=== PATIENT | male | born 1950 | race Caucasian/White ===

== ENCOUNTER 2016-05-31 11:23 | Inpatient (IN) | payer OTHER, MEDICARE ==
[2016-05-31] VITALS (10 sets, daily range): BP systolic 101–192; BP diastolic 52–81; PULSE 64–82; RESP 16–22; TEMP 97–98.9; O2SAT 85–100
[~2016-05-31] VITALS: Ht 180.3 cm; Wt 75.9 kg
[~2016-05-31 11:23] MED LIST: ALBU0.086 INH; ALBU6.7H INH; ALPR.25 PO; APIX5 PO; BUSP10 PO; DIGO0.12 PO; DILTCD180 PO; DUONI NEB; GABA300 PO; GLUCTAB PO; IPRAAER INH; LISI10 PO; NOVOLOGSS SQ; PRAV40TA2 PO; PRED5TAB PO; SM A81CH PO; SPIRCAP INH; SYMB160A INH; Z.0.OXYGENDME NC
[2016-05-31] MEDS ORDERED: SODIUM CHLOR 0.9% 1000 ML INJ 1,000 ML IV SCH (11:37)
[2016-05-31] MEDS: RESP: ALBUTEROL 2.5 MG/3 ML NEB (SCH) INH ×2 (12:03→12:04)
[2016-05-31 12:14] LABS: BASOPHIL # 0.1 TH/MM3 (0-0.2); BASOPHIL % 0.9 % (0.0-2.0); EOSINOPHIL # 0.1 TH/MM3 (0-0.4); EOSINOPHIL % 0.8 % (0.0-4.0); HEMATOCRIT 38.2 % (39.0-51.0); LYMPH % 8.5 % (9.0-44.0); LYMPHOCYTE # 0.9 TH/MM3 (1.0-4.8); MEAN CELL VOLUME 69.1 FL (80.0-100.0); MEAN CORPUSCULAR HEMOGLOBIN 22.2 PG (27.0-34.0); MEAN CORPUSCULAR HGB CONC 32.2 % (32.0-36.0); MONO % 7.7 % (0.0-8.0); NEUT % 82.1 % (16.0-70.0); PLATELET COUNT 406 TH/MM3 (150-450); RED BLOOD COUNT 5.53 MIL/MM3 (4.50-5.90); RED CELL DISTRIBUTION WIDTH 19.1 % (11.6-17.2); WHITE BLOOD COUNT 10.9 TH/MM3 (4.0-11.0)
[2016-05-31 12:17] LABS: HEMO FLAGS AUTO DIFF
[2016-05-31] MEDS ORDERED: IPRAAER INH (12:20)
[2016-05-31] MEDS ORDERED: AMLO5TAB2 PO (12:20)
[2016-05-31] MEDS ORDERED: ALPR0.25 PO (12:20)
[2016-05-31] MEDS ORDERED: APIX5TAB PO (12:20)
[2016-05-31] MEDS ORDERED: ASPI1TAB91 PO (12:20)
[2016-05-31] MEDS ORDERED: SYMB80AE INH (12:20)
[2016-05-31] MEDS ORDERED: METF500T PO ×2 (12:20)
[2016-05-31] MEDS ORDERED: ESCI10TA PO (12:20)
[2016-05-31] MEDS ORDERED: GABA300C5 PO (12:20)
[2016-05-31] MEDS ORDERED: SINE25TA PO (12:20)
[2016-05-31] MEDS ORDERED: BUSP10TA PO (12:20)
[2016-05-31] MEDS ORDERED: PRAV40TA2 PO (12:20)
[2016-05-31] MEDS ORDERED: LISI-515 PO (12:20)
[2016-05-31 12:27] LABS: APTT (PATIENT) 31.7 SEC (24.3-30.1); INTERNATIONAL NORMALIZED RATIO 1.1 RATIO; PROTHROMBIN TIME - PATIENT 12.7 SEC (9.8-11.6)
[2016-05-31 12:30] LABS: ANION GAP 6 MEQ/L (5-15); AST (GOT) 6 U/L (15-37); BICARBONATE 28.7 MEQ/L (21.0-32.0); BLOOD UREA NITROGEN 10 MG/DL (7-18); CHLORIDE 105 MEQ/L (98-107); GLOMERULAR FILTRATION RATE 73 ML/MIN (>89); MAGNESIUM 2.1 MG/DL (1.5-2.5); POTASSIUM 3.8 MEQ/L (3.5-5.1); SODIUM (NA) 140 MEQ/L (136-145)
--- NOTE | 2016-05-31 12:35 | PD ---
HPI Chief Complaint: Dizziness Time Seen by Provider: 12:30 Travel History International Travel<30 days: No Contact w/Intl Traveler<30days: No Traveled to known affect area: No History of Present Illness HPI 65-year-old male that presents to the ED for evaluation of generalized weakness and fall. Patient states that for the past 3 weeks she's been feeling weak and tired and has lost his appetite. Per patient she's not really eaten much for the past 3 weeks. When asked why he is tells me that he just doesn't have an appetite doesn't radiate. He does tell me that he feels somewhat nauseous but hasn't vomited. No abdominal pain. No bowel movement issues. No chest pain. He does have a history of emphysema and continues to smoke and does state that he feels a little more short of breath than usual. He states that for the most part his been weak in his lost about 15 pounds of weight in the past 3 weeks. He has not seen anybody for this. He does take liquids. Per patient he has had 2 falls recently secondary to feeling dizzy and lightheaded as well as weak. Per patient he fell yesterday and landed on his right mid back where he has some pain. Per patient today he also had another fall but denies any injuries from it. Per patient he denies hitting his head or losing consciousness. He does take blood thinners including Eliquis. He denies any arm or leg pain. No numbness, tilling, weakness. Per patient the pain at this time is 4 out of 10 and is minimal. uses oxygen at home. PFSH Past Medical History Hx Anticoagulant Therapy: Yes Arthritis: No Asthma: Yes Autoimmune Disease: No Blood Disorders: No Anxiety: Yes Depression: Yes Heart Rhythm Problems: Yes (recent SVT? ) Cancer: Yes (FATHER LUNG CA) Cardiovascular Problems: Yes High Cholesterol: Yes Chemotherapy: No Chest Pain: No Congestive Heart Failure: No COPD: Yes Cerebrovascular Accident: Yes Diabetes: Yes Patient Takes Glucophage: Yes Diminished Hearing: No Endocrine: Yes Gastrointestinal Disorders: No GERD: No Genitourinary: No Headaches: No Hiatal Hernia: No Hypertension: Yes Immune Disorder: No Kidney Stones: No Musculoskeletal: No Neurologic: Yes (parkon) Psychiatric: Yes Reproductive: No Respiratory: Yes Migraines: No Radiation Therapy: No Renal Failure: No Seizures: No Sickle Cell Disease: No Sleep Apnea: No Thyroid Disease: No Ulcer: No Tetanus Vaccination: < 5 Years Past Surgical History Abdominal Surgery: No AICD: No Arteriovenous Shunt: No Cardiac Surgery: No Ear Surgery: No Endocrine Surgery: No Eye Surgery: No Genitourinary Surgery: No Gynecologic Surgery: No Insulin Pump: No Joint Replacement: No Oral Surgery: Yes (RIGHT SIDE SALIVARY GLAND ASPIRATION 2011--DENIES) Pacemaker: No Thoracic Surgery: No Other Surgery: Yes Social History Alcohol Use: No Tobacco Use: Yes Substance Use: No Allergies-Medications (Allergen,Severity, Reaction): Coded Allergies: No Known Allergies (Verified , 05/31/16) Reported Meds & Prescriptions Reported Meds & Active Scripts Active Reported Amlodipine (Amlodipine Besylate) 5 Mg Tab 5 Mg PO BID Lisinopril 20 Mg Tab 10 Mg PO DAILY Buspirone (Buspirone HCl) 10 Mg Tab 15 Mg PO BID Gabapentin 300 Mg Cap 300 Mg PO BID Pravastatin 40 Mg Tab 40 Mg PO DAILY Aspirin Adult Low Strength (Aspirin) 81 Mg Tabdr 81 Mg PO DAILY Metformin (Metformin HCl) 500 Mg Tab 250 Mg PO DAILY IN THE PM With a meal Metformin (Metformin HCl) 500 Mg Tab 500 Mg PO DAILY IN THE AM With a meal Eliquis (Apixaban) 5 Mg Tab 5 Mg PO BID Combivent Respimat Inh (Ipratropium-Albuterol Inh) 20-100 Residential/Act Aero 1 Puff INH QID Sinemet (Carbidopa-Levodopa) 25-100 Mg Tab 1.5 Tab PO TID Symbicort Inh (Budesonide/Formoterol Fumarate) 80-4.5 Mcg/Act Aero 2 Puff INH BID Escitalopram (Escitalopram Oxalate) 10 Mg Tab 10 Mg PO DAILY Alprazolam 0.25 Mg Tab 0.25 Mg PO Q8H PRN Review of Systems General / Constitutional: Positive: Weight Loss, No: Fever, Chills, Weight Gain, Other Eyes: No: Diploplia, Blurred Vision, Photophobia, Drainage, Redness, Foreign Body Sensation, Pain, Tearing, Blind Spots, Visual changes, Blindness, Other HENT: Positive: Lightheadedness, No: Headaches, Vertigo, Sore Throat, Rhinitis , Rhinorrhea, Congestion, Nosebleed, Neck Stiffness, Neck Pain, Masses, Gingival Bleeding, Dental Difficulties, Ear Discharge, Earache, Other Cardiovascular: No: Chest Pain or Discomfort, Palpitations, Irregular Rhythm, Tachycardia, Diaphoresis, Syncope, Dyspnea on exertion, Varicosities, Edema, Cyanosis, Varicosities, Phlebitis, Claudication, Other Respiratory: Positive: Shortness of Breath, Wheezing, No: Cough, Sneezing, Orthopnea, Hemoptysis, Stridor, Night Sweats, Pleuritic Pain, Other Gastrointestinal: Positive: Loss of Appetite, No: Nausea, Vomiting, Diarrhea, Abdominal Pain, Hematemesis, Hematochezia, Constipation, Changes in Bowel Habits , Indigestion, Dysphagia, Other Genitourinary: No: Urgency, Frequency, Dysuria, Nocturia, Hematuria, Decreased Urinary Output, Oliguria, Hesitancy, Dribbling, Incontinence, Pelvic Pain, Flank Pain, Dyspareunia, Discharge, Dysmenorrhea, Menorrhagia, Metorrhagia, Vaginal Bleeding, Other Musculoskeletal: Positive: Pain, No: Myalgias, Arthralgias, Limited ROM, Weakness, Cramping, Edema, Atrophy, Other Skin: No Rash, No Itching, No Dryness, No Lumps, No Hives, No Change in Pigmentation, No Change in nails, No Alopecia, No Lesions, No Breast Lumps, No Breast Tenderness, No Breast Swelling, No Other Neurologic: Positive: Weakness, Dizziness, No: Syncope, Focal Abnormalities, Coordination Problem, Tremor, Ataxia, Headache, Change in Mentation, Slurred Speech, Paresthesia, Incontinence, Seizures, Sensory Disturbance, Other Psychiatric: No: Anxiety, Depression, Suicidal Ideations, Disorder of Thought, Mood Disorder, Substance Abuse, Homicidal Ideation, Other Endocrine: No: Heat Intolerance, Cold Intolerance, Polyuria, Polydipsia, Other Hematologic/Lymphatic: No: Easy Bruising, Lymph Node Enlargement, Other Physical Exam Narrative GENERAL: SKIN: Warm and dry. HEAD: Atraumatic. Normocephalic. EYES: Pupils equal and round 4 mm reactive to light and accommodation. No scleral icterus. No injection or drainage. ENT: No nasal bleeding or discharge. Mucous membranes pink and moist. Tongue is midline. No uvula deviation. NECK: Trachea midline. No JVD. CARDIOVASCULAR: Regular rate and rhythm. No murmurs, S3, S4. RESPIRATORY: No accessory muscle use. Clear to auscultation. Breath sounds equal bilaterally. GASTROINTESTINAL: Abdomen soft, non-tender, nondistended. Hepatic and splenic margins not palpable. MUSCULOSKELETAL: Extremities without clubbing, cyanosis, or edema. No obvious deformities. Full range of motion of the upper and lower extremities bilaterally. 2+ pulses bilaterally. NEUROLOGICAL: Awake and alert. No obvious cranial nerve deficits. Motor grossly within normal limits. Five out of 5 muscle strength in the arms and legs. Normal speech. PSYCHIATRIC: Appropriate mood and affect; insight and judgment normal. Data Data Last Documented VS Vital Signs Date Time Temp Pulse Resp B/P Pulse Ox O2 Delivery O2 Flow Rate FiO2 05/31/16 12:48 66 16 192/81 92 Nasal Cannula 4 05/31/16 11:29 98.7 Orders Electrocardiogram (05/31/16 11:34) Complete Blood Count With Diff (05/31/16 11:34) Comprehensive Metabolic Panel (05/31/16 11:34) Prothrombin Time / Inr (Pt) (05/31/16 11:34) Act Partial Throm Time (Ptt) (05/31/16 11:34) Blood Culture (05/31/16 11:34) Lipase (05/31/16 11:34) Urinalysis - C+S If Indicated (05/31/16 11:34) Magnesium (Mg) (05/31/16 11:34) Chest, Single Ap (05/31/16 11:34) Ct Brain W/O Iv Contrast(Rout) (05/31/16 11:34) Iv Access Insert/Monitor (05/31/16 11:34) Ecg Monitoring (05/31/16 11:34) Oximetry (05/31/16 11:34) Orthostatic Vital Signs (05/31/16 11:34) Ct Cerv Spine W/O Contrast (05/31/16 ) Creatine Kinase (Cpk) (05/31/16 11:34) Sodium Chlor 0.9% 1000 Ml Inj (Ns 1000 M (05/31/16 11:37) Ct Thorax/ Chest W Iv Contrast (05/31/16 ) Ct Abd/Pel W Iv Contrast(Rout) (05/31/16 ) Troponin I (05/31/16 11:39) Ckmb (Isoenzyme) Profile (05/31/16 11:39) Thyroid Stimulating Hormone (05/31/16 11:39) Albuterol Neb (Albuterol Neb) (05/31/16 11:45) Iohexol 350 Inj (Omnipaque 350 Inj) (05/31/16 13:10) Cath For Specimen (05/31/16 13:49) Remove Cervical Collar (05/31/16 13:54) Ceftriaxone Inj (Rocephin Inj) (05/31/16 14:15) Azithromycin Inj (Zithromax Inj) (05/31/16 14:15) Arterial Blood Gas (Abg) (05/31/16 ) Hydralazine Inj (Apresoline Inj) (05/31/16 14:45) Admit Order (Ed Use Only) (05/31/16 14:37) Labs Laboratory Tests Test 05/31/16 11:45 White Blood Count 10.9 TH/MM3 Red Blood Count 5.53 MIL/MM3 Hemoglobin 12.3 GM/DL Hematocrit 38.2 % Mean Corpuscular Volume 69.1 FL Mean Corpuscular Hemoglobin 22.2 PG Mean Corpuscular Hemoglobin 32.2 % Concent Red Cell Distribution Width 19.1 % Platelet Count 406 TH/MM3 Mean Platelet Volume 8.4 FL Neutrophils (%) (Auto) 82.1 % Lymphocytes (%) (Auto) 8.5 % Monocytes (%) (Auto) 7.7 % Eosinophils (%) (Auto) 0.8 % Basophils (%) (Auto) 0.9 % Neutrophils # (Auto) 9.0 TH/MM3 Lymphocytes # (Auto) 0.9 TH/MM3 Monocytes # (Auto) 0.8 TH/MM3 Eosinophils # (Auto) 0.1 TH/MM3 Basophils # (Auto) 0.1 TH/MM3 CBC Comment AUTO DIFF Differential Total Cells 100 Counted Neutrophils % (Manual) 83 % Lymphocytes % 11 % Monocytes % 4 % Eosinophils % 1 % Neutrophils # (Manual) 9.2 TH/MM3 Myelocytes 1 % Differential Comment FINAL DIFF MANUAL Platelet Estimate NORMAL Platelet Morphology Comment ENLARGED Prothrombin Time 12.7 SEC Prothromb Time International 1.1 RATIO Ratio Activated Partial 31.7 SEC Thromboplast Time Sodium Level 140 MEQ/L Potassium Level 3.8 MEQ/L Chloride Level 105 MEQ/L Carbon Dioxide Level 28.7 MEQ/L Anion Gap 6 MEQ/L Blood Urea Nitrogen 10 MG/DL Creatinine 1.02 MG/DL Estimat Glomerular Filtration 73 ML/MIN Rate Random Glucose 159 MG/DL Calcium Level 9.0 MG/DL Magnesium Level 2.1 MG/DL Total Bilirubin 0.8 MG/DL Aspartate Amino Transf 6 U/L (AST/SGOT) Alanine Aminotransferase 7 U/L (ALT/SGPT) Alkaline Phosphatase 66 U/L Total Creatine Kinase 22 U/L Troponin I LESS THAN 0.02 NG/ML Total Protein 7.4 GM/DL Albumin 3.8 GM/DL Lipase 61 U/L Thyroid Stimulating Hormone 1.020 uIU/ML [address] [place] [address] Medical Decision Making Medical Screen Exam Complete: Yes Emergency Medical Condition: Yes Medical Record Reviewed: Yes Interpretation(s) EKG shows sinus rhythm with no sign of acute ischemia or arrhythmia read by me and attending. RBBB noted. CBC & BMP Diagram 05/31/16 11:45 LFTs and lipase within normal limits. TSH within normal limits. PT and PTT slightly elevated. Troponin and CK-MB negative. Last Impressions Head CT 05/31/16 1134 Signed Impressions: Service Date/Time: May 13:02 - CONCLUSION: Stable noncontrast head CT. No acute intracranial abnormality is identified. Ronald Anderson MD Chest X-Ray 05/31/16 1134 Signed Impressions: Service Date/Time: May 11:46 - CONCLUSION: No acute cardiopulmonary abnormality is identified. Ronald Anderson MD Cervical Spine CT 05/31/16 0000 Signed Impressions: Service Date/Time: May 13:02 - CONCLUSION: Moderate severe degenerative changes at the C6-7 level more prominent on the right than on the left. No evidence of compression deformity or spondylolisthesis. Ruddy Azevedo MD CT of the thorax showed ascending aortic aneurysm but no sign of rupture, possible inflammatory process versus infectious process on the left lung. Otherwise unremarkable. 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 Differential Diagnosis Generalized weakness versus rhabdomyolysis versus electrolyte abnormality versus loss of appetite versus cancer versus mass versus hypoxia versus sepsis versus syncope versus fall versus fracture Narrative Course 65-year-old male that presents to the ED for evaluation of generalized weakness and fall. Patient was properly examined and was found to have signs and symptoms consistent appears to be generalized weakness with fall. Concern for mass secondary to recent loss of weight as well as generalized weakness. Patient had presyncopal episode today. Denies any chest pain but does state having some worsening shortness of breath secondary to his COPD and continued smoking. At this time my attending evaluated the patient with me and recommends workup and likely admission. Patient had CT of the thorax as well as the abdomen to look for mass secondary to his loss of weight and concern for cancer secondary to smoking history. Labs and imaging were essentially unremarkable other than for possible infectious etiology on the left lung as well as aneurysm on the ascending hour as well as on the left iliac artery. Troponin and EKG were essentially unremarkable. Case was discussed in my attending Dr. Snider who agrees to admission for the presyncope and generalized weakness. Further questioning of the patient in a pierced the patient has been dizzy and having presyncopal episodes. Patient is also hypoxic. Patient was started on antibiotics and ceftriaxone and azithromycin. She recommends speaking with vascular surgery for the aneurysm. Case was discussed with Dr. Blackmon from cardiothoracic surgery who recommends outpatient follow-up as he is getting close to the necessary measurement for surgery. At this time he only recommends aggressive blood pressure treatment. He does not recommend surgery at this time. I spoke with Dr. Jose who agrees to admission. Procedures EKG Prior to Arrival: No Diagnosis Primary Impression: Pre-syncope Additional Impressions: COPD (chronic obstructive pulmonary disease) Qualified Code: J43.9 - Pulmonary emphysema, unspecified emphysema type Dizziness Admitting Information Admitting Physician Requests: Observation Geovani Thomas May 31, 2016 12:34
--- NOTE | 2016-05-31 12:43 | RADRPT ---
EXAM DATE/TIME: 05/31/2016 11:46 [facility] COMPARISON: CHEST SINGLE AP, January 12, 2016, 13:42. INDICATIONS : Short of breath. MEDICAL HISTORY : None. Hypertension. Chronic obstructive pulmonary disease. Diabetes mellitus type SURGICAL HISTORY : None. ENCOUNTER: Initial ACUITY: 1 day PAIN SCORE: 1/10 LOCATION: Bilateral chest FINDINGS: Portable AP view of the chest demonstrates a normal-sized cardiac silhouette. No effusion, consolidat ion, or pneumothorax is visualized. The bones and soft tissues demonstrate no acute abnormality. CONCLUSION: No acute cardiopulmonary abnormality is identified. Ronald Anderson MD on May 31, 2016 at 12:41 Board Certified Radiologist. This report was verified electronically.
[2016-05-31 12:46] LABS: CREATINE KINASE 22 U/L (39-308)
[2016-05-31 12:48] LABS: EOSINOPHILS 1 % (0-4); MYELOCYTES 1 % (0-0); NEUTROPHIL # MANUAL DIFF 9.2 TH/MM3 (1.8-7.7); PLATELET ESTIMATE SMEAR NORMAL (NORMAL); PLATELET MORPHOLOGY ENLARGED (NORMAL); POLYS (SEG NEUTROPHILS) 83 % (16-70); WBC DIFF SAMPLE 100
[2016-05-31 12:49] LABS: SCAN/DIFF FINAL DIFF MANUAL
[2016-05-31 12:54] LABS: ALKALINE PHOSPHATASE 66 U/L (45-117); ALT (GPT) 7 U/L (12-78); TOTAL BILIRUBIN ADULT 0.8 MG/DL (0.2-1.0)
--- NOTE | 2016-05-31 13:05 | PD ---
Physical Exam Date Seen by Provider: May 31, 2016 Time Seen by Provider: 13:00 Narrative 65-year-old male came to the emergency room with history of shortness of breath , dizziness and fall. Patient says that he has history of emphysema and still smokes. He is dependent on 2 L of oxygen via nasal cannula. In addition he has been dizzy and lightheaded for past 2 weeks. He has had decrease in appetite and probably lost 15 pounds during the past 2 weeks. Today he fell during one of his dizzy spells. He lives with his at his home and his called 911. Patient was brought in boarded and collared by EMS due to the fall. He is not complaining of any pain related to the fall. However his oxygen saturation was in the low 80s when he was transferred from the [facility] to the [facility] and the oxygen cannula was switched. Very slowly the oxygen saturation came up to low 90s. He was seen by the PA and I'm supervising him. Patient is on blood thinners at home. He looks much older than his stated age. Appears to be in moderate distress and using accessory muscles of respiration. No history of fever or chills. Patient denies any worsening of cough, sputum production or hemoptysis. Blood test results of back and they're within normal limits. After discussing the case with him I recommended to order cardiac enzymes and TSH along with the routine blood work. CT scan of his head and C-spine was ordered from trauma perspective and dizziness. I also recommended to order CT spine of thorax and abdomen and pelvis with contrast since I'm highly suspicious for malignancy. Awaiting for the CAT scan to be done and resulted. Patient will require admission. I was told by the nurse that the nasal cannula had to be dilated up to 4 L since he was saturating in 80s on 2 L. On 4 L of oxygen he has been saturating 92%. Patient was also given bronchodilators. Data Data Last Documented VS Orders Electrocardiogram (05/31/16 11:34) Complete Blood Count With Diff (05/31/16 11:34) Comprehensive Metabolic Panel (05/31/16 11:34) Prothrombin Time / Inr (Pt) (05/31/16 11:34) Act Partial Throm Time (Ptt) (05/31/16 11:34) Blood Culture (05/31/16 11:34) Lipase (05/31/16 11:34) Urinalysis - C+S If Indicated (05/31/16 11:34) Magnesium (Mg) (05/31/16 11:34) Chest, Single Ap (05/31/16 11:34) Ct Brain W/O Iv Contrast(Rout) (05/31/16 11:34) Iv Access Insert/Monitor (05/31/16 11:34) Ecg Monitoring (05/31/16 11:34) Oximetry (05/31/16 11:34) Orthostatic Vital Signs (05/31/16 11:34) Ct Cerv Spine W/O Contrast (05/31/16 ) Creatine Kinase (Cpk) (05/31/16 11:34) Sodium Chlor 0.9% 1000 Ml Inj (Ns 1000 M (05/31/16 11:37) Ct Thorax/ Chest W Iv Contrast (05/31/16 ) Ct Abd/Pel W Iv Contrast(Rout) (05/31/16 ) Troponin I (05/31/16 11:39) Ckmb (Isoenzyme) Profile (05/31/16 11:39) Thyroid Stimulating Hormone (05/31/16 11:39) Albuterol Neb (Albuterol Neb) (05/31/16 11:45) Iohexol 350 Inj (Omnipaque 350 Inj) (05/31/16 13:10) Cath For Specimen (05/31/16 13:49) Remove Cervical Collar (05/31/16 13:54) Ceftriaxone Inj (Rocephin Inj) (05/31/16 14:15) Azithromycin Inj (Zithromax Inj) (05/31/16 14:15) Arterial Blood Gas (Abg) (05/31/16 ) Hydralazine Inj (Apresoline Inj) (05/31/16 15:15) Admit Order (Ed Use Only) (05/31/16 14:37) Labs MDM Supervised Visit with VIOLET: Yes Critical Care Narrative Aggregate critical care time was 45 minutes. Time to perform other separately billable procedures was not included in the critical care time. My time did not include minutes spent treating any other patients simultaneously or on activities that did not directly contribute to the patient's treatment. The services I provided to this patient were to treat and/or prevent clinically significant deterioration that could result in: Hypoxia, respiratory distress, management I provided critical care services requiring my management, as noted below: Chart data review, documentation time, medication orders and management, vital sign assessments/reviewing monitor data, ordering and reviewing lab tests, ordering and interpreting/reviewing x-rays and diagnostic studies, care of the patient and discussion of the patient with the admitting physicians. Scripts Diltiazem (Cardizem)30 Mg Tab30 Mg PO QID #120 TAB Ref 0 Prov:Ondina Eldridge MD 06/04/16 Lactobacillus Acidophilus (Lactinex)1 Chew1 Tab CHEW DAILY #15 TAB Ref 0 Prov:Ondina Eldridge MD 06/02/16 Cefuroxime (Ceftin)250 Mg Vij147 Mg PO BID #14 TAB Ref 0 Prov:Ondina Eldridge MD 06/02/16 Prednisone (21) 10 mg tab Dose Pack 10 Mg Pack10 Mg PO DIRECTED #1 DSPK Ref 0 Prov:Ondina Eldridge MD 06/02/16 Sonia Snider MD May 31, 2016 13:05 Monocytes (%) (Auto) 7.7 % Eosinophils (%) (Auto) 0.8 % Basophils (%) (Auto) 0.9 % Neutrophils # (Auto) 9.0 TH/MM3 Lymphocytes # (Auto) 0.9 TH/MM3 Monocytes # (Auto) 0.8 TH/MM3 Eosinophils # (Auto) 0.1 TH/MM3 Basophils # (Auto) 0.1 TH/MM3 CBC Comment AUTO DIFF Differential Total Cells 100 Counted Neutrophils % (Manual) 83 % Lymphocytes % 11 % Monocytes % 4 % Eosinophils % 1 % Neutrophils # (Manual) 9.2 TH/MM3 Myelocytes 1 % Differential Comment FINAL DIFF MANUAL Platelet Estimate NORMAL Platelet Morphology Comment ENLARGED Prothrombin Time 12.7 SEC Prothromb Time International 1.1 RATIO Ratio Activated Partial 31.7 SEC Thromboplast Time Sodium Level 140 MEQ/L Potassium Level 3.8 MEQ/L Chloride Level 105 MEQ/L Carbon Dioxide Level 28.7 MEQ/L Anion Gap 6 MEQ/L Blood Urea Nitrogen 10 MG/DL Creatinine 1.02 MG/DL Estimat Glomerular Filtration 73 ML/MIN Rate Random Glucose 159 MG/DL Calcium Level 9.0 MG/DL Magnesium Level 2.1 MG/DL Total Bilirubin 0.8 MG/DL Aspartate Amino Transf 6 U/L (AST/SGOT) Alanine Aminotransferase 7 U/L (ALT/SGPT) Alkaline Phosphatase 66 U/L Total Creatine Kinase 22 U/L Troponin I LESS THAN 0.02 NG/ML Total Protein 7.4 GM/DL Albumin 3.8 GM/DL Lipase 61 U/L Thyroid Stimulating Hormone 1.020 uIU/ML 3rd Gen Sonia Snider MD May 31, 2016 13:05
[2016-05-31] MEDS ORDERED: IOHEXOL 350 MG/ML 10 ML VIAL (for RAD DIAG) IV ONE (13:10)
--- NOTE | 2016-05-31 13:46 | RADRPT ---
EXAM DATE/TIME: 05/31/2016 13:02 [facility] COMPARISON: CT BRAIN W/O CONTRAST, January 12, 2016, 16:49. INDICATIONS : Fall out of wheelchair; weight loss and dizziness. RADIATION DOSE: 47.56 CTDIvol (mGy) MEDICAL HISTORY : Parkinson's. Cerebrovascular disease. Hypertension.COPD, Diabetes. SURGICAL HISTORY : None. ENCOUNTER: Initial ACUITY: 1 day PAIN SCALE: 4/10 LOCATION: cranial TECHNIQUE: Multiple contiguous axial images were obtained of the head. Using automated exposure control and adj ustment of the mA and/or kV according to patient size, radiation dose was kept as low as reasonably a chievable to obtain optimal diagnostic quality images. FINDINGS: CEREBRUM: There is mild cerebral atrophy. Ventricles are normal in size. There is stable encephalomalacia in th e left subinsular region. No evidence of midline shift, mass lesion, hemorrhage or acute infarction. No extra-axial fluid collections are seen. POSTERIOR FOSSA: The cerebellum and brainstem demonstrate no acute finding. The 4th ventricle is midline. The cerebe llopontine angle is unremarkable. EXTRACRANIAL: Visualized sinuses are clear. SKULL: The calvaria is intact. No evidence of skull fracture. CONCLUSION: Stable noncontrast head CT. No acute intracranial abnormality is identified. Ronald Anderson MD on May 31, 2016 at 13:42 Board Certified Radiologist. This report was verified electronically.
--- NOTE | 2016-05-31 13:51 | RADRPT ---
EXAM DATE/TIME: 05/31/2016 13:02 [facility] COMPARISON: No previous studies available for comparison. INDICATIONS : Fall out of wheelchair; weightloss and dizziness. RADIATION DOSE: 47.65 CTDIvol (mGy) MEDICAL HISTORY : Parkinson's. Cerebrovascular disease. Hypertension.COPD, Diabetes. SURGICAL HISTORY : None. ENCOUNTER: Initial ACUITY: 1 day PAIN SCALE: 4/10 LOCATION: neck TECHNIQUE: Volumetric scanning of the cervical spine was performed. Multiplanar reconstructions in the sagittal, coronal and oblique axial planes were performed. Using automated exposure control and adjustment o f the mA and/or kV according to patient size, radiation dose was kept as low as reasonably achievable to obtain optimal diagnostic quality images. FINDINGS: Examinations performed with the neck in a c-collar. A metallic necklace is unable to be removed and there is propagation streak artifact in the images from the necklace. There is normal alignment of the vertebral bodies of the cervical spine to level TI and preservation of vertebral body height. Prominent posterior osteophytes present at C6. There is moderate hypertro phy of the facet joints on the right side at C6-7. C1 and C2: No fracture seen C3: No fracture seen C4: No fracture seen C5: No fracture seen. C6: No fracture seen. Asymmetric prominent osteophyte on the right side at the C6 uncovertebral joint ca uses severe right-sided bony neural foraminal stenosis. C7: No fracture seen. CONCLUSION: Moderate severe degenerative changes at the C6-7 level more prominent on the right than on the left. No evidence of compression deformity or spondylolisthesis. Ruddy Azevedo MD on May 31, 2016 at 13:45 Board Certified Radiologist. This report was verified electronically.
--- NOTE | 2016-05-31 13:56 | RADRPT ---
EXAM DATE/TIME: 05/31/2016 13:09 [facility] COMPARISON: No previous studies available for comparison. INDICATIONS : Fall out of wheelchair; weight loss and dizziness. IV CONTRAST: 95 cc Omnipaque 350 (iohexol) IV ; Cumulative dose for multiple exams. RADIATION DOSE: 16.73 CTDIvol (mGy) ; Combined studies - Thorax/Abdomen/Pelvis MEDICAL HISTORY : Parkinson's. Cerebrovascular disease. Hypertension.COPD, Diabetes. SURGICAL HISTORY : None. ENCOUNTER: Initial ACUITY: 1 day PAIN SCALE: 2/10 LOCATION: chest TECHNIQUE: Volumetric scanning of the chest was performed. Using automated exposure control and adjustment of t he mA and/or kV according to patient size, radiation dose was kept as low as reasonably achievable to obtain optimal diagnostic quality images. FINDINGS: LUNGS: There is moderate severity centrilobular emphysema. In the left lower lobe in a subpleural location t here is mild focal airspace consolidation. There is dependent atelectasis in the right lower lobe. No pleural effusion or pneumothorax is visualized. PLEURA: There is no pleural thickening or pleural effusion. MEDIASTINUM: The heart and great vessels demonstrate no acute abnormality. There is coronary artery calcification and severe atherosclerotic disease of the aorta. The ascending aorta is aneurysmal measuring up to 4 .4 x 4.2 cm. The descending thoracic aorta measures up to 3 cm. There is no mediastinal or hilar lymp hadenopathy. AXILLAE: Within normal limits. No lymphadenopathy. SKELETAL: There are mild degenerative changes of the thoracic spine. No acute osseous abnormality is identified . MISCELLANEOUS: Please refer to abdomen and pelvis CT report for description of the subdiaphragmatic findings. CONCLUSION: 1. Moderate centrilobular emphysema with mild focal area of airspace consolidation within the left lo wer lobe. The appearance is nonspecific but infectious or inflammatory process could have this appear ance. Suggest followup imaging to confirm resolution. 2. Coronary artery calcification and severe atherosclerotic disease of the aorta. There is an ascendi ng aortic aneurysm measuring up to 4.4 x 4.2 cm. Ronald Anderson MD on May 31, 2016 at 13:49 Board Certified Radiologist. This report was verified electronically.
--- NOTE | 2016-05-31 14:05 | RADRPT ---
EXAM DATE/TIME: 05/31/2016 13:09 [facility] COMPARISON: No previous studies available for comparison. INDICATIONS : Fall out of wheelchair; weightloss and dizziness. IV CONTRAST: 95 cc Omnipaque 350 (iohexol) IV ; Cumulative dose for multiple exams. ORAL CONTRAST: No oral contrast ingested. RADIATION DOSE: 16.73 CTDIvol (mGy) ; Combined studies - Thorax/Abdomen/Pelvis MEDICAL HISTORY : Parkinson's. Cerebrovascular disease. Hypertension.COPD, Diabetes. SURGICAL HISTORY : None. ENCOUNTER: Initial ACUITY: 1 day PAIN SCALE: 2/10 LOCATION: Abdomen/pelvis TECHNIQUE: Volumetric scanning of the abdomen and pelvis was performed. Using automated exposure control and ad justment of the mA and/or kV according to patient size, radiation dose was kept as low as reasonably achievable to obtain optimal diagnostic quality images. FINDINGS: LOWER LUNGS: Please refer to chest CT report for description of the supradiaphragmatic findings. LIVER: Homogeneous density without lesion. There is no dilation of the biliary tree. No calcified gallston es. SPLEEN: Enlarged measuring 15.7 cm in length. There is no lesion. PANCREAS: Within normal limits. KIDNEYS: Normal in size and shape. There is no mass or hydronephrosis. There are least 6 nonobstructing stone s present within each kidney measuring up to 6 mm and the left kidney and 7 mm and the right kidney. ADRENAL GLANDS: There is a left adrenal gland mass measuring 13 mm. Hounsfield measurements are 38. Right adrenal gla nd is within normal limits. VASCULAR: There is severe atherosclerotic disease of the aorta and iliac arteries. The aorta is ectatic and yessenia sures up to 2.6 cm. The right common iliac artery is aneurysmal measuring up to 1.7 cm. BOWEL/MESENTERY: The stomach, small bowel, and colon demonstrate no acute abnormality. There is no free intraperitone al air or fluid. There is sigmoid diverticulosis. ABDOMINAL WALL: Within normal limits. RETROPERITONEUM: There is no lymphadenopathy. BLADDER: No wall thickening or mass. REPRODUCTIVE: Within normal limits. INGUINAL: There is no lymphadenopathy or hernia. MUSCULOSKELETAL: There are mild degenerative changes of the spine. No acute osseous abnormality is visualized. CONCLUSION: 1. No acute finding is identified within the abdomen or pelvis. 2. There is a 13 mm left adrenal gland mass. It does not meet criteria for an adenoma on this examina tion. Given the size a benign process is favored. Suggest correlation with prior imaging studies to d ocument longer term stability. If none are available consider followup and further characterization w ith adrenal protocol CT or MRI. This could be performed on an outpatient elective basis. 3. Nonacute findings include multiple bilateral nonobstructing renal stones, mild splenomegaly, sever e atherosclerotic disease, sigmoid diverticulosis, and right common iliac artery aneurysm measuring 1 .7 cm. Ronald Anderson MD on May 31, 2016 at 13:54 Board Certified Radiologist. This report was verified electronically.
[2016-05-31] MEDS ORDERED: AZITHROMYCIN INJ 500 MG in SODIUM CHLOR 0.9% 250 ML INJ 250 ML IV ONE (14:15)
[2016-05-31] MEDS ORDERED: cefTRIAXone INJ 1,000 MG in SODIUM CHLORIDE 0.9% INJ 100 ML IV ONE (14:15)
[2016-05-31 14:42] LABS: BLOOD GAS BASE EXCESS -0.1 mmol/L (-2-2); BLOOD GAS CARBOXYHEMOGLOBIN 5.8 % (0-4); BLOOD GAS HCO3 25 mmol/L (22-26); BLOOD GAS METHEMOGLOBIN 1.8 % (0-2); BLOOD GAS O2 HGB SATURATION 89 % (90-100); BLOOD GAS OXYGEN CONTENT 14.3 Vol % (12.0-20.0); BLOOD GAS PCO2 43 mmHg (38-42); BLOOD GAS PO2 91 mmHG (61-120); BLOOD GAS TOTAL HGB 11.2 G/DL (12.0-16.0); TEMP CORR TO 98.6
[2016-05-31 14:43] LABS: CRITICAL VALUE YES; DRAW SITE LT RADIAL; LITER FLOW 6 L/M; NUMBER OF ARTERIAL PUNCTURES 1; OXYGEN DEVICE NASAL CANNULA; STAT YES; ULNAR PULSE PRESENT
[2016-05-31] MEDS ORDERED: ONDANSETRON HCL 4 MG/2 ML VIAL IVP PRN (15:15)
[2016-05-31] MEDS ORDERED: SODIUM CHLORIDE 0.9% FLUSH 5 ML FLUSH FLUSH PRN (15:15)
[2016-05-31] MEDS ORDERED: PROCHLORPERAZINE 25 MG SUPP PR PRN (15:15)
[2016-05-31] MEDS ORDERED: BISACODYL 10 MG SUPP PR PRN (15:15)
[2016-05-31] MEDS ORDERED: hydrALAZINE HCL 20 MG/ML VIAL IV PUSH ONE (15:15)
[2016-05-31] MEDS ORDERED: ACETAMINOPHEN 325 MG TAB PO PRN (15:15)
[2016-05-31] MEDS ORDERED: TEMAZEPAM 15 MG CAP PO PRN (15:15)
--- NOTE | 2016-05-31 15:46 | HHI.HP ---
[facility] Service [facility] Primary Care Physician Non-Staff Admission Diagnosis pre-syncope, dizziness with standing, HTN Diagnoses: Chief Complaint: Dizziness, multiple falls Travel History International Travel<30 Days: No Contact w/Intl Traveler <30 Da: No Traveled to Known Affected Are: No History of Present Illness Patient is a 65-year-old white male with primary medical history Parkinson's disease, COPD, hypertension, DM 2 who came in to the hospital for evaluation of general weakness, and falls. Patient states that for the past 3 weeks he is feeling weak and tired and has lost his appetite. He has not eaten or drinking much in the past 3 weeks. He also states that he has lost some weight about 15 pounds in the past 3 weeks. He states that he has fallen yesterday and today. Feels that he has pain on his right flank area towards his back, 6/10, dull achy , aggravated by movement, requesting for pain medication. He denies hitting his head or losing consciousness. Patient takes blood thinner Eliquis, does not exactly know what he is taking the medications but reports that he was diagnosed with rapid heart rate in the 160s to 200s, a few months ago. Denies any blood clots. Patient also stated that he was diagnosed with Parkinson's disease about 2 months ago by neurology and started on medication carbidopa/levodopa that he takes 3 times a day. Prior to taking the medication he has been having problems and trouble with walking, uses walker when he ambulates outside of his home. When he started falling yesterday he felt that he was dizzy prior to falling but was concerned about it that he felt twice that he went to the hospital for evaluation. He states that his BP is well-controlled because he takes blood pressure medications. She knows that he has COPD, emphysema but continues to smoke cigarettes on and off. States that every time she has a cigarette early in the morning it makes him dizzy. But due to some circumstances he is unable to totally quit smoking. Otherwise patient, denies SOB/ dyspnea on 2 L nasal cannula. Denies chest pain, palpitations, headaches, dizziness. Denies fevers, chills, n/v/d. Chest CT showed moderate centrilobular emphysema with mild focal area of airspace consolidation within the left lower lobe. The appearance is nonspecific but infectious or inflammatory processes could have this appearance. Suggest follow-up imaging to confirm resolution. Coronary artery calcification and severe atherosclerotic disease of the aorta. There is an ascending aortic aneurysm measuring up to 4.[address] of the cervical spine showed moderate severe degenerative changes at the C6 to 7 level more prominent on the right than on the left. No evidence of compression deformity or spondylolisthesis. CT of the abdomen and pelvis showed no acute findings is identified within the abdomen or pelvis. There is a 13 mm left adrenal gland mass. It does not make criteria for adenoma on this examination. Given the size of a benign process is favored. Suggest correlation with prior imaging studies to document longer- term stability. If not better available consider follow-up and further characterization with adrenal protocol CT or MRI. This could be performed as an outpatient elective basis. 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 showed stable noncontrast head CT. No acute intracranial abnormality is identified. Chest x-ray showed no acute or new pulmonary abnormality is identified. Labs reviewed. CBC showed mild microcytic anemia hemoglobin 12.3, 38.2, MCV 69.1, MCH 22.2, ABG showed O2 saturation of 89, pH 7.37, PCO2 43, on 6 L nasal cannula. CMP EGFR 73, random glucose 159, low AST at 6, low ALP at 7. Total CK 22. First troponin less than 0.02. Review of Systems Except as stated in HPI: all other systems reviewed are Neg Past Family Social History Past Medical History Parkinson's disease COPD Emphysema DM 2 HTN Neuropathy HLD Questionable A. fib, SVT Depression Anxiety Past Surgical History None Reported Medications Amlodipine (Amlodipine Besylate) 5 Mg Tab 5 Mg PO BID Lisinopril 20 Mg Tab 10 Mg PO DAILY Buspirone (Buspirone HCl) 10 Mg Tab 15 Mg PO BID Gabapentin 300 Mg Cap 300 Mg PO BID Pravastatin 40 Mg Tab 40 Mg PO DAILY Aspirin Adult Low Strength (Aspirin) 81 Mg Tabdr 81 Mg PO DAILY Metformin (Metformin HCl) 500 Mg Tab 250 Mg PO DAILY IN THE PM With a meal Metformin (Metformin HCl) 500 Mg Tab 500 Mg PO DAILY IN THE AM With a meal Eliquis (Apixaban) 5 Mg Tab 5 Mg PO BID Combivent Respimat Inh (Ipratropium-Albuterol Inh) 20-100 Half-Way/Act Aero 1 Puff INH QID Sinemet (Carbidopa-Levodopa) 25-100 Mg Tab 1.5 Tab PO TID Symbicort Inh (Budesonide/Formoterol Fumarate) 80-4.5 Mcg/Act Aero 2 Puff INH BID Escitalopram (Escitalopram Oxalate) 10 Mg Tab 10 Mg PO DAILY Alprazolam 0.25 Mg Tab 0.25 Mg PO Q8H PRN Allergies: Coded Allergies: No Known Allergies (Verified , 05/31/16) Active Ordered Medications Current Medications Medications (Trade) Dose Ordered Sig/Amberly Route Start Time Stop Time Status Last Admin (Zithromax Inj/ NS 250 ml Inj) 250 ml @ 250 mls/hr ONCE ONCE IV 05/31/16 14:15 05/31/16 15:14 (Apresoline Inj) 20 mg ONCE ONCE IV PUSH 05/31/16 14:45 05/31/16 14:46 UNV Family History Mother has heart disease, unknown specifics Father have lung cancer in his late 80s Social History Patient lives with his . 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 SKIN: Pale. No rashes, ecchymoses or lesions. Cool and dry. HEAD: Atraumatic. Normocephalic. No temporal or scalp tenderness. EYES: Pupils equal round and reactive. Extraocular motions intact. No scleral icterus. No injection or drainage. ENT: Nose without bleeding. Throat without erythema. Uvula midline. Airway patent. NECK: Trachea midline. No JVD or lymphadenopathy. Supple, nontender, no meningeal signs. CARDIOVASCULAR: Regular rate and rhythm without murmurs, gallops, or rubs. RESPIRATORY: Expiratory wheeze, decreased breath sounds. Barrel chested. On nasal cannula. GASTROINTESTINAL: Abdomen soft, non-tender, nondistended. No hepato-splenomegaly , or palpable masses. No guarding. MUSCULOSKELETAL: Extremities without clubbing, cyanosis, or edema. No calf tenderness. Negative Homans sign bilaterally. Right flank area going to the back positive tenderness. NEUROLOGICAL: Awake and alert. Nuchal rigidity. Positive tremors bilateral upper extremity. Motor and sensory grossly within normal limits. Normal speech. Laboratory Laboratory Tests Test 05/31/16 05/31/16 11:45 14:32 White Blood Count 10.9 Red Blood Count 5.53 Hemoglobin 12.3 Hematocrit 38.2 Mean Corpuscular Volume 69.1 Mean Corpuscular Hemoglobin 22.2 Mean Corpuscular Hemoglobin 32.2 Concent Red Cell Distribution Width 19.1 Platelet Count 406 Mean Platelet Volume 8.4 Neutrophils (%) (Auto) 82.1 Lymphocytes (%) (Auto) 8.5 Monocytes (%) (Auto) 7.7 Eosinophils (%) (Auto) 0.8 Basophils (%) (Auto) 0.9 Neutrophils # (Auto) 9.0 Lymphocytes # (Auto) 0.9 Monocytes # (Auto) 0.8 Eosinophils # (Auto) 0.1 Basophils # (Auto) 0.1 CBC Comment AUTO DIFF Differential Total Cells 100 Counted Neutrophils % (Manual) 83 Lymphocytes % 11 Monocytes % 4 Eosinophils % 1 Neutrophils # (Manual) 9.2 Myelocytes 1 Differential Comment FINAL DIFF MANUAL Platelet Estimate NORMAL Platelet Morphology Comment ENLARGED Prothrombin Time 12.7 Prothromb Time International 1.1 Ratio Activated Partial 31.7 Thromboplast Time Sodium Level 140 Potassium Level 3.8 Chloride Level 105 Carbon Dioxide Level 28.7 Anion Gap 6 Blood Urea Nitrogen 10 Creatinine 1.02 Estimat Glomerular Filtration 73 Rate Random Glucose 159 Calcium Level 9.0 Magnesium Level 2.1 Total Bilirubin 0.8 Aspartate Amino Transf 6 (AST/SGOT) Alanine Aminotransferase 7 (ALT/SGPT) Alkaline Phosphatase 66 Total Creatine Kinase 22 Troponin I LESS THAN 0.02 Total Protein 7.4 Albumin 3.8 Lipase 61 Thyroid Stimulating Hormone 1.020 3rd Gen Blood Gas Puncture Site LT RADIAL Blood Gas Patient Temperature 98.6 Blood Gas HCO3 25 Blood Gas Base Excess -0.1 Blood Gas Oxygen Saturation 89 Arterial Blood pH 7.37 Arterial Blood Partial 43 Pressure CO2 Arterial Blood Partial 91 Pressure O2 Arterial Blood Oxygen Content 14.3 Arterial Blood 5.8 Carboxyhemoglobin Arterial Blood Methemoglobin 1.8 Blood Gas Hemoglobin 11.2 Oxygen Delivery Device NASAL CANNULA Blood Gas Liter Flow 6 Date/Time Procedure Status Source Growth 05/31/16 11:50 Aerobic Blood Culture Received Blood Peripheral Pending 05/31/16 11:50 Anaerobic Blood Culture Received Blood Peripheral Pending Result Diagram: 05/31/16 1145 05/31/16 1145 Imaging Last Impressions Head CT 05/31/16 1134 Signed Impressions: Service Date/Time: May 13:02 - CONCLUSION: Stable noncontrast head CT. No acute intracranial abnormality is identified. Ronald Anderson MD Chest X-Ray 05/31/16 1134 Signed Impressions: Service Date/Time: May 11:46 - CONCLUSION: No acute cardiopulmonary abnormality is identified. Ronald Anderson MD Chest CT 05/31/16 0000 Signed Impressions: Service Date/Time: May 13:09 - CONCLUSION: 1. Moderate centrilobular emphysema with mild focal area of airspace consolidation within the left lower lobe. The appearance is nonspecific but infectious or inflammatory process could have this appearance. Suggest followup imaging to confirm resolution. 2. Coronary artery calcification and severe atherosclerotic disease of the aorta. There is an ascending aortic aneurysm measuring up to 4.4 x 4.2 cm. Ronald Anderson MD Cervical Spine CT 05/31/16 0000 Signed Impressions: Service Date/Time: May 13:02 - CONCLUSION: Moderate severe degenerative changes at the C6-7 level more prominent on the right than on the left. No evidence of compression deformity or spondylolisthesis. Ruddy Azevedo MD Abdomen/Pelvis CT 05/31/16 0000 Signed Impressions: Service Date/Time: May 13:09 - CONCLUSION: 1. No acute finding is identified within the abdomen or pelvis. 2. There is a 13 mm left adrenal gland mass. It does not meet criteria for an adenoma on this examination. Given the size a benign process is favored. Suggest correlation with prior imaging studies to document longer term stability. If none are available consider followup and further characterization with adrenal protocol CT or MRI. This could be performed on an outpatient elective basis. 3. 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 Ronald Anderson MD Assessment and Plan Problem List: (1) COPD (chronic obstructive pulmonary disease) ICD Code: J44.9 Status: Chronic (2) Dizziness ICD Code: R42 Status: Acute (3) Tobacco abuse ICD Code: Z72.0 Status: Chronic (4) Acute hypoxemic respiratory failure ICD Code: J96.01 Status: Acute (5) Atrial fibrillation ICD Code: I48.91 Status: Acute (6) Carboxyhemoglobinemia ICD Code: T58.91XA Status: Acute (7) HTN (hypertension) ICD Code: I10 Status: Acute (8) Pre-syncope ICD Code: R55 Status: Acute (9) PNA (pneumonia) ICD Code: J18.9 Status: Acute (10) DM2 (diabetes mellitus, type 2) ICD Code: E11.9 Status: Acute (11) Parkinson disease ICD Code: G20 Status: Acute Assessment and Plan Patient is a 65-year-old white male with primary medical history Parkinson's disease, COPD, hypertension, DM 2 who came in to the hospital for evaluation of general weakness, and falls. Patient states that for the past 3 weeks he is feeling weak and tired and has lost his appetite. He has not eaten or drinking much in the past 3 weeks. He also states that he has lost some weight about 15 pounds in the past 3 weeks. He states that he has fallen yesterday and today. Feels that he has pain on his right flank area towards his back, 6/10, dull achy , aggravated by movement, requesting for pain medication. He denies hitting his head or losing consciousness. Patient takes blood thinner Eliquis, does not exactly know what he is taking the medications but reports that he was diagnosed with rapid heart rate in the 160s to 200s, a few months ago. Denies any blood clots. *Chest CT showed moderate centrilobular emphysema with mild focal area of airspace consolidation within the left lower lobe. The appearance is nonspecific but infectious or inflammatory processes could have this appearance. Suggest follow-up imaging to confirm resolution. Coronary artery calcification and severe atherosclerotic disease of the aorta. There is an ascending aortic aneurysm measuring up to 4.4 x 4.2 cm. *CT of the cervical spine showed moderate severe degenerative changes at the C6 to 7 level more prominent on the right than on the left. No evidence of compression deformity or spondylolisthesis. *CT of the abdomen and pelvis showed no acute findings is identified within the abdomen or pelvis. There is a 13 mm left adrenal gland mass. It does not make criteria for adenoma on this examination. Given the size of a benign process is favored. Suggest correlation with prior imaging studies to document longer- term stability. If not better available consider follow-up and further characterization with adrenal protocol CT or MRI. This could be performed as an outpatient elective basis. 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 *Head CT showed stable noncontrast head CT. No acute intracranial abnormality is identified. *Chest x-ray showed no acute or new pulmonary abnormality is identified. Acute Respiratory failure Hypoxemia COPD with exacerbation Pneumonia - Chest CT showed moderate centrilobular emphysema with mild focal area of airspace consolidation within the left lower lobe. The appearance is nonspecific but infectious or inflammatory processes could have this appearance. Suggest follow-up imaging to confirm resolution. Coronary artery calcification and severe atherosclerotic disease of the aorta. There is an ascending aortic aneurysm measuring up to 4.4 x 4.2 cm. - Chest x-ray showed no acute or new pulmonary abnormality is identified. - Patient was given IV antibiotics in the ED, ceftriaxone, azithromycin. Continue with IV antibiotics. - DuoNeb's scheduled and when necessary - Continue with nasal cannula use O2 2-3 L, patient uses home O2 - Solu-Medrol IV Aortic aneurysm HTN - CT of the abdomen and pelvis showed no acute findings is identified within the abdomen or pelvis. There is a 13 mm left adrenal gland mass. It does not make criteria for adenoma on this examination. Given the size of a benign process is favored. Suggest correlation with prior imaging studies to document longer-term stability. If not better available consider follow-up and further characterization with adrenal protocol CT or MRI. This could be performed as an outpatient elective basis. 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 - Chest CT showed moderate centrilobular emphysema with mild focal area of airspace consolidation within the left lower lobe. The appearance is nonspecific but infectious or inflammatory processes could have this appearance. Suggest follow-up imaging to confirm resolution. Coronary artery calcification and severe atherosclerotic disease of the aorta. There is an ascending aortic aneurysm measuring up to 4.4 x 4.2 cm. - home meds on Norvasc 10 mg daily, lisinopril 20 mg daily - Add hydralazine 20 mg IV when necessary - Monitor BP trend. Goal BP less than 150 Syncopal episode, dizziness, S/P fall , multiple times Parkinson's Disease - Head CT showed stable noncontrast head CT. No acute intracranial abnormality is identified. - Check carotid ultrasound, follow-up results - Check possibility of medication contribution to dizziness, patient was started on carbidopa levodopa 2 months ago - Check orthostatic BP - Placed on telemetry - Fall precautions - PT/OT for Eval and Treatment DM 2 - hold off on metformin for now - Insulin sliding scale. Monitor Accu-Cheks. - Monitor for hypoglycemia. HLD - continue pravastatin 40 mg ? Atrial fibrillation, ? SVT - on Eliquis DVT prop SCDs, Eliquis GI prop pantoprazole Written by William West, acting as scribe for Dr. Eldridge on 05/31/16 at 15:05. The documentation accurately reflects the work performed [id number] by me Dr. Eldridge on 05/31/16 at 15:05. Code Status Full code Discussed Condition With Patient, nursing, ED attending Physician Certification 2 Midnight Certification Type: Admission for Inpatient Services Order for Inpatient Services The services are ordered in accordance with Medicare regulations or non- Medicare payer requirements, as applicable. In the case of services not specified as inpatient-only, they are appropriately provided as inpatient services in accordance with the 2-midnight benchmark. Estimated LOS (days): 2 days is the estimated time the patient will need to remain in the hospital, assuming treatment plan goals are met and no additional complications. Post-Hospital Plan: Not yet determined Problem Qualifiers (1) COPD (chronic obstructive pulmonary disease): Qualified Code: J43.9 - Pulmonary emphysema, unspecified emphysema type William Cano May 31, 2016 15:46 Ondina Eldridge MD May 31, 2016 15:54
[2016-05-31] MEDS ORDERED: ALPRAZolam 0.25 MG TAB PO PRN (16:00)
[2016-05-31] MEDS ORDERED: RESP: ALBUTEROL 2.5 MG/IPRATROPIUM 0.5 MG NEB (PRN) NEB (16:00)
[2016-05-31] MEDS: RESP: ALBUTEROL 2.5 MG/IPRATROPIUM 0.5 MG NEB (SCH) NEB ×2 (16:14→21:00)
[2016-05-31] MEDS ORDERED: GLUCAGON 1 MG/ML VIAL OTHER PRN (16:15)
[2016-05-31] MEDS ORDERED: DEXTROSE 50% IN WATER 50 ML VIAL(D50) IV PUSH PRN (16:15)
[2016-05-31] MEDS ORDERED: PILL SPLITTER OTHER PRN (16:15)
[2016-05-31] MEDS: LISINOPRIL 10 MG TAB PO SCH (17:00)
--- NOTE | 2016-05-31 18:33 | EKG ---
Date Performed: 05/31/2016 Time Performed: 11:40:40 PTAGE: 65 years EKG: Sinus rhythm RIGHT BUNDLE BRANCH BLOCK SEPTAL MYOCARDIAL INFARCTION ABNORMAL ECG PREVIOUS TRACING : 01/13/2016 06.30 Compared to the previous tracing, previously Afib with RVR DOCTOR: Edinson Gonzalez Interpretating Date/Time 05/31/2016 18:32:30
[2016-05-31] MEDS: CARBIDOPA/LEVODOPA 25 MG/100 MG TAB PO SCH (18:36)
[2016-05-31] MEDS: methylPREDNISolone SOD SUCC 40 MG/1 ML VIAL IV PUSH SCH ×2 (18:37→23:43)
[2016-05-31] MEDS: ACETAMINOPHEN/HYDROcodone 325 MG/5 MG TAB PO PRN (18:38)
[2016-05-31] MEDS: amLODIPine BESYLATE 5 MG TAB PO SCH (21:00)
[2016-05-31] MEDS: INSULIN ASPART SUPPLEMENTAL SCALE SQ SCH (21:00)
[2016-05-31] MEDS: BUDESONIDE-FORMOTEROL 80/4.5 MCG INHALER INH SCH (22:04)
[2016-05-31] MEDS: SODIUM CHLORIDE 0.9% FLUSH 5 ML FLUSH FLUSH SCH (22:06)
[2016-05-31] MEDS: APIXABAN 5 MG TABLET PO SCH (23:00)
[2016-05-31] MEDS: busPIRone HCL 5 MG TAB PO SCH (23:00)
[2016-05-31] MEDS: GABAPENTIN 300 MG CAP PO SCH (23:00)
[2016-06-01] VITALS (11 sets, daily range): BP systolic 95–129; BP diastolic 55–60; PULSE 62–93; RESP 16–17; TEMP 95.8–97; O2SAT 95–100
[2016-06-01] MEDS: methylPREDNISolone SOD SUCC 40 MG/1 ML VIAL IV PUSH SCH ×2 (06:01→12:02)
[2016-06-01] MEDS: ACETAMINOPHEN/HYDROcodone 325 MG/5 MG TAB PO PRN ×2 (06:08→20:22)
[2016-06-01] MEDS: INSULIN ASPART SUPPLEMENTAL SCALE SQ SCH ×4 (06:09→20:31)
[2016-06-01 07:48] LABS: ALKALINE PHOSPHATASE 60 U/L (45-117); ALT (GPT) LESS THAN 6 U/L (12-78); ANION GAP 6 MEQ/L (5-15); AST (GOT) 6 U/L (15-37); BICARBONATE 28.6 MEQ/L (21.0-32.0); BLOOD UREA NITROGEN 11 MG/DL (7-18); CHLORIDE 106 MEQ/L (98-107); GLOMERULAR FILTRATION RATE 72 ML/MIN (>89); POTASSIUM 4.8 MEQ/L (3.5-5.1); SODIUM (NA) 141 MEQ/L (136-145); TOTAL BILIRUBIN ADULT 0.7 MG/DL (0.2-1.0)
[2016-06-01] MEDS: ESCITALOPRAM OXALATE 10 MG TAB PO SCH (08:35)
[2016-06-01] MEDS: ASPIRIN EC 81 MG TABEC PO SCH (08:36)
[2016-06-01] MEDS: amLODIPine BESYLATE 5 MG TAB PO SCH ×2 (08:36→20:14)
[2016-06-01] MEDS: PRAVASTATIN SOD 40 MG TAB PO SCH (08:36)
[2016-06-01] MEDS: busPIRone HCL 5 MG TAB PO SCH ×2 (08:36→20:14)
[2016-06-01] MEDS: APIXABAN 5 MG TABLET PO SCH ×2 (08:36→20:15)
[2016-06-01] MEDS: BUDESONIDE-FORMOTEROL 80/4.5 MCG INHALER INH SCH ×2 (08:36→20:14)
[2016-06-01] MEDS: GABAPENTIN 300 MG CAP PO SCH ×2 (08:36→20:14)
[2016-06-01] MEDS: CARBIDOPA/LEVODOPA 25 MG/100 MG TAB PO SCH ×3 (08:36→18:45)
[2016-06-01] MEDS: LISINOPRIL 10 MG TAB PO SCH (08:36)
[2016-06-01] MEDS: SODIUM CHLORIDE 0.9% FLUSH 5 ML FLUSH FLUSH SCH ×2 (08:37→20:30)
[2016-06-01] MEDS: RESP: ALBUTEROL 2.5 MG/IPRATROPIUM 0.5 MG NEB (SCH) NEB ×4 (09:15→21:24)
--- NOTE | 2016-06-01 10:33 | HHI.PR ---
Subjective Remarks Patient says he is still sob however he feels improved since yesterday. Says he is on 2L NC at home. No n/v/d/c. No chest pain. + cough. No wheezing. Objective Vitals Vital Signs Date Time Temp Pulse Resp B/P Pulse Ox O2 Delivery O2 Flow Rate FiO2 06/01/16 09:18 97 Venturi Mask 35 06/01/16 08:00 96.7 72 16 110/56 98 06/01/16 04:00 96.2 70 17 112/59 95 06/01/16 01:50 96 06/01/16 00:00 95.8 62 16 95/55 100 05/31/16 21:00 100 Venturi Mask 6.00 50 05/31/16 20:00 98.9 66 16 102/56 99 05/31/16 20:00 64 05/31/16 18:10 97.0 70 20 101/55 100 05/31/16 17:18 65 18 105/52 100 Venturi Mask 50 05/31/16 15:23 100 Venturi Mask 6.00 50 05/31/16 15:15 64 16 112/57 100 Venturi Mask 50 05/31/16 12:48 66 16 192/81 92 Nasal Cannula 4 05/31/16 12:06 92 Nasal Cannula 6.00 05/31/16 11:50 17 92 Nasal Cannula 3 05/31/16 11:50 85 Room Air 05/31/16 11:29 98.7 82 22 129/67 96 I/O 05/31/16 05/31/16 05/31/16 06/01/16 06/01/16 06/01/16 07:00 15:00 23:00 07:00 15:00 23:00 Intake Total 120 ml Balance 120 ml Intake Oral 120 ml Result Diagram: 05/31/16 1145 06/01/16 0615 Imaging Last Impressions Head CT 05/31/16 1134 Signed Impressions: Service Date/Time: May 13:02 - CONCLUSION: Stable noncontrast head CT. No acute intracranial abnormality is identified. Ronald Anderson MD Chest X-Ray 05/31/16 1134 Signed Impressions: Service Date/Time: May 11:46 - CONCLUSION: No acute cardiopulmonary abnormality is identified. Ronald Anderson MD Chest CT 05/31/16 0000 Signed Impressions: Service Date/Time: May 13:09 - CONCLUSION: 1. Moderate centrilobular emphysema with mild focal area of airspace consolidation within the left lower lobe. The appearance is nonspecific but infectious or inflammatory process could have this appearance. Suggest followup imaging to confirm resolution. 2. Coronary artery calcification and severe atherosclerotic disease of the aorta. There is an ascending aortic aneurysm measuring up to 4.4 x 4.2 cm. Ronald Anderson MD Cervical Spine CT 05/31/16 0000 Signed Impressions: Service Date/Time: May 13:02 - CONCLUSION: Moderate severe degenerative changes at the C6-7 level more prominent on the right than on the left. No evidence of compression deformity or spondylolisthesis. Ruddy Azevedo MD Abdomen/Pelvis CT 05/31/16 Signed Impressions: Service Date/Time: May 13:09 - CONCLUSION: 1. No acute finding is identified within the abdomen or pelvis. 2. There is a 13 mm left adrenal gland mass. It does not meet criteria for an adenoma on this examination. Given the size a benign process is favored. Suggest correlation with prior imaging studies to document longer term stability. If none are available consider followup and further characterization with adrenal protocol CT or MRI. This could be performed on an outpatient elective basis. 3. 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 Ronald Anderson MD Objective Remarks GENERAL: This is a pale, older than stated age, mildly ill appearing. SKIN: Pale. No rashes, ecchymoses or lesions. Cool and dry. HEAD: Atraumatic. Normocephalic. No temporal or scalp tenderness. EYES: Pupils equal round and reactive. Extraocular motions intact. No scleral icterus. No injection or drainage. ENT: Nose without bleeding. Throat without erythema. Uvula midline. Airway patent. NECK: Trachea midline. No JVD or lymphadenopathy. Supple, nontender, no meningeal signs. CARDIOVASCULAR: Regular rate and rhythm without murmurs, gallops, or rubs. RESPIRATORY: Expiratory wheeze, decreased breath sounds. Barrel chested. On nasal cannula. GASTROINTESTINAL: Abdomen soft, non-tender, nondistended. No hepato-splenomegaly , or palpable masses. No guarding. MUSCULOSKELETAL: Extremities without clubbing, cyanosis, or edema. No calf tenderness. Negative Homans sign bilaterally. Right flank area going to the back positive tenderness. NEUROLOGICAL: Awake and alert. Nuchal rigidity. Positive tremors bilateral upper extremity. Motor and sensory grossly within normal limits. Normal speech. A/P Problem List: (1) COPD (chronic obstructive pulmonary disease) ICD Code: J44.9 Status: Chronic (2) Dizziness ICD Code: R42 Status: Acute (3) Tobacco abuse ICD Code: Z72.0 Status: Chronic (4) Acute hypoxemic respiratory failure ICD Code: J96.01 Status: Acute (5) Atrial fibrillation ICD Code: I48.91 Status: Acute (6) Carboxyhemoglobinemia ICD Code: T58.91XA Status: Acute (7) HTN (hypertension) ICD Code: I10 Status: Acute (8) Pre-syncope ICD Code: R55 Status: Acute (9) PNA (pneumonia) ICD Code: J18.9 Status: Acute (10) DM2 (diabetes mellitus, type 2) ICD Code: E11.9 Status: Acute (11) Parkinson disease ICD Code: G20 Status: Acute Assessment and Plan Patient is a 65-year-old white male with primary medical history Parkinson's disease, COPD, hypertension, DM 2 who came in to the hospital for evaluation of general weakness, and falls. Patient states that for the past 3 weeks he is feeling weak and tired and has lost his appetite. He has not eaten or drinking much in the past 3 weeks. He also states that he has lost some weight about 15 pounds in the past 3 weeks. He states that he has fallen yesterday and today. Feels that he has pain on his right flank area towards his back, 6/10, dull achy , aggravated by movement, requesting for pain medication. He denies hitting his head or losing consciousness. Patient takes blood thinner Eliquis, does not exactly know what he is taking the medications but reports that he was diagnosed with rapid heart rate in the 160s to 200s, a few months ago. Denies any blood clots. *Chest CT showed moderate centrilobular emphysema with mild focal area of airspace consolidation within the left lower lobe. The appearance is nonspecific but infectious or inflammatory processes could have this appearance. Suggest follow-up imaging to confirm resolution. Coronary artery calcification and severe atherosclerotic disease of the aorta. There is an ascending aortic aneurysm measuring up to 4.4 x 4.2 cm. *CT of the cervical spine showed moderate severe degenerative changes at the C6 to 7 level more prominent on the right than on the left. No evidence of compression deformity or spondylolisthesis. *CT of the abdomen and pelvis showed no acute findings is identified within the abdomen or pelvis. There is a 13 mm left adrenal gland mass. It does not make criteria for adenoma on this examination. Given the size of a benign process is favored. Suggest correlation with prior imaging studies to document longer- term stability. If not better available consider follow-up and further characterization with adrenal protocol CT or MRI. This could be performed as an outpatient elective basis. 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 *Head CT showed stable noncontrast head CT. No acute intracranial abnormality is identified. *Chest x-ray showed no acute or new pulmonary abnormality is identified. Acute on chronic respiratory failure requiring O2, noted desatting at 85 in the ED, on venti mask. Wean as tolerated. Hypoxemia COPD with exacerbation Pneumonia - Chest CT showed moderate centrilobular emphysema with mild focal area of airspace consolidation within the left lower lobe. The appearance is nonspecific but infectious or inflammatory processes could have this appearance. Suggest follow-up imaging to confirm resolution. Coronary artery calcification and severe atherosclerotic disease of the aorta. There is an ascending aortic aneurysm measuring up to 4.4 x 4.2 cm. - Chest x-ray showed no acute or new pulmonary abnormality is identified. - Patient was given IV antibiotics in the ED, ceftriaxone, azithromycin. Continue with IV antibiotics. - DuoNeb's scheduled and when necessary - Continue with nasal cannula use O2 2-3 L, patient uses home O2 - Solu-Medrol IV - Consult pulm Aortic aneurysm HTN - CT of the abdomen and pelvis showed no acute findings is identified within the abdomen or pelvis. There is a 13 mm left adrenal gland mass. It does not make criteria for adenoma on this examination. Given the size of a benign process is favored. Suggest correlation with prior imaging studies to document longer-term stability. If not better available consider follow-up and further characterization with adrenal protocol CT or MRI. This could be performed as an outpatient elective basis. 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 - Chest CT showed moderate centrilobular emphysema with mild focal area of airspace consolidation within the left lower lobe. The appearance is nonspecific but infectious or inflammatory processes could have this appearance. Suggest follow-up imaging to confirm resolution. Coronary artery calcification and severe atherosclerotic disease of the aorta. There is an ascending aortic aneurysm measuring up to 4.4 x 4.2 cm. - home meds on Norvasc 10 mg daily, lisinopril 20 mg daily - Add hydralazine 20 mg IV when necessary - Monitor BP trend. Goal BP less than 150 Syncopal episode, dizziness, S/P fall , multiple times Parkinson's Disease - Head CT showed stable noncontrast head CT. No acute intracranial abnormality is identified. - Recent carotid US normal. - Check possibility of medication contribution to dizziness, patient was started on carbidopa levodopa 2 months ago - Check orthostatic BP - Placed on telemetry - Fall precautions - PT/OT for Eval and Treatment DM 2 - hold off on metformin for now - Insulin sliding scale. Monitor Accu-Cheks. - Monitor for hypoglycemia. HLD - continue pravastatin 40 mg ? Atrial fibrillation, ? SVT - on Eliquis DVT prop SCDs, Eliquis GI prop pantoprazole Code Status Full code Discussed Condition With Patient, nurse Problem Qualifiers (1) COPD (chronic obstructive pulmonary disease): Qualified Code: J43.9 - Pulmonary emphysema, unspecified emphysema type Ondina Eldridge MD Jun 01, 2016 10:33
[2016-06-01] MEDS: cefTRIAXone INJ 2,000 MG in SODIUM CHLORIDE 0.9% INJ 100 ML IV SCH (15:29)
[2016-06-01] MEDS: AZITHROMYCIN INJ 500 MG in SODIUM CHLOR 0.9% 250 ML INJ 250 ML IV SCH (16:24)
[2016-06-01 19:38] LABS: BLOOD, URINE NEG (NEG); COMMENT (UR) CULT NOT INDICATED; CULTURE IF INDICATED CULT NOT INDICATED; GLUCOSE,URINE NEG (NEG); KETONE, URINE NEG (NEG); MUCUS URINE FEW /lpf (OCC); NITRITE,URINE NEG (NEG); PH, URINE 5.5 (5.0-8.5); URINE COLOR YELLOW (YELLW/STRAW)
--- NOTE | 2016-06-01 20:04 | MB ---
cc: MONTRELL MCDANIEL MD DATE OF CONSULTATION: 06/01/2016. REASON FOR CONSULTATION: Shortness of breath. REFERRING PHYSICIAN: Dr. Ondina Eldridge. HISTORY OF PRESENT ILLNESS: Mr. Cheema is a 65-year-old male with longstanding history of COPD and oxygen-dependent who uses oxygen 2.3 liters nasal cannula at home. He also has a history of hypertension, diabetes mellitus and Parkinson's disease. The patient has been having frequent episodes of fall. He fell at least twice recently. He fell out of his chair where he was sitting. No loss of consciousness. Also he has had marked decrease in appetite and he has lost 15 to 20 pounds of weight recently. He denies any difficulty swallowing. No nausea or vomiting. No abdominal pain. With a new episode of falling, he was brought to the emergency room. He was also found to be hypoxic. He had a workup done. His WBC count is 10.9, hemoglobin 12.3, hematocrit 38.2, MCH 69, platelet count 406,000. Sodium 141, potassium 4.8, chloride 106, carbon dioxide 28, BUN 11, creatinine 1.04. Blood gas on 6 liters nasal cannula: His pH is 7.37, pC02 of 43, p02 of 91. He had a CT scan of the chest done. It shows moderate central lobular pulmonary emphysema and coronary artery calcification and a 4.4 x 4.2 ascending thoracic aortic aneurysm. PAST MEDICAL HISTORY: His past medical history is significant for: 1. History of COPD. 2. Diabetes mellitus. 3. Hypertension. 4. Parkinson's disease 5. Multiple falls. 6. History of atrial fibrillation. 7. TIA. 8. Anxiety and depression. MEDICATIONS: He is currently takin. Zithromax 5 milligrams a day. 2. Rocephin 1 gram a day. 3. Aspirin 81 milligrams a day. 4. Lexapro 10 milligrams a day. 5. Pravachol 40 milligrams a day. 6. Amlodipine 5 milligrams a day. 7. Eliquis 5 milligrams twice a day. 8. Symbicort 80 / 4.5 two puffs twice a day. 9. BuSpar 15 milligrams twice a day. 10. Neurontin 300 milligrams twice a day. 11. Solu-Medrol 40 milligrams q. 6 hours. 12. Sinemet 25 / 100 1.5 tablet three times a day. 13. Lisinopril 10 milligrams a day. 14. Breckenridge 5/325 q. 4 hours PRN. 15. Albuterol and Atrovent nebulizer treatment. 16. Temazepam 15 milligrams at night. ALLERGIES: NO KNOWN DRUG ALLERGIES. SOCIAL HISTORY: He has a long history of smoking and he continues to smoke about one pack of cigarettes and no alcohol use. He is retired. FAMILY HISTORY: He is for the second time now for 28 years. He has one child. REVIEW OF SYSTEMS He walks only a short distance and feels weak, has lost weight, has history of TIA without any deficits. No malignancy. PHYSICAL EXAMINATION: GENERAL: An elderly male, week and in no acute distress. VITAL SIGNS: Blood pressure 101/70, heart rate 90, respirations 16, oxygen saturation 96% on three liters nasal cannula. HEAD, EYES, EARS, NOSE, THROAT: Pupils are equal and reactive. Oral mucosa and nasal mucosa are normal. NECK: The neck is supple. JVP not raised. CHEST: Air entry equal bilaterally. Faint rhonchi. CARDIOVASCULAR: S1 and S2 normal. ABDOMEN: Abdomen benign. EXTREMITIES: No edema. IMPRESSION: 1. COPD. He is oxygen dependent. 2. Weight loss, etiology not clear. 3. Parkinson's disease. 4. Falls. 5. Atrial fibrillation. 6. Nicotine use. PLAN: 1. I discussed with the patient and his and advised him strongly to quit smoking. 2. Wean his oxygen to 2 to 3 nasal cannula which is his baseline. 3. Continue aerosol treatment. 4. I will change him to p.o. steroids. 5. Check his pulmonary function studies. Further treatment will depend on the course in the hospital. Thank you, Dr. Eldridge, for this consult. MD YARELIS Woodson/TRAVIS /6:10 PM /7:38 PM
[2016-06-02] VITALS (10 sets, daily range): BP systolic 97–125; BP diastolic 49–66; PULSE 69–123; RESP 16–20; TEMP 95.5–97.5; O2SAT 95–100
[2016-06-02] MEDS: INSULIN ASPART SUPPLEMENTAL SCALE SQ SCH ×4 (05:50→19:56)
[2016-06-02] MEDS: RESP: ALBUTEROL 2.5 MG/IPRATROPIUM 0.5 MG NEB (SCH) NEB ×4 (08:00→22:03)
[2016-06-02] MEDS ORDERED: PRED10PA PO (08:51)
--- NOTE | 2016-06-02 08:51 | HHI.DCPOC ---
Discharge Care Plan Goals to Promote Your Health * To prevent worsening of your condition and complications * To maintain your health at the optimal level Directions to Meet Your Goals Take your medications as prescribed Follow your dietary instruction Follow activity as directed Keep your appointments as scheduled Take your immunizations and boosters as scheduled If your symptoms worsen call your PCP, if no PCP go to Urgent Care Center or Emergency Room Smoking is Dangerous to Your Health. Avoid second hand smoke Call the 24-hour hour crisis hotline for domestic abuse at Ondina Eldridge MD Jun 02, 2016 08:51
--- NOTE | 2016-06-02 08:53 | HHI.DS ---
Discharge Summary Admission Date May 31, 2016 at 15:17 Discharge Date: Jun 05, 2016 Admitting Diagnosis pre-syncope, dizziness with standing, HTN (1) Acute hypoxemic respiratory failure ICD Code: J96.01 Diagnosis: Principal (2) Atrial fibrillation with rapid ventricular response ICD Code: I48.91 Diagnosis: Principal (3) COPD (chronic obstructive pulmonary disease) ICD Code: J44.9 Diagnosis: Principal (4) Dizziness ICD Code: R42 Diagnosis: Secondary (5) Tobacco abuse ICD Code: Z72.0 Diagnosis: Secondary (6) Carboxyhemoglobinemia ICD Code: T58.91XA Diagnosis: Secondary (7) HTN (hypertension) ICD Code: I10 (8) PNA (pneumonia) ICD Code: J18.9 Diagnosis: Secondary (9) DM2 (diabetes mellitus, type 2) ICD Code: E11.9 Diagnosis: Secondary (10) Parkinson disease ICD Code: G20 Diagnosis: Secondary Procedures none Brief History - From Admission Patient is a 65-year-old white male with primary medical history Parkinson's disease, COPD, hypertension, DM 2 who came in to the hospital for evaluation of general weakness, and falls. Patient states that for the past 3 weeks he is feeling weak and tired and has lost his appetite. He has not eaten or drinking much in the past 3 weeks. He also states that he has lost some weight about 15 pounds in the past 3 weeks. He states that he has fallen yesterday and today. Feels that he has pain on his right flank area towards his back, 6/10, dull achy , aggravated by movement, requesting for pain medication. He denies hitting his head or losing consciousness. Patient takes blood thinner Eliquis, does not exactly know what he is taking the medications but reports that he was diagnosed with rapid heart rate in the 160s to 200s, a few months ago. Denies any blood clots. Patient also stated that he was diagnosed with Parkinson's disease about 2 months ago by neurology and started on medication carbidopa/levodopa that he takes 3 times a day. Prior to taking the medication he has been having problems and trouble with walking, uses walker when he ambulates outside of his home. When he started falling yesterday he felt that he was dizzy prior to falling but was concerned about it that he felt twice that he went to the hospital for evaluation. He states that his BP is well-controlled because he takes blood pressure medications. She knows that he has COPD, emphysema but continues to smoke cigarettes on and off. States that every time she has a cigarette early in the morning it makes him dizzy. But due to some circumstances he is unable to totally quit smoking. Otherwise patient, denies SOB/ dyspnea on 2 L nasal cannula. Denies chest pain, palpitations, headaches, dizziness. Denies fevers, chills, n/v/d. Chest CT showed moderate centrilobular emphysema with mild focal area of airspace consolidation within the left lower lobe. The appearance is nonspecific but infectious or inflammatory processes could have this appearance. Suggest follow-up imaging to confirm resolution. Coronary artery calcification and severe atherosclerotic disease of the aorta. There is an ascending aortic aneurysm measuring up to 4.[address] of the cervical spine showed moderate severe degenerative changes at the C6 to 7 level more prominent on the right than on the left. No evidence of compression deformity or spondylolisthesis. CT of the abdomen and pelvis showed no acute findings is identified within the abdomen or pelvis. There is a 13 mm left adrenal gland mass. It does not make criteria for adenoma on this examination. Given the size of a benign process is favored. Suggest correlation with prior imaging studies to document longer- term stability. If not better available consider follow-up and further characterization with adrenal protocol CT or MRI. This could be performed as an outpatient elective basis. 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 showed stable noncontrast head CT. No acute intracranial abnormality is identified. Chest x-ray showed no acute or new pulmonary abnormality is identified. Labs reviewed. CBC showed mild microcytic anemia hemoglobin 12.3, 38.2, MCV 69.1, MCH 22.2, ABG showed O2 saturation of 89, pH 7.37, PCO2 43, on 6 L nasal cannula. CMP EGFR 73, random glucose 159, low AST at 6, low ALP at 7. Total CK 22. First troponin less than 0.02. CBC/BMP: 05/31/16 1145 06/01/16 0615 Significant Findings Laboratory Tests Test 05/31/16 05/31/16 06/01/16 06/01/16 11:45 14:32 06:15 17:30 Hemoglobin 12.3 GM/DL (13.0-17.0) Hematocrit 38.2 % (39.0-51.0) Mean Corpuscular Volume 69.1 FL (80.0-100.0) Mean Corpuscular Hemoglobin 22.2 PG (27.0-34.0) Red Cell Distribution Width 19.1 % (11.6-17.2) Neutrophils (%) (Auto) 82.1 % (16.0-70.0) Lymphocytes (%) (Auto) 8.5 % (9.0-44.0) Neutrophils # (Auto) 9.0 TH/MM3 (1.8-7.7) Lymphocytes # (Auto) 0.9 TH/MM3 (1.0-4.8) Neutrophils % (Manual) 83 % (16-70) Neutrophils # (Manual) 9.2 TH/MM3 (1.8-7.7) Myelocytes 1 % (0-0) Platelet Morphology Comment ENLARGED (NORMAL) Prothrombin Time 12.7 SEC (9.8-11.6) Activated Partial 31.7 SEC Thromboplast Time (24.3-30.1) Estimat Glomerular Filtration 73 ML/MIN (>89) 72 ML/MIN (>89) Rate Random Glucose 159 MG/DL 177 MG/DL (74-106) (74-106) Aspartate Amino Transf 6 U/L (15-37) 6 U/L (15-37) (AST/SGOT) Alanine Aminotransferase 7 U/L (12-78) LESS THAN 6 (ALT/SGPT) U/L (12-78) Total Creatine Kinase 22 U/L (39-308) Troponin I LESS THAN 0.02 NG/ML (0.02-0.05) Lipase 61 U/L (73-393) Blood Gas Oxygen Saturation 89 % (90-100) Arterial Blood pH 7.37 (7.380-7.420) Arterial Blood Partial 43 mmHg (38-42) Pressure CO2 Arterial Blood 5.8 % (0-4) Carboxyhemoglobin Blood Gas Hemoglobin 11.2 G/DL (12.0-16.0) Albumin 3.3 GM/DL (3.4-5.0) Urine Specific [place] GREATER THAN 1.050 (1.002-1.035) Urine Mucus FEW /lpf (OCC) Imaging Last Impressions Head CT 05/31/16 1134 Signed Impressions: Service Date/Time: May 13:02 - CONCLUSION: Stable noncontrast head CT. No acute intracranial abnormality is identified. Ronald Anderson MD Chest X-Ray 05/31/164 Signed Impressions: Service Date/Time: May 11:46 - CONCLUSION: No acute cardiopulmonary abnormality is identified. Ronald Anderson MD Chest CT 05/31/16 0000 Signed Impressions: Service Date/Time: May 13:09 - CONCLUSION: 1. Moderate centrilobular emphysema with mild focal area of airspace consolidation within the left lower lobe. The appearance is nonspecific but infectious or inflammatory process could have this appearance. Suggest followup imaging to confirm resolution. 2. Coronary artery calcification and severe atherosclerotic disease of the aorta. There is an ascending aortic aneurysm measuring up to 4.4 x 4.2 cm. Ronald Anderson MD Cervical Spine CT 05/31/16 0000 Signed Impressions: Service Date/Time: May 13:02 - CONCLUSION: Moderate severe degenerative changes at the C6-7 level more prominent on the right than on the left. No evidence of compression deformity or spondylolisthesis. Ruddy Azevedo MD Abdomen/Pelvis CT 05/31/16 0000 Signed Impressions: Service Date/Time: May 13:09 - CONCLUSION: 1. No acute finding is identified within the abdomen or pelvis. 2. There is a 13 mm left adrenal gland mass. It does not meet criteria for an adenoma on this examination. Given the size a benign process is favored. Suggest correlation with prior imaging studies to document longer term stability. If none are available consider followup and further characterization with adrenal protocol CT or MRI. This could be performed on an outpatient elective basis. 3. 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 Ronald Anderson MD PE at Discharge GENERAL: This is a pale, older than stated age, mildly ill appearing. SKIN: Pale. No rashes, ecchymoses or lesions. Cool and dry. HEAD: Atraumatic. Normocephalic. No temporal or scalp tenderness. EYES: Pupils equal round and reactive. Extraocular motions intact. No scleral icterus. No injection or drainage. ENT: Nose without bleeding. Throat without erythema. Uvula midline. Airway patent. NECK: Trachea midline. No JVD or lymphadenopathy. Supple, nontender, no meningeal signs. CARDIOVASCULAR: Regular rate and rhythm without murmurs, gallops, or rubs. RESPIRATORY: Expiratory wheeze, decreased breath sounds. Barrel chested. On nasal cannula. GASTROINTESTINAL: Abdomen soft, non-tender, nondistended. No hepato-splenomegaly , or palpable masses. No guarding. MUSCULOSKELETAL: Extremities without clubbing, cyanosis, or edema. No calf tenderness. Negative Homans sign bilaterally. Right flank area going to the back positive tenderness. NEUROLOGICAL: Awake and alert. Nuchal rigidity. Positive tremors bilateral upper extremity. Motor and sensory grossly within normal limits. Normal speech. Hospital Course Patient is a 65-year-old white male with primary medical history Parkinson's disease, COPD, hypertension, DM 2 who came in to the hospital for evaluation of general weakness, and falls. Patient states that for the past 3 weeks he is feeling weak and tired and has lost his appetite. He has not eaten or drinking much in the past 3 weeks. He also states that he has lost some weight about 15 pounds in the past 3 weeks. He states that he has fallen yesterday and today. Feels that he has pain on his right flank area towards his back, 6/10, dull achy , aggravated by movement, requesting for pain medication. He denies hitting his head or losing consciousness. Patient takes blood thinner Eliquis, does not exactly know what he is taking the medications but reports that he was diagnosed with rapid heart rate in the 160s to 200s, a few months ago. Denies any blood clots. *Chest CT showed moderate centrilobular emphysema with mild focal area of airspace consolidation within the left lower lobe. The appearance is nonspecific but infectious or inflammatory processes could have this appearance. Suggest follow-up imaging to confirm resolution. Coronary artery calcification and severe atherosclerotic disease of the aorta. There is an ascending aortic aneurysm measuring up to 4.4 x 4.2 cm. *CT of the cervical spine showed moderate severe degenerative changes at the C6 to 7 level more prominent on the right than on the left. No evidence of compression deformity or spondylolisthesis. *CT of the abdomen and pelvis showed no acute findings is identified within the abdomen or pelvis. There is a 13 mm left adrenal gland mass. It does not make criteria for adenoma on this examination. Given the size of a benign process is favored. Suggest correlation with prior imaging studies to document longer- term stability. If not better available consider follow-up and further characterization with adrenal protocol CT or MRI. This could be performed as an outpatient elective basis. 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 *Head CT showed stable noncontrast head CT. No acute intracranial abnormality is identified. *Chest x-ray showed no acute or new pulmonary abnormality is identified. Atrial fibrillation with RVT 06/03 Continue on Eliquis. Received cardizem IVP 15 mg 06/03 and was placed on cardizem drip. Patietn with sustained HR in 150s discpite being on max cardizem. Ordered additional 15 mg IVP cardizem drip. Cradizem drip weaned off. Currently on cardizem PO 30 mg QID. CXR reviewed no change. Toponin, CKMB negative. Consult cardio, discussed with Dr Radha garcia. continue cardizem PO. 2D ECHO pending. Acute on chronic respiratory failure requiring O2, noted desatting at 85 in the ED, on venti mask. Wean as tolerated. Hypoxemia COPD with exacerbation Pneumonia - Chest CT showed moderate centrilobular emphysema with mild focal area of airspace consolidation within the left lower lobe. The appearance is nonspecific but infectious or inflammatory processes could have this appearance. Suggest follow-up imaging to confirm resolution. Coronary artery calcification and severe atherosclerotic disease of the aorta. There is an ascending aortic aneurysm measuring up to 4.4 x 4.2 cm. - Chest x-ray showed no acute or new pulmonary abnormality is identified. - Patient was given IV antibiotics in the ED, ceftriaxone, azithromycin. Continue with IV antibiotics. - DuoNeb's scheduled and when necessary - Continue with nasal cannula use O2 2-3 L, patient uses home O2 - Solu-Medrol IV, tapered - Consult pulm, appreciate recommendations Aortic aneurysm HTN - CT of the abdomen and pelvis showed no acute findings is identified within the abdomen or pelvis. There is a 13 mm left adrenal gland mass. It does not make criteria for adenoma on this examination. Given the size of a benign process is favored. Suggest correlation with prior imaging studies to document longer-term stability. If not better available consider follow-up and further characterization with adrenal protocol CT or MRI. This could be performed as an outpatient elective basis. 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 - Chest CT showed moderate centrilobular emphysema with mild focal area of airspace consolidation within the left lower lobe. The appearance is nonspecific but infectious or inflammatory processes could have this appearance. Suggest follow-up imaging to confirm resolution. Coronary artery calcification and severe atherosclerotic disease of the aorta. There is an ascending aortic aneurysm measuring up to 4.4 x 4.2 cm. - home meds on Norvasc 10 mg daily, lisinopril 20 mg daily - Add hydralazine 20 mg IV when necessary - Monitor BP trend. Goal BP less than 150 Syncopal episode, dizziness, S/P fall, multiple times Parkinson's Disease - Head CT showed stable noncontrast head CT. No acute intracranial abnormality is identified. - Recent carotid US normal. - Check possibility of medication contribution to dizziness, patient was started on carbidopa levodopa 2 months ago - Check orthostatic BP - Placed on telemetry - Fall precautions - PT/OT for Eval and Treatment DM 2 - hold off on metformin for now - Insulin sliding scale. Monitor Accu-Cheks. - Monitor for hypoglycemia. HLD - continue pravastatin 40 mg Decreased appetite. Add megace. Constipation. Laxatives, stool softeners. DVT prop SCDs, Eliquis GI prop pantoprazole Code Status Full code Discussed Condition With Patient, nurse, Dr Garcia cardio Improving. PT recommends SNF however the patient is refusing SNF. Patient / family decided for SNF. CM consulted and following for DC. DC to SNF. Improved. DC to SNF in fairly well condition. To follow up as OP with PCP and consultatns. Pt Condition on Discharge: Stable Discharge Disposition: Disch w/ Home Health Serv Discharge Time: > 30 minutes Discharge Instructions DIET: Follow Instructions for: Heart Healthy Diet Activities you can perform: Regular-No Restrictions Follow up Referrals: Cardiology - 2 Weeks Neurology - 1 Week Oncology - 1 Week PCP Follow-up - 3-5 Days Pulmonology - 1 Week New Medications: Cefuroxime (Ceftin) 250 Mg Tab 250 MG PO BID Infection #14 Ref 0 TAB Diltiazem (Cardizem) 30 Mg Tab 30 MG PO QID Angina #120 Ref 0 TAB Lactobacillus Acidophilus (Lactinex) 1 Chew 1 TAB CHEW DAILY Nutritional Supplement #15 Ref 0 TAB Prednisone (21) 10 mg tab Dose Pack (Prednisone (21) 10 mg tab Dose Pack) 10 Mg Pack 10 MG PO DIRECTED Inflammation #1 Ref 0 DSPK Continued Medications: Alprazolam (Alprazolam) 0.25 Mg Tab 0.25 MG PO Q8H PRN ANXIETY #10 Ref 0 TAB (This prescription has been renewed) Amlodipine (Amlodipine) 5 Mg Tab 5 MG PO BID Blood Pressure Management #30 Ref 0 TAB Apixaban (Eliquis) 5 Mg Tab 5 MG PO BID Blood Clot Prevention #60 Ref [address] (Aspirin Adult Low Strength) 81 Mg Tabdr 81 MG PO DAILY TAB Budesonide-Formoterol Inh (Symbicort Inh) 80-4.5 Mcg/Act Aero 2 PUFF INH BID Asthma Management #1 Ref 0 INHALER Buspirone (Buspirone) 10 Mg Tab 15 MG PO BID Anxiety Ref 0 TAB Carbidopa-Levodopa (Sinemet) 25-100 Mg Tab 1.5 TAB PO TID Parkinson Disease Mgmt #90 Ref 0 TAB Escitalopram (Escitalopram) 10 Mg Tab 10 MG PO DAILY depression/anxiety #30 Ref 0 TAB (This prescription has been renewed) Gabapentin (Gabapentin) 300 Mg Cap 300 MG PO BID #60 Ref 0 CAP Ipratropium-Albuterol Inh (Combivent Respimat Inh) 20-100 [facility]/Act Aero 1 PUFF INH QID Asthma Management #1 Ref 0 INHALER Lisinopril (Lisinopril) 20 Mg Tab 10 MG PO DAILY #30 Ref 0 TAB Metformin (Metformin) 500 Mg Tab 500 MG PO DAILY IN THE AM With a meal Blood Sugar Management #30 Ref 0 TAB Metformin (Metformin) 500 Mg Tab 250 MG PO DAILY IN THE PM With a meal Blood Sugar Management #30 Ref 0 TAB Pravastatin (Pravastatin) 40 Mg Tab 40 MG PO DAILY Cholesterol Management #30 Ref 0 TAB Ondina Eldridge MD Jun 02, 2016 08:53
--- NOTE | 2016-06-02 08:55 | HHI.FF ---
Face to Face Verification Diagnosis: (1) Osteoarthritis (2) Nutrition, metabolism, and development symptoms (3) DVT prophylaxis (4) Diabetes mellitus (5) Hypertension (6) Generalized anxiety disorder (7) Stroke (8) Tobacco abuse (9) Respiratory distress (10) Hypoxia (11) Asthma (12) COPD exacerbation (13) SVT (supraventricular tachycardia) (14) Atrial fibrillation (15) Dizziness (16) Parkinson disease (17) Carboxyhemoglobinemia (18) HTN (hypertension) Physical Therapy Order: Evaluate and Treat Home Health Nursing Order: Medical education Signs/symptoms of disease process Oxygen administration education Medication education-adverse effect Nursing assessment with vital signs I have seen patient Garrett Teran on 06/02/16. My clinical findings support the need for the requested home health care services because: Ltd mobility - disease progression Patient has SOB I certify that my clinical findings support that this patient is homebound because: Post-op weakness Hx COPD- exertion dyspnea/weakness Ondina Eldridge MD Jun 02, 2016 08:55
[2016-06-02] MEDS ORDERED: CEFT250T8 PO (08:57)
[2016-06-02] MEDS ORDERED: LACTCHW3 CHEW (08:57)
[2016-06-02] MEDS: amLODIPine BESYLATE 5 MG TAB PO SCH ×2 (09:00→19:50)
[2016-06-02] MEDS: LISINOPRIL 10 MG TAB PO SCH (09:00)
--- NOTE | 2016-06-02 09:02 | HHI.PR ---
Subjective Remarks Feels much better. Scant cough. No fever or chills. No n/v/d/c. On nasal canula. Says he would prefer to go home and not to a SNF Objective Vitals Vital Signs Date Time Temp Pulse Resp B/P Pulse Ox O2 Delivery O2 Flow Rate FiO2 06/02/16 08:50 97 Nasal Cannula 4.00 06/02/16 04:00 75 17 104/53 98 06/02/16 04:00 123 20 97/49 97 06/02/16 04:00 95.5 72 16 121/66 99 06/02/16 00:00 95.9 75 17 112/55 98 06/01/16 21:27 98 Nasal Cannula 4.00 06/01/16 20:20 93 06/01/16 20:00 96.6 79 17 120/60 99 06/01/16 16:00 96.2 90 16 101/55 96 06/01/16 13:26 95 Nasal Cannula 4.00 06/01/16 12:00 97.0 75 16 129/57 96 06/01/16 09:18 97 Venturi Mask 35 I/O 06/01/16 06/01/16 06/01/16 06/02/16 06/02/16 06/02/16 07:00 15:00 23:00 07:00 15:00 23:00 Intake Total 120 ml 960 ml Output Total 550 ml 275 ml Balance 120 ml 960 ml -550 ml -275 ml Intake Oral 120 ml 960 ml Output Urine Total 550 ml 275 ml # Voids 0 # Bowel Movements 0 Result Diagram: 05/31/16 1145 06/01/16 0615 Imaging Last Impressions Head CT 05/31/16 1134 Signed Impressions: Service Date/Time: May 13:02 - CONCLUSION: Stable noncontrast head CT. No acute intracranial abnormality is identified. Ronald Anderson MD Chest X-Ray 05/31/16 1134 Signed Impressions: Service Date/Time: May 11:46 - CONCLUSION: No acute cardiopulmonary abnormality is identified. Ronald Anderson MD Chest CT 05/31/16 0000 Signed Impressions: Service Date/Time: May 13:09 - CONCLUSION: 1. Moderate centrilobular emphysema with mild focal area of airspace consolidation within the left lower lobe. The appearance is nonspecific but infectious or inflammatory process could have this appearance. Suggest followup imaging to confirm resolution. 2. Coronary artery calcification and severe atherosclerotic disease of the aorta. There is an ascending aortic aneurysm measuring up to 4.4 x 4.2 cm. Ronald Anderson MD Cervical Spine CT 05/31/16 0000 Signed Impressions: Service Date/Time: May 13:02 - CONCLUSION: Moderate severe degenerative changes at the C6-7 level more prominent on the right than on the left. No evidence of compression deformity or spondylolisthesis. Ruddy Azevedo MD Abdomen/Pelvis CT 05/31/16 0000 Signed Impressions: Service Date/Time: May 13:09 - CONCLUSION: 1. No acute finding is identified within the abdomen or pelvis. 2. There is a 13 mm left adrenal gland mass. It does not meet criteria for an adenoma on this examination. Given the size a benign process is favored. Suggest correlation with prior imaging studies to document longer term stability. If none are available consider followup and further characterization with adrenal protocol CT or MRI. This could be performed on an outpatient elective basis. 3. 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 Ronald Anderson MD Objective Remarks GENERAL: This is a pale, older than stated age, mildly ill appearing. SKIN: Pale. No rashes, ecchymoses or lesions. Cool and dry. HEAD: Atraumatic. Normocephalic. No temporal or scalp tenderness. EYES: Pupils equal round and reactive. Extraocular motions intact. No scleral icterus. No injection or drainage. ENT: Nose without bleeding. Throat without erythema. Uvula midline. Airway patent. NECK: Trachea midline. No JVD or lymphadenopathy. Supple, nontender, no meningeal signs. CARDIOVASCULAR: Regular rate and rhythm without murmurs, gallops, or rubs. RESPIRATORY: Expiratory wheeze, decreased breath sounds. Barrel chested. On nasal cannula. GASTROINTESTINAL: Abdomen soft, non-tender, nondistended. No hepato-splenomegaly , or palpable masses. No guarding. MUSCULOSKELETAL: Extremities without clubbing, cyanosis, or edema. No calf tenderness. Negative Homans sign bilaterally. Right flank area going to the back positive tenderness. NEUROLOGICAL: Awake and alert. Nuchal rigidity. Positive tremors bilateral upper extremity. Motor and sensory grossly within normal limits. Normal speech. A/P Problem List: (1) COPD (chronic obstructive pulmonary disease) ICD Code: J44.9 Status: Chronic (2) Dizziness ICD Code: R42 Status: Acute (3) Tobacco abuse ICD Code: Z72.0 Status: Chronic (4) Acute hypoxemic respiratory failure ICD Code: J96.01 Status: Acute (5) Atrial fibrillation ICD Code: I48.91 Status: Acute (6) Carboxyhemoglobinemia ICD Code: T58.91XA Status: Acute (7) HTN (hypertension) ICD Code: I10 Status: Acute (8) Pre-syncope ICD Code: R55 Status: Acute (9) PNA (pneumonia) ICD Code: J18.9 Status: Acute (10) DM2 (diabetes mellitus, type 2) ICD Code: E11.9 Status: Acute (11) Parkinson disease ICD Code: G20 Status: Acute Assessment and Plan Patient is a 65-year-old white male with primary medical history Parkinson's disease, COPD, hypertension, DM 2 who came in to the hospital for evaluation of general weakness, and falls. Patient states that for the past 3 weeks he is feeling weak and tired and has lost his appetite. He has not eaten or drinking much in the past 3 weeks. He also states that he has lost some weight about 15 pounds in the past 3 weeks. He states that he has fallen yesterday and today. Feels that he has pain on his right flank area towards his back, 6/10, dull achy , aggravated by movement, requesting for pain medication. He denies hitting his head or losing consciousness. Patient takes blood thinner Eliquis, does not exactly know what he is taking the medications but reports that he was diagnosed with rapid heart rate in the 160s to 200s, a few months ago. Denies any blood clots. *Chest CT showed moderate centrilobular emphysema with mild focal area of airspace consolidation within the left lower lobe. The appearance is nonspecific but infectious or inflammatory processes could have this appearance. Suggest follow-up imaging to confirm resolution. Coronary artery calcification and severe atherosclerotic disease of the aorta. There is an ascending aortic aneurysm measuring up to 4.4 x 4.2 cm. *CT of the cervical spine showed moderate severe degenerative changes at the C6 to 7 level more prominent on the right than on the left. No evidence of compression deformity or spondylolisthesis. *CT of the abdomen and pelvis showed no acute findings is identified within the abdomen or pelvis. There is a 13 mm left adrenal gland mass. It does not make criteria for adenoma on this examination. Given the size of a benign process is favored. Suggest correlation with prior imaging studies to document longer- term stability. If not better available consider follow-up and further characterization with adrenal protocol CT or MRI. This could be performed as an outpatient elective basis. 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 *Head CT showed stable noncontrast head CT. No acute intracranial abnormality is identified. *Chest x-ray showed no acute or new pulmonary abnormality is identified. Acute on chronic respiratory failure requiring O2, noted desatting at 85 in the ED, on venti mask. Wean as tolerated. Hypoxemia COPD with exacerbation Pneumonia - Chest CT showed moderate centrilobular emphysema with mild focal area of airspace consolidation within the left lower lobe. The appearance is nonspecific but infectious or inflammatory processes could have this appearance. Suggest follow-up imaging to confirm resolution. Coronary artery calcification and severe atherosclerotic disease of the aorta. There is an ascending aortic aneurysm measuring up to 4.4 x 4.2 cm. - Chest x-ray showed no acute or new pulmonary abnormality is identified. - Patient was given IV antibiotics in the ED, ceftriaxone, azithromycin. Continue with IV antibiotics. - DuoNeb's scheduled and when necessary - Continue with nasal cannula use O2 2-3 L, patient uses home O2 - Solu-Medrol IV, tapered - Consult pulm, appreciate recommendations Aortic aneurysm HTN - CT of the abdomen and pelvis showed no acute findings is identified within the abdomen or pelvis. There is a 13 mm left adrenal gland mass. It does not make criteria for adenoma on this examination. Given the size of a benign process is favored. Suggest correlation with prior imaging studies to document longer-term stability. If not better available consider follow-up and further characterization with adrenal protocol CT or MRI. This could be performed as an outpatient elective basis. 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 - Chest CT showed moderate centrilobular emphysema with mild focal area of airspace consolidation within the left lower lobe. The appearance is nonspecific but infectious or inflammatory processes could have this appearance. Suggest follow-up imaging to confirm resolution. Coronary artery calcification and severe atherosclerotic disease of the aorta. There is an ascending aortic aneurysm measuring up to 4.4 x 4.2 cm. - home meds on Norvasc 10 mg daily, lisinopril 20 mg daily - Add hydralazine 20 mg IV when necessary - Monitor BP trend. Goal BP less than 150 Syncopal episode, dizziness, S/P fall , multiple times Parkinson's Disease - Head CT showed stable noncontrast head CT. No acute intracranial abnormality is identified. - Recent carotid US normal. - Check possibility of medication contribution to dizziness, patient was started on carbidopa levodopa 2 months ago - Check orthostatic BP - Placed on telemetry - Fall precautions - PT/OT for Eval and Treatment DM 2 - hold off on metformin for now - Insulin sliding scale. Monitor Accu-Cheks. - Monitor for hypoglycemia. HLD - continue pravastatin 40 mg ? Atrial fibrillation, ? SVT - on Eliquis DVT prop SCDs, Eliquis GI prop pantoprazole Code Status Full code Discussed Condition With Patient, nurse Improving. PT recommends SNF however the patient is refusing SNF. He say she wants to go home with home health. Problem Qualifiers (1) COPD (chronic obstructive pulmonary disease): Qualified Code: J43.9 - Pulmonary emphysema, unspecified emphysema type Ondina Eldridge MD Jun 02, 2016 09:02
[2016-06-02] MEDS: ASPIRIN EC 81 MG TABEC PO SCH (09:57)
[2016-06-02] MEDS: predniSONE 10 MG TAB PO SCH ×3 (09:58→17:01)
[2016-06-02] MEDS: PRAVASTATIN SOD 40 MG TAB PO SCH (09:58)
[2016-06-02] MEDS: busPIRone HCL 5 MG TAB PO SCH ×2 (09:58→19:51)
[2016-06-02] MEDS: ESCITALOPRAM OXALATE 10 MG TAB PO SCH (09:58)
[2016-06-02] MEDS: GABAPENTIN 300 MG CAP PO SCH ×2 (09:58→19:50)
[2016-06-02] MEDS: APIXABAN 5 MG TABLET PO SCH ×2 (09:58→19:51)
[2016-06-02] MEDS: CARBIDOPA/LEVODOPA 25 MG/100 MG TAB PO SCH ×3 (09:58→17:01)
[2016-06-02] MEDS: BUDESONIDE-FORMOTEROL 80/4.5 MCG INHALER INH SCH ×2 (09:59→19:51)
[2016-06-02] MEDS: SODIUM CHLORIDE 0.9% FLUSH 5 ML FLUSH FLUSH SCH ×2 (09:59→19:51)
[2016-06-02] MEDS: cefTRIAXone INJ 2,000 MG in SODIUM CHLORIDE 0.9% INJ 100 ML IV SCH (14:41)
[2016-06-02] MEDS: AZITHROMYCIN INJ 500 MG in SODIUM CHLOR 0.9% 250 ML INJ 250 ML IV SCH (16:58)
[2016-06-03] VITALS (17 sets, daily range): BP systolic 101–147; BP diastolic 56–80; PULSE 70–174; RESP 16–20; TEMP 97–98.2; O2SAT 93–99
[2016-06-03] MEDS: ACETAMINOPHEN/HYDROcodone 325 MG/5 MG TAB PO PRN (05:57)
[2016-06-03] MEDS: INSULIN ASPART SUPPLEMENTAL SCALE SQ SCH ×4 (05:58→21:00)
[2016-06-03] MEDS: RESP: ALBUTEROL 2.5 MG/IPRATROPIUM 0.5 MG NEB (SCH) NEB ×4 (07:53→19:58)
[2016-06-03] MEDS: amLODIPine BESYLATE 5 MG TAB PO SCH ×2 (09:00→21:00)
[2016-06-03] MEDS: predniSONE 10 MG TAB PO SCH ×3 (09:56→18:42)
[2016-06-03] MEDS: busPIRone HCL 5 MG TAB PO SCH ×2 (09:56→21:13)
[2016-06-03] MEDS: PRAVASTATIN SOD 40 MG TAB PO SCH (09:57)
[2016-06-03] MEDS: LISINOPRIL 10 MG TAB PO SCH (09:57)
[2016-06-03] MEDS: APIXABAN 5 MG TABLET PO SCH ×2 (09:57→20:52)
[2016-06-03] MEDS: CARBIDOPA/LEVODOPA 25 MG/100 MG TAB PO SCH ×3 (09:57→18:41)
[2016-06-03] MEDS: GABAPENTIN 300 MG CAP PO SCH ×2 (09:57→20:52)
[2016-06-03] MEDS: SODIUM CHLORIDE 0.9% FLUSH 5 ML FLUSH FLUSH SCH ×2 (09:58→21:00)
[2016-06-03] MEDS: ESCITALOPRAM OXALATE 10 MG TAB PO SCH (09:58)
[2016-06-03] MEDS: BUDESONIDE-FORMOTEROL 80/4.5 MCG INHALER INH SCH ×2 (09:58→20:53)
[2016-06-03] MEDS: ASPIRIN EC 81 MG TABEC PO SCH (09:58)
[2016-06-03] MEDS: MAGNESIUM HYDROXIDE SUSP 30 ML CUP PO PRN (10:09)
[2016-06-03 10:38] LABS: AUTOMATED NEUTROPHIL # 11.3 TH/MM3 (1.8-7.7); BASOPHIL % 0.1 % (0.0-2.0); HEMATOCRIT 33.1 % (39.0-51.0); LYMPH % 7.6 % (9.0-44.0); MEAN CELL VOLUME 69.1 FL (80.0-100.0); MEAN CORPUSCULAR HEMOGLOBIN 21.7 PG (27.0-34.0); MEAN CORPUSCULAR HGB CONC 31.4 % (32.0-36.0); MONO % 8.6 % (0.0-8.0); NEUT % 83.7 % (16.0-70.0); PLATELET COUNT 341 TH/MM3 (150-450); RED BLOOD COUNT 4.79 MIL/MM3 (4.50-5.90); WHITE BLOOD COUNT 13.5 TH/MM3 (4.0-11.0)
--- NOTE | 2016-06-03 10:39 | HHI.PR ---
Subjective Remarks Un in the chair. Feesl weak. No appetite, says he would like something for appetite. Also with constipation. No n/v/. No fever or chills. Less cough. Still feels sob however improved now on 2L NC satting well. Less tremors. Objective Vitals Vital Signs Date Time Temp Pulse Resp B/P Pulse Ox O2 Delivery O2 Flow Rate FiO2 06/03/16 09:58 96 Nasal Cannula 2.00 06/03/16 08:35 96 Nasal Cannula 2.00 06/03/16 08:00 97.4 75 16 136/70 96 06/03/16 05:30 95 Nasal Cannula 2.00 06/03/16 04:00 97.0 71 18 112/60 98 06/03/16 00:00 97.4 75 18 118/62 99 06/02/16 22:03 98 Nasal Cannula 3.00 06/02/16 20:00 96.0 79 19 125/61 97 06/02/16 16:00 97.4 83 16 122/63 95 06/02/16 12:00 97.2 75 16 113/57 97 06/02/16 11:57 97 Nasal Cannula 3.00 I/O 06/02/16 06/02/16 06/02/16 06/03/16 06/03/16 06/03/16 07:00 15:00 23:00 07:00 15:00 23:00 Intake Total 440 ml 480 ml 240 ml Output Total 525 ml 300 ml 350 ml Balance -85 ml 180 ml -110 ml Intake Oral 440 ml 480 ml 240 ml Output Urine Total 525 ml 300 ml 350 ml Result Diagram: 05/31/16 1145 06/01/16 0615 Imaging Last Impressions Head CT 05/31/16 1134 Signed Impressions: Service Date/Time: May 13:02 - CONCLUSION: Stable noncontrast head CT. No acute intracranial abnormality is identified. Ronald Anderson MD Chest X-Ray 05/31/16 1134 Signed Impressions: Service Date/Time: May 11:46 - CONCLUSION: No acute cardiopulmonary abnormality is identified. Ronald Anderson MD Chest CT 05/31/16 0000 Signed Impressions: Service Date/Time: May 13:09 - CONCLUSION: 1. Moderate centrilobular emphysema with mild focal area of airspace consolidation within the left lower lobe. The appearance is nonspecific but infectious or inflammatory process could have this appearance. Suggest followup imaging to confirm resolution. 2. Coronary artery calcification and severe atherosclerotic disease of the aorta. There is an ascending aortic aneurysm measuring up to 4.4 x 4.2 cm. Ronald Anderson MD Cervical Spine CT 05/31/16 0000 Signed Impressions: Service Date/Time: May 13:02 - CONCLUSION: Moderate severe degenerative changes at the C6-7 level more prominent on the right than on the left. No evidence of compression deformity or spondylolisthesis. Ruddy Azevedo MD Abdomen/Pelvis CT 05/31/16 0000 Signed Impressions: Service Date/Time: May 13:09 - CONCLUSION: 1. No acute finding is identified within the abdomen or pelvis. 2. There is a 13 mm left adrenal gland mass. It does not meet criteria for an adenoma on this examination. Given the size a benign process is favored. Suggest correlation with prior imaging studies to document longer term stability. If none are available consider followup and further characterization with adrenal protocol CT or MRI. This could be performed on an outpatient elective basis. 3. 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 Ronald Anderson MD Objective Remarks GENERAL: This is a pale, older than stated age, mildly ill appearing. SKIN: Pale. No rashes, ecchymoses or lesions. Cool and dry. HEAD: Atraumatic. Normocephalic. No temporal or scalp tenderness. EYES: Pupils equal round and reactive. Extraocular motions intact. No scleral icterus. No injection or drainage. ENT: Nose without bleeding. Throat without erythema. Uvula midline. Airway patent. NECK: Trachea midline. No JVD or lymphadenopathy. Supple, nontender, no meningeal signs. CARDIOVASCULAR: Regular rate and rhythm without murmurs, gallops, or rubs. RESPIRATORY: Expiratory wheeze, decreased breath sounds. Barrel chested. On nasal cannula. GASTROINTESTINAL: Abdomen soft, non-tender, nondistended. No hepato-splenomegaly , or palpable masses. No guarding. MUSCULOSKELETAL: Extremities without clubbing, cyanosis, or edema. No calf tenderness. Negative Homans sign bilaterally. Right flank area going to the back positive tenderness. NEUROLOGICAL: Awake and alert. Nuchal rigidity. Positive tremors bilateral upper extremity. Motor and sensory grossly within normal limits. Normal speech. A/P Problem List: (1) COPD (chronic obstructive pulmonary disease) ICD Code: J44.9 Status: Chronic (2) Dizziness ICD Code: R42 Status: Acute (3) Tobacco abuse ICD Code: Z72.0 Status: Chronic (4) Acute hypoxemic respiratory failure ICD Code: J96.01 Status: Acute (5) Atrial fibrillation ICD Code: I48.91 Status: Acute (6) Carboxyhemoglobinemia ICD Code: T58.91XA Status: Acute (7) HTN (hypertension) ICD Code: I10 Status: Acute (8) Pre-syncope ICD Code: R55 Status: Acute (9) PNA (pneumonia) ICD Code: J18.9 Status: Acute (10) DM2 (diabetes mellitus, type 2) ICD Code: E11.9 Status: Acute (11) Parkinson disease ICD Code: G20 Status: Acute Assessment and Plan Patient is a 65-year-old white male with primary medical history Parkinson's disease, COPD, hypertension, DM 2 who came in to the hospital for evaluation of general weakness, and falls. Patient states that for the past 3 weeks he is feeling weak and tired and has lost his appetite. He has not eaten or drinking much in the past 3 weeks. He also states that he has lost some weight about 15 pounds in the past 3 weeks. He states that he has fallen yesterday and today. Feels that he has pain on his right flank area towards his back, 6/10, dull achy , aggravated by movement, requesting for pain medication. He denies hitting his head or losing consciousness. Patient takes blood thinner Eliquis, does not exactly know what he is taking the medications but reports that he was diagnosed with rapid heart rate in the 160s to 200s, a few months ago. Denies any blood clots. *Chest CT showed moderate centrilobular emphysema with mild focal area of airspace consolidation within the left lower lobe. The appearance is nonspecific but infectious or inflammatory processes could have this appearance. Suggest follow-up imaging to confirm resolution. Coronary artery calcification and severe atherosclerotic disease of the aorta. There is an ascending aortic aneurysm measuring up to 4.4 x 4.2 cm. *CT of the cervical spine showed moderate severe degenerative changes at the C6 to 7 level more prominent on the right than on the left. No evidence of compression deformity or spondylolisthesis. *CT of the abdomen and pelvis showed no acute findings is identified within the abdomen or pelvis. There is a 13 mm left adrenal gland mass. It does not make criteria for adenoma on this examination. Given the size of a benign process is favored. Suggest correlation with prior imaging studies to document longer- term stability. If not better available consider follow-up and further characterization with adrenal protocol CT or MRI. This could be performed as an outpatient elective basis. 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 *Head CT showed stable noncontrast head CT. No acute intracranial abnormality is identified. *Chest x-ray showed no acute or new pulmonary abnormality is identified. Acute on chronic respiratory failure requiring O2, noted desatting at 85 in the ED, on venti mask. Wean as tolerated. Hypoxemia COPD with exacerbation Pneumonia - Chest CT showed moderate centrilobular emphysema with mild focal area of airspace consolidation within the left lower lobe. The appearance is nonspecific but infectious or inflammatory processes could have this appearance. Suggest follow-up imaging to confirm resolution. Coronary artery calcification and severe atherosclerotic disease of the aorta. There is an ascending aortic aneurysm measuring up to 4.4 x 4.2 cm. - Chest x-ray showed no acute or new pulmonary abnormality is identified. - Patient was given IV antibiotics in the ED, ceftriaxone, azithromycin. Continue with IV antibiotics. - DuoNeb's scheduled and when necessary - Continue with nasal cannula use O2 2-3 L, patient uses home O2 - Solu-Medrol IV, tapered - Consult pulm, appreciate recommendations Aortic aneurysm HTN - CT of the abdomen and pelvis showed no acute findings is identified within the abdomen or pelvis. There is a 13 mm left adrenal gland mass. It does not make criteria for adenoma on this examination. Given the size of a benign process is favored. Suggest correlation with prior imaging studies to document longer-term stability. If not better available consider follow-up and further characterization with adrenal protocol CT or MRI. This could be performed as an outpatient elective basis. 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 - Chest CT showed moderate centrilobular emphysema with mild focal area of airspace consolidation within the left lower lobe. The appearance is nonspecific but infectious or inflammatory processes could have this appearance. Suggest follow-up imaging to confirm resolution. Coronary artery calcification and severe atherosclerotic disease of the aorta. There is an ascending aortic aneurysm measuring up to 4.4 x 4.2 cm. - home meds on Norvasc 10 mg daily, lisinopril 20 mg daily - Add hydralazine 20 mg IV when necessary - Monitor BP trend. Goal BP less than 150 Syncopal episode, dizziness, S/P fall, multiple times Parkinson's Disease - Head CT showed stable noncontrast head CT. No acute intracranial abnormality is identified. - Recent carotid US normal. - Check possibility of medication contribution to dizziness, patient was started on carbidopa levodopa 2 months ago - Check orthostatic BP - Placed on telemetry - Fall precautions - PT/OT for Eval and Treatment DM 2 - hold off on metformin for now - Insulin sliding scale. Monitor Accu-Cheks. - Monitor for hypoglycemia. HLD - continue pravastatin 40 mg ? Atrial fibrillation, ? SVT - on Eliquis Decreased appetite. Add megace. Constipation. Laxatives, stool softeners. DVT prop SCDs, Eliquis GI prop pantoprazole Code Status Full code Discussed Condition With Patient, nurse Improving. PT recommends SNF however the patient is refusing SNF. Patient / family decided for SNF. CM consulted and following for DC. DC to SNF. Problem Qualifiers (1) COPD (chronic obstructive pulmonary disease): Qualified Code: J43.9 - Pulmonary emphysema, unspecified emphysema type Ondina Eldridge MD Jun 03, 2016 10:39
[2016-06-03 10:50] LABS: HEMO FLAGS AUTO DIFF
[2016-06-03 11:06] LABS: BICARBONATE 30.1 MEQ/L (21.0-32.0); POTASSIUM 3.9 MEQ/L (3.5-5.1)
[2016-06-03 11:07] LABS: MAGNESIUM 2.4 MG/DL (1.5-2.5)
[2016-06-03] MEDS: MEGESTROL ACETATE SUSP 400 MG/10 ML CUP PO SCH (12:32)
[2016-06-03 13:26] LABS: ACANTHOCYTES OCC (NORMAL); HELMET CELLS OCC (NORMAL); OVALOCYTES 1+ (NORMAL); PLATELET ESTIMATE SMEAR NORMAL (NORMAL); PLATELET MORPHOLOGY ENLARGED (NORMAL); SCAN/DIFF AUTO DIFF CONFIRMED
[2016-06-03] MEDS ORDERED: DILTIAZEM HCL 25 MG/5 ML VIAL IV ONE ×2 (15:30→18:30)
[2016-06-03] MEDS ORDERED: DILTIAZEM INJ 125 MG in SODIUM CHLORIDE 0.9% INJ 100 ML IV SCH (16:00)
[2016-06-03 17:56] LABS: CREATINE KINASE 14 U/L (39-308)
[2016-06-03] MEDS: cefTRIAXone INJ 2,000 MG in SODIUM CHLORIDE 0.9% INJ 100 ML IV SCH (18:42)
[2016-06-03] MEDS: DILTIAZEM HCL 30 MG TAB PO SCH (20:00)
[2016-06-03] MEDS ORDERED: METOPROLOL TARTRATE 5 MG/5 ML VIAL IV PUSH ONE (20:15)
[2016-06-03] MEDS: AZITHROMYCIN INJ 500 MG in SODIUM CHLOR 0.9% 250 ML INJ 250 ML IV SCH (20:52)
[2016-06-03] MEDS ORDERED: SODIUM CHLORID 0.9% 500 ML INJ 500 ML IV ONE (21:30)
[2016-06-03] MEDS: SODIUM CHLOR 0.9% 1000 ML INJ 1,000 ML IV SCH (21:30)
[2016-06-04] VITALS (27 sets, daily range): BP systolic 112–151; BP diastolic 56–67; PULSE 59–160; RESP 17–21; TEMP 97–98.2; O2SAT 91–98
[2016-06-04] MEDS: DILTIAZEM HCL 30 MG TAB PO SCH ×6 (01:00→20:53)
[2016-06-04] MEDS: INSULIN ASPART SUPPLEMENTAL SCALE SQ SCH ×4 (06:09→20:54)
[2016-06-04] MEDS: RESP: ALBUTEROL 2.5 MG/IPRATROPIUM 0.5 MG NEB (SCH) NEB ×3 (07:21→15:50)
[2016-06-04] MEDS: SODIUM CHLOR 0.9% 1000 ML INJ 1,000 ML IV SCH (08:47)
[2016-06-04] MEDS: GABAPENTIN 300 MG CAP PO SCH ×2 (08:50→20:54)
[2016-06-04] MEDS: LISINOPRIL 10 MG TAB PO SCH (08:51)
[2016-06-04] MEDS: amLODIPine BESYLATE 5 MG TAB PO SCH ×2 (08:51→20:54)
[2016-06-04] MEDS: APIXABAN 5 MG TABLET PO SCH ×2 (08:51→20:54)
[2016-06-04] MEDS: ASPIRIN EC 81 MG TABEC PO SCH (08:51)
[2016-06-04] MEDS: busPIRone HCL 5 MG TAB PO SCH ×2 (08:52→20:54)
[2016-06-04] MEDS: ESCITALOPRAM OXALATE 10 MG TAB PO SCH (08:52)
[2016-06-04] MEDS: PRAVASTATIN SOD 40 MG TAB PO SCH (08:52)
[2016-06-04] MEDS: MEGESTROL ACETATE SUSP 400 MG/10 ML CUP PO SCH (08:53)
[2016-06-04] MEDS: BUDESONIDE-FORMOTEROL 80/4.5 MCG INHALER INH SCH ×2 (08:53→20:53)
[2016-06-04] MEDS: predniSONE 10 MG TAB PO SCH ×3 (08:53→16:23)
[2016-06-04] MEDS: CARBIDOPA/LEVODOPA 25 MG/100 MG TAB PO SCH ×3 (08:53→16:24)
[2016-06-04] MEDS: MAGNESIUM HYDROXIDE SUSP 30 ML CUP PO PRN (08:58)
[2016-06-04] MEDS: SODIUM CHLORIDE 0.9% FLUSH 5 ML FLUSH FLUSH SCH ×2 (09:00→20:53)
--- NOTE | 2016-06-04 12:27 | EKG ---
Date Performed: 06/03/2016 Time Performed: 15:18:28 PTAGE: 65 years EKG: ATRIAL FIBRILLATION WITH RAPID VENTRICULAR RESPONSE RIGHT BUNDLE BRANCH BLOCK Compared to t he previous tracing atrial fibrillation with rapid response is new ABNORMAL ECG PREVIOUS TRACING : 05/31/2016 11.40 DOCTOR: Tej Ace Interpretating Date/Time 06/04/2016 12:26:25
[2016-06-04] MEDS: POLYETHYLENE GLYCOL 17 GM PKG PO SCH (12:45)
[2016-06-04] MEDS ORDERED: DOCUSATE SODIUM 50 MG/SENNA 8.6 MG TAB PO PRN (12:45)
[2016-06-04] MEDS ORDERED: LACTULOSE SYRUP 20 GM/30 ML CUP PO PRN (12:45)
--- NOTE | 2016-06-04 13:09 | HHI.PR ---
Subjective Remarks HR better controlled today. Patient is currently off cardizem drip. He also complaints of constipation x 7 days. He is talking MOM did not help. No much cough. No lightheadedness. Has less tremors. Breathing well. SOB better. Less cough. Appetite is better. Objective Vitals Vital Signs Date Time Temp Pulse Resp B/P Pulse Ox O2 Delivery O2 Flow Rate FiO2 06/04/16 11:00 79 06/04/16 10:00 79 06/04/16 09:00 92 06/04/16 08:00 92 Room Air 06/04/16 08:00 97.6 80 17 151/67 92 06/04/16 08:00 68 06/04/16 07:21 91 21 06/04/16 07:00 63 06/04/16 06:00 65 06/04/16 05:00 62 06/04/16 04:00 59 06/04/16 03:00 96 Nasal Cannula 2.00 06/04/16 03:00 61 06/04/16 03:00 97.0 160 21 112/56 97 06/04/16 02:00 64 06/04/16 01:00 63 06/04/16 00:00 61 06/03/16 23:30 77 06/03/16 23:00 98.0 126 20 101/56 97 06/03/16 23:00 126 06/03/16 23:00 96 Nasal Cannula 2.00 06/03/16 22:00 126 06/03/16 21:00 139 06/03/16 20:00 150 06/03/16 19:00 160 06/03/16 19:00 96 Nasal Cannula 2.00 06/03/16 19:00 98.2 152 18 105/65 97 06/03/16 18:00 144 06/03/16 16:40 97.9 160 20 125/70 96 06/03/16 16:40 168 06/03/16 16:40 96 Nasal Cannula 3.00 06/03/16 15:55 149 117/60 06/03/16 15:38 174 105/60 06/03/16 15:10 95 Nasal Cannula 3.00 06/03/16 14:57 119 20 147/80 93 I/O 06/03/16 06/03/16 06/03/16 06/04/16 06/04/1606/04/17 07:00 15:00 23:00 07:00 15:00 23:00 Intake Total 240 ml 700 ml 1840 ml Output Total 350 ml 250 ml 300 ml Balance -110 ml 450 ml 1540 ml Intake Oral 240 ml 700 ml 480 ml IV Total 1360 ml Output Urine Total 350 ml 250 ml 300 ml # Bowel Movements 0 Result Diagram: 06/03/16 0906/03/16 0903 Imaging Last Impressions Head CT 05/31/16 1134 Signed Impressions: Service Date/Time: May 13:02 - CONCLUSION: Stable noncontrast head CT. No acute intracranial abnormality is identified. Ronald Anderson MD Chest X-Ray 05/31/16 1134 Signed Impressions: Service Date/Time: May 11:46 - CONCLUSION: No acute cardiopulmonary abnormality is identified. Ronald Anderson MD Chest CT 05/31/16 0000 Signed Impressions: Service Date/Time: May 13:09 - CONCLUSION: 1. Moderate centrilobular emphysema with mild focal area of airspace consolidation within the left lower lobe. The appearance is nonspecific but infectious or inflammatory process could have this appearance. Suggest followup imaging to confirm resolution. 2. Coronary artery calcification and severe atherosclerotic disease of the aorta. There is an ascending aortic aneurysm measuring up to 4.4 x 4.2 cm. Ronald Anderson MD Cervical Spine CT 05/31/16 0000 Signed Impressions: Service Date/Time: May 13:02 - CONCLUSION: Moderate severe degenerative changes at the C6-7 level more prominent on the right than on the left. No evidence of compression deformity or spondylolisthesis. Ruddy Azevedo MD Abdomen/Pelvis CT 05/31/16 0000 Signed Impressions: Service Date/Time: May 13:09 - CONCLUSION: 1. No acute finding is identified within the abdomen or pelvis. 2. There is a 13 mm left adrenal gland mass. It does not meet criteria for an adenoma on this examination. Given the size a benign process is favored. Suggest correlation with prior imaging studies to document longer term stability. If none are available consider followup and further characterization with adrenal protocol CT or MRI. This could be performed on an outpatient elective basis. 3. 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 Ronald Anderson MD Objective Remarks GENERAL: This is a pale, older than stated age, mildly ill appearing. SKIN: Pale. No rashes, ecchymoses or lesions. Cool and dry. HEAD: Atraumatic. Normocephalic. No temporal or scalp tenderness. EYES: Pupils equal round and reactive. Extraocular motions intact. No scleral icterus. No injection or drainage. ENT: Nose without bleeding. Throat without erythema. Uvula midline. Airway patent. NECK: Trachea midline. No JVD or lymphadenopathy. Supple, nontender, no meningeal signs. CARDIOVASCULAR: Regular rate and rhythm without murmurs, gallops, or rubs. RESPIRATORY: Expiratory wheeze, decreased breath sounds. Barrel chested. On nasal cannula. GASTROINTESTINAL: Abdomen soft, non-tender, nondistended. No hepato-splenomegaly , or palpable masses. No guarding. MUSCULOSKELETAL: Extremities without clubbing, cyanosis, or edema. No calf tenderness. Negative Homans sign bilaterally. Right flank area going to the back positive tenderness. NEUROLOGICAL: Awake and alert. Nuchal rigidity. Positive tremors bilateral upper extremity. Motor and sensory grossly within normal limits. Normal speech. A/P Problem List: (1) COPD (chronic obstructive pulmonary disease) ICD Code: J44.9 Status: Chronic (2) Dizziness ICD Code: R42 Status: Acute (3) Tobacco abuse ICD Code: Z72.0 Status: Chronic (4) Acute hypoxemic respiratory failure ICD Code: J96.01 Status: Acute (5) Atrial fibrillation ICD Code: I48.91 Status: Acute (6) Carboxyhemoglobinemia ICD Code: T58.91XA Status: Acute (7) HTN (hypertension) ICD Code: I10 Status: Acute (8) Pre-syncope ICD Code: R55 Status: Acute (9) PNA (pneumonia) ICD Code: J18.9 Status: Acute (10) DM2 (diabetes mellitus, type 2) ICD Code: E11.9 Status: Acute (11) Parkinson disease ICD Code: G20 Status: Acute Assessment and Plan Patient is a 65-year-old white male with primary medical history Parkinson's disease, COPD, hypertension, DM 2 who came in to the hospital for evaluation of general weakness, and falls. Patient states that for the past 3 weeks he is feeling weak and tired and has lost his appetite. He has not eaten or drinking much in the past 3 weeks. He also states that he has lost some weight about 15 pounds in the past 3 weeks. He states that he has fallen yesterday and today. Feels that he has pain on his right flank area towards his back, 6/10, dull achy , aggravated by movement, requesting for pain medication. He denies hitting his head or losing consciousness. Patient takes blood thinner Eliquis, does not exactly know what he is taking the medications but reports that he was diagnosed with rapid heart rate in the 160s to 200s, a few months ago. Denies any blood clots. *Chest CT showed moderate centrilobular emphysema with mild focal area of airspace consolidation within the left lower lobe. The appearance is nonspecific but infectious or inflammatory processes could have this appearance. Suggest follow-up imaging to confirm resolution. Coronary artery calcification and severe atherosclerotic disease of the aorta. There is an ascending aortic aneurysm measuring up to 4.4 x 4.2 cm. *CT of the cervical spine showed moderate severe degenerative changes at the C6 to 7 level more prominent on the right than on the left. No evidence of compression deformity or spondylolisthesis. *CT of the abdomen and pelvis showed no acute findings is identified within the abdomen or pelvis. There is a 13 mm left adrenal gland mass. It does not make criteria for adenoma on this examination. Given the size of a benign process is favored. Suggest correlation with prior imaging studies to document longer- term stability. If not better available consider follow-up and further characterization with adrenal protocol CT or MRI. This could be performed as an outpatient elective basis. 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 *Head CT showed stable noncontrast head CT. No acute intracranial abnormality is identified. *Chest x-ray showed no acute or new pulmonary abnormality is identified. Atrial fibrillation with RVT 06/03 Continue on Eliquis. Received cardizem IVP 15 mg 06/03 and was placed on cardizem drip. Patietn with sustained HR in 150s discpite being on max cardizem. Ordered additional 15 mg IVP cardizem drip. Cradizem drip weaned off. Currently on cardizem PO 30 mg QID. CXR reviewed no change. Toponin, CKMB negative. Consult cardio, discussed with Dr Radha garcia. continue cardizem PO. 2D ECHO pending. Acute on chronic respiratory failure requiring O2, noted desatting at 85 in the ED, on venti mask. Wean as tolerated. Hypoxemia COPD with exacerbation Pneumonia - Chest CT showed moderate centrilobular emphysema with mild focal area of airspace consolidation within the left lower lobe. The appearance is nonspecific but infectious or inflammatory processes could have this appearance. Suggest follow-up imaging to confirm resolution. Coronary artery calcification and severe atherosclerotic disease of the aorta. There is an ascending aortic aneurysm measuring up to 4.4 x 4.2 cm. - Chest x-ray showed no acute or new pulmonary abnormality is identified. - Patient was given IV antibiotics in the ED, ceftriaxone, azithromycin. Continue with IV antibiotics. - DuoNeb's scheduled and when necessary - Continue with nasal cannula use O2 2-3 L, patient uses home O2 - Solu-Medrol IV, tapered - Consult pulm, appreciate recommendations Aortic aneurysm HTN - CT of the abdomen and pelvis showed no acute findings is identified within the abdomen or pelvis. There is a 13 mm left adrenal gland mass. It does not make criteria for adenoma on this examination. Given the size of a benign process is favored. Suggest correlation with prior imaging studies to document longer-term stability. If not better available consider follow-up and further characterization with adrenal protocol CT or MRI. This could be performed as an outpatient elective basis. 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 - Chest CT showed moderate centrilobular emphysema with mild focal area of airspace consolidation within the left lower lobe. The appearance is nonspecific but infectious or inflammatory processes could have this appearance. Suggest follow-up imaging to confirm resolution. Coronary artery calcification and severe atherosclerotic disease of the aorta. There is an ascending aortic aneurysm measuring up to 4.4 x 4.2 cm. - home meds on Norvasc 10 mg daily, lisinopril 20 mg daily - Add hydralazine 20 mg IV when necessary - Monitor BP trend. Goal BP less than 150 Syncopal episode, dizziness, S/P fall, multiple times Parkinson's Disease - Head CT showed stable noncontrast head CT. No acute intracranial abnormality is identified. - Recent carotid US normal. - Check possibility of medication contribution to dizziness, patient was started on carbidopa levodopa 2 months ago - Check orthostatic BP - Placed on telemetry - Fall precautions - PT/OT for Eval and Treatment DM 2 - hold off on metformin for now - Insulin sliding scale. Monitor Accu-Cheks. - Monitor for hypoglycemia. HLD - continue pravastatin 40 mg Decreased appetite. Add megace. Constipation. Laxatives, stool softeners. DVT prop SCDs, Eliquis GI prop pantoprazole Code Status Full code Discussed Condition With Patient, nurse, Dr Garcia cardio Improving. PT recommends SNF however the patient is refusing SNF. Patient / family decided for SNF. CM consulted and following for DC. DC to SNF. Problem Qualifiers (1) COPD (chronic obstructive pulmonary disease): Qualified Code: J43.9 - Pulmonary emphysema, unspecified emphysema type Ondina Eldridge MD Jun 04, 2016 13:09
[2016-06-04] MEDS: cefTRIAXone INJ 2,000 MG in SODIUM CHLORIDE 0.9% INJ 100 ML IV SCH (16:24)
[2016-06-04] MEDS: ACETAMINOPHEN/HYDROcodone 325 MG/5 MG TAB PO PRN (16:24)
--- NOTE | 2016-06-04 16:28 | EC ---
Study Study Date:06/04/2016 STUDY CONCLUSIONS SUMMARY - Left ventricle: The cavity size was normal. Wall thickness was normal. Systolic function was normal. The estimated ejection fraction was 60%. Wall motion was normal; there were no regional wall motion abnormalities. - Aortic valve: Possibly bicuspid valve. Trace regurgitation. - Aortic root: The aortic root was moderately dilated. - Mitral valve: Mild regurgitation. If LV function is below 40, please consider prescribing an ACEI or ARB or document rationale for non-use. PROCEDURE DATA STUDY STATUS: Elective. Procedure: Transthoracic echocardiography. Image quality was good. Scanning was performed from the parasternal, apical, and subcostal acoustic windows. Study completion: The patient tolerated the procedure well. Transthoracic echocardiography. M-mode, complete 2D, complete spectral Doppler, and color Doppler. Height: Height: 71in. Weight: Weight: 186.6lb. Body mass index: BMI: 26.1kg/m^2. Body surface area: BSA: 2.05m^2. Patient status: Inpatient. CARDIAC ANATOMY LEFT VENTRICLE: The cavity size was normal. Wall thickness was normal. Systolic function was normal. The estimated ejection fraction was 60%. Wall motion was normal; there were no regional wall motion abnormalities. AORTIC VALVE: Possibly bicuspid valve. Doppler: Transvalvular velocity was within the normal range. There was no stenosis. Trace regurgitation. Valve area: 3.05cm^2(VTI). Indexed valve area: 1.49cm^2/m^2 (VTI). Valve area: 2.81cm^2 (Vmax). Indexed valve area: 1.37cm^2/m^2 (Vmax). Mean gradient: 6mm Hg (S). Peak gradient: 13mm Hg (S). AORTA: Aortic root: The aortic root was moderately dilated. MITRAL VALVE: Structurally normal valve. Doppler: Transvalvular velocity was within the normal range. There was no evidence for stenosis. Mild regurgitation. LEFT ATRIUM: The atrium was normal in size. RIGHT VENTRICLE: The cavity size was normal. Wall thickness was normal. PULMONIC VALVE: Doppler: Transvalvular velocity was within the normal range. There was no evidence for stenosis. No regurgitation. TRICUSPID VALVE: Structurally normal valve. Doppler: Transvalvular velocity was within the normal range. Trace regurgitation. PULMONARY ARTERY: The main pulmonary artery was normal-sized. Systolic pressure was within the normal range. RIGHT ATRIUM: The atrium was normal in size. PERICARDIUM: There was no pericardial effusion. SYSTEMIC VEINS: Inferior vena cava: The vessel was normal in size. Patient weight: 186.6lb _Ejection fraction:_ 65-75% _Fractional shortening:_ 32% up to 5Kg 5-11.5Kg 11.6-22.9Kg 23-45Kg 45-57Kg Aortic Root 7-13 <17 13-22 17-27 17-27 LA diam 6-13 <23 24-38 33-47 37-40 RVID 10-17 7-15 7-15 7-18 8-17 LVIDd 12-22 <32 24-38 33-47 37-40 LVPW 2-4 3-6 5-7 6-8 7-8 IVS 2-4 3-6 5-7 6-8 7-8 BASIC MEASUREMENTS ADULT NORMAL Left ventricle LV internal dimension, ED, chordal *37.2 mm 43-52 level, PLAX LV internal dimension, ES, chordal 26.5 mm 23-38 level, PLAX Fractional shortening, chordal level, *29 % >29 PLAX LV posterior wall thickness, ED 11.1 mm IVS/LVPW ratio, ED 1.01 <1.3 Ventricular septum Septal thickness, ED 11.2 mm Aortic valve Leaflet separation 23 mm 15-26 Aorta Root diameter, ED 45 mm Left atrium Anterior-posterior dimension 28 mm Anterior-posterior dimension index 1.37 cm/m^2 <2.2 BASIC MEASUREMENTS ADULT NORMAL Aortic valve Leaflet separation 23 mm 15-26 DOPPLER MEASUREMENTS ADULT NORMAL Main pulmonary artery Pressure, S 17 mm Hg =30 Aortic valve Peak velocity, S 178 cm/s Mean velocity, S 113 cm/s VTI, S 35.4 cm Mean gradient, S 6 mm Hg Peak gradient, S 13 mm Hg Valve area, VTI 3.05 cm^2 Valve area index, VTI 1.49 cm^2/m^2 Valve area, Vmax 2.81 cm^2 Valve area index, Vmax 1.37 cm^2/m^2 Mitral valve Peak E-wave velocity 64.7 cm/s Peak A-wave velocity 87.4 cm/s Peak E/A ratio 0.7 Tricuspid valve Regurgitant peak velocity 185 cm/s Peak RV-RA gradient, S 14 mm Hg Maximal regurgitant velocity 185 cm/s Systemic veins Estimated CVP 5 mm Hg Right ventricle RV pressure, S 19 mm Hg <30 Pulmonic valve Peak velocity, S 73.7 cm/s LEGEND: Mean values are shown as u=mean value. Asterisk (*) keith values outside specified normal range. Ayesha Claire [id number]
--- NOTE | 2016-06-04 17:43 | HHI.PR ---
Subjective Remarks 65 YOWM with COPD, weight loss, AF On Diltiazem for rate controll Breathing better No cough or sp No fever Objective Vital Signs Vital Signs Date Time Temp Pulse Resp B/P Pulse Ox O2 Delivery O2 Flow Rate FiO2 06/04/16 17:00 73 06/04/16 16:00 77 06/04/16 15:00 97.7 78 18 138/66 97 06/04/16 15:00 71 06/04/16 15:00 96 Nasal Cannula 2.00 06/04/16 14:00 74 06/04/16 13:00 74 06/04/16 12:00 77 06/04/16 11:00 96 Nasal Cannula 2.00 06/04/16 11:00 79 06/04/16 11:00 97.9 83 17 132/60 96 06/04/16 10:00 79 06/04/16 09:00 92 06/04/16 08:00 92 Room Air 06/04/16 08:00 97.6 80 17 151/67 92 06/04/16 08:00 68 06/04/16 07:21 91 21 06/04/16 07:00 63 06/04/16 06:00 65 06/04/16 05:00 62 06/04/16 04:00 59 06/04/16 03:00 96 Nasal Cannula 2.00 06/04/16 03:00 61 06/04/16 03:00 97.0 160 21 112/56 97 06/04/16 02:00 64 06/04/16 01:00 63 06/04/16 00:00 61 06/03/16 23:30 77 06/03/16 23:00 98.0 126 20 101/56 97 06/03/16 23:00 126 06/03/16 23:00 96 Nasal Cannula 2.00 06/03/16 22:00 126 06/03/16 21:00 139 06/03/16 20:00 150 06/03/16 19:00 160 06/03/16 19:00 96 Nasal Cannula 2.00 06/03/16 19:00 98.2 152 18 105/65 97 06/03/16 18:00 144 I/O 06/03/16 06/03/16 06/03/16 06/04/16 06/04/16 06/04/16 07:00 15:00 23:00 07:00 15:00 23:00 Intake Total 240 ml 700 ml 1840 ml 710 ml Output Total 350 ml 250 ml 300 ml 500 ml Balance -110 ml 450 ml 1540 ml 210 ml Intake Oral 240 ml 700 ml 480 ml 710 ml IV Total 1360 ml Output Urine Total 350 ml 250 ml 300 ml 500 ml # Bowel Movements 0 1 Result Diagram: 06/03/1690206/03/16902 Objective Remarks GENERAL: MBMN WM, mild sob SKIN: Warm and dry. HEAD: Normocephalic. EYES: No scleral icterus. No injection or drainage. NECK: Supple, trachea midline. No JVD or lymphadenopathy. CARDIOVASCULAR: Regular rate and rhythm without murmurs, gallops, or rubs. RESPIRATORY: Breath sounds equal bilaterally. No accessory muscle use. GASTROINTESTINAL: Abdomen soft, non-tender, nondistended. MUSCULOSKELETAL: No cyanosis, or edema. BACK: Nontender without obvious deformity. No CVA tenderness. A/P Assessment and Plan COPD AF Weight loss Nicotine use PLAN: Cont Abx Aerosol nebs Pred 10 mg bid Cardiazem for rate controll Smoking cessation Cont Abx James Brush MD Jun 04, 2016 17:43
[2016-06-04] MEDS ORDERED: DILT31TA PO (20:17)
[2016-06-04] MEDS: AZITHROMYCIN INJ 500 MG in SODIUM CHLOR 0.9% 250 ML INJ 250 ML IV SCH (20:53)
[2016-06-05] VITALS (17 sets, daily range): BP systolic 131–143; BP diastolic 63–69; PULSE 58–90; RESP 16–18; TEMP 97.8–98.1; O2SAT 95–98
[2016-06-05] MEDS: DILTIAZEM HCL 30 MG TAB PO SCH ×4 (00:01→13:00)
[2016-06-05] MEDS: INSULIN ASPART SUPPLEMENTAL SCALE SQ SCH ×2 (06:28→11:00)
[2016-06-05 06:30] LABS: AUTOMATED NEUTROPHIL # 8.2 TH/MM3 (1.8-7.7); BASOPHIL % 0.2 % (0.0-2.0); EOSINOPHIL % 0.1 % (0.0-4.0); HEMATOCRIT 33.3 % (39.0-51.0); LYMPHOCYTE # 0.9 TH/MM3 (1.0-4.8); MEAN CORPUSCULAR HEMOGLOBIN 21.8 PG (27.0-34.0); MONO % 6.6 % (0.0-8.0); NEUT % 84.1 % (16.0-70.0); PLATELET COUNT 332 TH/MM3 (150-450); WHITE BLOOD COUNT 9.8 TH/MM3 (4.0-11.0)
[2016-06-05 06:44] LABS: HEMO FLAGS AUTO DIFF
[2016-06-05 06:46] LABS: BICARBONATE 27.5 MEQ/L (21.0-32.0); POTASSIUM 3.9 MEQ/L (3.5-5.1)
--- NOTE | 2016-06-05 07:05 | MB ---
cc: EDINSON ZHONG DO DATE OF CONSULTATION 06/04/2016 REASON FOR CONSULTATION Atrial fibrillation with rapid ventricular response. HISTORY OF PRESENT ILLNESS Garrett Teran is a pleasant 65-year-old male who originally presented to [facility] emergency room on May 31, 2016 due to weakness and decreased appetite. He states that he has not been eating or drinking much over the past three weeks. He has lost some weight around 15 pounds. He has been feeling weak and had two falls recently. While here, he was noted to have possible COPD exacerbation versus pneumonia and started on antibiotics as well as Solu-Medrol. He then was evaluated by PT, OT and recommended rehab. Yesterday he had episode of atrial fibrillation with rapid ventricular response at about 150 beats per minute. During this, he states that he had no chest pain, just some increased shortness of breath. He does have a history of atrial fibrillation for which he was originally on Aggrenox and then switched to Eliquis by his primary care doctor over at that [facility]. It does not appear that he has ever been on any rate control medicines. Per the patient, he states that he had an irregular heart rate at some point around 160 beats per minute. Last night he was given a dose of Cardizem p.o. and started on a Cardizem drip. In seeing him this morning, his heart rate is now normal sinus rhythm and he is currently off the Cardizem drip. PAST MEDICAL HISTORY 1. Parkinson's disease 2. COPD 3. Emphysema 4. Diabetes mellitus type 2 5. Hypertension 6. Paroxysmal atrial fibrillation 7. Neuropathy 8. Hyperlipidemia 9. Depression 10. Anxiety PAST SURGICAL HISTORY Denies ALLERGIES NO KNOWN DRUG ALLERGIES. Home medications. 1. Eliquis 5 mg b.i.d. 2. Symbicort two puffs b.i.d. 3. Lisinopril 10 mg daily 4. Gabapentin 300 mg b.i.d. 5. Lexapro 10 mg daily 6. Buspirone 15 mg b.i.d. 7. Xanax 0.25 mg every day 8 hours as needed 8. Combivent 1 puff q.i.d. 9. Metformin 500 mg daily in the morning. 10. Metformin 250 mg daily in the evening. 11. Norvasc 5 mg b.i.d. 12. Sinemet 25/100, 1.5 tabs t.i.d. 13. Pravastatin 40 mg daily 14. Aspirin 81 mg daily FAMILY HISTORY Mother had heart disease of unknown specifics. Father had lung cancer dying in his late 80s. SOCIAL HISTORY The patient lives at home with his . Previous alcohol use, but has been sober for seven years. Previously drank a daily beer and/or half a bottle of bourbon. He has used tobacco on and off for up to two packs per day since he was 20 years old. Denies illicit drug abuse. REVIEW OF SYSTEMS 14-systems were reviewed including osteopathic pertinent positives and negatives above otherwise negative. PHYSICAL EXAMINATION VITAL SIGNS: Temperature 97.6, heart rate 80, blood pressure 151/67, respirations 17, pulse ox 92% on room air. GENERAL: In general, the patient appears well in no acute distress, alert, awake and oriented x3. HEAD, EYES, EARS, NOSE, AND THROAT: Extraocular muscles intact. Mucous membranes moist. NECK: Supple. No JVD at 45 degrees. No carotid bruits heard bilaterally. Carotid upstroke is brisk in nature. HEART: Regular rate and rhythm, positive first and second heart sounds with a 1/6 crescendo-decrescendo murmur to the right sternal border. LUNGS: Decreased breath sounds bilaterally, but no overt wheezes, rales or rhonchi. ABDOMEN: Soft, nontender, nondistended. No organomegaly noted. EXTREMITIES: Show no clubbing, cyanosis or edema. Femoral and distal pulses intact bilaterally. NEUROLOGIC: No focal deficits. SKIN: Warm, dry and intact. OSTEOPATHIC: No kyphoscoliosis, lordosis or paraspinal tender points. LABORATORY FINDINGS White blood cells 13.5, hemoglobin 10.4, hematocrit 33.1, platelets 341. Potassium 3.9, BUN 20, creatinine 0.77, troponin less than 0.02. TSH 1.02. Electrocardiogram (June 03, 2016 at 1518) atrial fibrillation with rapid ventricular response, right bundle branch block. IMPRESSION 1. Atrial fibrillation with rapid ventricular response with a history of paroxysmal atrial fibrillation on Eliquis. 2. Generalized weakness 3. COPD 4. Tobacco abuse 5. History of hypertension 6. Possible pneumonia. 7. Diabetes mellitus type 2 8. Parkinson's disease RECOMMENDATIONS 1. Garrett appeared to have an episode of atrial fibrillation with rapid ventricular response. He has not previously been on rate control medications for an unknown reason per the patient. We will continue him on Cardizem 30 mg and this can be converted to extended release on discharge. 2. We will check a 2-D echo to look at his overall left ventricular function, cardiac structures and possible valvulopathies. 3. As far as his Eliquis, I would continue it at this time. I did discuss this with him and his and his was concerned about recent falls although this may be due to his overall weakness and poor diet. We did discuss risks and benefits of this and his and him would like to continue on the Eliquis for now. I did discuss that if he does continue to have any falls at all they should discuss this with their primary at the [facility] about stopping Eliquis or his aspirin. 4. Overall his paroxysmal atrial fibrillation may be due to his exacerbation of COPD. He may follow up with the [facility] for consideration of stress testing to rule out underlying coronary artery disease. 5. His overall weakness is most likely due to his decreased appetite which will be handled by the primary team. 6. Further recommendations will be made based on the hospital course. Thank you for allowing me to see Garrett Teran. If there are any questions, please do not hesitate to call. Edinson Zhong DO VGP/DJL /6:38 PM /6:45 AM DEIRDRE
[2016-06-05 07:26] LABS: OVALOCYTES 1+ (NORMAL); SCAN/DIFF AUTO DIFF CONFIRMED
[2016-06-05] MEDS: ESCITALOPRAM OXALATE 10 MG TAB PO SCH (09:00)
[2016-06-05] MEDS ORDERED: SENNOSIDES 8.6 MG TAB PO SCH (09:00)
[2016-06-05] MEDS: busPIRone HCL 5 MG TAB PO SCH (09:01)
[2016-06-05] MEDS: amLODIPine BESYLATE 5 MG TAB PO SCH (09:01)
[2016-06-05] MEDS: APIXABAN 5 MG TABLET PO SCH (09:01)
[2016-06-05] MEDS: predniSONE 10 MG TAB PO SCH ×2 (09:02→13:00)
[2016-06-05] MEDS: LISINOPRIL 10 MG TAB PO SCH (09:02)
[2016-06-05] MEDS: PRAVASTATIN SOD 40 MG TAB PO SCH (09:03)
[2016-06-05] MEDS: ASPIRIN EC 81 MG TABEC PO SCH (09:03)
[2016-06-05] MEDS: GABAPENTIN 300 MG CAP PO SCH (09:03)
[2016-06-05] MEDS: CARBIDOPA/LEVODOPA 25 MG/100 MG TAB PO SCH ×2 (09:03→13:01)
[2016-06-05] MEDS: MEGESTROL ACETATE SUSP 400 MG/10 ML CUP PO SCH (09:04)
[2016-06-05] MEDS: POLYETHYLENE GLYCOL 17 GM PKG PO SCH (09:04)
[2016-06-05] MEDS: SODIUM CHLORIDE 0.9% FLUSH 5 ML FLUSH FLUSH SCH (09:05)
[2016-06-05] MEDS: BUDESONIDE-FORMOTEROL 80/4.5 MCG INHALER INH SCH (09:05)
--- NOTE | 2016-06-05 10:03 | PD.CARD.PN ---
Subjective Subjective Remarks No chest pain, no palpitations, somewhat short of breath Objective Medications Current Medications Medications (Trade) Dose Ordered Sig/Amberly Route Start Time Stop Time Status Last Admin (NS Flush) 2 ml UNSCH PRN FLUSH 05/31/16 15:15 (NS Flush) 2 ml BID FLUSH 05/31/16 21:00 06/05/16 09:05 (Tylenol) 650 mg Q4H PRN PO 05/31/16 15:15 (Zofran Inj) 4 mg Q6H PRN IVP 05/31/16 15:15 05/31/16 22:08 (Compazine Supp) 25 mg Q12H PRN MS 05/31/16 15:15 (Dulcolax Supp) 10 mg DAILY PRN MS 05/31/16 15:15 (Milk Of Magnesia Liq) 30 ml Q12H PRN PO 05/31/16 15:15 06/04/16 08:58 (Restoril) 15 mg HS PRN PO 05/31/16 15:15 (Xanax) 0.25 mg Q8HR PRN PO 05/31/16 16:00 (Norvasc) 5 mg BID PO 05/31/16 21:00 06/05/16 09:01 (Eliquis) 5 mg BID PO 05/31/16 21:00 06/05/16 09:01 (Ecotrin Ec) 81 mg DAILY PO 06/01/16 09:00 06/05/16 09:03 (Symbicort 80-4.5 Mcg Inh) 2 puff BID INH 05/31/16 21:00 06/05/16 09:05 (Buspar) 15 mg BID PO 05/31/16 21:00 06/05/16 09:01 (Sinemet 25-100 Mg) 1.5 tab TID PO 05/31/16 18:00 06/05/16 09:03 (Lexapro) 10 mg DAILY PO 06/01/16 09:00 06/05/16 09:00 (Neurontin) 300 mg BID PO 05/31/16 21:00 06/05/16 09:03 (Prinivil) 10 mg DAILY PO 05/31/16 17:00 06/05/16 09:02 (Pravachol) 40 mg DAILY PO 06/01/16 09:00 06/05/16 09:03 (D50w (Vial) Inj) 25 ml UNSCH PRN IV PUSH 05/31/16 16:15 (Glucagon Inj) 1 mg UNSCH PRN OTHER 05/31/16 16:15 (Pill Splitter) 1 ea UNSCH PRN OTHER 05/31/16 16:15 (Clovis 5-325 Mg) 1 tab Q4H PRN PO 05/31/16 16:30 06/04/16 16:24 (Deltasone) 10 mg TID PO 06/02/16 09:00 06/05/16 09:02 (Megace Liq) 400 mg DAILY PO 06/03/16 11:00 06/05/16 09:04 Diltiazem HCl 30 mg 30 mg Q4H PO 06/03/16 16:00 06/05/16 08:59 Diltiazem HCl 125 mg/Sodium Chloride 125 ml @ 0 mls/hr TITRATE IV 06/03/16 16:00 06/03/16 16:16 Azithromycin 500 mg/Sodium Chloride 250 ml @ 250 mls/hr Q24H IV 06/03/16 20:00 06/04/16 20:53 (Rocephin Inj/NS Inj) 100 ml @ 200 mls/hr Q24H IV 06/03/16 18:00 06/04/16 16:24 (Gertrude-Colace) 2 tab BID PRN PO 06/04/16 12:45 (Lactulose Liq) 30 ml TID PRN PO 06/04/16 12:45 (Miralax) 17 gm DAILY PO 06/04/16 12:45 06/05/16 09:04 (Senokot) 8.6 mg DAILY PO 06/05/16 09:00 06/05/16 09:03 Vital Signs / I&O Vital Signs Date Time Temp Pulse Resp B/P Pulse Ox O2 Delivery O2 Flow Rate FiO2 06/05/16 09:20 95 Nasal Cannula 2.00 06/05/16 09:00 72 06/05/16 08:00 79 06/05/16 08:00 96 Nasal Cannula 2.00 06/05/16 07:30 97.9 70 18 143/66 96 06/05/16 07:00 65 06/05/16 06:00 81 06/05/16 05:00 63 06/05/16 04:00 97.8 72 16 143/69 98 06/05/16 04:00 98 Nasal Cannula 2.00 06/05/16 04:00 62 06/05/16 03:00 58 06/05/16 02:00 63 06/05/16 01:00 63 06/05/16 00:00 61 06/04/16 23:30 98 Nasal Cannula 2.00 06/04/16 23:30 98.1 67 18 134/66 98 06/04/16 23:00 67 06/04/16 22:00 64 06/04/16 21:00 71 06/04/16 20:00 68 06/04/16 20:00 96 Nasal Cannula 2.00 06/04/16 20:00 98.2 70 18 132/63 96 06/04/16 19:54 96 Nasal Cannula 2.00 06/04/16 19:00 76 06/04/16 18:00 70 06/04/16 17:00 73 06/04/16 16:00 77 06/04/16 15:00 97.7 78 18 138/66 97 06/04/16 15:00 71 06/04/16 15:00 96 Nasal Cannula 2.00 06/04/16 14:00 74 06/04/16 13:00 74 06/04/16 12:00 77 06/04/16 11:00 96 Nasal Cannula 2.00 06/04/16 11:00 79 06/04/16 11:00 97.9 83 17 132/60 96 06/04/16 10:00 79 I/O 06/04/16 06/04/16 06/04/16 06/05/16 06/05/16 06/05/16 07:00 15:00 23:00 07:00 15:00 23:00 Intake Total 1840 ml 710 ml 490 ml Output Total 300 ml 500 ml 550 ml Balance 1540 ml 210 ml -60 ml Intake Oral 480 ml 710 ml 240 ml IV Total 1360 ml 250 ml Output Urine Total 300 ml 500 ml 550 ml # Bowel Movements 0 1 0 Physical Exam GENERAL: NAD, AAOx3 SKIN: Warm and dry. HEAD: Atraumatic. Normocephalic. EYES: Pupils equal and round. No scleral icterus. No injection or drainage. ENT: No nasal bleeding or discharge. Mucous membranes pink and moist. NECK: Trachea midline. No JVD. CARDIOVASCULAR: Regular rate and rhythm. RESPIRATORY: Decreased breath sounds bilaterally, mild wheezing, no rales noted GASTROINTESTINAL: Abdomen soft, non-tender, nondistended. Hepatic and splenic margins not palpable. MUSCULOSKELETAL: Extremities without clubbing, cyanosis, or edema. No obvious deformities. NEUROLOGICAL: Awake and alert. No obvious cranial nerve deficits. Motor grossly within normal limits. Five out of 5 muscle strength in the arms and legs. Normal speech. PSYCHIATRIC: Appropriate mood and affect; insight and judgment normal. Laboratory Laboratory Tests Test 06/05/16 05:56 White Blood Count 9.8 TH/MM3 Red Blood Count 4.90 MIL/MM3 Hemoglobin 10.7 GM/DL Hematocrit 33.3 % Mean Corpuscular Volume 68.0 FL Mean Corpuscular Hemoglobin 21.8 PG Mean Corpuscular Hemoglobin 32.0 % Concent Red Cell Distribution Width 18.0 % Platelet Count 332 TH/MM3 Mean Platelet Volume 8.7 FL Neutrophils (%) (Auto) 84.1 % Lymphocytes (%) (Auto) 9.0 % Monocytes (%) (Auto) 6.6 % Eosinophils (%) (Auto) 0.1 % Basophils (%) (Auto) 0.2 % Neutrophils # (Auto) 8.2 TH/MM3 Lymphocytes # (Auto) 0.9 TH/MM3 Monocytes # (Auto) 0.6 TH/MM3 Eosinophils # (Auto) 0.0 TH/MM3 Basophils # (Auto) 0.0 TH/MM3 CBC Comment AUTO DIFF Differential Comment AUTO DIFF CONFIRMED Ovalocytes 1+ Sodium Level 140 MEQ/L Potassium Level 3.9 MEQ/L Chloride Level 107 MEQ/L Carbon Dioxide Level 27.5 MEQ/L Anion Gap 6 MEQ/L Blood Urea Nitrogen 16 MG/DL Creatinine 0.80 MG/DL Estimat Glomerular Filtration 97 ML/MIN Rate Random Glucose 86 MG/DL Calcium Level 8.9 MG/DL Assessment and Plan Problem List: (1) COPD exacerbation (2) Parkinson disease (3) Unexplained weight loss (4) Hypertension (5) Respiratory distress (6) Atrial fibrillation Assessment and Plan 1) Heart rate controlled on Cardizem 2) Continue on Eliquis, discussed with if any more falls should discuss with his primary 3) Generalized weakness most likely due to decreased appetite, weakness leading to falls... hopefully with Megace will decrease weakness and no falls 4) EF 60% 5) Agree with rehab Edinson Gonzalez DO Jun 05, 2016 10:03
[2016-06-05] MEDS ORDERED: ALPR0.25 PO (11:50)
[2016-06-05] MEDS ORDERED: ESCI10TA PO (11:56)
--- NOTE | 2016-06-05 13:27 | HHI.PR ---
Subjective Remarks Seen earlier today. Up standing with PT. Denies chest pain , sob, n/v/d/c. Had a large BM yesterday and one in the morning, constipation resolved. Objective Vitals Vital Signs Date Time Temp Pulse Resp B/P Pulse Ox O2 Delivery O2 Flow Rate FiO2 06/05/16 13:00 80 06/05/16 12:00 72 06/05/16 11:00 96 Room Air 06/05/16 11:00 76 06/05/16 11:00 98.1 75 17 131/63 96 06/05/16 10:00 90 06/05/16 09:20 95 Nasal Cannula 2.00 06/05/16 09:00 72 06/05/16 08:00 79 06/05/16 08:00 96 Nasal Cannula 2.00 06/05/16 07:30 97.9 70 18 143/66 96 06/05/16 07:00 65 06/05/16 06:00 81 06/05/16 05:00 63 06/05/16 04:00 97.8 72 16 143/69 98 06/05/16 04:00 98 Nasal Cannula 2.00 06/05/16 04:00 62 06/05/16 03:00 58 06/05/16 02:00 63 06/05/16 01:00 63 06/05/16 00:00 61 06/04/16 23:30 98 Nasal Cannula 2.00 06/04/16 23:30 98.1 67 18 134/66 98 06/04/16 23:00 67 06/04/16 22:00 64 06/04/16 21:00 71 06/04/16 20:00 68 06/04/16 20:00 96 Nasal Cannula 2.00 06/04/16 20:00 98.2 70 18 132/63 96 06/04/16 19:54 96 Nasal Cannula 2.00 06/04/16 19:00 76 06/04/16 18:00 70 06/04/16 17:00 73 06/04/16 16:00 77 06/04/16 15:00 97.7 78 18 138/66 97 06/04/16 15:00 71 06/04/16 15:00 96 Nasal Cannula 2.00 06/04/16 14:00 74 I/O 2/27/17 06/04/16 06/04/16 06/05/16 06/05/16 06/05/16 07:00 15:00 23:00 07:00 15:00 23:00 Intake Total 1840 ml 710 ml 490 ml Output Total 300 ml 500 ml 550 ml Balance 1540 ml 210 ml -60 ml Intake Oral 480 ml 710 ml 240 ml IV Total 1360 ml 250 ml Output Urine Total 300 ml 500 ml 550 ml # Bowel Movements 0 1 0 Result Diagram: 06/05/16 0556 06/05/16 0556 Imaging Last Impressions Head CT 05/31/16 1134 Signed Impressions: Service Date/Time: May 13:02 - CONCLUSION: Stable noncontrast head CT. No acute intracranial abnormality is identified. Ronald Anderson MD Chest X-Ray 05/31/16 1134 Signed Impressions: Service Date/Time: May 11:46 - CONCLUSION: No acute cardiopulmonary abnormality is identified. Ronald Anderson MD Chest CT 05/31/16 0000 Signed Impressions: Service Date/Time: May 13:09 - CONCLUSION: 1. Moderate centrilobular emphysema with mild focal area of airspace consolidation within the left lower lobe. The appearance is nonspecific but infectious or inflammatory process could have this appearance. Suggest followup imaging to confirm resolution. 2. Coronary artery calcification and severe atherosclerotic disease of the aorta. There is an ascending aortic aneurysm measuring up to 4.4 x 4.2 cm. Ronald Anderson MD Cervical Spine CT 05/31/16 0000 Signed Impressions: Service Date/Time: May 13:02 - CONCLUSION: Moderate severe degenerative changes at the C6-7 level more prominent on the right than on the left. No evidence of compression deformity or spondylolisthesis. Ruddy Azevedo MD Abdomen/Pelvis CT 05/31/16 0000 Signed Impressions: Service Date/Time: May 13:09 - CONCLUSION: 1. No acute finding is identified within the abdomen or pelvis. 2. There is a 13 mm left adrenal gland mass. It does not meet criteria for an adenoma on this examination. Given the size a benign process is favored. Suggest correlation with prior imaging studies to document longer term stability. If none are available consider followup and further characterization with adrenal protocol CT or MRI. This could be performed on an outpatient elective basis. 3. 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 Ronald Anderson MD Objective Remarks GENERAL: This is a pale, older than stated age, mildly ill appearing. SKIN: Pale. No rashes, ecchymoses or lesions. Cool and dry. HEAD: Atraumatic. Normocephalic. No temporal or scalp tenderness. EYES: Pupils equal round and reactive. Extraocular motions intact. No scleral icterus. No injection or drainage. ENT: Nose without bleeding. Throat without erythema. Uvula midline. Airway patent. NECK: Trachea midline. No JVD or lymphadenopathy. Supple, nontender, no meningeal signs. CARDIOVASCULAR: Regular rate and rhythm without murmurs, gallops, or rubs. RESPIRATORY: Expiratory wheeze, decreased breath sounds. Barrel chested. On nasal cannula. GASTROINTESTINAL: Abdomen soft, non-tender, nondistended. No hepato-splenomegaly , or palpable masses. No guarding. MUSCULOSKELETAL: Extremities without clubbing, cyanosis, or edema. No calf tenderness. Negative Homans sign bilaterally. Right flank area going to the back positive tenderness. NEUROLOGICAL: Awake and alert. Nuchal rigidity. Positive tremors bilateral upper extremity. Motor and sensory grossly within normal limits. Normal speech. A/P Problem List: (1) COPD (chronic obstructive pulmonary disease) ICD Code: J44.9 Status: Chronic (2) Dizziness ICD Code: R42 Status: Acute (3) Tobacco abuse ICD Code: Z72.0 Status: Chronic (4) Acute hypoxemic respiratory failure ICD Code: J96.01 Status: Acute (5) Atrial fibrillation ICD Code: I48.91 Status: Acute (6) Carboxyhemoglobinemia ICD Code: T58.91XA Status: Acute (7) HTN (hypertension) ICD Code: I10 Status: Acute (8) Pre-syncope ICD Code: R55 Status: Acute (9) PNA (pneumonia) ICD Code: J18.9 Status: Acute (10) DM2 (diabetes mellitus, type 2) ICD Code: E11.9 Status: Acute (11) Parkinson disease ICD Code: G20 Status: Acute Assessment and Plan Patient is a 65-year-old white male with primary medical history Parkinson's disease, COPD, hypertension, DM 2 who came in to the hospital for evaluation of general weakness, and falls. Patient states that for the past 3 weeks he is feeling weak and tired and has lost his appetite. He has not eaten or drinking much in the past 3 weeks. He also states that he has lost some weight about 15 pounds in the past 3 weeks. He states that he has fallen yesterday and today. Feels that he has pain on his right flank area towards his back, 6/10, dull achy , aggravated by movement, requesting for pain medication. He denies hitting his head or losing consciousness. Patient takes blood thinner Eliquis, does not exactly know what he is taking the medications but reports that he was diagnosed with rapid heart rate in the 160s to 200s, a few months ago. Denies any blood clots. *Chest CT showed moderate centrilobular emphysema with mild focal area of airspace consolidation within the left lower lobe. The appearance is nonspecific but infectious or inflammatory processes could have this appearance. Suggest follow-up imaging to confirm resolution. Coronary artery calcification and severe atherosclerotic disease of the aorta. There is an ascending aortic aneurysm measuring up to 4.4 x 4.2 cm. *CT of the cervical spine showed moderate severe degenerative changes at the C6 to 7 level more prominent on the right than on the left. No evidence of compression deformity or spondylolisthesis. *CT of the abdomen and pelvis showed no acute findings is identified within the abdomen or pelvis. There is a 13 mm left adrenal gland mass. It does not make criteria for adenoma on this examination. Given the size of a benign process is favored. Suggest correlation with prior imaging studies to document longer- term stability. If not better available consider follow-up and further characterization with adrenal protocol CT or MRI. This could be performed as an outpatient elective basis. 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 *Head CT showed stable noncontrast head CT. No acute intracranial abnormality is identified. *Chest x-ray showed no acute or new pulmonary abnormality is identified. Atrial fibrillation with RVT 06/03 Continue on Eliquis. Received cardizem IVP 15 mg 06/03 and was placed on cardizem drip. Patietn with sustained HR in 150s discpite being on max cardizem. Ordered additional 15 mg IVP cardizem drip. Cradizem drip weaned off. Currently on cardizem PO 30 mg QID. CXR reviewed no change. Toponin, CKMB negative. Consult cardio, discussed with Dr Radha garcia. continue cardizem PO. 2D ECHO pending. Acute on chronic respiratory failure requiring O2, noted desatting at 85 in the ED, on venti mask. Wean as tolerated. Hypoxemia COPD with exacerbation Pneumonia - Chest CT showed moderate centrilobular emphysema with mild focal area of airspace consolidation within the left lower lobe. The appearance is nonspecific but infectious or inflammatory processes could have this appearance. Suggest follow-up imaging to confirm resolution. Coronary artery calcification and severe atherosclerotic disease of the aorta. There is an ascending aortic aneurysm measuring up to 4.4 x 4.2 cm. - Chest x-ray showed no acute or new pulmonary abnormality is identified. - Patient was given IV antibiotics in the ED, ceftriaxone, azithromycin. Continue with IV antibiotics. - DuoNeb's scheduled and when necessary - Continue with nasal cannula use O2 2-3 L, patient uses home O2 - Solu-Medrol IV, tapered - Consult pulm, appreciate recommendations Aortic aneurysm HTN - CT of the abdomen and pelvis showed no acute findings is identified within the abdomen or pelvis. There is a 13 mm left adrenal gland mass. It does not make criteria for adenoma on this examination. Given the size of a benign process is favored. Suggest correlation with prior imaging studies to document longer-term stability. If not better available consider follow-up and further characterization with adrenal protocol CT or MRI. This could be performed as an outpatient elective basis. 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 - Chest CT showed moderate centrilobular emphysema with mild focal area of airspace consolidation within the left lower lobe. The appearance is nonspecific but infectious or inflammatory processes could have this appearance. Suggest follow-up imaging to confirm resolution. Coronary artery calcification and severe atherosclerotic disease of the aorta. There is an ascending aortic aneurysm measuring up to 4.4 x 4.2 cm. - home meds on Norvasc 10 mg daily, lisinopril 20 mg daily - Add hydralazine 20 mg IV when necessary - Monitor BP trend. Goal BP less than 150 Syncopal episode, dizziness, S/P fall, multiple times Parkinson's Disease - Head CT showed stable noncontrast head CT. No acute intracranial abnormality is identified. - Recent carotid US normal. - Check possibility of medication contribution to dizziness, patient was started on carbidopa levodopa 2 months ago - Check orthostatic BP - Placed on telemetry - Fall precautions - PT/OT for Eval and Treatment DM 2 - hold off on metformin for now - Insulin sliding scale. Monitor Accu-Cheks. - Monitor for hypoglycemia. HLD - continue pravastatin 40 mg Decreased appetite. Add megace. Constipation. Laxatives, stool softeners. DVT prop SCDs, Eliquis GI prop pantoprazole Code Status Full code Discussed Condition With Patient, nurse, Dr Garcia cardio Improving. PT recommends SNF however the patient is refusing SNF. Patient / family decided for SNF. CM consulted and following for DC. DC to SNF. Problem Qualifiers (1) COPD (chronic obstructive pulmonary disease): Qualified Code: J43.9 - Pulmonary emphysema, unspecified emphysema type Ondina Eldridge MD Jun 05, 2016 13:27
[2016-06-05] MEDS ORDERED: CALCIUM CARBONATE 500 MG CHEWABLE TAB CHEW ONE (14:15)
[2016-06-05] MEDS ORDERED: CALCIUM CARBONATE 500 MG CHEWABLE TAB CHEW PRN (14:15)
== END 2016-06-05 14:55 | disposition home or self-care (01) | DRG 190 ==
LOC: NEPE 11:23 → NEDA 14:38 → OBSVTOIN 15:17 → HOCA 18:00 → HCPC 06-03 17:22
PROVIDERS: ADMIT Hospitalist; ATTEND Hospitalist
DX: J44.1 Chronic obstructive pulmonary disease with (acute) exacerbation (principal); J96.21 Acute and chronic respiratory failure with hypoxia; J18.9 Pneumonia, unspecified organism; E11.42 Type 2 diabetes mellitus with diabetic polyneuropathy; G20 Parkinson's disease; I48.0 Paroxysmal atrial fibrillation; D50.9 Iron deficiency anemia, unspecified; F17.210 Nicotine dependence, cigarettes, uncomplicated; I10 Essential (primary) hypertension; I71.2 Thoracic aortic aneurysm, without rupture; J44.0 Chronic obstructive pulmonary disease with (acute) lower respiratory infection; F32.9 Major depressive disorder, single episode, unspecified; F41.9 Anxiety disorder, unspecified; E78.5 Hyperlipidemia, unspecified; I25.10 Atherosclerotic heart disease of native coronary artery without angina pectoris; Z79.84 Long term (current) use of oral hypoglycemic drugs; K59.00 Constipation, unspecified; Z99.81 Dependence on supplemental oxygen; R29.6 Repeated falls
CPT/HCPCS: 36600; 70450; 71010; 71260; 72125; 74177; 80048; 80053; 81001; 82550; 82805; 82948; 83690; 83735; 84443; 84484; 85007; 85025; 85027; 85610; 85730; 87040; 93005; 93306; 94640; 94664; 96361; 96374; J0360; J0456; J0696; J1815; J2405; J2920; J7030; J7040; J7050; J7512; J7613; Q9967

== ENCOUNTER 2016-07-19 17:48 | Inpatient (IN) | payer OTHER, MEDICARE ==
[~2016-07-19] VITALS: Ht 182.9 cm; Wt 70.0 kg
[~2016-07-19 17:48] MED LIST changes: -ALBU0.086 INH; -ALBU6.7H INH; -ALPR.25 PO; +ALPR0.25 PO; +AMLO5TAB2 PO; -APIX5 PO; +APIX5TAB PO; +ASPI1TAB91 PO; -BUSP10 PO; +BUSP10TA PO; +CEFT250T8 PO; -DIGO0.12 PO; +DILT31TA PO; -DILTCD180 PO; -DUONI NEB; +ESCI10TA PO; -GABA300 PO; +GABA300C5 PO; -GLUCTAB PO; +LACTCHW3 CHEW; +LISI-515 PO; -LISI10 PO; +METF500T PO; -NOVOLOGSS SQ; +PRED10PA PO; -PRED5TAB PO; +SINE25TA PO; -SM A81CH PO; -SPIRCAP INH; -SYMB160A INH; +SYMB80AE INH; -Z.0.OXYGENDME NC
[2016-07-19 18:33] VITALS: BP 88/51; PULSE 85; RESP 16; TEMP 98; O2SAT 93
[2016-07-19] MEDS ORDERED: SODIUM CHLORIDE 0.9% FLUSH 10 ML FLUSH IV FLUSH PRN ×2 (19:15→22:00)
--- NOTE | 2016-07-19 19:18 | PD ---
HPI Chief Complaint: Fall Time Seen by Provider: 19:00 Travel History International Travel<30 days: No Contact w/Intl Traveler<30days: No Traveled to known affect area: No History of Present Illness HPI Patient comes in complaining of worsening weakness over the past 2 weeks. Patient states that he was diagnosed with Parkinson's 2 years ago and was able to shave himself as well as ambulate without assistance until 2 weeks ago. Now he is unable to shave himself and is only able to ambulate with assistance. He states he does fall frequently last approximately week ago. Denies hitting his head or loss consciousness. Patient denies any loss or change in bowel or bladder, chest pain, shortness of breath, abdominal pain, nausea, vomiting, or headache. Patient feels though his Parkinson's is just getting worse. Patient reports that he was on blood thinners but quit taking them about 2-3 days ago. Patient complaining of pain is bilateral hip secondary to history of recent fall. Describes pain as achy like in nature without radiation. States they are badly bruised up from falling. PFSH Past Medical History Hx Anticoagulant Therapy: Yes Arthritis: No Asthma: Yes Autoimmune Disease: No Blood Disorders: No Anxiety: Yes Depression: Yes Heart Rhythm Problems: Yes (recent SVT? ) Cancer: Yes (FATHER LUNG CA) Cardiovascular Problems: Yes High Cholesterol: Yes Chemotherapy: No Chest Pain: No Congestive Heart Failure: No COPD: Yes Cerebrovascular Accident: Yes Diabetes: Yes Diminished Hearing: No Endocrine: Yes Gastrointestinal Disorders: No GERD: No Genitourinary: No Headaches: No Hiatal Hernia: No Hypertension: Yes Immune Disorder: No Kidney Stones: No Musculoskeletal: No Neurologic: Yes (springdalenson) Psychiatric: Yes Reproductive: No Respiratory: Yes Immunizations Current: No Migraines: No Radiation Therapy: No Renal Failure: No Seizures: No Sickle Cell Disease: No Sleep Apnea: No Thyroid Disease: No Ulcer: No Tetanus Vaccination: < 5 Years Influenza Vaccination: Yes ?: Not Past Surgical History Abdominal Surgery: No AICD: No Arteriovenous Shunt: No Cardiac Surgery: No Ear Surgery: No Endocrine Surgery: No Eye Surgery: No Genitourinary Surgery: No Gynecologic Surgery: No Insulin Pump: No Joint Replacement: No Oral Surgery: Yes (RIGHT SIDE SALIVARY GLAND ASPIRATION 2011--DENIES) Pacemaker: No Thoracic Surgery: No Other Surgery: Yes Social History Alcohol Use: No Tobacco Use: Yes Substance Use: No Allergies-Medications (Allergen,Severity, Reaction): Coded Allergies: No Known Allergies (Verified , 05/31/16) Reported Meds & Prescriptions Reported Meds & Active Scripts Active Reported Spiriva Handihaler (Tiotropium Inh) 18 Mcg Cap 18 Mcg INH DAILY 1 capsule = 18 mcg Mirtazapine 7.5 Mg Tab 7.5 Mg PO HS Diltiazem CD 24 HR 300 Mg Caper 300 Mg PO DAILY Lisinopril 10 Mg Tab 10 Mg PO DAILY Buspirone (Buspirone HCl) 5 Mg Tab 5 Mg PO HS Buspirone (Buspirone HCl) 10 Mg Tab 10 Mg PO DAILY IN THE MORNING Gabapentin 300 Mg Cap 300 Mg PO BID Pravastatin 40 Mg Tab 40 Mg PO HS Aspirin Adult Low Strength (Aspirin) 81 Mg Tabdr 81 Mg PO DAILY Metformin (Metformin HCl) 500 Mg Tab 250 Mg PO DAILY IN THE MORNING With a meal Eliquis (Apixaban) 5 Mg Tab 5 Mg PO BID Combivent Respimat Inh (Ipratropium-Albuterol Inh) 20-100 Assisted/Act Aero 1 Puff INH QID Sinemet (Carbidopa-Levodopa) 25-100 Mg Tab 1.5 Tab PO TID Symbicort Inh (Budesonide/Formoterol Fumarate) 80-4.5 Mcg/Act Aero 1 Puff INH BID Review of Systems Except as stated in HPI: all other systems reviewed are Neg Physical Exam Narrative GENERAL: Well-developed, well nourished, in no acute distress, and non-ill appearing. SKIN: Focused skin assessment warm and dry. Large contusion noted over left flank and lower lateral lumbar. HEAD: Atraumatic. Normocephalic. EYES: Pupils equal and round. EOMI. No scleral icterus. No injection or drainage. ENT: No nasal bleeding or discharge. Mucous membranes pink and moist. NECK: Trachea midline. Supple. No nuclear rigidity. CARDIOVASCULAR: Regular rate and rhythm. No murmur appreciated. RESPIRATORY: No accessory muscle use. No respiratory distress. Clear to auscultation. Breath sounds equal bilaterally. GASTROINTESTINAL: Abdomen soft, non-tender, nondistended. Hepatic and splenic margins not palpable. Normal bowel sounds 4. No pulsatile mass. MUSCULOSKELETAL: No obvious deformities. No clubbing. No cyanosis. No edema. Full range of motion. Hip: FROM and equal BL with passive flexion, extension, Abduction, Adduction, and internal/external rotation. Pulses equal BL distal to injury. Capillary refill less than 2 seconds distal to injury and equal BL. FROM distal to injury and equal BL. Strength distal to injury equal BL. NV intact distal to injury and equal BL. Plantar flexion and dorsal flexion equal BL. Dorsal pulses equal BL. Sensation equal BL 1st web space. NEUROLOGICAL: Awake and alert. No obvious cranial nerve deficits. Motor grossly within normal limits. Normal speech. PSYCHIATRIC: Appropriate mood and affect; insight and judgment normal. Data Data Last Documented VS Vital Signs Date Time Temp Pulse Resp B/P Pulse Ox O2 Delivery O2 Flow Rate FiO2 07/19/16 21:43 76 18 99/57 99 Nasal Cannula 2 07/19/16 18:33 98.0 Orders Basic Metabolic Panel (Bmp) (07/19/16 19:13) Complete Blood Count With Diff (07/19/16 19:13) Prothrombin Time / Inr (Pt) (07/19/16 19:13) Act Partial Throm Time (Ptt) (07/19/16 19:13) Iv Access Insert/Monitor (07/19/16 19:13) Ecg Monitoring (07/19/16 19:13) Oximetry (07/19/16 19:13) Sodium Chloride 0.9% Flush (Ns Flush) (07/19/16 19:15) Pelvis, Ap Only (Routine) (07/19/16 ) Type And Screen (07/19/16 19:31) Red Blood Cells (Rbc) (07/19/16 19:31) Blood Product Administration .UPON TRANSFUSION (07/19/16 19:31) Sodium Chlor 0.9% 250 Ml Inj (Ns 250 Ml (07/19/16 19:45) Ct Abd/Pel W Iv Contrast(Rout) (07/19/16 ) Ct Thorax/ Chest W Iv Contrast (07/19/16 ) Ct Brain W/O Iv Contrast(Rout) (07/19/16 ) Ct Cerv Spine W/O Contrast (07/19/16 ) Sodium Chlor 0.9% 1000 Ml Inj (Ns 1000 M (07/19/16 21:00) Iohexol 350 Inj (Omnipaque 350 Inj) (07/19/16 20:57) Admit Order (Ed Use Only) (07/19/16 21:52) Labs Laboratory Tests Test 07/19/16 07/19/16 19:15 20:15 White Blood Count 12.2 TH/MM3 Red Blood Count 2.89 MIL/MM3 Hemoglobin 6.5 GM/DL Hematocrit 19.6 % Mean Corpuscular Volume 67.8 FL Mean Corpuscular Hemoglobin 22.4 PG Mean Corpuscular Hemoglobin 33.0 % Concent Red Cell Distribution Width 22.8 % Platelet Count 602 TH/MM3 Mean Platelet Volume 8.2 FL Neutrophils (%) (Auto) 73.0 % Lymphocytes (%) (Auto) 13.2 % Monocytes (%) (Auto) 11.5 % Eosinophils (%) (Auto) 0.8 % Basophils (%) (Auto) 1.5 % Neutrophils # (Auto) 8.9 TH/MM3 Lymphocytes # (Auto) 1.6 TH/MM3 Monocytes # (Auto) 1.4 TH/MM3 Eosinophils # (Auto) 0.1 TH/MM3 Basophils # (Auto) 0.2 TH/MM3 CBC Comment AUTO DIFF Differential Total Cells 100 Counted Neutrophils % (Manual) 63 % Band Neutrophils % 6 % Lymphocytes % 18 % Monocytes % 7 % Eosinophils % 1 % Basophils % 2 % Neutrophils # (Manual) 8.8 TH/MM3 Metamyelocytes 1 % Myelocytes 2 % Differential Comment FINAL DIFF MANUAL Toxic Granulation 1+ Toxic Vacuolation PRESENT Platelet Estimate HIGH Platelet Morphology Comment ENLARGED Prothrombin Time 11.5 SEC Prothromb Time International 1.0 RATIO Ratio Activated Partial 26.9 SEC Thromboplast Time Sodium Level 140 MEQ/L Potassium Level 3.7 MEQ/L Chloride Level 106 MEQ/L Carbon Dioxide Level 25.1 MEQ/L Anion Gap 9 MEQ/L Blood Urea Nitrogen 13 MG/DL Creatinine 0.93 MG/DL Estimat Glomerular Filtration 82 ML/MIN Rate Random Glucose 138 MG/DL Calcium Level 8.5 MG/DL Blood Type O POSITIVE Antibody Screen NEGATIVE Crossmatch Leukocyte-Reduced Red Blood Cells Blood Bank Comment [facility] Medical Decision Making Medical Screen Exam Complete: Yes Emergency Medical Condition: Yes Differential Diagnosis Fracture, sprain, contusion, worsening Parkinson's, generalized weakness, electrolyte abnormality, other Narrative Course Patient was seen and examined. Initial laboratory and radiological studies obtained and reviewed. After patient found to be anemic. Blood transfusion was ordered by Dr. Thrasher. Hemoccult was performed and tested positive. Discussed patient with Dr. Thrasher, who saw and evaluated the patient and is in agreement with plan of care and disposition. Discussed all findings and plan of care with patient, who was agreeable for admission. All questions were answered. HemaPrompt Point of Care Internal Pos. & Neg. Controls: Passed Fecal Specimen Occult Blood: Positive Comment Verbal consent was obtained. Digital rectal exam was performed. Stool specimen applied and test interpreted between 1 and 3 minutes of application and the result was positive. Internal Controls: Both positive and negative controls were validated. Patient had good rectal tone. Dr. Thrasher was present during this exam. Physician Communication Physician Communication [id number] Zuñiga, who is agreeable to admit the patient. Diagnosis Primary Impression: Anemia Qualified Code: D64.9 - Anemia, unspecified type Additional Impressions: Generalized weakness GI bleed Qualified Code: K92.2 - Gastrointestinal hemorrhage, unspecified gastrointestinal hemorrhage type Admitting Information Admitting Physician Requests: Admit Condition: Stable Paul Leos Jul 19, 2016 19:18
[2016-07-19 19:27] LABS: AUTOMATED NEUTROPHIL # 8.9 TH/MM3 (1.8-7.7); BASOPHIL # 0.2 TH/MM3 (0-0.2); BASOPHIL % 1.5 % (0.0-2.0); EOSINOPHIL # 0.1 TH/MM3 (0-0.4); EOSINOPHIL % 0.8 % (0.0-4.0); LYMPH % 13.2 % (9.0-44.0); LYMPHOCYTE # 1.6 TH/MM3 (1.0-4.8); MEAN CELL VOLUME 67.8 FL (80.0-100.0); MEAN CORPUSCULAR HEMOGLOBIN 22.4 PG (27.0-34.0); MONO % 11.5 % (0.0-8.0); PLATELET COUNT 602 TH/MM3 (150-450); RED BLOOD COUNT 2.89 MIL/MM3 (4.50-5.90); RED CELL DISTRIBUTION WIDTH 22.8 % (11.6-17.2); WHITE BLOOD COUNT 12.2 TH/MM3 (4.0-11.0)
[2016-07-19] MEDS ORDERED: BUSP5TAB PO (19:28)
[2016-07-19] MEDS ORDERED: LISI10TA3 PO (19:30)
[2016-07-19 19:31] LABS: HEMATOCRIT 19.6 % (39.0-51.0); HEMO FLAGS AUTO DIFF
[2016-07-19] MEDS ORDERED: DILT300C3 PO (19:31)
[2016-07-19] MEDS ORDERED: MIRT1TAB PO (19:32)
[2016-07-19] MEDS ORDERED: SPIRCAP INH (19:34)
[2016-07-19 19:41] LABS: APTT (PATIENT) 26.9 SEC (24.3-30.1); PROTHROMBIN TIME - PATIENT 11.5 SEC (9.8-11.6)
[2016-07-19] MEDS ORDERED: SODIUM CHLOR 0.9% 250 ML INJ 250 ML IV ONE (19:45)
[2016-07-19 19:49] LABS: BICARBONATE 25.1 MEQ/L (21.0-32.0); POTASSIUM 3.7 MEQ/L (3.5-5.1)
[2016-07-19 20:04] LABS: BANDS 6 % (0-6); BASOPHILS 2 % (0-2); EOSINOPHILS 1 % (0-4); METAMYELOCYTES 1 % (0-1); MYELOCYTES 2 % (0-0); NEUTROPHIL # MANUAL DIFF 8.8 TH/MM3 (1.8-7.7); PLATELET ESTIMATE SMEAR HIGH (NORMAL); POLYS (SEG NEUTROPHILS) 63 % (16-70); SCAN/DIFF FINAL DIFF MANUAL; WBC DIFF SAMPLE 100
[2016-07-19 20:05] LABS: PLATELET MORPHOLOGY ENLARGED (NORMAL); TOXIC GRANULATION 1+ (NORMAL); TOXIC VACUOLATION PRESENT (NONE SEEN)
--- NOTE | 2016-07-19 20:12 | RADRPT ---
EXAM DATE/TIME: 07/19/2016 19:39 [facility] COMPARISON: No previous studies available for comparison. INDICATIONS : Lower back pain post fall 3 days ago. MEDICAL HISTORY : None. SURGICAL HISTORY : None. ENCOUNTER: Initial ACUITY: 3 days PAIN SCORE: 9/10 LOCATION: Bilateral low back FINDINGS: A single frontal view of the pelvis demonstrates no evidence of fracture. The bony pelvic ring is in tact. Bony mineralization is normal. The soft tissues are intact. CONCLUSION: Unremarkable examination of the pelvis. Ronald Swenson MD on July 19, 2016 at 20:11 Board Certified Radiologist. This report was verified electronically.
[2016-07-19 20:44] VITALS: RESP 18; O2SAT 98
--- NOTE | 2016-07-19 20:54 | PD ---
Physical Exam Date Seen by Provider: Jul 19, 2016 Data Data Last Documented VS Vital Signs Date Time Temp Pulse Resp B/P Pulse Ox O2 Delivery O2 Flow Rate FiO2 07/19/16 21:43 76 18 99/57 99 Nasal Cannula 2 07/19/16 18:33 98.0 Orders Basic Metabolic Panel (Bmp) (07/19/16 19:13) Complete Blood Count With Diff (07/19/16 19:13) Prothrombin Time / Inr (Pt) (07/19/16 19:13) Act Partial Throm Time (Ptt) (07/19/16 19:13) Iv Access Insert/Monitor (07/19/16 19:13) Ecg Monitoring (07/19/16 19:13) Oximetry (07/19/16 19:13) Sodium Chloride 0.9% Flush (Ns Flush) (07/19/16 19:15) Pelvis, Ap Only (Routine) (07/19/16 ) Type And Screen (07/19/16 19:31) Red Blood Cells (Rbc) (07/19/16 19:31) Blood Product Administration .UPON TRANSFUSION (07/19/16 19:31) Sodium Chlor 0.9% 250 Ml Inj (Ns 250 Ml (07/19/16 19:45) Ct Abd/Pel W Iv Contrast(Rout) (07/19/16 ) Ct Thorax/ Chest W Iv Contrast (07/19/16 ) Ct Brain W/O Iv Contrast(Rout) (07/19/16 ) Ct Cerv Spine W/O Contrast (07/19/16 ) Sodium Chlor 0.9% 1000 Ml Inj (Ns 1000 M (07/19/16 21:00) Iohexol 350 Inj (Omnipaque 350 Inj) (07/19/16 20:57) Labs Laboratory Tests Test 07/19/16 07/19/16 19:15 20:15 White Blood Count 12.2 TH/MM3 Red Blood Count 2.89 MIL/MM3 Hemoglobin 6.5 GM/DL Hematocrit 19.6 % Mean Corpuscular Volume 67.8 FL Mean Corpuscular Hemoglobin 22.4 PG Mean Corpuscular Hemoglobin 33.0 % Concent Red Cell Distribution Width 22.8 % Platelet Count 602 TH/MM3 Mean Platelet Volume 8.2 FL Neutrophils (%) (Auto) 73.0 % Lymphocytes (%) (Auto) 13.2 % Monocytes (%) (Auto) 11.5 % Eosinophils (%) (Auto) 0.8 % Basophils (%) (Auto) 1.5 % Neutrophils # (Auto) 8.9 TH/MM3 Lymphocytes # (Auto) 1.6 TH/MM3 Monocytes # (Auto) 1.4 TH/MM3 Eosinophils # (Auto) 0.1 TH/MM3 Basophils # (Auto) 0.2 TH/MM3 CBC Comment AUTO DIFF Differential Total Cells 100 Counted Neutrophils % (Manual) 63 % Band Neutrophils % 6 % Lymphocytes % 18 % Monocytes % 7 % Eosinophils % 1 % Basophils % 2 % Neutrophils # (Manual) 8.8 TH/MM3 Metamyelocytes 1 % Myelocytes 2 % Differential Comment FINAL DIFF MANUAL Toxic Granulation 1+ Toxic Vacuolation PRESENT Platelet Estimate HIGH Platelet Morphology Comment ENLARGED Prothrombin Time 11.5 SEC Prothromb Time International 1.0 RATIO Ratio Activated Partial 26.9 SEC Thromboplast Time Sodium Level 140 MEQ/L Potassium Level 3.7 MEQ/L Chloride Level 106 MEQ/L Carbon Dioxide Level 25.1 MEQ/L Anion Gap 9 MEQ/L Blood Urea Nitrogen 13 MG/DL Creatinine 0.93 MG/DL Estimat Glomerular Filtration 82 ML/MIN Rate Random Glucose 138 MG/DL Calcium Level 8.5 MG/DL Blood Type O POSITIVE Antibody Screen NEGATIVE Crossmatch Leukocyte-Reduced Red Blood Cells Blood Bank Comment [facility] Medical Record Reviewed: Yes Supervised Visit with VIOLET: Yes Narrative Course I, Dr. Thrasher, have reviewed the advance practice practitioner's documentation and am in agreement, met with the patient face to face, made the diagnosis, and the medical decision making was done by me. *My assessment and Findings: Symptomatic anemia - plan to transfuse patient with 1 unit of blood - patient is heme positive from below patient also has left sided flank hematoma after fall a few days ago - ct chest/ abdomen pelvis ordered patient also with gait instability, reports that he was recently diagnosed with Parkinson's disease, he does ambulate with a walker, he has not been able to ambulating for the past few days secondary to this weakness Critical Care Narrative Aggregate critical care time was 30 minutes. Time to perform other separately billable procedures was not included in the critical care time. My time did not include minutes spent treating any other patients simultaneously or on activities that did not directly contribute to the patient's treatment. The services I provided to this patient were to treat and/or prevent clinically significant deterioration that could result in: , decompensation, deterioration I provided critical care services requiring my management, as noted below: Chart data review, documentation time, medication orders and management, vital sign assessments/reviewing monitor data, ordering and reviewing lab tests, ordering and interpreting/reviewing x-rays and diagnostic studies, care of the patient and discussion of the patient with the admitting physicians. Diagnosis Primary Impression: Anemia Qualified Code: D64.9 - Anemia, unspecified type Additional Impressions: Generalized weakness Gait instability Admitting Information Admitting Physician Requests: Admit Debra Thrasher DO Jul 19, 2016 20:54
[2016-07-19] MEDS ORDERED: IOHEXOL 350 MG/ML 10 ML VIAL (for RAD DIAG) IV ONE (20:57)
[2016-07-19] MEDS ORDERED: SODIUM CHLOR 0.9% 1000 ML INJ 1,000 ML IV ONE (21:00)
--- NOTE | 2016-07-19 21:03 | RADRPT ---
EXAM DATE/TIME: 07/19/2016 20:47 [facility] COMPARISON: CT BRAIN W/O CONTRAST, May 31, 2016, 13:02. INDICATIONS : Generalized weakness with multiple falls for 2 years; anemia. RADIATION DOSE: 53.70 CTDIvol (mGy) MEDICAL HISTORY : Hypertension. Chronic obstructive pulmonary disease. Cerebrovascular disease.Asthma; Diabetes; [place] son's. SURGICAL HISTORY : None. ENCOUNTER: Initial ACUITY: >1 yr PAIN SCALE: 2/10 LOCATION: cranial TECHNIQUE: Multiple contiguous axial images were obtained of the head. Using automated exposure control and adj ustment of the mA and/or kV according to patient size, radiation dose was kept as low as reasonably a chievable to obtain optimal diagnostic quality images. FINDINGS: Stable small lacunar infarct in the left lentiform nucleus. No evidence of intracranial mass or hemor rhage. Nothing to suggest acute infarction. Ventricles are stable symmetric and normal. Extracranial structures are benign and intact. CONCLUSION: Stable brain with no acute cranial findings Ronald Swenson MD on July 19, 2016 at 20:59 Board Certified Radiologist. This report was verified electronically.
--- NOTE | 2016-07-19 21:08 | RADRPT ---
EXAM DATE/TIME: 07/19/2016 20:47 [facility] COMPARISON: CT CERVICAL SPINE W/O CONTRAST, May 31, 2016, 13:02. INDICATIONS : Generalized weakness with multiple falls for 2 years; anemia. RADIATION DOSE: 14.53 CTDIvol (mGy) MEDICAL HISTORY : Hypertension. Chronic obstructive pulmonary disease. Cerebrovascular disease.Asthma; Diabetes; [place] son's. SURGICAL HISTORY : None. ENCOUNTER: Initial ACUITY: >1 yr PAIN SCALE: 0/10 LOCATION: neck TECHNIQUE: Volumetric scanning of the cervical spine was performed. Multiplanar reconstructions in the sagittal, coronal and oblique axial planes were performed. Using automated exposure control and adjustment o f the mA and/or kV according to patient size, radiation dose was kept as low as reasonably achievable to obtain optimal diagnostic quality images. FINDINGS: The cervical spine alignment is satisfactory. There is no evidence of cervical spine fracture. There is moderate degenerative change present with disc space narrowing and endplate osteophyte formation m ost notably at C6-7 where there is moderate asymmetrically right-sided foraminal stenosis. No signifi cant bony canal compromise is present. 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 There is no evidence of paraspinal hematoma. CONCLUSION: Stable CT appearance of the cervical spine with no evidence of acute injury Ronald Swenson MD on July 19, 2016 at 21:02 Board Certified Radiologist. This report was verified electronically.
--- NOTE | 2016-07-19 21:20 | RADRPT ---
EXAM DATE/TIME: 07/19/2016 20:56 [facility] COMPARISON: CT ABDOMEN & PELVIS W CONTRAST, May 31, 2016, 13:09. INDICATIONS : Generalized weakness with multiple falls for 2 years; anemia. IV CONTRAST: 97 cc Omnipaque 350 (iohexol) IV ; Cumulative dose for multiple exams. ORAL CONTRAST: No oral contrast ingested. RADIATION DOSE: 11.42 CTDIvol (mGy) ; Combined studies - Thorax/Abdomen/Pelvis MEDICAL HISTORY : Hypertension. Chronic obstructive pulmonary disease. Cerebrovascular disease.Asthma; Diabetes; [place] son's. SURGICAL HISTORY : None. ENCOUNTER: Initial ACUITY: >1 yr PAIN SCALE: 0/10 LOCATION: Abdomen/pelvis TECHNIQUE: Volumetric scanning of the abdomen and pelvis was performed. Using automated exposure control and ad justment of the mA and/or kV according to patient size, radiation dose was kept as low as reasonably achievable to obtain optimal diagnostic quality images. FINDINGS: LOWER LUNGS: Mild scarring or atelectasis in the lung bases. This is slightly less pronounced than on prior LIVER: Homogeneous density without lesion. There is no dilation of the biliary tree. No calcified gallston es. SPLEEN: Enlarged at about 15 cm. No focal mass PANCREAS: Scattered punctate calcifications. No mass or inflammatory change. KIDNEYS: Multiple small bilateral nonobstructing stones involving upper mid and lower pole collecting systems on both sides ADRENAL GLANDS: Small stable low density left adrenal nodule. VASCULAR: Dense atherosclerotic vascular calcifications. Mild aortic ectasia. Slight aneurysmal dilatation of t he aortic root which appears unchanged. BOWEL/MESENTERY: Prominent distal colonic diverticula. No evidence of wall thickening, inflammatory change or obstruct ion. ABDOMINAL WALL: Within normal limits. RETROPERITONEUM: There is no lymphadenopathy. BLADDER: No wall thickening or mass. REPRODUCTIVE: Within normal limits. INGUINAL: There is no lymphadenopathy or hernia. MUSCULOSKELETAL: Within normal limits for patient age. CONCLUSION: Stable benign CT appearance of the abdomen and pelvis Ronald Swenson MD on July 19, 2016 at 21:13 Board Certified Radiologist. This report was verified electronically.
--- NOTE | 2016-07-19 21:32 | RADRPT ---
EXAM DATE/TIME: 07/19/2016 20:56 [facility] COMPARISON: CT THORAX W CONTRAST, May 31, 2016, 13:09. INDICATIONS : Generalized weakness with multiple falls for 2 years; anemia. IV CONTRAST: 97 cc Omnipaque 350 (iohexol) IV ; Cumulative dose for multiple exams. RADIATION DOSE: 11.42 CTDIvol (mGy) ; Combined studies - Thorax/Abdomen/Pelvis MEDICAL HISTORY : Hypertension. Chronic obstructive pulmonary disease. Cerebrovascular disease.Asthma; Diabetes; [place] son's. SURGICAL HISTORY : None. ENCOUNTER: Initial ACUITY: >1 yr PAIN SCALE: 0/10 LOCATION: chest TECHNIQUE: Volumetric scanning of the chest was performed. Using automated exposure control and adjustment of t he mA and/or kV according to patient size, radiation dose was kept as low as reasonably achievable to obtain optimal diagnostic quality images. FINDINGS: LUNGS: Mild basilar atelectasis or scarring PLEURA: There is no pleural thickening or pleural effusion. MEDIASTINUM: The heart and great vessels demonstrate no acute abnormality. There is no mediastinal or hilar lymph adenopathy. Stable mild dilatation of the ascending thoracic aorta. Atherosclerotic changes. Coronary artery calcifications. AXILLAE: Within normal limits. No lymphadenopathy. SKELETAL: There is subcutaneous tissue edema and induration in the left lateral chest and left flank region whi ch is likely bruising associated with the patient's stated history of falls. No evidence of underlyin g fracture. MISCELLANEOUS: The visualized upper abdominal organs demonstrate no acute abnormality. CONCLUSION: No acute intrathoracic findings Ronald Swenson MD on July 19, 2016 at 21:27 Board Certified Radiologist. This report was verified electronically.
[2016-07-19 21:43] VITALS: BP 99/57; PULSE 76; RESP 18; O2SAT 99
[2016-07-19 22:00] VITALS: BP 113/57; PULSE 75; RESP 18; TEMP 98.1; O2SAT 100
[2016-07-19] MEDS ORDERED: NALOXONE HCL 0.4 MG/ML AMP IV PRN (22:00)
[2016-07-19 22:22] VITALS: TEMP 98.2
[2016-07-19 23:12] VITALS: BP 106/53; PULSE 73; RESP 18; O2SAT 100
--- NOTE | 2016-07-19 23:58 | HHI.HP ---
HPI [facility] Primary [facility] Physician Manoj Cadet MD Admission Diagnosis severe anemia, GI bleed, generalized weakness Diagnoses: Chief Complaint: "I couldn't walk anymore." Travel History International Travel<30 Days: No Contact w/Intl Traveler <30 Da: No Traveled to Known Affected Are: No History of Present Illness Patient is a 65-year-old white male with past medical history which includes Parkinson's disease, COPD, hypertension, DM 2, atrial fibrillation was on Eliquis, sleep apnea who came in to the hospital for evaluation of general weakness, and falls. Over the past 2 weeks patient reports worsening weakness associated with dizziness and falls. Patient denies N/V, black tarry stools, bright red blood in stool, blood in urine, shortness of breath or chest pain. Initial hgb in ER revealed hgb 6.5 Hemoccult positive Review of Systems ROS Limitations: Poor Historian Except as stated in HPI: all other systems reviewed are Neg Past Family Social History Past Medical History Parkinson's disease COPD Emphysema DM 2 HTN Neuropathy HLD Questionable A. fib, SVT Depression Anxiety Past Surgical History Patient denies Reported Medications Spiriva Handihaler (Tiotropium Inh) 18 Mcg Cap 18 Mcg INH DAILY 1 capsule = 18 mcg Mirtazapine 7.5 Mg Tab 7.5 Mg PO HS Diltiazem CD 24 HR 300 Mg Caper 300 Mg PO DAILY Buspirone (Buspirone HCl) 5 Mg Tab 5 Mg PO HS Buspirone (Buspirone HCl) 10 Mg Tab 10 Mg PO DAILY IN THE MORNING Gabapentin 300 Mg Cap 300 Mg PO BID Pravastatin 40 Mg Tab 40 Mg PO HS Aspirin Adult Low Strength (Aspirin) 81 Mg Tabdr 81 Mg PO DAILY Metformin (Metformin HCl) 500 Mg Tab 250 Mg PO DAILY IN THE MORNING With a meal Eliquis (Apixaban) 5 Mg Tab 5 Mg PO BID Combivent Respimat Inh (Ipratropium-Albuterol Inh) 20-100 Snf/Act Aero 1 Puff INH QID Sinemet (Carbidopa-Levodopa) 25-100 Mg Tab 1.5 Tab PO TID Symbicort Inh (Budesonide/Formoterol Fumarate) 80-4.5 Mcg/Act Aero 1 Puff INH BID Allergies: Coded Allergies: No Known Allergies (Verified , 05/31/16) Active Ordered Medications Current Medications Medications (Trade) Dose Ordered Sig/Amberly Route Start Time Stop Time Status Last Admin (NS 250 ml Inj) 250 ml @ 15 mls/hr ONCE ONCE IV 07/19/16 19:45 07/20/16 12:24 07/19/16 20:43 (NS Flush) 2 ml UNSCH PRN IV FLUSH 07/19/16 22:00 (NS Flush) 2 ml BID IV FLUSH 07/20/16 09:00 (Narcan Inj) 0.4 mg UNSCH PRN IV 07/19/16 22:00 Family History Mother has heart disease, unknown specifics Father have lung cancer in his late 80s Social History Patient lives with his . 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, previously with daily beer and or half a bottle of bourbon Tobacco use on and off since he was 20 years old Denies any illicit drug use Physical Exam Vital Signs Vital Signs Date Time Temp Pulse Resp B/P Pulse Ox O2 Delivery O2 Flow Rate FiO2 07/19/16 23:12 73 18 106/53 100 Nasal Cannula 07/19/16 22:22 98.2 07/19/16 22:00 98.1 75 18 113/57 100 2 07/19/16 21:43 76 18 99/57 99 Nasal Cannula 2 07/19/16 20:44 18 98 Nasal Cannula 2 07/19/16 18:37 98 Nasal Cannula 2 07/19/16 18:33 98.0 85 16 88/51 93 Physical Exam GENERAL: This is 65 year old male patient who appears older than stated age and pale SKIN: pale. posterior thorax with 2 large ecchymotic areas EYES: Extraocular motions intact. No scleral icterus. No injection or drainage. ENT: Nose without bleeding, purulent drainage or septal hematoma. Throat without erythema, tonsillar hypertrophy or exudate. Uvula midline. Airway patent. NECK: Trachea midline. No JVD or lymphadenopathy. Supple, nontender, no meningeal signs. CARDIOVASCULAR: Regular rate and rhythm without murmurs, gallops, or rubs. RESPIRATORY: scattered expiratory wheezing GASTROINTESTINAL: Abdomen soft, non-tender, nondistended. No guarding. MUSCULOSKELETAL: Extremities without clubbing, cyanosis, or edema. No joint tenderness, effusion, or edema noted. No calf tenderness. Negative Homans sign bilaterally. NEUROLOGICAL: Awake and alert. Motor and sensory grossly within normal limits. 3 -4 out of 5 muscle strength in all muscle groups. Normal speech. Laboratory Laboratory Tests Test 07/19/16 07/19/16 19:15 20:15 White Blood Count 12.2 Red Blood Count 2.89 Hemoglobin 6.5 Hematocrit 19.6 Mean Corpuscular Volume 67.8 Mean Corpuscular Hemoglobin 22.4 Mean Corpuscular Hemoglobin 33.0 Concent Red Cell Distribution Width 22.8 Platelet Count 602 Mean Platelet Volume 8.2 Neutrophils (%) (Auto) 73.0 Lymphocytes (%) (Auto) 13.2 Monocytes (%) (Auto) 11.5 Eosinophils (%) (Auto) 0.8 Basophils (%) (Auto) 1.5 Neutrophils # (Auto) 8.9 Lymphocytes # (Auto) 1.6 Monocytes # (Auto) 1.4 Eosinophils # (Auto) 0.1 Basophils # (Auto) 0.2 CBC Comment AUTO DIFF Differential Total Cells 100 Counted Neutrophils % (Manual) 63 Band Neutrophils % 6 Lymphocytes % 18 Monocytes % 7 Eosinophils % 1 Basophils % 2 Neutrophils # (Manual) 8.8 Metamyelocytes 1 Myelocytes 2 Differential Comment FINAL DIFF MANUAL Toxic Granulation 1+ Toxic Vacuolation PRESENT Platelet Estimate HIGH Platelet Morphology Comment ENLARGED Prothrombin Time 11.5 Prothromb Time International 1.0 Ratio Activated Partial 26.9 Thromboplast Time Sodium Level 140 Potassium Level 3.7 Chloride Level 106 Carbon Dioxide Level 25.1 Anion Gap 9 Blood Urea Nitrogen 13 Creatinine 0.93 Estimat Glomerular Filtration 82 Rate Random Glucose 138 Calcium Level 8.5 Blood Type O POSITIVE Antibody Screen NEGATIVE Crossmatch Leukocyte-Reduced Red Blood Cells Blood Bank Comment Result Diagram: 07/19/16191407/19/161914 Imaging Last Impressions Pelvis X-Ray 07/19/16 0000 Signed Impressions: Service Date/Time: July 19:39 - CONCLUSION: Unremarkable examination of the pelvis. Ronald Swenson MD Head CT 07/19/16 0000 Signed Impressions: Service Date/Time: July 20:47 - CONCLUSION: Stable brain with no acute cranial findings Ronald Swenson MD Chest CT 07/19/16 0000 Signed Impressions: Service Date/Time: July 20:56 - CONCLUSION: No acute intrathoracic findings Ronald Swenson MD Cervical Spine CT 07/19/16 0000 Signed Impressions: Service Date/Time: July 20:47 - CONCLUSION: Stable CT appearance of the cervical spine with no evidence of acute injury Ronald Swenson MD Abdomen/Pelvis CT 07/19/16 0000 Signed Impressions: Service Date/Time: July 20:56 - CONCLUSION: Stable benign CT appearance of the abdomen and pelvis Ronald Swenson MD Assessment and Plan Problem List: (1) GI bleed ICD Code: K92.2 Status: Acute (2) Anemia ICD Code: D64.9 Status: Acute Assessment and Plan Patient is a 65-year-old white male with primary medical history Parkinson's disease, COPD, hypertension, DM 2, atrial fibrillation was on Eliquis untill yesterday, sleep apnea who came in to the hospital for evaluation of general weakness, and falls. Over the past 2 weeks patient reports worsening weakness associated with dizziness and falls. Patient denies LOC, N/V, black tarry stools, bright red blood in stool, blood in urine, shortness of breath or chest pain. Patient was on Eliquis which he stopped taking yesterday. Initial hgb in ER revealed hgb 6.5 Hemoccult positive GI bleed symptomatic anemia Patient was given 1 unit PRBC in ER will give addition 1 unit of PRBC monitor H&H Q6H consult GI Atrial fibrillation- currently in SR Continue Cardizem PO hold Eliquis in light of GI bleed COPD Continue home medication Albuterol Q6H while awake and PRN Parkinson's continue Sinemet DM Accuchecks with low dose SSI coverage DVT prophylaxis SCDs Discussed with ER provider, nursing and patient Written by Suzi Arreola, acting as scribe for Dr. Zuñiga on 07/20/16 at 01: 34. This note was transcribed by scribe [Suzi Arreola]. I, Dr. Gely Zuñiga personally performed the history, physical exam, and medical decision making; and confirmed the accuracy of the information in the transcribed note. Authenticated by Dr. Gely Zuñiga on 07/20/16 at 01:34. Physician Certification 2 Midnight Certification Type: Admission for Inpatient Services Order for Inpatient Services The services are ordered in accordance with Medicare regulations or non- Medicare payer requirements, as applicable. In the case of services not specified as inpatient-only, they are appropriately provided as inpatient services in accordance with the 2-midnight benchmark. Estimated LOS (days): 3 days is the estimated time the patient will need to remain in the hospital, assuming treatment plan goals are met and no additional complications. Post-Hospital Plan: Home Problem Qualifiers (1) GI bleed: Qualified Code: K92.2 - Gastrointestinal hemorrhage, unspecified gastrointestinal hemorrhage type (2) Anemia: Qualified Code: D64.9 - Anemia, unspecified type Suzi Arreola Jul 19, 2016 23:58 Gely Zuñiga MD August 06, 2016 05:37
[2016-07-20] VITALS (20 sets, daily range): BP systolic 109–146; BP diastolic 53–79; PULSE 68–88; RESP 16–24; TEMP 97.7–98.5; O2SAT 97–100
[2016-07-20] MEDS ORDERED: GLUCAGON 1 MG/ML VIAL OTHER PRN
[2016-07-20] MEDS ORDERED: DEXTROSE 50% IN WATER 50 ML VIAL(D50) IV PUSH PRN
[2016-07-20] MEDS ORDERED: RESP: ALBUTEROL 2.5 MG/IPRATROPIUM 0.5 MG NEB (PRN) NEB
[2016-07-20 01:57] LABS: HEMATOCRIT 21.5 % (39.0-51.0)
[2016-07-20 01:58] LABS: REVIEW FLAG FINAL
[2016-07-20] MEDS: RESP: ALBUTEROL 2.5 MG/IPRATROPIUM 0.5 MG NEB (SCH) NEB ×3 (08:14→20:13)
--- NOTE | 2016-07-20 08:42 | PD.CONS ---
HPI History of Present Illness This is a 65 year old white male with past medical history which includes Parkinson's disease, COPD, hypertension, DM 2, atrial fibrillation was on Eliquis, sleep apnea who came in to the hospital for evaluation of general weakness, and falls. Over the past 2 weeks patient reports worsening weakness associated with dizziness and falls. Patient hasn't taken Eliquis for the past 2 days per PCP instruction due to bruises and frequent falls. Patient reports weight loss of 40 Ibs in the past 5 weeks, states he lost his appetite, and wasn 't able to eat as good. Patient denies nausea, vomiting, hematemesis, black tarry stools, bright red blood in stool, blood in urine, shortness of breath or chest pain. Labs in ER revealed hgb 6.5, heme (+) stools. Ct on (07/19/16) Stable benign CT appearance of the abdomen and pelvis Patient denies previous hx of this. He never had EGD/colonoscopy before. PFSH Past Medical History Parkinson's disease COPD Emphysema DM 2 HTN Neuropathy HLD Questionable A. fib, SVT Depression Anxiety Past Surgical History Patient denies Coded Allergies: No Known Allergies (Verified , 05/31/16) Medications Current Medications Medications (Trade) Dose Ordered Sig/Amberly Route Start Time Stop Time Status Last Admin (NS 250 ml Inj) 250 ml @ 15 mls/hr ONCE ONCE IV 07/19/16 19:45 07/20/16 12:24 07/19/16 20:43 (NS Flush) 2 ml UNSCH PRN IV FLUSH 07/19/16 22:00 (NS Flush) 2 ml BID IV FLUSH 07/20/16 09:00 (Narcan Inj) 0.4 mg UNSCH PRN IV 07/19/16 22:00 (Symbicort 80-4.5 Mcg Inh) 1 puff BID INH 07/20/16 09:00 (Sinemet 25-100 Mg) 1.5 tab TID PO 07/20/16 09:00 (Cardizem Cd) 300 mg DAILY PO 07/20/16 09:00 Future Hold (Neurontin) 300 mg BID PO 07/20/16 09:00 (Remeron) 7.5 mg HS PO 07/20/16 21:00 (Pravachol) 40 mg HS PO 07/20/16 21:00 (Spiriva Inh) 18 mcg DAILY INH 07/20/16 09:00 (D50w (Vial) Inj) 25 ml UNSCH PRN IV PUSH 07/20/16 00:00 (Glucagon Inj) 1 mg UNSCH PRN OTHER 07/20/16 00:00 (Spiriva Inh) 18 mcg DAILY INH 07/20/16 09:00 (Proair Hfa Inh) 1 puff QID INH 07/20/16 09:00 Family History No family hx of colon or gastric cancer Social History 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, previously with daily beer and or half a bottle of bourbon Tobacco use on and off since he was 20 years old Denies any illicit drug use Review of Systems Constitutional: COMPLAINS OF: Fatigue Endocrine: DENIES: Polyuria Eyes: DENIES: Double Vision Ears, nose, mouth, throat: DENIES: Hoarseness Respiratory: DENIES: Sputum production, Shortness of breath Cardiovascular: DENIES: Lower Extremity Edema Gastrointestinal: DENIES: Abdominal pain, Black stools, Bloody stools, Constipation, Diarrhea, Nausea, Vomiting, Difficulty Swallowing, Anorexia, Odynophagia, Swelling of Abdomen, Heartburn, Hematemesis Genitourinary: DENIES: Hematuria Musculoskeletal: DENIES: Neck pain Integumentary: DENIES: Jaundice Hematologic/lymphatic: COMPLAINS OF: Bruising Immunologic/allergic: DENIES: Eczema Neurologic: COMPLAINS OF: Abnormal gait, Localized weakness Psychiatric: DENIES: Anxiety GI Exam Vitals I&O Vital Signs Date Time Temp Pulse Resp B/P Pulse Ox O2 Delivery O2 Flow Rate FiO2 07/20/16 05:03 68 18 115/53 99 Nasal Cannula 3 07/20/16 03:55 98.4 07/20/16 03:34 98.5 72 18 109/53 100 Nasal Cannula 3 07/20/16 00:15 72 18 120/56 99 Nasal Cannula 2 07/19/16 23:12 73 18 106/53 100 Nasal Cannula 07/19/16 22:22 98.2 07/19/16 22:00 98.1 75 18 113/57 100 2 07/19/16 21:43 76 18 99/57 99 Nasal Cannula 2 07/19/16 20:44 18 98 Nasal Cannula 2 07/19/16 18:37 98 Nasal Cannula 2 07/19/16 18:33 98.0 85 16 88/51 93 I/O 07/19/16 07/19/16 07/19/16 07/20/16 07/20/16 07/20/16 07:00 15:00 23:00 07:00 15:00 23:00 Intake Total 500 ml Balance 500 ml Intake Packed Cells 500 ml Imaging Last Impressions Pelvis X-Ray 07/19/16 0000 Signed Impressions: Service Date/Time: July 19:39 - CONCLUSION: Unremarkable examination of the pelvis. Ronald Swenson MD Head CT 07/19/16 0000 Signed Impressions: Service Date/Time: July 20:47 - CONCLUSION: Stable brain with no acute cranial findings Ronald Swenson MD Chest CT 07/19/16 0000 Signed Impressions: Service Date/Time: July 20:56 - CONCLUSION: No acute intrathoracic findings Ronald Swenson MD Cervical Spine CT 07/19/16 0000 Signed Impressions: Service Date/Time: July 20:47 - CONCLUSION: Stable CT appearance of the cervical spine with no evidence of acute injury Ronald Swenson MD Abdomen/Pelvis CT 07/19/16 0000 Signed Impressions: Service Date/Time: July 20:56 - CONCLUSION: Stable benign CT appearance of the abdomen and pelvis Ronald Swenson MD Laboratory Test 07/19/16 07/19/16 07/20/16 19:15 20:15 01:38 White Blood Count 12.2 TH/MM3 Red Blood Count 2.89 MIL/MM3 Hemoglobin 6.5 GM/DL 7.0 GM/DL Hematocrit 19.6 % 21.5 % Mean Corpuscular Volume 67.8 FL Mean Corpuscular Hemoglobin 22.4 PG Mean Corpuscular Hemoglobin 33.0 % Concent Red Cell Distribution Width 22.8 % Platelet Count 602 TH/MM3 Mean Platelet Volume 8.2 FL Neutrophils (%) (Auto) 73.0 % Lymphocytes (%) (Auto) 13.2 % Monocytes (%) (Auto) 11.5 % Eosinophils (%) (Auto) 0.8 % Basophils (%) (Auto) 1.5 % Neutrophils # (Auto) 8.9 TH/MM3 Lymphocytes # (Auto) 1.6 TH/MM3 Monocytes # (Auto) 1.4 TH/MM3 Eosinophils # (Auto) 0.1 TH/MM3 Basophils # (Auto) 0.2 TH/MM3 CBC Comment AUTO DIFF Differential Total Cells 100 Counted Neutrophils % (Manual) 63 % Band Neutrophils % 6 % Lymphocytes % 18 % Monocytes % 7 % Eosinophils % 1 % Basophils % 2 % Neutrophils # (Manual) 8.8 TH/MM3 Metamyelocytes 1 % Myelocytes 2 % Differential Comment FINAL DIFF MANUAL Toxic Granulation 1+ Toxic Vacuolation PRESENT Platelet Estimate HIGH Platelet Morphology Comment ENLARGED Prothrombin Time 11.5 SEC Prothromb Time International 1.0 RATIO Ratio Activated Partial 26.9 SEC Thromboplast Time Sodium Level 140 MEQ/L Potassium Level 3.7 MEQ/L Chloride Level 106 MEQ/L Carbon Dioxide Level 25.1 MEQ/L Anion Gap 9 MEQ/L Blood Urea Nitrogen 13 MG/DL Creatinine 0.93 MG/DL Estimat Glomerular Filtration 82 ML/MIN Rate Random Glucose 138 MG/DL Calcium Level 8.5 MG/DL Blood Type O POSITIVE O POSITIVE Antibody Screen NEGATIVE Crossmatch Leukocyte-Reduced Leukocyte-Reduced Red Blood Red Blood Cells Cells Blood Bank Comment Physical Examination HEENT: normocephalic; atraumatic; no jaundice. Throat is clear. NECK: Neck is supple, no JVD, no lymphadenopathy. CHEST: Chest is clear to auscultation and percussion. CARDIAC: Regular rate and rhythm with no murmur gallop or rubs. ABDOMEN: Soft, nondistended, nontender; no hepatosplenomegaly; bowel sounds are present in all four quadrants. EXTREMITIES: No clubbing, cyanosis, or edema. SKIN: bruises in several areas LOIN PULLER: No focal deficits; alert and oriented times three. Assessment and Plan Plan - Severe symptomatic anemia of 6.5/heme (+) stools- He is receiving a total of 3 units of blood. patient reports worsening weakness associated with dizziness and falls. Patient hasn't taken Eliquis for the past 2 days per PCP instruction due to bruises and frequent falls. Patient reports weight loss of 40 Ibs in Patient denies nausea, vomiting, hematemesis, black tarry stools, bright red blood in stool, blood in urine, shortness of breath or chest pain. Labs in ER revealed hgb 6.5, heme (+) stools. Ct on (07/19/16) Stable benign CT appearance of the abdomen and pelvis Patient denies previous hx of this. He never had EGD/colonoscopy before. - Weight loss of 40 ibs in the past 5 weeks, states he lost his appetite, and wasn't able to eat as good.Ct negative - A-fib- Eliquis on hold - COPD, HTN, DM 2, Parkinson per attending Plan: - Clear liquids - EGD/colonoscopy in am - Golytely today - NPO mn - Monitor hh - Transfuse as needed - Supportive care - Patient seen and examined by Dr. Leyva and myself and this note is written on his behalf. Sophia Lantigua Jul 20, 2016 08:42
[2016-07-20] MEDS: TIOTROPIUM BROMIDE 18 MCG INH INH SCH ×2 (09:00→15:51)
[2016-07-20] MEDS ORDERED: NON-FORMULARY DRUG (Ipratropium-Albuterol Inh (Combivent Respimat Inh) 1 PUFF) INH SCH (09:00)
[2016-07-20] MEDS ORDERED: DILTIAZEM-CD 300 MG CAP ER PO SCH (09:00)
--- NOTE | 2016-07-20 09:33 | HHI.PR ---
Subjective Remarks This is a pleasant 65 y/o Female with Parkinson's Disease, COPD/Emphysema, Hypertension, DM II, Atrial Fibrillation was on Eliquis, Sleep Apnea, who came to ER due to Generalized weakness and Fall , worsening weakness over the last two weeks, Hemoglobin 6.5 and Hemoccult positive, has also Hyperlipidemia, Peripheral Neuropathy, Depression Anxiety disorder, CT abdomen was Negative, for EGD and Colonoscopy tomorrow, he was supposed to have this Endoscopy for today but will be performed tomorrow, patient stable in his bedroom. discussed with nurse Miss Baltazar he states did not have good management in the past will complete full Laboratory. Objective Vital Signs Date Time Temp Pulse Resp B/P Pulse Ox O2 Delivery O2 Flow Rate FiO2 07/20/16 08:31 98.1 71 18 134/63 98 Nasal Cannula 2 07/20/16 08:15 99 Nasal Cannula 3.00 07/20/16 08:15 98.2 70 16 137/61 99 Nasal Cannula 2 07/20/16 05:03 68 18 115/53 99 Nasal Cannula 3 07/20/16 03:55 98.4 07/20/16 03:34 98.5 72 18 109/53 100 Nasal Cannula 3 07/20/16 00:15 72 18 120/56 99 Nasal Cannula 2 07/19/16 23:12 73 18 106/53 100 Nasal Cannula 07/19/16 22:22 98.2 07/19/16 22:00 98.1 75 18 113/57 100 2 07/19/16 21:43 76 18 99/57 99 Nasal Cannula 2 07/19/16 20:44 18 98 Nasal Cannula 2 07/19/16 18:37 98 Nasal Cannula 2 07/19/16 18:33 98.0 85 16 88/51 93 I/O 07/19/16 07/19/16 07/19/16 07/20/16 07/20/16 07/20/16 07:00 15:00 23:00 07:00 15:00 23:00 Intake Total 500 ml Balance 500 ml Intake Packed Cells 500 ml Result Diagram: 07/20/16 0138 07/19/16 1915 Imaging Last Impressions Pelvis X-Ray 07/19/16 0000 Signed Impressions: Service Date/Time: July 19:39 - CONCLUSION: Unremarkable examination of the pelvis. Ronald Swenson MD Head CT 07/19/16 0000 Signed Impressions: Service Date/Time: July 20:47 - CONCLUSION: Stable brain with no acute cranial findings Ronald Swenson MD Chest CT 07/19/16 0000 Signed Impressions: Service Date/Time: July 20:56 - CONCLUSION: No acute intrathoracic findings Ronald Swenson MD Cervical Spine CT 07/19/16 0000 Signed Impressions: Service Date/Time: July 20:47 - CONCLUSION: Stable CT appearance of the cervical spine with no evidence of acute injury Ronald Swenson MD Abdomen/Pelvis CT 07/19/16 0000 Signed Impressions: Service Date/Time: July 20:56 - CONCLUSION: Stable benign CT appearance of the abdomen and pelvis Ronald Swenson MD Procedures No procedures performed. Other Results Laboratory Tests Test 07/19/16 07/19/16 07/20/16 19:15 20:15 01:38 White Blood Count 12.2 TH/MM3 Red Blood Count 2.89 MIL/MM3 Mean Corpuscular Volume 67.8 FL Mean Corpuscular Hemoglobin 22.4 PG Mean Corpuscular Hemoglobin 33.0 % Concent Red Cell Distribution Width 22.8 % Platelet Count 602 TH/MM3 Mean Platelet Volume 8.2 FL Neutrophils (%) (Auto) 73.0 % Lymphocytes (%) (Auto) 13.2 % Monocytes (%) (Auto) 11.5 % Eosinophils (%) (Auto) 0.8 % Basophils (%) (Auto) 1.5 % Neutrophils # (Auto) 8.9 TH/MM3 Lymphocytes # (Auto) 1.6 TH/MM3 Monocytes # (Auto) 1.4 TH/MM3 Eosinophils # (Auto) 0.1 TH/MM3 Basophils # (Auto) 0.2 TH/MM3 CBC Comment AUTO DIFF Differential Total Cells 100 Counted Neutrophils % (Manual) 63 % Band Neutrophils % 6 % Lymphocytes % 18 % Monocytes % 7 % Eosinophils % 1 % Basophils % 2 % Neutrophils # (Manual) 8.8 TH/MM3 Metamyelocytes 1 % Myelocytes 2 % Differential Comment FINAL DIFF MANUAL Toxic Granulation 1+ Toxic Vacuolation PRESENT Platelet Estimate HIGH Platelet Morphology Comment ENLARGED Prothrombin Time 11.5 SEC Prothromb Time International 1.0 RATIO Ratio Activated Partial 26.9 SEC Thromboplast Time Sodium Level 140 MEQ/L Potassium Level 3.7 MEQ/L Chloride Level 106 MEQ/L Carbon Dioxide Level 25.1 MEQ/L Anion Gap 9 MEQ/L Blood Urea Nitrogen 13 MG/DL Creatinine 0.93 MG/DL Estimat Glomerular Filtration 82 ML/MIN Rate Random Glucose 138 MG/DL Calcium Level 8.5 MG/DL Antibody Screen NEGATIVE Hemoglobin 7.0 GM/DL Hematocrit 21.5 % Blood Type O POSITIVE Crossmatch Leukocyte-Reduced Red Blood Cells Blood Bank Comment Objective Remarks GENERAL: This is 65 year old male patient who appears older than stated age and pale SKIN: pale. posterior thorax with 2 large ecchymotic areas EYES: Extraocular motions intact. No scleral icterus. No injection or drainage. ENT: Nose without bleeding, Right Parotid gland mass. probable benign NECK: Trachea midline. No JVD or lymphadenopathy. Supple, nontender, no meningeal signs. CARDIOVASCULAR: Regular rate and rhythm without murmurs, gallops, or rubs. RESPIRATORY: scattered expiratory wheezing GASTROINTESTINAL: Abdomen soft, non-tender, nondistended. No guarding. MUSCULOSKELETAL: Extremities without clubbing, cyanosis, or edema. No joint tenderness, effusion, or edema noted. No calf tenderness. Negative Homans sign bilaterally. NEUROLOGICAL: Awake and alert. Motor and sensory grossly within normal limits. 3 -4 out of 5 muscle strength in all muscle groups. Normal speech. Medications and IVs Current Medications Medications (Trade) Dose Ordered Sig/Amberly Route Start Time Stop Time Status Last Admin (NS 250 ml Inj) 250 ml @ 15 mls/hr ONCE ONCE IV 07/19/16 19:45 07/20/16 12:24 07/19/16 20:43 (NS Flush) 2 ml UNSCH PRN IV FLUSH 07/19/16 22:00 (NS Flush) 2 ml BID IV FLUSH 07/20/16 09:00 (Narcan Inj) 0.4 mg UNSCH PRN IV 07/19/16 22:00 (Symbicort 80-4.5 Mcg Inh) 1 puff BID INH 07/20/16 09:00 (Sinemet 25-100 Mg) 1.5 tab TID PO 07/20/16 09:00 (Cardizem Cd) 300 mg DAILY PO 07/20/16 09:00 Hold (Neurontin) 300 mg BID PO 07/20/16 09:00 (Remeron) 7.5 mg HS PO 07/20/16 21:00 (Pravachol) 40 mg HS PO 07/20/16 21:00 (Spiriva Inh) 18 mcg DAILY INH 07/20/16 09:00 (D50w (Vial) Inj) 25 ml UNSCH PRN IV PUSH 07/20/16 00:00 (Glucagon Inj) 1 mg UNSCH PRN OTHER 07/20/16 00:00 (Spiriva Inh) 18 mcg DAILY INH 07/20/16 09:00 (Proair Hfa Inh) 1 puff QID INH 07/20/16 09:00 (Colyte Liq) 4,000 ml ONCE ONCE PO 07/20/16 16:00 07/20/16 16:01 A/P Assessment and Plan 1. Symptomatic Anemia secondary to GI bleed received three units of PRBCs, improving Hemoglobin for EGD and colonoscopy for tomorrow. 2. Atrial Fibrillation currently Sinus rhythm, continue Cardizem by mouth, hold Eliquis due to GI bleed Echocardiogram to follow. 3. COPD on Bronchodilator, Mucolytic and Incentive spirometry, stable 4. Parkinson's Disease on Sinemet 5. DM II sliding scale. 6. Right parotid gland tumor DVT prophylaxis SCDs Discharge Planning Awaiting final by GI specialist for discharge. Adam Mars MD Jul 20, 2016 09:33
[2016-07-20] MEDS: GABAPENTIN 300 MG CAP PO SCH ×2 (10:29→22:26)
[2016-07-20] MEDS: CARBIDOPA/LEVODOPA 25 MG/100 MG TAB PO SCH ×3 (10:29→18:41)
[2016-07-20] MEDS: INSULIN ASPART SUPPLEMENTAL SCALE SQ SCH ×3 (11:00→21:00)
[2016-07-20 11:07] LABS: AUTOMATED NEUTROPHIL # 7.3 TH/MM3 (1.8-7.7); BASOPHIL # 0.1 TH/MM3 (0-0.2); BASOPHIL % 1.1 % (0.0-2.0); EOSINOPHIL # 0.1 TH/MM3 (0-0.4); EOSINOPHIL % 1.1 % (0.0-4.0); HEMATOCRIT 30.3 % (39.0-51.0); LYMPH % 9.9 % (9.0-44.0); MEAN CELL VOLUME 73.3 FL (80.0-100.0); MEAN CORPUSCULAR HEMOGLOBIN 24.3 PG (27.0-34.0); MEAN CORPUSCULAR HGB CONC 33.2 % (32.0-36.0); MONO % 13.6 % (0.0-8.0); NEUT % 74.3 % (16.0-70.0); PLATELET COUNT 577 TH/MM3 (150-450); RED BLOOD COUNT 4.13 MIL/MM3 (4.50-5.90); RED CELL DISTRIBUTION WIDTH 21.2 % (11.6-17.2); WHITE BLOOD COUNT 9.9 TH/MM3 (4.0-11.0)
[2016-07-20 11:08] LABS: HEMO FLAGS AUTO DIFF
[2016-07-20 11:17] LABS: BICARBONATE 26.8 MEQ/L (21.0-32.0); POTASSIUM 3.9 MEQ/L (3.5-5.1)
[2016-07-20 12:27] LABS: KERATOCYTES 1+ (NORMAL); PLATELET ESTIMATE SMEAR HIGH (NORMAL); PLATELET MORPHOLOGY ENLARGED (NORMAL); SCAN/DIFF AUTO DIFF CONFIRMED
[2016-07-20] MEDS: ALBUTEROL SULFATE 90 MCG/ACT HFA 8 GM INHALER INH SCH ×4 (13:00→22:25)
[2016-07-20] MEDS: BUDESONIDE-FORMOTEROL 80/4.5 MCG INHALER INH SCH ×2 (15:51→22:25)
[2016-07-20] MEDS ORDERED: PEG (High)/E-LYTE SOLN 4000 ML BTL PO ONE (16:00)
[2016-07-20 19:10] LABS: FREE T4 1.23 NG/DL (0.76-1.46)
[2016-07-20] MEDS: PRAVASTATIN SOD 40 MG TAB PO SCH (22:26)
[2016-07-20] MEDS: SODIUM CHLORIDE 0.9% FLUSH 10 ML FLUSH IV FLUSH SCH (22:26)
[2016-07-20] MEDS: MIRTAZAPINE 15 MG TAB PO SCH (22:26)
[2016-07-20] MEDS: guaiFENesin E.R. 600 MG TAB PO SCH (22:26)
[2016-07-21] VITALS (23 sets, daily range): BP systolic 142–155; BP diastolic 60–84; PULSE 72–102; RESP 16–20; TEMP 97.4–98.1; O2SAT 96–98
[2016-07-21] MEDS ORDERED: LACTATED RINGER'S 1000 ML IV PRN (02:00)
[2016-07-21] MEDS ORDERED: SODIUM CHLORID 0.9% 500 ML IV PRN (02:00)
[2016-07-21] MEDS ORDERED: POVIDONE IODINE 5% (ANTISEPSIS KIT) 4 APPLICATIONS EACH NARE PRN (02:00)
[2016-07-21] MEDS ORDERED: CHLORHEXIDINE GLUCONATE 2 % 1 PACK (2 CLOTHS) TOPICAL PRN (02:00)
[2016-07-21] MEDS: INSULIN ASPART SUPPLEMENTAL SCALE SQ SCH ×4 (05:41→20:07)
[2016-07-21 05:53] LABS: BLOOD, URINE NEG (NEG); COMMENT (UR) CULT NOT INDICATED; CULTURE IF INDICATED CULT NOT INDICATED; GLUCOSE,URINE NEG (NEG); KETONE, URINE NEG (NEG); NITRITE,URINE NEG (NEG); PH, URINE 6.5 (5.0-8.5); URINE COLOR YELLOW (YELLW/STRAW)
[2016-07-21 06:51] LABS: HDL CHOLESTEROL 22.9 MG/DL (40.0-60.0)
[2016-07-21 07:21] LABS: LDL CHOLESTEROL 15 MG/DL (0-99)
[2016-07-21] MEDS: RESP: ALBUTEROL 2.5 MG/IPRATROPIUM 0.5 MG NEB (SCH) NEB ×3 (08:43→20:53)
[2016-07-21] MEDS: CARBIDOPA/LEVODOPA 25 MG/100 MG TAB PO SCH ×3 (09:00→17:05)
[2016-07-21] MEDS: guaiFENesin E.R. 600 MG TAB PO SCH ×2 (09:00→20:06)
[2016-07-21] MEDS: TIOTROPIUM BROMIDE 18 MCG INH INH SCH ×2 (09:00→09:16)
[2016-07-21] MEDS: GABAPENTIN 300 MG CAP PO SCH ×2 (09:00→20:06)
[2016-07-21] MEDS: ALBUTEROL SULFATE 90 MCG/ACT HFA 8 GM INHALER INH SCH ×4 (09:17→20:04)
[2016-07-21] MEDS: BUDESONIDE-FORMOTEROL 80/4.5 MCG INHALER INH SCH ×2 (09:17→20:04)
[2016-07-21] MEDS: SODIUM CHLORIDE 0.9% FLUSH 10 ML FLUSH IV FLUSH SCH ×2 (09:17→20:03)
[2016-07-21 10:49] LABS: HEMOGLOBIN A1a 1.1 %; HEMOGLOBIN A1b 1.4 %; HEMOGLOBIN Ao 86.9 %; HEMOGLOBIN LA1C 1.8 %; HEMOGLOBIN P3 4.9 %
--- NOTE | 2016-07-21 12:45 | HHI.PR ---
Subjective Remarks This is a pleasant 65 y/o Female with Parkinson's Disease, COPD/Emphysema, Hypertension, DM II, Atrial Fibrillation was on Eliquis, Sleep Apnea, who came to ER due to Generalized weakness and Fall , worsening weakness over the last two weeks, Hemoglobin 6.5 and Hemoccult positive, has also Hyperlipidemia, Peripheral Neuropathy, Depression Anxiety disorder, CT abdomen was Negative, for EGD and Colonoscopy today 07/21: Seen in his bedroom will go for Colonoscopy and EGD later today, no complaint states he is worry about the test because never had a procedure in his life, No nausea, vomit or diarrhea. Objective Vital Signs Date Time Temp Pulse Resp B/P Pulse Ox O2 Delivery O2 Flow Rate FiO2 07/21/16 11:00 102 07/21/16 11:00 98.0 89 17 148/82 97 07/21/16 09:00 86 07/21/16 09:00 82 07/21/16 08:46 97 Nasal Cannula 2.00 07/21/16 08:00 80 07/21/16 07:00 97.4 86 16 155/84 98 07/21/16 07:00 82 07/21/16 06:00 80 07/21/16 05:00 86 07/21/16 04:00 81 07/21/16 03:00 98.1 79 20 142/73 96 07/21/16 03:00 77 07/21/16 02:00 72 07/21/16 01:00 77 07/21/16 00:00 76 07/20/16 23:00 78 07/20/16 23:00 97.9 79 20 121/79 97 07/20/16 22:00 82 07/20/16 21:00 76 07/20/16 20:13 97 Nasal Cannula 2.00 07/20/16 20:00 74 07/20/16 19:00 98.3 80 21 146/77 100 07/20/16 18:01 74 07/20/16 17:00 75 07/20/16 15:55 97.7 74 22 134/59 97 07/20/16 15:00 74 07/20/16 14:00 74 I/O 07/20/16 07/20/16 07/20/16 07/21/16 07/21/16 07/21/16 07:00 15:00 23:00 07:00 15:00 23:00 Intake Total 500 ml 380 ml 2240 ml Output Total 575 ml Balance 500 ml 380 ml 1665 ml Intake Oral 2240 ml IV Total 80 ml Packed Cells 500 ml 300 ml Output Urine Total 575 ml # Bowel Movements 4 Result Diagram: 07/20/16 1034 07/20/16 1034 Imaging Last Impressions Pelvis X-Ray 07/19/16 0000 Signed Impressions: Service Date/Time: July 19:39 - CONCLUSION: Unremarkable examination of the pelvis. Ronald Swenson MD Head CT 07/19/16 0000 Signed Impressions: Service Date/Time: July 20:47 - CONCLUSION: Stable brain with no acute cranial findings Ronald Swenson MD Chest CT 07/19/16 0000 Signed Impressions: Service Date/Time: July 20:56 - CONCLUSION: No acute intrathoracic findings Ronald Swenson MD Cervical Spine CT 07/19/16 0000 Signed Impressions: Service Date/Time: July 20:47 - CONCLUSION: Stable CT appearance of the cervical spine with no evidence of acute injury Ronald Swenson MD Abdomen/Pelvis CT 07/19/16 0000 Signed Impressions: Service Date/Time: July 20:56 - CONCLUSION: Stable benign CT appearance of the abdomen and pelvis Ronald Swenson MD Procedures No procedures performed. Other Results Laboratory Tests Test 07/19/16 07/19/16 07/20/16 07/20/16 19:15 20:15 01:38 10:34 Differential Total Cells 100 Counted Neutrophils % (Manual) 63 % Band Neutrophils % 6 % Lymphocytes % 18 % Monocytes % 7 % Eosinophils % 1 % Basophils % 2 % Neutrophils # (Manual) 8.8 TH/MM3 Metamyelocytes 1 % Myelocytes 2 % Toxic Granulation 1+ Toxic Vacuolation PRESENT Prothrombin Time 11.5 SEC Prothromb Time International 1.0 RATIO Ratio Activated Partial 26.9 SEC Thromboplast Time Antibody Screen NEGATIVE Blood Type O POSITIVE Crossmatch Leukocyte-Reduced Red Blood Cells Blood Bank Comment White Blood Count 9.9 TH/MM3 Red Blood Count 4.13 MIL/MM3 Hemoglobin 10.0 GM/DL Hematocrit 30.3 % Mean Corpuscular Volume 73.3 FL Mean Corpuscular Hemoglobin 24.3 PG Mean Corpuscular Hemoglobin 33.2 % Concent Red Cell Distribution Width 21.2 % Platelet Count 577 TH/MM3 Mean Platelet Volume 8.5 FL Neutrophils (%) (Auto) 74.3 % Lymphocytes (%) (Auto) 9.9 % Monocytes (%) (Auto) 13.6 % Eosinophils (%) (Auto) 1.1 % Basophils (%) (Auto) 1.1 % Neutrophils # (Auto) 7.3 TH/MM3 Lymphocytes # (Auto) 1.0 TH/MM3 Monocytes # (Auto) 1.3 TH/MM3 Eosinophils # (Auto) 0.1 TH/MM3 Basophils # (Auto) 0.1 TH/MM3 CBC Comment AUTO DIFF Differential Comment AUTO DIFF CONFIRMED Platelet Estimate HIGH Platelet Morphology Comment ENLARGED Keratocytes 1+ Sodium Level 141 MEQ/L Potassium Level 3.9 MEQ/L Chloride Level 107 MEQ/L Carbon Dioxide Level 26.8 MEQ/L Anion Gap 7 MEQ/L Blood Urea Nitrogen 9 MG/DL Creatinine 0.71 MG/DL Estimat Glomerular Filtration 111 ML/MIN Rate Random Glucose 119 MG/DL Calcium Level 8.3 MG/DL Vitamin B12 Level 682 PG/ML Folate 6.7 NG/ML Free Thyroxine 1.23 NG/DL Thyroid Stimulating Hormone 1.210 uIU/ML 3rd Gen Hemoglobin A1c 4.9 % Test 07/21/16 07/21/16 03:50 06:01 Urine Color YELLOW Urine Turbidity CLEAR Urine pH 6.5 Urine Specific [place] 1.024 Urine Protein NEG mg/dL Urine Glucose (UA) NEG mg/dL Urine Ketones NEG mg/dL Urine Occult Blood NEG Urine Nitrite NEG Urine Bilirubin NEG Urine Urobilinogen 4.0 MG/DL Urine Leukocyte Esterase NEG Urine RBC 1 /hpf Urine WBC LESS THAN 1 /hpf Microscopic Urinalysis Comment CULT NOT INDICATED Triglycerides Level 60 MG/DL Cholesterol Level LESS THAN 50 MG/DL LDL Cholesterol 15 MG/DL HDL Cholesterol 22.9 MG/DL Cholesterol/HDL Ratio 2.18 RATIO Objective Remarks GENERAL: This is 65 year old male patient who appears older than stated age and pale SKIN: pale. posterior thorax with 2 large ecchymotic areas EYES: Extraocular motions intact. No scleral icterus. No injection or drainage. ENT: Nose without bleeding, Right Parotid gland mass. probable benign NECK: Trachea midline. No JVD or lymphadenopathy. Supple, nontender, no meningeal signs. CARDIOVASCULAR: Regular rate and rhythm without murmurs, gallops, or rubs. RESPIRATORY: scattered expiratory wheezing GASTROINTESTINAL: Abdomen soft, non-tender, nondistended. No guarding. MUSCULOSKELETAL: Extremities without clubbing, cyanosis, or edema. No joint tenderness, effusion, or edema noted. No calf tenderness. Negative Homans sign bilaterally. NEUROLOGICAL: Awake and alert. Motor and sensory grossly within normal limits. 3 -4 out of 5 muscle strength in all muscle groups. Normal speech. Medications and IVs Current Medications Medications (Trade) Dose Ordered Sig/Amberly Route Start Time Stop Time Status Last Admin (NS Flush) 2 ml UNSCH PRN IV FLUSH 07/19/16 22:00 (NS Flush) 2 ml BID IV FLUSH 07/20/16 09:00 07/21/16 09:17 (Narcan Inj) 0.4 mg UNSCH PRN IV 07/19/16 22:00 (Symbicort 80-4.5 Mcg Inh) 1 puff BID INH 07/20/16 09:00 07/21/16 09:17 (Sinemet 25-100 Mg) 1.5 tab TID PO 07/20/16 09:00 07/20/16 18:41 (Cardizem Cd) 300 mg DAILY PO 07/20/16 09:00 Hold (Neurontin) 300 mg BID PO 07/20/16 09:00 07/20/16 22:26 (Remeron) 7.5 mg HS PO 07/20/16 21:00 07/20/16 22:26 (Pravachol) 40 mg HS PO 07/20/16 21:00 07/20/16 22:26 (Spiriva Inh) 18 mcg DAILY INH 07/20/16 09:00 07/21/16 09:16 (D50w (Vial) Inj) 25 ml UNSCH PRN IV PUSH 07/20/16 00:00 (Glucagon Inj) 1 mg UNSCH PRN OTHER 07/20/16 00:00 (Spiriva Inh) 18 mcg DAILY INH 07/20/16 09:00 (Proair Hfa Inh) 1 puff QID INH 07/20/16 09:00 07/21/16 09:17 Guaifenesin 600 mg 600 mg BID PO 4/14/17 21:00 07/20/16 22:26 Lactated Ringer's 1,000 ml @ 30 mls/hr Q24H PRN IV 07/21/16 02:00 07/24/16 01:59 (NS 500 ml Inj) 500 ml @ 30 mls/hr [id number] PRN IV 07/21/16 02:00 07/24/16 01:59 A/P Assessment and Plan 1. Symptomatic Anemia secondary to GI bleed received three units of PRBCs, improving Hemoglobin for EGD and colonoscopy later today. 2. Atrial Fibrillation currently Sinus rhythm, continue Cardizem by mouth, hold Eliquis due to GI bleed Echocardiogram to follow. 3. COPD on Bronchodilator, Mucolytic and Incentive spirometry, stable 4. Parkinson's Disease on Sinemet 5. DM II sliding scale. 6. 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 DVT prophylaxis SCDs Discharge Planning Awaiting final by GI specialist for discharge. Adam Mars MD Jul 21, 2016 12:45
[2016-07-21] MEDS ORDERED: EPINEPHrine HCL (1:10,000) 1 MG/10 ML SYRINGE ONE (13:06)
[2016-07-21] MEDS ORDERED: ATROPINE SULFATE 1 MG/10 ML SYRINGE ONE (13:06)
[2016-07-21] MEDS ORDERED: methylPREDNISolone SOD SUCC 125 MG/2 ML VIAL ONE (13:36)
[2016-07-21] MEDS ORDERED: PROPOFOL 200 MG/20 ML AMP IV ONE (13:46)
[2016-07-21 18:00] LABS: BASOPHIL # 0.1 TH/MM3 (0-0.2); BASOPHIL % 1.1 % (0.0-2.0); EOSINOPHIL % 0.2 % (0.0-4.0); HEMATOCRIT 32.3 % (39.0-51.0); LYMPH % 4.1 % (9.0-44.0); LYMPHOCYTE # 0.4 TH/MM3 (1.0-4.8); MEAN CELL VOLUME 74.1 FL (80.0-100.0); MEAN CORPUSCULAR HEMOGLOBIN 24.2 PG (27.0-34.0); MEAN CORPUSCULAR HGB CONC 32.7 % (32.0-36.0); NEUT % 93.6 % (16.0-70.0); PLATELET COUNT 512 TH/MM3 (150-450); RED BLOOD COUNT 4.37 MIL/MM3 (4.50-5.90); RED CELL DISTRIBUTION WIDTH 21.2 % (11.6-17.2); WHITE BLOOD COUNT 9.6 TH/MM3 (4.0-11.0)
[2016-07-21 18:03] LABS: HEMO FLAGS AUTO DIFF
[2016-07-21 18:26] LABS: KERATOCYTES 1+ (NORMAL); OVALOCYTES 1+ (NORMAL); PLATELET ESTIMATE SMEAR HIGH (NORMAL); PLATELET MORPHOLOGY ENLARGED (NORMAL); SCAN/DIFF AUTO DIFF CONFIRMED
[2016-07-21] MEDS: PRAVASTATIN SOD 40 MG TAB PO SCH (20:05)
[2016-07-21] MEDS: MIRTAZAPINE 15 MG TAB PO SCH (20:06)
[2016-07-22] VITALS (27 sets, daily range): BP systolic 103–147; BP diastolic 64–80; PULSE 67–88; RESP 16–20; TEMP 98–98.4; O2SAT 94–97
[2016-07-22] MEDS: INSULIN ASPART SUPPLEMENTAL SCALE SQ SCH ×4 (06:16→20:38)
[2016-07-22] MEDS: RESP: ALBUTEROL 2.5 MG/IPRATROPIUM 0.5 MG NEB (SCH) NEB ×3 (08:01→20:22)
--- NOTE | 2016-07-22 08:21 | HHI.PR ---
Subjective Remarks This is a pleasant 65 y/o Female with Parkinson's Disease, COPD/Emphysema, Hypertension, DM II, Atrial Fibrillation was on Eliquis, Sleep Apnea, who came to ER due to Generalized weakness and Fall , worsening weakness over the last two weeks, Hemoglobin 6.5 and Hemoccult positive, has also Hyperlipidemia, Peripheral Neuropathy, Depression Anxiety disorder, CT abdomen was Negative, for EGD and Colonoscopy today 07/21: Seen in his bedroom will go for Colonoscopy and EGD later today 07/22: Seen in his bedroom in the presence of nurse Miss Mata, he had EGD yesterday but not Colonoscopy due to Poor Colon prep will start Colon prep later today and will have Colonoscopy by tomorrow, No Nausea, vomit or diarrhea, Objective Vital Signs Date Time Temp Pulse Resp B/P Pulse Ox O2 Delivery O2 Flow Rate FiO2 07/22/16 08:02 94 Nasal Cannula 21 07/22/16 07:15 94 Nasal Cannula 1.00 07/22/16 07:15 98.0 88 17 147/80 94 07/22/16 07:00 74 07/22/16 06:00 72 07/22/16 05:00 76 07/22/16 04:00 79 07/22/16 04:00 98.1 79 18 131/70 97 07/22/16 04:00 Nasal Cannula 2.00 07/22/16 03:00 82 07/22/16 02:00 84 07/22/16 01:00 76 07/22/16 00:00 98.2 74 18 145/70 96 07/22/16 00:00 Nasal Cannula 2.00 07/22/16 00:00 74 07/21/16 23:00 89 07/21/16 22:00 90 07/21/16 21:00 84 07/21/16 20:53 98 Nasal Cannula 2.00 07/21/16 20:00 92 07/21/16 20:00 98.0 92 18 150/74 98 07/21/16 18:00 90 07/21/16 17:00 85 07/21/16 16:00 88 07/21/16 15:00 97.5 91 20 144/60 98 07/21/16 15:00 90 07/21/16 14:13 76 16 125/57 100 07/21/16 14:07 69 16 116/59 100 07/21/16 14:00 97.1 69 18 139/65 100 07/21/16 13:00 88 07/21/16 12:00 81 07/21/16 11:00 102 07/21/16 11:00 98.0 89 17 148/82 97 07/21/16 09:00 86 07/21/16 09:00 82 07/21/16 08:46 97 Nasal Cannula 2.00 I/O 07/21/16 07/21/16 07/21/16 07/22/16 07/22/16 07/22/16 07:00 15:00 23:00 07:00 15:00 23:00 Intake Total 2240 ml 100 ml 490 ml Output Total 575 ml 600 ml 600 ml Balance 1665 ml 100 ml -600 ml -110 ml Intake Oral 2240 ml 480 ml IV Total 100 ml 10 ml Output Urine Total 575 ml 600 ml 600 ml # Bowel Movements 4 3 1 Result Diagram: 07/21/16 1729 07/20/16 1034 Imaging Last Impressions Pelvis X-Ray 07/19/16 0000 Signed Impressions: Service Date/Time: July 19:39 - CONCLUSION: Unremarkable examination of the pelvis. Ronald Swenson MD Head CT 07/19/16 0000 Signed Impressions: Service Date/Time: July 20:47 - CONCLUSION: Stable brain with no acute cranial findings Ronald Swenson MD Chest CT 07/19/16 0000 Signed Impressions: Service Date/Time: July 20:56 - CONCLUSION: No acute intrathoracic findings oRnald Swenson MD Cervical Spine CT 07/19/16 0000 Signed Impressions: Service Date/Time: July 20:47 - CONCLUSION: Stable CT appearance of the cervical spine with no evidence of acute injury Ronald Swenson MD Abdomen/Pelvis CT 07/19/16 0000 Signed Impressions: Service Date/Time: July 20:56 - CONCLUSION: Stable benign CT appearance of the abdomen and pelvis Ronald Swenson MD Procedures EGD 07/21/16, found Esophagitis, Biopsy taken, Mild Gastritis, No upper GI bleed seen recommended to continue PPIs Other Results Laboratory Tests Test 407/19/16 07/20/16 07/20/16 19:15 20:15 01:38 10:34 Differential Total Cells 100 Counted Neutrophils % (Manual) 63 % Band Neutrophils % 6 % Lymphocytes % 18 % Monocytes % 7 % Eosinophils % 1 % Basophils % 2 % Neutrophils # (Manual) 8.8 TH/MM3 Metamyelocytes 1 % Myelocytes 2 % Toxic Granulation 1+ Toxic Vacuolation PRESENT Prothrombin Time 11.5 SEC Prothromb Time International 1.0 RATIO Ratio Activated Partial 26.9 SEC Thromboplast Time Antibody Screen NEGATIVE Blood Type O POSITIVE Crossmatch Leukocyte-Reduced Red Blood Cells Blood Bank Comment Sodium Level 141 MEQ/L Potassium Level 3.9 MEQ/L Chloride Level 107 MEQ/L Carbon Dioxide Level 26.8 MEQ/L Anion Gap 7 MEQ/L Blood Urea Nitrogen 9 MG/DL Creatinine 0.71 MG/DL Estimat Glomerular Filtration 111 ML/MIN Rate Random Glucose 119 MG/DL Calcium Level 8.3 MG/DL Vitamin B12 Level 682 PG/ML Folate 6.7 NG/ML Free Thyroxine 1.23 NG/DL Thyroid Stimulating Hormone 1.210 uIU/ML 3rd Gen Hemoglobin A1c 4.9 % Test 07/21/16 07/21/16 07/21/16 03:50 06:01 17:29 Urine Color YELLOW Urine Turbidity CLEAR Urine pH 6.5 Urine Specific [place] 1.024 Urine Protein NEG mg/dL Urine Glucose (UA) NEG mg/dL Urine Ketones NEG mg/dL Urine Occult Blood NEG Urine Nitrite NEG Urine Bilirubin NEG Urine Urobilinogen 4.0 MG/DL Urine Leukocyte Esterase NEG Urine RBC 1 /hpf Urine WBC LESS THAN 1 /hpf Microscopic Urinalysis Comment CULT NOT INDICATED Triglycerides Level 60 MG/DL Cholesterol Level LESS THAN 50 MG/DL LDL Cholesterol 15 MG/DL HDL Cholesterol 22.9 MG/DL Cholesterol/HDL Ratio 2.18 RATIO White Blood Count 9.6 TH/MM3 Red Blood Count 4.37 MIL/MM3 Hemoglobin 10.6 GM/DL Hematocrit 32.3 % Mean Corpuscular Volume 74.1 FL Mean Corpuscular Hemoglobin 24.2 PG Mean Corpuscular Hemoglobin 32.7 % Concent Red Cell Distribution Width 21.2 % Platelet Count 512 TH/MM3 Mean Platelet Volume 8.3 FL Neutrophils (%) (Auto) 93.6 % Lymphocytes (%) (Auto) 4.1 % Monocytes (%) (Auto) 1.0 % Eosinophils (%) (Auto) 0.2 % Basophils (%) (Auto) 1.1 % Neutrophils # (Auto) 9.0 TH/MM3 Lymphocytes # (Auto) 0.4 TH/MM3 Monocytes # (Auto) 0.1 TH/MM3 Eosinophils # (Auto) 0.0 TH/MM3 Basophils # (Auto) 0.1 TH/MM3 CBC Comment AUTO DIFF Differential Comment AUTO DIFF CONFIRMED Platelet Estimate HIGH Platelet Morphology Comment ENLARGED Ovalocytes 1+ Keratocytes 1+ Objective Remarks GENERAL: This is 65 year old male patient who appears older than stated age and pale SKIN: pale. posterior thorax with 2 large ecchymotic areas EYES: Extraocular motions intact. No scleral icterus. No injection or drainage. ENT: Nose without bleeding, Right Parotid gland mass. probable benign NECK: Trachea midline. No JVD or lymphadenopathy. Supple, nontender, no meningeal signs. CARDIOVASCULAR: Regular rate and rhythm without murmurs, gallops, or rubs. RESPIRATORY: scattered expiratory wheezing GASTROINTESTINAL: Abdomen soft, non-tender, nondistended. No guarding. MUSCULOSKELETAL: Extremities without clubbing, cyanosis, or edema. No joint tenderness, effusion, or edema noted. No calf tenderness. Negative Homans sign bilaterally. NEUROLOGICAL: Awake and alert. Motor and sensory grossly within normal limits. 3 -4 out of 5 muscle strength in all muscle groups. Normal speech. Medications and IVs Current Medications Medications (Trade) Dose Ordered Sig/Amberly Route Start Time Stop Time Status Last Admin (NS Flush) 2 ml UNSCH PRN IV FLUSH 07/19/16 22:00 (NS Flush) 2 ml BID IV FLUSH 07/20/16 09:00 07/21/16 20:03 (Narcan Inj) 0.4 mg UNSCH PRN IV 07/19/16 22:00 (Symbicort 80-4.5 Mcg Inh) 1 puff BID INH 07/20/16 09:00 07/21/16 20:04 (Sinemet 25-100 Mg) 1.5 tab TID PO 07/20/16 09:00 07/21/16 17:05 (Cardizem Cd) 300 mg DAILY PO 07/20/16 09:00 Hold (Neurontin) 300 mg BID PO 07/20/16 09:00 07/21/16 20:06 (Remeron) 7.5 mg HS PO 07/20/16 21:00 07/21/16 20:06 (Pravachol) 40 mg HS PO 07/20/16 21:00 07/21/16 20:05 (Spiriva Inh) 18 mcg DAILY INH 07/20/16 09:00 07/21/16 09:16 (D50w (Vial) Inj) 25 ml UNSCH PRN IV PUSH 07/20/16 00:00 (Glucagon Inj) 1 mg UNSCH PRN OTHER 07/20/16 00:00 (Spiriva Inh) 18 mcg DAILY INH 07/20/16 09:00 (Proair Hfa Inh) 1 puff QID INH 07/20/16 09:00 07/21/16 20:04 Guaifenesin 600 mg 600 mg BID PO 07/20/16 21:00 07/21/16 20:06 Lactated Ringer's 1,000 ml @ 30 mls/hr Q24H PRN IV 07/21/16 02:00 07/24/16 01:59 (NS 500 ml Inj) 500 ml @ 30 mls/hr [id number] PRN IV 07/21/16 02:00 07/24/16 01:59 A/P Assessment and Plan 1. Symptomatic Anemia secondary to GI bleed received three units of PRBCs, improving Hemoglobin Status post EGD 07/21/16, found Esophagitis, Biopsy taken, Mild Gastritis, No upper GI bleed seen recommended to continue PPIs, Colonoscopy not performed due to poor Colon Prep will have the procedure by tomorrow. 2. Atrial Fibrillation currently Sinus rhythm, continue Cardizem by mouth, hold Eliquis due to GI bleed 3. COPD on Bronchodilator, Mucolytic and Incentive spirometry, stable 4. Parkinson's Disease on Sinemet 5. DM II sliding scale. better control. 6. 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 DVT prophylaxis SCDs Discussed with Patient and nurse in the room. Discharge Planning Awaiting final by GI specialist for discharge. Adam Mars MD Jul 22, 2016 08:21
[2016-07-22] MEDS: BUDESONIDE-FORMOTEROL 80/4.5 MCG INHALER INH SCH ×2 (08:24→20:38)
[2016-07-22] MEDS: ALBUTEROL SULFATE 90 MCG/ACT HFA 8 GM INHALER INH SCH ×4 (08:24→20:37)
[2016-07-22] MEDS: TIOTROPIUM BROMIDE 18 MCG INH INH SCH ×2 (08:24→08:25)
[2016-07-22] MEDS: GABAPENTIN 300 MG CAP PO SCH ×2 (08:24→20:37)
[2016-07-22] MEDS: CARBIDOPA/LEVODOPA 25 MG/100 MG TAB PO SCH ×3 (08:24→17:28)
[2016-07-22] MEDS: SODIUM CHLORIDE 0.9% FLUSH 10 ML FLUSH IV FLUSH SCH ×2 (08:25→20:38)
[2016-07-22] MEDS: guaiFENesin E.R. 600 MG TAB PO SCH ×2 (08:25→20:37)
--- NOTE | 2016-07-22 08:25 | MR ---
cc: CAMILA LEYVA M.D. DATE: 07/21/2016 DATE OF : [address] Celaya. PROCEDURE PERFORMED Upper gastrointestinal endoscopy with biopsy and colonoscopy. ENDOSCOPIST Dr. Leyva. MEDICATIONS Propofol administered by anesthesia. INSTRUMENT Pentax colonoscopy scope. INDICATION A 65-year-old gentleman who has anemia, possible GI bleed. PROCEDURE After informing the patient of above procedure and complication consent was signed. The patient was placed on his left lateral decubitus. Adequate sedation was achieved by propofol. The scope was placed in the mouth, advanced under video guidance to the second portion of the duodenum. The scope was drawn back to the stomach. Retroflexion was performed. Biopsy was done from the GE junction, then the scope was drawn back without immediate complication. After that rectal exam was performed. The scope was placed in the rectum, advanced under video guidance to the ascending colon. There was significant amount of stool throughout the colon with suboptimal prep. The procedure was terminated. No sign of active bleeding that I could see. FINDINGS Esophagitis: Biopsy was done. Stomach: Mild gastritis. No upper GI bleed that I could see. Poor preparation. RECOMMENDATION No NSAIDs. Followup biopsy. Continue PPI. Clear liquids. Colonoscopy on Saturday. Followup CBC. MD JAYSON Delacruz/EDYTA /6:22 PM /8:17 AM
[2016-07-22 09:00] LABS: HEMATOCRIT 30.2 % (39.0-51.0)
--- NOTE | 2016-07-22 11:37 | HHI.GIFU ---
Subjective Remarks Patient is resting in bed, denies any complaints, would like to go home tomorrow for [place] Objective Vitals I&O Vital Signs Date Time Temp Pulse Resp B/P Pulse Ox O2 Delivery O2 Flow Rate FiO2 07/22/16 10:04 82 07/22/16 09:00 75 07/22/16 08:02 94 Nasal Cannula 21 07/22/16 08:00 77 07/22/16 07:15 94 Nasal Cannula 1.00 07/22/16 07:15 98.0 88 17 147/80 94 07/22/16 07:00 74 07/22/16 06:00 72 07/22/16 05:00 76 07/22/16 04:00 79 07/22/16 04:00 98.1 79 18 131/70 97 07/22/16 04:00 Nasal Cannula 2.00 07/22/16 03:00 82 07/22/16 02:00 84 07/22/16 01:00 76 07/22/16 00:00 98.2 74 18 145/70 96 07/22/16 00:00 Nasal Cannula 2.00 07/22/16 00:00 74 07/21/16 23:00 89 07/21/16 22:00 90 07/21/16 21:00 84 07/21/16 20:53 98 Nasal Cannula 2.00 07/21/16 20:00 92 07/21/16 20:00 98.0 92 18 150/74 98 07/21/16 18:00 90 07/21/16 17:00 85 07/21/16 16:00 88 07/21/16 15:00 97.5 91 20 144/60 98 07/21/16 15:00 90 07/21/16 14:13 76 16 125/57 100 07/21/16 14:07 69 16 116/59 100 07/21/16 14:00 97.1 69 18 139/65 100 07/21/16 13:00 88 07/21/16 12:00 81 I/O 07/21/16 07/21/16 07/21/16 07/22/16 07/22/16 07/22/16 07:00 15:00 23:00 07:00 15:00 23:00 Intake Total 2240 ml 100 ml 490 ml Output Total 575 ml 600 ml 600 ml Balance 1665 ml 100 ml -600 ml -110 ml Intake Oral 2240 ml 480 ml IV Total 100 ml 10 ml Output Urine Total 575 ml 600 ml 600 ml # Bowel Movements 4 3 1 Laboratory Laboratory Tests Test 07/21/16 07/22/16 17:29 08:11 White Blood Count 9.6 Red Blood Count 4.37 Hemoglobin 10.6 10.0 Hematocrit 32.3 30.2 Mean Corpuscular Volume 74.1 Mean Corpuscular Hemoglobin 24.2 Mean Corpuscular Hemoglobin 32.7 Concent Red Cell Distribution Width 21.2 Platelet Count 512 Mean Platelet Volume 8.3 Neutrophils (%) (Auto) 93.6 Lymphocytes (%) (Auto) 4.1 Monocytes (%) (Auto) 1.0 Eosinophils (%) (Auto) 0.2 Basophils (%) (Auto) 1.1 Neutrophils # (Auto) 9.0 Lymphocytes # (Auto) 0.4 Monocytes # (Auto) 0.1 Eosinophils # (Auto) 0.0 Basophils # (Auto) 0.1 CBC Comment AUTO DIFF Differential Comment AUTO DIFF CONFIRMED Platelet Estimate HIGH Platelet Morphology Comment ENLARGED Ovalocytes 1+ Keratocytes 1+ Imaging Last Impressions Pelvis X-Ray 07/19/16 0000 Signed Impressions: Service Date/Time: July 19:39 - CONCLUSION: Unremarkable examination of the pelvis. Ronald Swenson MD Head CT 07/19/16 0000 Signed Impressions: Service Date/Time: July 20:47 - CONCLUSION: Stable brain with no acute cranial findings Ronald Swenson MD Chest CT 07/19/16 0000 Signed Impressions: Service Date/Time: July 20:56 - CONCLUSION: No acute intrathoracic findings Ronald Swenson MD Cervical Spine CT 07/19/16 0000 Signed Impressions: Service Date/Time: July 20:47 - CONCLUSION: Stable CT appearance of the cervical spine with no evidence of acute injury Ronald Swenson MD Abdomen/Pelvis CT 07/19/16 0000 Signed Impressions: Service Date/Time: July 20:56 - CONCLUSION: Stable benign CT appearance of the abdomen and pelvis Ronald Swenson MD Physical Exam HEENT: normocephalic; atraumatic; no jaundice. Throat is clear. NECK: Neck is supple, no JVD, no lymphadenopathy. CHEST: scattered expiratory wheezing CARDIAC: Regular rate and rhythm with no murmur gallop or rubs. ABDOMEN: Soft, nondistended, nontender; no hepatosplenomegaly; bowel sounds are present in all four quadrants. EXTREMITIES: No clubbing, cyanosis, or edema. SKIN: Normal; no rash; no jaundice. 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 Assessment and Plan Plan - Severe symptomatic anemia of 6.5/heme (+) stools. hgb today is 10.0 s/p of 3 units of blood. S/p EGD/colonoscopy on (07/21/16) ---> esophagitis, bx done, mild gastritis, poor prep. Ct on (07/19/16) Stable benign CT appearance of the abdomen and pelvis Patient denies previous hx of this. He never had EGD/colonoscopy before. - Weight loss of 40 ibs in the past 5 weeks, states he lost his appetite, and wasn't able to eat as good.Ct negative - A-fib- Eliquis on hold - COPD, HTN, DM 2, Parkinson per attending Plan: - Clear liquids - [facility] - Monitor hh - Transfuse as needed - Supportive care - Patient seen and examined by Dr. Leyva and myself and this note is written on his behalf. Sophia Lantigua Jul 22, 2016 11:37
[2016-07-22] MEDS ORDERED: PEG (High)/E-LYTE SOLN 4000 ML BTL PO ONE (16:00)
[2016-07-22] MEDS: PRAVASTATIN SOD 40 MG TAB PO SCH (20:37)
[2016-07-22] MEDS: MIRTAZAPINE 15 MG TAB PO SCH (20:46)
[2016-07-23] VITALS (11 sets, daily range): BP systolic 1–136; BP diastolic 62–65; PULSE 67–87; RESP 16–20; TEMP 97.9–98.7; O2SAT 94–98
[2016-07-23] MEDS: INSULIN ASPART SUPPLEMENTAL SCALE SQ SCH ×2 (06:19→11:00)
[2016-07-23 07:09] LABS: BICARBONATE 28.3 MEQ/L (21.0-32.0); MAGNESIUM 2.1 MG/DL (1.5-2.5); POTASSIUM 4.1 MEQ/L (3.5-5.1)
--- NOTE | 2016-07-23 07:36 | HHI.PR ---
Subjective Remarks This is a pleasant 65 y/o Female with Parkinson's Disease, COPD/Emphysema, Hypertension, DM II, Atrial Fibrillation was on Eliquis, Sleep Apnea, who came to ER due to Generalized weakness and Fall , worsening weakness over the last two weeks, Hemoglobin 6.5 and Hemoccult positive, has also Hyperlipidemia, Peripheral Neuropathy, Depression Anxiety disorder, CT abdomen was Negative, for EGD and Colonoscopy today 07/21: Seen in his bedroom will go for Colonoscopy and EGD later today 07/22: Seen in his bedroom in the presence of nurse Miss Mata, he had EGD yesterday but not Colonoscopy due to Poor Colon prep will start Colon prep later today and will have Colonoscopy by tomorrow, 07/23: Patient stable in his bedroom in the presence of his Mrs. Jayne Teran, No Nausea, vomit or diarrhea status post Colonoscopy performed, with Impression of Diverticulosis sigmoid and descending Colon. Polyp sessile cecum 1 cm hot snare polypectomy with complete removal Polyp descending Colon cold snare polypectomy with complete removal. Internal Hemorrhoids, external Hemorrhoids, Benefiber 2 tsp daily. Probiotics from Yearly rectal exam, Okay to discharge Home from GI specialist standpoint. by Doctor Marlene Garza. Objective Vital Signs Date Time Temp Pulse Resp B/P Pulse Ox O2 Delivery O2 Flow Rate FiO2 07/23/16 06:00 69 07/23/16 04:00 67 07/23/16 04:00 Nasal Cannula 2.00 07/23/16 04:00 98.6 67 18 124/65 98 07/23/16 03:00 71 07/23/16 02:00 74 07/23/16 01:00 76 07/23/16 00:00 72 07/22/16 23:57 98.4 72 20 125/66 95 07/22/16 23:57 Nasal Cannula 2.00 07/22/16 23:00 76 07/22/16 22:00 70 07/22/16 21:00 76 07/22/16 20:22 97 Nasal Cannula 1.00 07/22/16 20:00 98.0 79 20 117/68 96 07/22/16 20:00 Nasal Cannula 2.00 07/22/16 20:00 79 07/22/16 18:04 82 07/22/16 17:00 70 07/22/16 16:00 86 07/22/16 15:00 76 07/22/16 15:00 98.0 80 16 103/64 95 07/22/16 14:00 80 07/22/16 13:00 67 07/22/16 12:00 81 07/22/16 11:00 98.1 84 17 128/68 97 07/22/16 11:00 82 07/22/16 10:04 82 07/22/16 09:00 75 07/22/16 08:02 94 Nasal Cannula 21 07/22/16 08:00 77 I/O 07/22/16 07/22/16 07/22/16 07/23/16 07/23/16 07/23/16 07:00 15:00 23:00 07:00 15:00 23:00 Intake Total 490 ml 800 ml 2010 ml Output Total 600 ml 600 ml 900 ml Balance -110 ml 200 ml 1110 ml Intake Oral 480 ml 800 ml 2000 ml IV Total 10 ml 10 ml Output Urine Total 600 ml 600 ml 900 ml # Bowel Movements 1 2 8 Result Diagram: 07/22/16 0811 07/23/16 0633 Imaging Last Impressions Pelvis X-Ray 07/19/16 0000 Signed Impressions: Service Date/Time: July 19:39 - CONCLUSION: Unremarkable examination of the pelvis. Ronald Swenson MD Head CT 07/19/16 0000 Signed Impressions: Service Date/Time: July 20:47 - CONCLUSION: Stable brain with no acute cranial findings Ronald Swenson MD Chest CT 07/19/16 0000 Signed Impressions: Service Date/Time: July 20:56 - CONCLUSION: No acute intrathoracic findings Ronald Swenson MD Cervical Spine CT 07/19/16 0000 Signed Impressions: Service Date/Time: July 20:47 - CONCLUSION: Stable CT appearance of the cervical spine with no evidence of acute injury Ronald Swenson MD Abdomen/Pelvis CT 07/19/16 0000 Signed Impressions: Service Date/Time: July 20:56 - CONCLUSION: Stable benign CT appearance of the abdomen and pelvis Ronald Swenson MD Procedures EGD 07/21/16, found Esophagitis, Biopsy taken, Mild Gastritis, No upper GI bleed seen recommended to continue PPIs Colonoscopy 07/23/16 Diverticulosis, Internal Hemorrhoids. Other Results Laboratory Tests Test 07/19/16 07/19/16 07/20/16 07/20/16 19:15 20:15 01:38 10:34 Differential Total Cells 100 Counted Neutrophils % (Manual) 63 % Band Neutrophils % 6 % Lymphocytes % 18 % Monocytes % 7 % Eosinophils % 1 % Basophils % 2 % Neutrophils # (Manual) 8.8 TH/MM3 Metamyelocytes 1 % Myelocytes 2 % Toxic Granulation 1+ Toxic Vacuolation PRESENT Prothrombin Time 11.5 SEC Prothromb Time International 1.0 RATIO Ratio Activated Partial 26.9 SEC Thromboplast Time Antibody Screen NEGATIVE Blood Type O POSITIVE Crossmatch Leukocyte-Reduced Red Blood Cells Blood Bank Comment Vitamin B12 Level 682 PG/ML Folate 6.7 NG/ML Free Thyroxine 1.23 NG/DL Thyroid Stimulating Hormone 1.210 uIU/ML 3rd Gen Hemoglobin A1c 4.9 % Test 07/21/16 07/21/16 07/21/16 07/22/16 03:50 06:01 17:29 08:11 Urine Color YELLOW Urine Turbidity CLEAR Urine pH 6.5 Urine Specific [place] 1.024 Urine Protein NEG mg/dL Urine Glucose (UA) NEG mg/dL Urine Ketones NEG mg/dL Urine Occult Blood NEG Urine Nitrite NEG Urine Bilirubin NEG Urine Urobilinogen 4.0 MG/DL Urine Leukocyte Esterase NEG Urine RBC 1 /hpf Urine WBC LESS THAN 1 /hpf Microscopic Urinalysis Comment CULT NOT INDICATED Triglycerides Level 60 MG/DL Cholesterol Level LESS THAN 50 MG/DL LDL Cholesterol 15 MG/DL HDL Cholesterol 22.9 MG/DL Cholesterol/HDL Ratio 2.18 RATIO White Blood Count 9.6 TH/MM3 Red Blood Count 4.37 MIL/MM3 Mean Corpuscular Volume 74.1 FL Mean Corpuscular Hemoglobin 24.2 PG Mean Corpuscular Hemoglobin 32.7 % Concent Red Cell Distribution Width 21.2 % Platelet Count 512 TH/MM3 Mean Platelet Volume 8.3 FL Neutrophils (%) (Auto) 93.6 % Lymphocytes (%) (Auto) 4.1 % Monocytes (%) (Auto) 1.0 % Eosinophils (%) (Auto) 0.2 % Basophils (%) (Auto) 1.1 % Neutrophils # (Auto) 9.0 TH/MM3 Lymphocytes # (Auto) 0.4 TH/MM3 Monocytes # (Auto) 0.1 TH/MM3 Eosinophils # (Auto) 0.0 TH/MM3 Basophils # (Auto) 0.1 TH/MM3 CBC Comment AUTO DIFF Differential Comment AUTO DIFF CONFIRMED Platelet Estimate HIGH Platelet Morphology Comment ENLARGED Ovalocytes 1+ Keratocytes 1+ Hemoglobin 10.0 GM/DL Hematocrit 30.2 % Test 07/23/16 06:33 Sodium Level 142 MEQ/L Potassium Level 4.1 MEQ/L Chloride Level 106 MEQ/L Carbon Dioxide Level 28.3 MEQ/L Anion Gap 8 MEQ/L Blood Urea Nitrogen 14 MG/DL Creatinine 0.80 MG/DL Estimat Glomerular Filtration 97 ML/MIN Rate Random Glucose 79 MG/DL Calcium Level 8.5 MG/DL Magnesium Level 2.1 MG/DL Objective Remarks GENERAL: No Distress. SKIN: pale. posterior thorax with 2 large ecchymotic areas EYES: Extraocular motions intact. No scleral icterus. No injection or drainage. ENT: Nose without bleeding, Right Parotid gland mass. probable benign NECK: Trachea midline. No JVD or lymphadenopathy. Supple, nontender, no meningeal signs. CARDIOVASCULAR: Regular rate and rhythm without murmurs, gallops, or rubs. RESPIRATORY: scattered expiratory wheezing GASTROINTESTINAL: Abdomen soft, non-tender, nondistended. No guarding. MUSCULOSKELETAL: Extremities without clubbing, cyanosis, or edema. NEUROLOGICAL: Awake and alert. No focal deficits. Medications and IVs Current Medications Medications (Trade) Dose Ordered Sig/Amberly Route Start Time Stop Time Status Last Admin (NS Flush) 2 ml UNSCH PRN IV FLUSH 07/19/16 22:00 (NS Flush) 2 ml BID IV FLUSH 07/20/16 09:00 07/22/16 20:38 (Narcan Inj) 0.4 mg UNSCH PRN IV 07/19/16 22:00 (Symbicort 80-4.5 Mcg Inh) 1 puff BID INH 07/20/16 09:00 07/22/16 20:38 (Sinemet 25-100 Mg) 1.5 tab TID PO 07/20/16 09:00 07/22/16 17:28 (Cardizem Cd) 300 mg DAILY PO 07/20/16 09:00 Hold (Neurontin) 300 mg BID PO 07/20/16 09:00 07/22/16 20:37 (Remeron) 7.5 mg HS PO 07/20/16 21:00 07/22/16 20:46 (Pravachol) 40 mg HS PO 07/20/16 21:00 07/22/16 20:37 (Spiriva Inh) 18 mcg DAILY INH 07/20/16 09:00 07/22/16 08:24 (D50w (Vial) Inj) 25 ml UNSCH PRN IV PUSH 07/20/16 00:00 (Glucagon Inj) 1 mg UNSCH PRN OTHER 07/20/16 00:00 (Proair Hfa Inh) 1 puff QID INH 07/20/16 09:00 07/22/16 20:37 Guaifenesin 600 mg 600 mg BID PO 07/20/16 21:00 07/22/16 20:37 Lactated Ringer's 1,000 ml @ 30 mls/hr Q24H PRN IV 07/21/16 02:00 07/24/16 01:59 (NS 500 ml Inj) 500 ml @ 30 mls/hr [id number] PRN IV 07/21/16 02:00 07/24/16 01:59 A/P Assessment and Plan 1. Symptomatic Anemia secondary to GI bleed received three units of PRBCs, improving Hemoglobin Status post EGD 07/21/16, found Esophagitis, Biopsy taken, Mild Gastritis, No upper GI bleed seen recommended to continue PPIs, Colonoscopy performed. found Diverticulosis and Internal Hemorrhoids. 2. Atrial Fibrillation currently Sinus rhythm, continue Cardizem by mouth, hold Eliquis due to GI bleed will need to follow with GI specialist and PCP in two to three days and decide if he will continue this medicine also will need follow with public transit specialist. 3. COPD on Bronchodilator, Mucolytic and Incentive spirometry, stable 4. Parkinson's Disease on Sinemet 5. DM II sliding scale. better control. 6. 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 DVT prophylaxis SCDs Discussed with Patient and nurse Miss Payne and his Mrs. Jyane Teran in the room all questions answered to the best of my abilities. Discharge Planning Discharge Home. Adam Mars MD Jul 23, 2016 07:36
[2016-07-23] MEDS: guaiFENesin E.R. 600 MG TAB PO SCH (09:00)
[2016-07-23] MEDS: SODIUM CHLORIDE 0.9% FLUSH 10 ML FLUSH IV FLUSH SCH (09:00)
[2016-07-23] MEDS: RESP: ALBUTEROL 2.5 MG/IPRATROPIUM 0.5 MG NEB (SCH) NEB (09:26)
[2016-07-23] MEDS ORDERED: PROPOFOL 200 MG/20 ML AMP IV ONE (10:05)
--- NOTE | 2016-07-23 10:27 | GIPROC ---
[facility] [address] [facility]. [facility] [place], [id number] COLONOSCOPY PROCEDURE REPORT EXAM DATE: 07/23/2016 PATIENT NAME: Garrett Teran MR #: [id number] BIRTHDATE: 1950 ENDOSCOPIST: Marlene Garza MD ORDER #: [id number] [employer]UCK [employer] MATERIAL MOVER: John Schulz and Jeff Padilla STATUS: inpatient INDICATIONS: The patient is a 65 yr old male here for a colonoscopy due to anemia PROCEDURE PERFORMED: Colonoscopy with polypectomy MEDICATIONS: None and Per Anesthesia. PREP QUALITY: good PREP TYPE:GoLytely ESTIMATED BLOOD LOSS: None CONSENT: The patient understands the risks and benefits of the procedure and understands that these risks include, but are not limited to: sedation, allergic reaction, infection, perforation and/or bleeding. Alternative means of evaluation and treatment include, among others: physical exam, x-rays, and/or surgical intervention. The patient elects to proceed with this endoscopic procedure. medical equipment was checked for proper function. Hand hygiene and appropriate measures for infection prevention was taken. After the risks, benefits and alternatives of the procedure were thoroughly explained, Informed consent was verified, confirmed and timeout was successfully executed by the treatment team. A digital exam was performed and revealed external hemorrhoids The Pentax [id number] and [id number] endoscope was introduced through the anus and advanced to the cecum, which was identified by both the appendix and ileocecal valve. The instrument was then slowly withdrawn as the colon was fully examined. COLON FINDINGS: Diverticulosis sigmoid,descending polyp sessile cecum-1 cm-hot snare polypectomy with complete removal polyp diminutive descending colon -descening -cold snare polypectomy with complete removal. Retroflexed views revealed internal hemorrhoids and Retroflexed views revealed small internal hemorrhoids The scope was then completely withdrawn from the patient and the procedure terminated. PROCEDURE WITHDRAWAL TIME:6minutes ADVERSE EVENTS: There were no complications. IMPRESSIONS: 1. Diverticulosis sigmoid,descending polyp sessile cecum-1 cm-hot snare polypectomy with complete removal polyp diminutive descending colon -descening -cold snare polypectomy with complete removal 2. Retroflexed views revealed internal hemorrhoids 3. Retroflexed views revealed small internal hemorrhoids 4. Was performed 5. Revealed external hemorrhoids RECOMMENDATIONS: 1. Await biopsy results. Biopsy results will not be ready for 7-10 days. If you don't hear from us in two weeks, call our office for results. 2. Benefiber 2 tsp daily 3. Probiotics from any [employer] or health food store 4. Yearly rectal exams 5. Ok to sd home from gi point capsule endoscopy op fu office RECALL: Colonoscopy, pending biopsy results Marlene Garza MD eSigned: Marlene Garza MD 07/23/2016 10:27 AM cc: PATIENT NAME: Garrett Teran MR#: [id number]
[2016-07-23] MEDS: TIOTROPIUM BROMIDE 18 MCG INH INH SCH (11:45)
[2016-07-23] MEDS: ALBUTEROL SULFATE 90 MCG/ACT HFA 8 GM INHALER INH SCH (11:45)
[2016-07-23] MEDS: BUDESONIDE-FORMOTEROL 80/4.5 MCG INHALER INH SCH (11:45)
[2016-07-23] MEDS: CARBIDOPA/LEVODOPA 25 MG/100 MG TAB PO SCH (11:46)
[2016-07-23] MEDS: GABAPENTIN 300 MG CAP PO SCH (11:46)
[2016-07-23] MEDS ORDERED: CARA1TAB6 PO (11:54)
[2016-07-23] MEDS ORDERED: PROT40TA PO (11:54)
--- NOTE | 2016-07-23 12:00 | HHI.DS ---
Discharge Summary Admission Date Jul 19, 2016 at 21:54 Discharge Date: Jul 23, 2016 Admitting Diagnosis severe anemia, GI bleed, generalized weakness (1) GI bleed ICD Code: K92.2 Diagnosis: Principal (2) Anemia ICD Code: D64.9 Diagnosis: Principal Procedures Status post EGD 07/21/16, found Esophagitis, Biopsy taken, Mild Gastritis, No upper GI bleed seen recommended to continue PPIs, Colonoscopy performed. found Diverticulosis and Internal Hemorrhoids. Brief History - From Admission Patient is a 65-year-old white male with past medical history which includes Parkinson's disease, COPD, hypertension, DM 2, atrial fibrillation was on Eliquis, sleep apnea who came in to the hospital for evaluation of general weakness, and falls. Over the past 2 weeks patient reports worsening weakness associated with dizziness and falls. Patient denies N/V, black tarry stools, bright red blood in stool, blood in urine, shortness of breath or chest pain. Initial hgb in ER revealed hgb 6.5 Hemoccult positive CBC/BMP: 07/22/16 0811 07/23/16 0633 Significant Findings Laboratory Tests Test 07/21/16 07/21/16 07/21/16 07/22/16 03:50 06:01 17:29 08:11 Urine Urobilinogen 4.0 MG/DL (LESS THAN 2.0) Cholesterol Level LESS THAN 50 MG/DL (120-200) HDL Cholesterol 22.9 MG/DL (40.0-60.0) Red Blood Count 4.37 MIL/MM3 (4.50-5.90) Hemoglobin 10.6 GM/DL 10.0 GM/DL (13.0-17.0) (13.0-17.0) Hematocrit 32.3 % 30.2 % (39.0-51.0) (39.0-51.0) Mean Corpuscular Volume 74.1 FL (80.0-100.0) Mean Corpuscular Hemoglobin 24.2 PG (27.0-34.0) Red Cell Distribution Width 21.2 % (11.6-17.2) Platelet Count 512 TH/MM3 (150-450) Neutrophils (%) (Auto) 93.6 % (16.0-70.0) Lymphocytes (%) (Auto) 4.1 % (9.0-44.0) Neutrophils # (Auto) 9.0 TH/MM3 (1.8-7.7) Lymphocytes # (Auto) 0.4 TH/MM3 (1.0-4.8) Platelet Estimate HIGH (NORMAL) Platelet Morphology Comment ENLARGED (NORMAL) Ovalocytes 1+ (NORMAL) Keratocytes 1+ (NORMAL) Imaging Last Impressions Pelvis X-Ray 07/19/16 Signed Impressions: Service Date/Time: July 19:39 - CONCLUSION: Unremarkable examination of the pelvis. Ronald Swenson MD Head CT 07/19/16 Signed Impressions: Service Date/Time: July 20:47 - CONCLUSION: Stable brain with no acute cranial findings Ronald Swenson MD Chest CT 07/19/16 Signed Impressions: Service Date/Time: July 20:56 - CONCLUSION: No acute intrathoracic findings Ronald Swenson MD Cervical Spine CT 07/19/16 Signed Impressions: Service Date/Time: July 20:47 - CONCLUSION: Stable CT appearance of the cervical spine with no evidence of acute injury Ronald Swenson MD Abdomen/Pelvis CT 07/19/16 Signed Impressions: Service Date/Time: July 20:56 - CONCLUSION: Stable benign CT appearance of the abdomen and pelvis Ronald Swenson MD PE at Discharge GENERAL: No Distress. SKIN: pale. posterior thorax with 2 large ecchymotic areas EYES: Extraocular motions intact. No scleral icterus. No injection or drainage. ENT: Nose without bleeding, Right Parotid gland mass. probable benign NECK: Trachea midline. No JVD or lymphadenopathy. Supple, nontender, no meningeal signs. CARDIOVASCULAR: Regular rate and rhythm without murmurs, gallops, or rubs. RESPIRATORY: scattered expiratory wheezing GASTROINTESTINAL: Abdomen soft, non-tender, nondistended. No guarding. MUSCULOSKELETAL: Extremities without clubbing, cyanosis, or edema. NEUROLOGICAL: Awake and alert. No focal deficits. Hospital Course This is a pleasant 65 y/o Female with Parkinson's Disease, COPD/Emphysema, Hypertension, DM II, Atrial Fibrillation was on Eliquis, Sleep Apnea, who came to ER due to Generalized weakness and Fall , worsening weakness over the last two weeks, Hemoglobin 6.5 and Hemoccult positive, has also Hyperlipidemia, Peripheral Neuropathy, Depression Anxiety disorder, CT abdomen was Negative, for EGD and Colonoscopy today 07/21: Seen in his bedroom will go for Colonoscopy and EGD later today 07/22: Seen in his bedroom in the presence of nurse Miss Mata, he had EGD yesterday but not Colonoscopy due to Poor Colon prep will start Colon prep later today and will have Colonoscopy by tomorrow, 07/23: Patient stable in his bedroom in the presence of his Mrs. Jayne Teran, No Nausea, vomit or diarrhea status post Colonoscopy performed, with Impression of Diverticulosis sigmoid and descending Colon. Polyp sessile cecum 1 cm hot snare polypectomy with complete removal Polyp descending Colon cold snare polypectomy with complete removal. Internal Hemorrhoids, external Hemorrhoids, Benefiber 2 tsp daily. Probiotics from Yearly rectal exam, Okay to discharge Home from GI specialist standpoint. by Doctor Marlene Garza. Assessment and Plan 1. Symptomatic Anemia secondary to GI bleed received three units of PRBCs, improving Hemoglobin Status post EGD 07/21/16, found Esophagitis, Biopsy taken, Mild Gastritis, No upper GI bleed seen recommended to continue PPIs, Colonoscopy performed. found Diverticulosis and Internal Hemorrhoids. 2. Atrial Fibrillation currently Sinus rhythm, continue Cardizem by mouth, hold Eliquis due to GI bleed will need to follow with GI specialist and PCP in two to three days and decide if he will continue this medicine also will need follow with record retrieval specialist. 3. COPD on Bronchodilator, Mucolytic and Incentive spirometry, stable 4. Parkinson's Disease on Sinemet 5. DM II sliding scale. better control. 6. 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 DVT prophylaxis SCDs Discussed with Patient and nurse Miss Payne and his Mrs. Jayne Teran in the room all questions answered to the best of my abilities. Discharge Planning Discharge Home. Pt Condition on Discharge: Good Discharge Disposition: Discharge Home Discharge Time: > 30 minutes Discharge Instructions DIET: Follow Instructions for: Heart Healthy Diet Activities you can perform: Regular-No Restrictions Adam Mars MD Jul 23, 2016 12:00
== END 2016-07-23 12:38 | disposition home or self-care (01) | DRG 379 ==
LOC: NEPC 17:48 → NEDA 21:54 → OBSVTOIN 21:54 → NEDH 07-20 03:31 → HCIN 07-20 09:17 → HCIS 07-21 12:19
PROVIDERS: ADMIT Internal Medicine; ATTEND Internal Medicine
PROC: 30233N1 Transfusion of Nonautologous Red Blood Cells into Peripheral Vein, Percutaneous Approach (ICD-10-PCS; 2016-07-19)
PROC: 0DB48ZX Excision of Esophagogastric Junction, Via Natural or Artificial Opening Endoscopic, Diagnostic (ICD-10-PCS; principal; 2016-07-21 13:30)
PROC: 0DJD8ZZ Inspection of Lower Intestinal Tract, Via Natural or Artificial Opening Endoscopic (ICD-10-PCS; 2016-07-21 13:30)
PROC: 0DBH8ZX Excision of Cecum, Via Natural or Artificial Opening Endoscopic, Diagnostic (ICD-10-PCS; 2016-07-23)
PROC: 0DBM8ZX Excision of Descending Colon, Via Natural or Artificial Opening Endoscopic, Diagnostic (ICD-10-PCS; 2016-07-23)
DX: K92.2 Gastrointestinal hemorrhage, unspecified (principal); G20 Parkinson's disease; E11.42 Type 2 diabetes mellitus with diabetic polyneuropathy; I10 Essential (primary) hypertension; F17.210 Nicotine dependence, cigarettes, uncomplicated; D50.0 Iron deficiency anemia secondary to blood loss (chronic); I48.91 Unspecified atrial fibrillation; F32.9 Major depressive disorder, single episode, unspecified; J44.9 Chronic obstructive pulmonary disease, unspecified; K20.9 Esophagitis, unspecified; K29.70 Gastritis, unspecified, without bleeding; E78.5 Hyperlipidemia, unspecified; F41.9 Anxiety disorder, unspecified; K57.30 Diverticulosis of large intestine without perforation or abscess without bleeding; K64.4 Residual hemorrhoidal skin tags; K64.8 Other hemorrhoids; D12.0 Benign neoplasm of cecum; D12.4 Benign neoplasm of descending colon
CPT/HCPCS: 36430; 70450; 71260; 72125; 72170; 74177; 80048; 80061; 81001; 82607; 82746; 82948; 83036; 83735; 84439; 84443; 85007; 85014; 85018; 85025; 85027; 85610; 85730; 86850; 86900; 86901; 86920; 88305; 88312; 94150; 94640; 94664; 96360; J0171; J0461; J1815; J2930; J7030; J7050; P9016; Q9967

== ENCOUNTER 2017-04-26 19:47 | Inpatient (IN) | payer OTHER, MEDICARE ==
[2017-04-26] VITALS (8 sets, daily range): BP systolic 103–118; BP diastolic 51–67; PULSE 77–142; RESP 18–20; TEMP 98.7; O2SAT 97
[~2017-04-26] VITALS: Ht 180.3 cm; Wt 72.0 kg
[~2017-04-26 19:47] MED LIST changes: +ALLO300 PO; -ALPR0.25 PO; -AMLO5TAB2 PO; -APIX5TAB PO; -ASPI1TAB91 PO; +BUSP5TAB PO; -CEFT250T8 PO; +DILT300C3 PO; -DILT31TA PO; -ESCI10TA PO; -GABA300C5 PO; -LACTCHW3 CHEW; -LISI-515 PO; +LISI10TA3 PO; -METF500T PO; +MIRT1TAB PO; -PRAV40TA2 PO; -PRED10PA PO; +SPIRCAP INH
[2017-04-26] MEDS ORDERED: SODIUM CHLOR 0.9% 1000 ML INJ 1,000 ML IV ONE ×3 (20:15→22:15)
[2017-04-26] MEDS ORDERED: DILTIAZEM HCL 25 MG/5 ML VIAL IV PUSH PRN (20:15)
--- NOTE | 2017-04-26 20:28 | PD ---
HPI Chief Complaint: Cardiac Complaint Time Seen by Provider: 20:06 Travel History International Travel<30 days: No Contact w/Intl Traveler<30days: No Traveled to known affect area: No History of Present Illness HPI 66yo M with PMH of Parkinson's disease and emphysema on home O2, CAD, CVA, recent diagnosis of CMML with background myelodysplasia syndrome was brought in by [facility] for seizure. Pt had witnessed seizure by and then [facility] and 2mg of ativan was given. Pt was then found to be in afib RVR in the 200s and given cardizem 20mg IV. When he arrived, his heart rate was in the 130s-140s. Pt is awake and alert and denies any complaints except for generalized weakness. Pt appears dehydration. No focal neurologic deficits on exam. PFSH Past Medical History Hx Anticoagulant Therapy: Yes Arthritis: No Asthma: Yes Autoimmune Disease: No Blood Disorders: No Anxiety: Yes Depression: Yes Heart Rhythm Problems: Yes (recent SVT? ) Cancer: Yes (FATHER LUNG CA/leukemia recent diag 04/2017) Cardiovascular Problems: Yes High Cholesterol: Yes Chemotherapy: No Chest Pain: No Congestive Heart Failure: No COPD: Yes Cerebrovascular Accident: Yes Diabetes: Yes Patient Takes Glucophage: No Diminished Hearing: No Endocrine: Yes Gastrointestinal Disorders: No GERD: No Genitourinary: No Headaches: No Hiatal Hernia: No Heparin Induced Thrombocytopen: No Hypertension: Yes Immune Disorder: No Implanted Vascular Access Dvce: No Kidney Stones: No Musculoskeletal: No Neurologic: Yes (parkinsons) Psychiatric: Yes Reproductive: No Respiratory: Yes Immunizations Current: No Migraines: No Radiation Therapy: No Renal Failure: No Seizures: No Sickle Cell Disease: No Sleep Apnea: No Thyroid Disease: No Ulcer: No Tetanus Vaccination: < 5 Years Influenza Vaccination: Yes Past Surgical History Abdominal Surgery: No AICD: No Arteriovenous Shunt: No Cardiac Surgery: No Ear Surgery: No Endocrine Surgery: No Eye Surgery: No Genitourinary Surgery: No Gynecologic Surgery: No Insulin Pump: No Joint Replacement: No Neurologic Surgery: No Oral Surgery: Yes (RIGHT SIDE SALIVARY GLAND ASPIRATION 2011--DENIES) Pacemaker: No Thoracic Surgery: No Other Surgery: Yes Social History Alcohol Use: No Tobacco Use: Yes Substance Use: No Allergies-Medications (Allergen,Severity, Reaction): Coded Allergies: No Known Allergies (Verified , 05/31/16) Reported Meds & Prescriptions Reported Meds & Active Scripts Active Zyloprim (Allopurinol) 300 Mg Tab 300 Mg PO DAILY 30 Days Reported Spiriva Handihaler (Tiotropium Inh) 18 Mcg Cap 18 Mcg INH DAILY 1 capsule = 18 mcg Mirtazapine 7.5 Mg Tab 7.5 Mg PO HS Diltiazem CD 24 HR 300 Mg Caper 300 Mg PO DAILY Lisinopril 10 Mg Tab 10 Mg PO DAILY Buspirone (Buspirone HCl) 5 Mg Tab 5 Mg PO HS Buspirone (Buspirone HCl) 10 Mg Tab 10 Mg PO DAILY IN THE MORNING Combivent Respimat Inh (Ipratropium-Albuterol Inh) 20-100 Senior Living/Act Aero 1 Puff INH QID Sinemet (Carbidopa-Levodopa) 25-100 Mg Tab 1.5 Tab PO TID Symbicort Inh (Budesonide/Formoterol Fumarate) 80-4.5 Mcg/Act Aero 1 Puff INH BID Review of Systems Except as stated in HPI: all other systems reviewed are Neg Physical Exam Narrative GEN: 66yo M in mild distress. SKIN: Warm and dry. Poor turgor. HEAD: Normocephalic, atraumatic. EYES: Pupils equal and reactive. CV: Tachycardic in the 130s, irregular rhythm. Lungs: CTA B/L, equal breath sounds. ABD: Soft, NT/ND. EXT: No gross deformities. Neuro: CNII-XII grossly intact. Muscle strength 5/5 in all extremities. Sensation intact. Data Data Last Documented VS Vital Signs Date Time Temp Pulse Resp B/P (MAP) Pulse Ox O2 Delivery O2 Flow Rate FiO2 04/26/17 22:18 125 104/54 (71) 04/26/17 19:58 97 Nasal Cannula 2.00 04/26/17 19:50 98.7 18 Orders Orders Sodium Chlor 0.9% 1000 Ml Inj (Ns 1000 M (04/26/17 20:15) Diltiazem Inj (Cardizem Inj) (04/26/17 20:15) Complete Blood Count With Diff (04/26/17 20:02) Comprehensive Metabolic Panel (04/26/17 20:02) Magnesium (Mg) (04/26/17 20:02) Prothrombin Time / Inr (Pt) (04/26/17 20:02) Act Partial Throm Time (Ptt) (04/26/17 20:02) Troponin I (04/26/17 20:02) Electrocardiogram (04/26/17 19:52) Ct Brain W/O Iv Contrast(Rout) (04/26/17 ) Vital Signs (Adult) Q15MX4,Q4H (04/26/17 20:50) Primer Charger / Telemetry ALYSSA.Q8H (04/26/17 20:50) Cardiac Rhythm ALYSSA.Q8H (04/26/17 20:50) Notify Dr: Other (04/26/17 20:50) Diltiazem Inj (Cardizem Inj) (04/26/17 21:00) Sodium Chlor 0.9% 1000 Ml Inj (Ns 1000 M (04/26/17 21:00) Blood Glucose (04/26/17 21:06) Potassium Chlor 20 Meq Premix (Kcl 20 Me (04/26/17 22:15) Potassium Chloride (Kcl) (04/26/17 22:15) Sodium Chlor 0.9% 1000 Ml Inj (Ns 1000 M (04/26/17 22:15) Urinary Catheter Insert/Apply (04/26/17 22:07) Admit Order (Ed Use Only) (04/26/17 22:18) Uric Acid (04/26/17 20:15) Labs Laboratory Tests Test 04/26/17 20:15 White Blood Count 171.7 TH/MM3 Red Blood Count 3.01 MIL/MM3 Hemoglobin 8.3 GM/DL Hematocrit 25.0 % Mean Corpuscular Volume 83.0 FL Mean Corpuscular Hemoglobin 27.6 PG Mean Corpuscular Hemoglobin Concent 33.2 % Red Cell Distribution Width 23.0 % Platelet Count 54 TH/MM3 Mean Platelet Volume 7.9 FL CBC Comment AUTO DIFF Differential Total Cells Counted 100 Neutrophils % (Manual) 35 % Band Neutrophils % 2 % Lymphocytes % 11 % Monocytes % 44 % Neutrophils # (Manual) 70.4 TH/MM3 Metamyelocytes 1 % Myelocytes 3 % Differential Comment FINAL DIFF MANUAL Hypersegmented Polys 1+ Blastocytes 4 % Platelet Estimate LOW Platelet Morphology Comment NORMAL Ovalocytes 1+ Prothrombin Time 13.0 SEC Prothromb Time International Ratio 1.3 RATIO Activated Partial Thromboplast Time 33.8 SEC Blood Urea Nitrogen 20 MG/DL Creatinine 3.06 MG/DL Random Glucose 188 MG/DL Total Protein 6.3 GM/DL Albumin 3.4 GM/DL Calcium Level 8.2 MG/DL Magnesium Level 1.7 MG/DL Uric Acid 4.1 MG/DL Alkaline Phosphatase 100 U/L Aspartate Amino Transf (AST/SGOT) 35 U/L Alanine Aminotransferase (ALT/SGPT) 6 U/L Total Bilirubin 0.4 MG/DL Sodium Level 140 MEQ/L Potassium Level 2.5 MEQ/L Chloride Level 101 MEQ/L Carbon Dioxide Level 23.0 MEQ/L Anion Gap 16 MEQ/L Estimat Glomerular Filtration Rate 21 ML/MIN Troponin I LESS THAN 0.02 NG/ML MDM Medical Decision Making Medical Screen Exam Complete: Yes Emergency Medical Condition: Yes Interpretation(s) EKG: Afib at 130bpm. RBBB. Differential Diagnosis Afib RVR vs. metastatic disease vs. electrolyte abnormality Narrative Course 66yo M with recently diagnosed CMML here with seizure and found to have Afib RVR. Pt was 130-140 on arrival and given cardizem 24mg IV. HR decreased to low 100s but did not last. HR is back to 130s so started on cardizem drip. Pt' s BP is low at 118/54 so given NS IVF. Pt appears dehydrated. Labs reviewed, WBC 171.7 which is elevated from prior of 37. H/H at baseline at 8.3/25.0. Thrombocytopenic at 54 which is better than baseline. Hypokalemia at 2.5, replaced with KCl orally and IV. BUN/creatinine elevated at 20/3.06. He had elevated creatinine in his previous admission as well and improved with hydration. Troponin negative. CT brain negative. Pt is receiving his third liter of NS IVF. He appears very dehydrated and blood pressure is high 90s- 100s systolic and improves with NS IVF. Oncology Dr. Hansen paged but unable to reach him. Discussed with Dr. Lopez and accepted to her service initially. However, at her request, I consulted critical care and pt was accepted to Dr. Graves's service. Critical Care Narrative Aggregate critical care time was 60 minutes. Time to perform other separately billable procedures was not included in the critical care time. My time did not include minutes spent treating any other patients simultaneously or on activities that did not directly contribute to the patient's treatment. The services I provided to this patient were to treat and/or prevent clinically significant deterioration that could result in: cardiovascular collapse or . I provided critical care services requiring my management, as noted below: Chart data review, documentation time, medication orders and management, vital sign assessments/reviewing monitor data, ordering and reviewing lab tests, ordering and interpreting/reviewing x-rays and diagnostic studies, care of the patient and discussion of the patient with the admitting physicians. Diagnosis Primary Impression: Atrial fibrillation with RVR Additional Impression: CMML (chronic myelomonocytic leukemia) Qualified Codes: C93.10 - Chronic myelomonocytic leukemia not having achieved remission Admitting Information Admitting Physician Requests: Jamaica López DO Apr 26, 2017 20:28
--- NOTE | 2017-04-26 20:49 | RADRPT ---
EXAM DATE/TIME: 04/26/2017 20:32 [facility] COMPARISON: CT BRAIN W/O CONTRAST, April 12, 2017, 13:29. INDICATIONS : Altered mental status. RADIATION DOSE: 36.22 CTDIvol (mGy) MEDICAL HISTORY : Non-responsive. SURGICAL HISTORY : Non-responsive. ENCOUNTER: Initial ACUITY: 1 day PAIN SCALE: Non-responsive LOCATION: cranial TECHNIQUE: Multiple contiguous axial images were obtained of the head. Using automated exposure control and adj ustment of the mA and/or kV according to patient size, radiation dose was kept as low as reasonably a chievable to obtain optimal diagnostic quality images. DICOM format image data is available electro nically for review and comparison. FINDINGS: CEREBRUM: Small areas of malacia involving the left parietal lobe is stable. Small chronic lacunar infarction i nvolving the left basal ganglia. The ventricles are normal for age. No evidence of midline shift, ma ss lesion, hemorrhage or acute infarction. No extra-axial fluid collections are seen. POSTERIOR FOSSA: The cerebellum and brainstem are intact. The 4th ventricle is midline. The cerebellopontine angle i s unremarkable. EXTRACRANIAL: The visualized portion of the orbits is intact. SKULL: The calvaria is intact. No evidence of skull fracture. CONCLUSION: No acute disease. Ruddy Huertas Jr., MD on April 26, 2017 at 20:45 Board Certified Radiologist. This report was verified electronically.
[2017-04-26] MEDS ORDERED: DILTIAZEM INJ 125 MG in SODIUM CHLORIDE 0.9% INJ 100 ML IV PRN (21:00)
[2017-04-26 21:03] LABS: HEMOGLOBIN 8.3 GM/DL (13.0-17.0); MEAN CORPUSCULAR HEMOGLOBIN 27.6 PG (27.0-34.0); MEAN CORPUSCULAR HGB CONC 33.2 % (32.0-36.0); MEAN PLATELET VOLUME 7.9 FL (7.0-11.0); PLATELET COUNT 54 TH/MM3 (150-450); RED BLOOD COUNT 3.01 MIL/MM3 (4.50-5.90); WHITE BLOOD COUNT 171.7 TH/MM3 (4.0-11.0)
[2017-04-26 21:19] LABS: INTERNATIONAL NORMALIZED RATIO 1.3 RATIO
[2017-04-26 21:47] LABS: BANDS 2 % (0-6); BLASTS 4 % (0-0); LYMPHOCYTES 11 % (9-44); METAMYELOCYTES 1 % (0-1); MONOCYTES 44 % (0-8); MYELOCYTES 3 % (0-0); NEUTROPHIL # MANUAL DIFF 70.4 TH/MM3 (1.8-7.7); POLYS (SEG NEUTROPHILS) 35 % (16-70)
[2017-04-26 21:50] LABS: HYPERSEGMENTED POLYS 1+ (NORMAL)
[2017-04-26 21:52] LABS: OVALOCYTES 1+ (NORMAL)
[2017-04-26 21:58] LABS: ALBUMIN 3.4 GM/DL (3.4-5.0); ALKALINE PHOSPHATASE 100 U/L (45-117); ALT (GPT) 6 U/L (12-78); AST (GOT) 35 U/L (15-37); BLOOD UREA NITROGEN 20 MG/DL (7-18); CALCIUM 8.2 MG/DL (8.5-10.1); CHLORIDE 101 MEQ/L (98-107); CREATININE 3.06 MG/DL (0.60-1.30); GLOMERULAR FILTRATION RATE 21 ML/MIN (>89); GLUCOSE,RANDOM 188 MG/DL (74-106); MAGNESIUM 1.7 MG/DL (1.5-2.5); SODIUM (NA) 140 MEQ/L (136-145); TOTAL BILIRUBIN ADULT 0.4 MG/DL (0.2-1.0); TOTAL PROTEIN 6.3 GM/DL (6.4-8.2); TROPONIN I LESS THAN 0.02 NG/ML (0.02-0.05)
[2017-04-26] MEDS ORDERED: POTASSIUM CHLORIDE 20 MEQ CONTROLLED RELEASE TAB PO ONE (22:15)
[2017-04-26] MEDS ORDERED: POTASSIUM CHLOR 20 MEQ PREMIX 100 ML IV ONE (22:15)
[2017-04-26] MEDS ORDERED: SODIUM CHLOR 0.9% 1000 ML INJ 1,000 ML IV SCH (22:18)
--- NOTE | 2017-04-26 22:23 | HHI.HP ---
[facility] Service [facility] Primary Care Physician Unknown Admission Diagnosis Afib RVR Diagnoses: Travel History International Travel<30 Days: No Contact w/Intl Traveler <30 Da: No Traveled to Known Affected Are: No Past Family Social History Allergies: Coded Allergies: No Known Allergies (Verified , 05/31/16) Physical Exam Vital Signs Vital Signs Date Time Temp Pulse Resp B/P (MAP) Pulse Ox O2 Delivery O2 Flow Rate FiO2 04/26/17 21:54 118 103/51 (68) 04/26/17 21:44 133 105/55 04/26/17 21:42 128 105/55 (72) 04/26/17 20:25 94 04/26/17 19:58 142 118/54 (75) 97 Nasal Cannula 2.00 04/26/17 19:50 98.7 125 18 111/51 (71) 97 Physical Exam GENERAL: This is a well-nourished, well-developed patient, in no apparent distress. SKIN: No rashes, ecchymoses or lesions. Cool and dry. HEAD: Atraumatic. Normocephalic. No temporal or scalp tenderness. EYES: Pupils equal round and reactive. Extraocular motions intact. No scleral icterus. No injection or drainage. ENT: Nose without bleeding, purulent drainage or septal hematoma. Throat without erythema, tonsillar hypertrophy or exudate. Uvula midline. Airway patent. NECK: Trachea midline. No JVD or lymphadenopathy. Supple, nontender, no meningeal signs. CARDIOVASCULAR: Regular rate and rhythm without murmurs, gallops, or rubs. RESPIRATORY: Clear to auscultation. Breath sounds equal bilaterally. No wheezes , rales, or rhonchi. GASTROINTESTINAL: Abdomen soft, non-tender, nondistended. No hepato-splenomegaly , or palpable masses. No guarding. MUSCULOSKELETAL: Extremities without clubbing, cyanosis, or edema. No joint tenderness, effusion, or edema noted. No calf tenderness. Negative Homans sign bilaterally. NEUROLOGICAL: Awake and alert. Cranial nerves II through XII intact. Motor and sensory grossly within normal limits. Five out of 5 muscle strength in all muscle groups. Normal speech. Laboratory Laboratory Tests Test 04/26/17 20:15 White Blood Count 171.7 Red Blood Count 3.01 Hemoglobin 8.3 Hematocrit 25.0 Mean Corpuscular Volume 83.0 Mean Corpuscular Hemoglobin 27.6 Mean Corpuscular Hemoglobin Concent 33.2 Red Cell Distribution Width 23.0 Platelet Count 54 Mean Platelet Volume 7.9 CBC Comment AUTO DIFF Differential Total Cells Counted 100 Neutrophils % (Manual) 35 Band Neutrophils % 2 Lymphocytes % 11 Monocytes % 44 Neutrophils # (Manual) 70.4 Metamyelocytes 1 Myelocytes 3 Differential Comment FINAL DIFF MANUAL Hypersegmented Polys 1+ Blastocytes 4 Platelet Estimate LOW Platelet Morphology Comment NORMAL Ovalocytes 1+ Prothrombin Time 13.0 Prothromb Time International Ratio 1.3 Activated Partial Thromboplast Time 33.8 Blood Urea Nitrogen 20 Creatinine 3.06 Random Glucose 188 Total Protein 6.3 Albumin 3.4 Calcium Level 8.2 Magnesium Level 1.7 Alkaline Phosphatase 100 Aspartate Amino Transf (AST/SGOT) 35 Alanine Aminotransferase (ALT/SGPT) 6 Total Bilirubin 0.4 Sodium Level 140 Potassium Level 2.5 Chloride Level 101 Carbon Dioxide Level 23.0 Anion Gap 16 Estimat Glomerular Filtration Rate 21 Troponin I LESS THAN 0.02 Result Diagram: 04/26/17201404/26/172014 Caprini VTE Risk Assessment Caprini Risk Assessment Model Point Value = 1 Point Value = 2 Point Value = 3 Point Value = 5 Age 41-60 Minor surgery BMI > 25 kg/m2 Swollen legs Varicose veins or History of unexplained or recurrent spontaneous Oral contraceptives or hormone replacement Sepsis (< 1 month) Serious lung disease, including pneumonia (< 1 month) Abnormal pulmonary function Acute myocardial infarction Congestive heart failure (< 1 month) History of inflammatory bowel disease Medical patient at bed rest Age 61-74 Arthroscopic surgery Major open surgery (> 45 min) Laparoscopic surgery (> 45 min) Malignancy Confined to bed (> 72 hours) Immobilizing plaster cast Central venous access Age >= 75 History of VTE Family history of VTE Factor V Leiden Prothrombin [id number] Lupus anticoagulant Anticardiolipin antibodies Elevated serum homocysteine Heparin-induced thrombocytopenia Other congenital or acquired thrombophilia Stroke (< 1 month) Elective arthroplasty Hip, pelvis, or leg fracture Acute spinal cord injury (< 1 month) Prophylaxis Regimen Total Risk Factor Score Risk Level Prophylaxis Regimen 0-1 Low Early ambulation 2 Moderate Order ONE of the following: *Sequential Compression Device (SCD) *Heparin 5000 units SQ BID 3-4 Higher Order ONE of the following medications: *Heparin 5000 units SQ TID *Enoxaparin/Lovenox 40 mg SQ daily (WT < 150 kg, CrCl > 30 mL/min) *Enoxaparin/Lovenox 30 mg SQ daily (WT < 150 kg, CrCl > 10-29 mL/min) *Enoxaparin/Lovenox 30 mg SQ BID (WT < 150 kg, CrCl > 30 mL/min) AND/OR *Sequential Compression Device (SCD) 5 or more Highest Order ONE of the following medications: *Heparin 5000 units SQ TID (Preferred with Epidurals) *Enoxaparin/Lovenox 40 mg SQ daily (WT < 150 kg, CrCl > 30 mL/min) *Enoxaparin/Lovenox 30 mg SQ daily (WT < 150 kg, CrCl > 10-29 mL/min) *Enoxaparin/Lovenox 30 mg SQ BID (WT < 150 kg, CrCl > 30 mL/min) AND *Sequential Compression Device (SCD) Physician Certification Order for Inpatient Services The services are ordered in accordance with Medicare regulations or non- Medicare payer requirements, as applicable. In the case of services not specified as inpatient-only, they are appropriately provided as inpatient services in accordance with the 2-midnight benchmark. days is the estimated time the patient will need to remain in the hospital, assuming treatment plan goals are met and no additional complications. Roopa Lopez MD Apr 26, 2017 22:23
[2017-04-26] MEDS ORDERED: LORazepam 2 MG/ML VIAL IV PUSH PRN (22:30)
[2017-04-26] MEDS ORDERED: BISACODYL 10 MG SUPP RECTAL PRN ×3 (22:30→23:45)
[2017-04-26] MEDS ORDERED: LACTULOSE SYRUP 20 GM/30 ML CUP PO PRN ×2 (22:30→23:45)
[2017-04-26] MEDS ORDERED: ONDANSETRON HCL 4 MG/2 ML VIAL IVP PRN (22:30)
[2017-04-26] MEDS ORDERED: SODIUM CHLORIDE 0.9% FLUSH 10 ML FLUSH IV FLUSH PRN ×2 (22:30→23:45)
[2017-04-26] MEDS ORDERED: MORPHINE SULFATE 2 MG/ML INJ IV PUSH PRN (22:30)
[2017-04-26] MEDS ORDERED: ACETAMINOPHEN 325 MG TAB PO PRN ×2 (22:30→23:45)
[2017-04-26] MEDS ORDERED: MAGNESIUM HYDROXIDE SUSP 30 ML CUP PO PRN ×2 (22:30→23:45)
[2017-04-26] MEDS ORDERED: SENNOSIDES 8.6 MG TAB PO PRN ×2 (22:30→23:45)
[2017-04-26] MEDS ORDERED: ACETAMINOPHEN/HYDROcodone 325 MG/5 MG TAB PO PRN (22:30)
--- NOTE | 2017-04-26 23:42 | HHI.HP ---
HPI Service Critical Care Medicine Primary Care Physician Unknown Admission Diagnosis Afib RVR Diagnosis: Travel History International Travel<30 Days: No Contact w/Intl Traveler <30 Da: No Traveled to Known Affected Are: No History of Present Illness 66-year-old very pleasant gentleman with past medical history of Parkinson's disease and emphysema on home O2, CAD, CVA, recent diagnosis of CMML with background myelodysplasia syndrome was brought in by [facility] for seizure. Patient had witnessed seizure by his called 911. [facility] administered 2mg of ativan and shortly after the patient was found to be in atrial fibrillation with rapid ventricular response. Review of Systems Constitutional: DENIES: Diaphoretic episodes, Fatigue, Fever, Weight gain, Weight loss, Chills, Dizziness, Change in appetite, Night Sweats Endocrine: DENIES: Heat/cold intolerance, Polydipsia, Polyuria, Polyphagia Eyes: DENIES: Blurred vision, Diplopia, Eye inflammation, Eye pain, Vision loss , Photosensitivity, Double Vision Ears, nose, mouth, throat: DENIES: Tinnitus, Hearing loss, Vertigo, Nasal discharge, Oral lesions, Throat pain, Hoarseness, Ear Pain, Running Nose, Epistaxis, Sinus Pain, Toothache, Odynophagia Respiratory: DENIES: Apneas, Cough, Snoring, Wheezing, Hemoptysis, Sputum production, Shortness of breath Cardiovascular: DENIES: Chest pain, Palpitations, Syncope, Dyspnea on Exertion , PND, Lower Extremity Edema, Orthopnea, Claudication Gastrointestinal: DENIES: Abdominal pain, Black stools, Bloody stools, Constipation, Diarrhea, Nausea, Vomiting, Difficulty Swallowing, Anorexia Genitourinary: DENIES: Sexual dysfunction, Urinary frequency, Urinary incontinence, Urgency, Hematuria, Dysuria, Nocturia, Penile Discharge, Testicular Pain, Testicular Swelling Musculoskeletal: DENIES: Joint pain, Muscle aches, Stiffness, Joint Swelling, Back pain, Neck pain Integumentary: DENIES: Abnormal pigmentation, Nail changes, Pruritus, Rash Hematologic/lymphatic: DENIES: Bruising, Lymphadenopathy Immunologic/allergic: DENIES: Eczema, Urticaria Neurologic: DENIES: Abnormal gait, Headache, Localized weakness, Paresthesias, Seizures, Speech Problems, Tremor, Poor Balance Psychiatric: DENIES: Anxiety, Confusion, Mood changes, Depression, Hallucinations, Agitation, Suicidal Ideation, Homicidal Ideation, Delusions Past Family Social History Allergies: Coded Allergies: No Known Allergies (Verified , 05/31/16) Past Medical History CVA without residual weakness COPD CAD Parkinsonism Past Surgical History Right salivary biopsy Reported Medications Reported Meds & Active Scripts Active Zyloprim (Allopurinol) 300 Mg Tab 300 Mg PO DAILY 30 Days Reported Spiriva [place] (Tiotropium Inh) 18 Mcg Cap 18 Mcg INH DAILY 1 capsule = 18 mcg Mirtazapine 7.5 Mg Tab 7.5 Mg PO HS Diltiazem CD 24 HR 300 Mg Caper 300 Mg PO DAILY Lisinopril 10 Mg Tab 10 Mg PO DAILY Buspirone (Buspirone HCl) 5 Mg Tab 5 Mg PO HS Buspirone (Buspirone HCl) 10 Mg Tab 10 Mg PO DAILY IN THE MORNING Combivent Respimat Inh (Ipratropium-Albuterol Inh) 20-100 Halfway/Act Aero 1 Puff INH QID Sinemet (Carbidopa-Levodopa) 25-100 Mg Tab 1.5 Tab PO TID Symbicort Inh (Budesonide/Formoterol Fumarate) 80-4.5 Mcg/Act Aero 1 Puff INH BID Active Ordered Medications Current Medications Medications (Trade) Dose Ordered Sig/Amberly Route PRN Reason Start Time Stop Time Status Last Admin Dose Admin Diltiazem HCl (Cardizem Inj) 24 mg ONCE PRN IV PUSH RESPONSE 04/26/17 20:15 Future Hold 04/26/17 20:09 Diltiazem HCl 125 mg/Sodium Chloride 125 ml @ 5 mls/hr TITRATE PRN IV Tachycardia 04/26/17 21:00 Future Hold 04/26/17 21:44 Sodium Chloride (NS Flush) 2 ml UNSCH PRN IV FLUSH FLUSH AFTER USING IV ACCESS 04/26/17 22:30 Sodium Chloride (NS Flush) 2 ml BID IV FLUSH 04/27/17 09:00 Ondansetron HCl (Zofran Inj) 4 mg Q6H PRN IVP NAUSEA OR VOMITING 04/26/17 22:30 Acetaminophen (Tylenol) 650 mg Q6H PRN PO FEVER/PAIN SCALE 1 TO 2 04/26/17 22:30 Acetaminophen/ Hydrocodone Bitart ([place] 5-325 Mg) 1 tab Q4H PRN PO PAIN SCALE 3 TO 5 04/26/17 22:30 Senna/Docusate Sodium (Gertrude-Colace) 1 tab BID PO 04/27/17 09:00 Magnesium Hydroxide (Milk Of Magnesia Liq) 30 ml Q12H PRN PO Mild constipation 04/26/17 22:30 Sennosides (Senokot) 17.2 mg Q12H PRN PO Moderate constipation 04/26/17 22:30 Lactulose (Lactulose Liq) 30 ml DAILY PRN PO SEVERE CONSITIPATION/ IF PO 04/26/17 22:30 Allopurinol (Zyloprim) 300 mg DAILY PO 04/27/17 09:00 Budesonide/ Formoterol Fumarate (Symbicort 80-4.5 Mcg Inh) 1 puff BID INH 04/27/17 09:00 Buspirone HCl (Buspar) 5 mg HS PO 04/26/17 22:30 04/27/17 01:02 Buspirone HCl (Buspar) 10 mg DAILY PO 04/27/17 09:00 Carbidopa/Levodopa (Sinemet 25-100 Mg) 1.5 tab TID PO 04/27/17 09:00 Mirtazapine (Remeron) 7.5 mg HS PO 04/26/17 22:30 04/27/17 01:02 Tiotropium [place] (Spiriva Inh) 18 mcg DAILY INH 04/27/17 09:00 Bisacodyl (Dulcolax Supp) 10 mg DAILY PRN RECTAL SEVERE CONSITIPATION/ IF NPO 04/26/17 22:30 Sodium Chloride 1,000 ml @ 150 mls/hr Q6H40M IV 04/26/17 23:45 04/26/17 23:45 Morphine Sulfate (Morphine Inj) 2 mg Q2H PRN IV PUSH PAIN SCALE 6 TO 10 04/26/17 23:45 Famotidine (Pepcid Inj) 20 mg Q12HR IV PUSH 04/27/17 09:00 Lorazepam (Ativan Inj) 1 mg Q1H PRN IV PUSH Seizure 04/26/17 23:45 Zolpidem Tartrate (Ambien) 5 mg HS PRN PO INSOMNIA 04/26/17 23:45 Albuterol/ Ipratropium (Duoneb Neb) 1 ampule Q6HR NEB INH 04/27/17 04:00 04/27/17 03:43 Albuterol/ Ipratropium (Duoneb Neb) 1 ampule Q2HR NEB PRN INH WHEEZING 04/26/17 23:45 Miscellaneous Information 1 Q361D XX 04/26/17 23:45 Chlorhexidine Gluconate (Chlorhexidine 2% Cloth) 3 pack Taper DAILY@04 TOP 04/27/17 04:00 04/23/18 03:59 Chlorhexidine Gluconate (Chlorhexidine 2% Cloth) 3 pack UNSCH PRN TOP HYGIENIC CARE 04/26/17 23:45 Levetriacetam 100 ml @ 400 mls/hr Q12HR IV 04/27/17 09:00 Albumin Human 500 ml @ 250 mls/hr ONCE ONCE IV 04/27/17 03:45 04/27/17 05:44 Potassium Chloride 100 ml @ 100 mls/hr Q1H IV 04/27/17 03:45 04/27/17 06:44 Family History Patient's daughter was diagnosed with leukemia at the age of 41 Social History 1 pack a day smoking, denies alcohol or illicit drug abuse Physical Exam Vital Signs Vital Signs Date Time Temp Pulse Resp B/P (MAP) Pulse Ox O2 Delivery O2 Flow Rate FiO2 04/26/17 23:37 77 20 113/55 (74) 97 Nasal Cannula 2.00 04/26/17 23:19 123 103/67 (79) 04/26/17 22:18 125 104/54 (71) 04/26/17 21:54 118 103/51 (68) 04/26/17 21:44 133 105/55 04/26/17 21:42 128 105/55 (72) 04/26/17 20:25 94 04/26/17 19:58 142 118/54 (75) 97 Nasal Cannula 2.00 04/26/17 19:50 98.7 125 18 111/51 (71) 97 Physical Exam GENERAL: Well-nourished, well-developed patient, disheveled, in moderate distress. SKIN: Warm and dry. HEAD: Normocephalic. EYES: No scleral icterus. No injection or drainage. NECK: Supple, trachea midline. No JVD or lymphadenopathy. CARDIOVASCULAR: Regular rate and rhythm without murmurs, gallops, or rubs. RESPIRATORY: Breath sounds equal bilaterally. No accessory muscle use. GASTROINTESTINAL: Abdomen soft, non-tender, nondistended. MUSCULOSKELETAL: No cyanosis, or edema. BACK: Nontender without obvious deformity. NEURO EXAM: GCS: 15 Mental Status: The patient is alert and oriented to person, place, and time with normal speech. Laboratory Laboratory Tests Test 04/26/17 20:15 White Blood Count 171.7 Red Blood Count 3.01 Hemoglobin 8.3 Hematocrit 25.0 Mean Corpuscular Volume 83.0 Mean Corpuscular Hemoglobin 27.6 Mean Corpuscular Hemoglobin Concent 33.2 Red Cell Distribution Width 23.0 Platelet Count 54 Mean Platelet Volume 7.9 CBC Comment AUTO DIFF Differential Total Cells Counted 100 Neutrophils % (Manual) 35 Band Neutrophils % 2 Lymphocytes % 11 Monocytes % 44 Neutrophils # (Manual) 70.4 Metamyelocytes 1 Myelocytes 3 Differential Comment FINAL DIFF MANUAL Hypersegmented Polys 1+ Blastocytes 4 Platelet Estimate LOW Platelet Morphology Comment NORMAL Ovalocytes 1+ Prothrombin Time 13.0 Prothromb Time International Ratio 1.3 Activated Partial Thromboplast Time 33.8 Blood Urea Nitrogen 20 Creatinine 3.06 Random Glucose 188 Total Protein 6.3 Albumin 3.4 Calcium Level 8.2 Magnesium Level 1.7 Alkaline Phosphatase 100 Aspartate Amino Transf (AST/SGOT) 35 Alanine Aminotransferase (ALT/SGPT) 6 Total Bilirubin 0.4 Sodium Level 140 Potassium Level 2.5 Chloride Level 101 Carbon Dioxide Level 23.0 Anion Gap 16 Estimat Glomerular Filtration Rate 21 Troponin I LESS THAN 0.02 Result Diagram: 04/26/17201404/26/172014 Septic Shock Reassessment Septic shock perfusion: reassessment completed Caprini VTE Risk Assessment Caprini VTE Risk Assessment: Mod/High Risk (score >= 2) Caprini Risk Assessment Model Point Value = 1 Point Value = 2 Point Value = 3 Point Value = 5 Age 41-60 Minor surgery BMI > 25 kg/m2 Swollen legs Varicose veins or History of unexplained or recurrent spontaneous Oral contraceptives or hormone replacement Sepsis (< 1 month) Serious lung disease, including pneumonia (< 1 month) Abnormal pulmonary function Acute myocardial infarction Congestive heart failure (< 1 month) History of inflammatory bowel disease Medical patient at bed rest Age 61-74 Arthroscopic surgery Major open surgery (> 45 min) Laparoscopic surgery (> 45 min) Malignancy Confined to bed (> 72 hours) Immobilizing plaster cast Central venous access Age >= 75 History of VTE Family history of VTE Factor V Leiden Prothrombin [id number] Lupus anticoagulant Anticardiolipin antibodies Elevated serum homocysteine Heparin-induced thrombocytopenia Other congenital or acquired thrombophilia Stroke (< 1 month) Elective arthroplasty Hip, pelvis, or leg fracture Acute spinal cord injury (< 1 month) Prophylaxis Regimen Total Risk Factor Score Risk Level Prophylaxis Regimen 0-1 Low Early ambulation 2 Moderate Order ONE of the following: *Sequential Compression Device (SCD) *Heparin 5000 units SQ BID 3-4 Higher Order ONE of the following medications: *Heparin 5000 units SQ TID *Enoxaparin/Lovenox 40 mg SQ daily (WT < 150 kg, CrCl > 30 mL/min) *Enoxaparin/Lovenox 30 mg SQ daily (WT < 150 kg, CrCl > 10-29 mL/min) *Enoxaparin/Lovenox 30 mg SQ BID (WT < 150 kg, CrCl > 30 mL/min) AND/OR *Sequential Compression Device (SCD) 5 or more Highest Order ONE of the following medications: *Heparin 5000 units SQ TID (Preferred with Epidurals) *Enoxaparin/Lovenox 40 mg SQ daily (WT < 150 kg, CrCl > 30 mL/min) *Enoxaparin/Lovenox 30 mg SQ daily (WT < 150 kg, CrCl > 10-29 mL/min) *Enoxaparin/Lovenox 30 mg SQ BID (WT < 150 kg, CrCl > 30 mL/min) AND *Sequential Compression Device (SCD) Assessment and Plan Assessment and Plan Seizure - CT head negative - History of old CVA - Neurologically intact - Keppra 1000 twice a day - Neurology consultation - EEG a.m. Atrial fibrillation - Rate controlled with Cardizem drip - Hold by mouth Cardizem due to hypotension Hypotension - Severe dehydration - IV fluid bolus - IV fluids resuscitation - IV albumin 1 Acute kidney injury - IV fluid - I's and O's - Monitor creatinine and electrolytes Hypokalemia - Replacement CMML - Per hematology Hyperglycemia - Insulin sliding scale Anemia of chronic disorder - Underlying myelodysplastic syndrome - Transfuse for hemoglobin less than 7 Thrombocytopenia - Due to above - Monitor for bleed - Transfuse for platelets less than 20 or further per hematology DVT GI prophylaxis - Teds SCDs - No pharmacological DVT prophylaxis due to thrombocytopenia - IV Pepcid Critical Care: The total critical care time was 35 minutes. Time to perform other separately billable procedures was not included in the critical care time. Pa Graves MD Apr 26, 2017 23:42
[2017-04-26] MEDS: SODIUM CHLOR 0.9% 1000 ML INJ 1,000 ML IV SCH (23:45)
[2017-04-26] MEDS ORDERED: ZOLPIDEM TARTRATE 5 MG TAB PO PRN (23:45)
[2017-04-26] MEDS ORDERED: MISCELLANEOUS NURSING INFORMATION XX SCH (23:45)
[2017-04-26] MEDS ORDERED: RESP: ALBUTEROL 2.5 MG/IPRATROPIUM 0.5 MG NEB (PRN) INH (23:45)
[2017-04-26] MEDS ORDERED: ONDANSETRON HCL 4 MG/2 ML VIAL IV PUSH PRN (23:45)
[2017-04-26] MEDS ORDERED: CHLORHEXIDINE GLUCONATE 2 % 1 PACK (2 CLOTHS) TOP PRN (23:45)
[2017-04-27] VITALS (16 sets, daily range): BP systolic 107–143; BP diastolic 42–68; PULSE 67–77; RESP 16–27; TEMP 97.8–98.8; O2SAT 93–100
[2017-04-27] MEDS: busPIRone HCL 5 MG TAB PO SCH ×2 (01:02→21:50)
[2017-04-27] MEDS: MIRTAZAPINE 15 MG TAB PO SCH ×2 (01:02→21:21)
[2017-04-27] MEDS ORDERED: SODIUM CHLOR 0.9% 1000 ML INJ 1,000 ML IV SCH (02:15)
[2017-04-27] MEDS: RESP: ALBUTEROL 2.5 MG/IPRATROPIUM 0.5 MG NEB (SCH) INH ×4 (03:43→20:49)
[2017-04-27] MEDS ORDERED: ALBUMIN 5% INJ 500 ML IV ONE (03:45)
[2017-04-27] MEDS: POTASSIUM CHLOR 10 MEQ PREMIX 100 ML IV SCH ×3 (03:58→06:36)
[2017-04-27] MEDS: CHLORHEXIDINE GLUCONATE 2 % 1 PACK (2 CLOTHS) TOP SCH (03:59)
[2017-04-27] MEDS ORDERED: DEXTROSE 50% IN WATER 50 ML VIAL(D50) IV PUSH PRN (04:00)
[2017-04-27] MEDS ORDERED: GLUCAGON 1 MG/ML VIAL OTHER PRN (04:00)
[2017-04-27] MEDS ORDERED: CALCIUM GLUCONATE INJ 2 GM in SODIUM CHLORIDE 0.9% INJ 100 ML IV ONE (04:30)
[2017-04-27 04:53] LABS: INTERNATIONAL NORMALIZED RATIO 1.3 RATIO; PROTHROMBIN TIME - PATIENT 12.7 SEC (9.8-11.6)
[2017-04-27 05:09] LABS: ALBUMIN 2.7 GM/DL (3.4-5.0); ALT (GPT) LESS THAN 6 U/L (12-78); AST (GOT) 22 U/L (15-37); BICARBONATE 25.2 MEQ/L (21.0-32.0); BLOOD UREA NITROGEN 19 MG/DL (7-18); CALCIUM 6.8 MG/DL (8.5-10.1); CHLORIDE 112 MEQ/L (98-107); CREATININE 2.56 MG/DL (0.60-1.30); GLOMERULAR FILTRATION RATE 25 ML/MIN (>89); GLUCOSE,RANDOM 96 MG/DL (74-106); MAGNESIUM 1.3 MG/DL (1.5-2.5); PHOSPHORUS 2.5 MG/DL (2.5-4.9); SODIUM (NA) 146 MEQ/L (136-145)
[2017-04-27 05:13] LABS: ALKALINE PHOSPHATASE 65 U/L (45-117); CALCIUM-PROTEIN CORRECTED 7.8 MG/DL (8.5-10.1); TOTAL BILIRUBIN ADULT 0.3 MG/DL (0.2-1.0); TOTAL PROTEIN 5.2 GM/DL (6.4-8.2); TROPONIN I 0.11 NG/ML (0.02-0.05)
[2017-04-27 05:34] LABS: MEAN CELL VOLUME 82.1 FL (80.0-100.0); MEAN CORPUSCULAR HGB CONC 30.5 % (32.0-36.0); MEAN PLATELET VOLUME 8.4 FL (7.0-11.0); PLATELET COUNT 21 TH/MM3 (150-450); RED BLOOD COUNT 2.52 MIL/MM3 (4.50-5.90); RED CELL DISTRIBUTION WIDTH 23.2 % (11.6-17.2); WHITE BLOOD COUNT 110.2 TH/MM3 (4.0-11.0)
[2017-04-27 05:54] LABS: HEMATOCRIT 20.7 % (39.0-51.0); HEMOGLOBIN 6.3 GM/DL (13.0-17.0)
[2017-04-27 07:15] LABS: BANDS 9 % (0-6); BLASTS 19 % (0-0); LYMPHOCYTES 8 % (9-44); METAMYELOCYTES 1 % (0-1); MONOCYTES 11 % (0-8); MYELOCYTES 5 % (0-0); NEUTROPHIL # MANUAL DIFF 68.3 TH/MM3 (1.8-7.7); POLYS (SEG NEUTROPHILS) 47 % (16-70)
[2017-04-27 07:16] LABS: SMUDGE CELLS PRESENT PRESENT
[2017-04-27] MEDS: MAGNESIUM SULFATE 1 GM PREMIX 100 ML IV SCH ×2 (07:30→08:43)
[2017-04-27] MEDS: SODIUM CHLOR 0.9% 1000 ML INJ 1,000 ML IV SCH ×3 (07:30→19:44)
[2017-04-27] MEDS: INSULIN NovoLIN REGULAR SUPPLEMENTAL SCALE SQ SCH ×4 (08:00→21:21)
[2017-04-27] MEDS ORDERED: levETIRAcetam INJ 100 ML IV SCH (09:00)
[2017-04-27] MEDS ORDERED: SODIUM CHLORIDE 0.9% FLUSH 10 ML FLUSH IV FLUSH SCH (09:00)
[2017-04-27] MEDS ORDERED: DOCUSATE SODIUM 50 MG/SENNA 8.6 MG TAB PO SCH (09:00)
[2017-04-27] MEDS: TIOTROPIUM BROMIDE 18 MCG INH INH SCH (09:00)
[2017-04-27] MEDS ORDERED: DILTIAZEM-CD 300 MG CAP ER PO SCH (09:00)
[2017-04-27] MEDS: FAMOTIDINE 20 MG/2 ML VIAL IV PUSH SCH ×2 (09:00→21:18)
[2017-04-27] MEDS: BUDESONIDE-FORMOTEROL 80/4.5 MCG INHALER INH SCH ×2 (09:02→21:18)
[2017-04-27] MEDS: busPIRone HCL 10 MG TAB PO SCH (09:02)
[2017-04-27] MEDS: ALLOPURINOL 300 MG TAB PO SCH (09:02)
[2017-04-27] MEDS: levETIRAcetam 500 MG TAB PO SCH ×2 (09:02→21:50)
[2017-04-27] MEDS: DOCUSATE SODIUM 50 MG/SENNA 8.6 MG TAB PO SCH ×2 (09:02→21:20)
[2017-04-27] MEDS: SODIUM CHLORIDE 0.9% FLUSH 10 ML FLUSH IV FLUSH SCH ×2 (09:03→21:18)
[2017-04-27] MEDS: CARBIDOPA/LEVODOPA 25 MG/100 MG TAB PO SCH ×3 (09:03→17:19)
--- NOTE | 2017-04-27 10:08 | MB ---
cc: YANA CURRAN DATE OF CONSULTATION: 04/27/2017 HISTORY: A 66-year-old man with hypertension, non-insulin diabetes, hypercholesterolemia, A fib. He tells me he has had some seizures in the past a stroke with some aphasia at baseline COPD, some presyncopal episodes saw Dr. Norman in 2014 for right leg jerking. 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 He change from Plavix and aspirin to Aggrenox an aspirin. He saw Dr. Norman in 2012, he had a stroke alert, slurred speech. Put him on aspirin. Nevertheless he has been found evidently to have atrial fibrillation. He was admitted yesterday with possible history of Parkinson's disease CMML, background myelodysplasia syndrome, he came in for seizure evidently witnessed by . He is given 2 mg of Ativan. MEDICATIONS medications at home 1. Symbicort. 2. Sinemet 25/100 1.5 pills t.i.d. 3. Combivent 4. BuSpar. 5. Lisinopril 6. Diltiazem 7. Mirtazapine 8. Spiriva There is some history of emphysema stroke, CAD. The patient was found to be in A fib with rapid RVR in the emergency room. There is some history of right salivary gland biopsy. I did talk to his . She says he had history of about 3 to 4 seizures were he did shake all over. he does have a history that he was on Eliquis at one-time, had some bruising and GI bleeding, he had colonoscopy showed some polyps which were removed and upper endoscopy was negative. He is not been taking his anticoagulants now and he has never been on a seizure meds although he has had four episodes of shaking all over according to his . This episode was the worse she had her back, heard an odd sound, looked around he was shaking all over very violently. REVIEW OF SYSTEMS Review of systems according to the patient he denies any history of [place]. He did know he had a fib. He denies any coronary artery bypass graft, renal, hepatic, pulmonary disease, thyroid disease lupus, ulcer, he knew he had seizures in the past, he could not tell me if he was on a med he did know he had a stroke. SOCIAL HISTORY He is a smoker, he has about beers per day, lives with his . FAMILY HISTORY He does not of any family history of stroke. PHYSICAL EXAMINATION: IN GENERAL: On exam he was in rapid A. Fib that has converted it was a sinus tach. VITAL SIGNS: Apparently afebrile, 68, 107/42. NECK: There were no carotid bruits. He has a lump in the right carotid region. HEART: Regular rhythm at that a murmur. NEUROLOGIC EXAMINATION: Pupils are. ADALGISA equal. Visual linder are full. Extraocular intact without nystagmus. Face moves symmetrically. Tongue was midline. He has abrasion, it looks like he bit his lip left lower lip, he had a little bit of weakness in the right the triceps say about a 4+/5, otherwise normal and the left upper extremity was normal. Bilateral lower extremities to move fairly well. Toes were appeared to be upgoing bilaterally with a little on the right than left. DTRs are trace. He is awake and alert. He could name and repeat but had some slight expressive aphasia with lot of mumbling LABORATORY DATA His white count was 171,000 last evening with a hemoglobin of 8.3 now down to 6.3. His platelet count is very low only 26,000 down to 21,000 this morning, his sed rate was normal back in 2014. Coags essentially unremarkable. BMP showed his potassium was 2.5, creatinine was three down to 2.56 this morning glucose was 188. Corrected calcium 7.8, phosphorus normal. Magnesium low 1.3 this morning. LFTs normal. Troponin negative at epoch to 0.11 this morning, total protein 5.2. He has a history of normal B12 in July of last year. His thyroid was normal this past month. A urinalysis earlier this month showed 27 red cells. Other labs. CT scan of the brain was read as no acute disease. He had a carotid ultrasound 2014 that was negative. He had a head MRA back in 2012 showed occlusion of the superior division left MCA some atherosclerotic disease diffusely. MRA of his neck at that time less than 50%. He had a carotid ultrasound done January 2016 minimal disease bilaterally. His CT scan of the brain done here. Review of the films. Old left middle cerebral artery infarct small around the top of the sylvian fissure appears. He had an electroencephalogram in December that was normal. he had an echocardiogram done in May 2016 showed a normal ejection fraction. Left atrial size was 28. IMPRESSION/PLAN: History of seizures I will start him on Keppra 500 b.i.d. he has had that is CLL very high white count and defer to the med team on that. Unfortunately is platelet count is also very low, he should be anticoagulated neurologically with the A fib and a history of stroke. However, not sure if that is precluded by this such a low platelet count. I would have to defer to the med team on that. We will check an electroencephalogram. We will also check an MRI on him as well. MD LESLIE Slater/dave /8:06 AM /8:43 AM
--- NOTE | 2017-04-27 13:15 | RADRPT ---
EXAM DATE/TIME: 04/27/2017 12:31 [facility] COMPARISON: MRI BRAIN W & W/O CONTRAST, December 06, 2014, 17:45. INDICATIONS : CVA. MEDICAL HISTORY : Chronic obstructive pulmonary disease. Cardiovascular disease Parkinson's. SURGICAL HISTORY : None. ENCOUNTER: Initial ACUITY: 1 day PAIN SCORE: 0/10 LOCATION: cranial TECHNIQUE: Multiplanar, multisequence MRI of the brain was performed without contrast. FINDINGS: There is no evidence for intracranial hemorrhage, mass effect, mass lesions, edema, or extra-axial fl uid collections. There are no signs of acute infarction for technique. The diffusion portion is unre markable. Slight degree of brain atrophy is seen. Slight periventricular white matter changes are see n nonspecific mostly consistent with chronic small vessel ischemic changes. There is also slight ence phalomalacia left peritrigonal region not changed. There is a masslike area in the region of the paro tid gland on the right side possibly a cystic mass measures 3.0 cm in size. CONCLUSION: 1. Chronic atrophic and small vessel ischemic changes without any evidence for acute hemorrhage or ma ss effect. 2. There is a mass in the region of the parotid gland on the right side with an approximate 3.0 cm cy stic component not adequately characterized it could be characterized with neck CT if indicated clini jennie. Familia Antonio MD on April 27, 2017 at 13:10 Board Certified Radiologist. This report was verified electronically.
--- NOTE | 2017-04-27 14:26 | EKG ---
Date Performed: 04/26/2017 Time Performed: 19:52:35 PTAGE: 66 years EKG: ATRIAL FLUTTER WITH RAPID VENTRICULAR RESPONSE RIGHT BUNDLE BRANCH BLOCK ST DEPRESSION, CON DISABILITY SPECIALIST SUBENDOCARDIAL INJURY ABNORMAL ECG Compared to PREVIOUS TRACING , atrial flutter has replaced Sinus rhythm . PREVIOUS TRACIN04/12/2017 12.08 DOCTOR: Alfred Jose Interpretating Date/Time 04/27/2017 14:26:09
--- NOTE | 2017-04-27 15:14 | RADRPT ---
EXAM DATE/TIME: 04/27/2017 14:08 [facility] COMPARISON: No previous studies available for comparison. INDICATIONS : Cerebrovascular accident. MEDICAL HISTORY : Hypercholesterolemia. Chronic obstructive pulmonary disease. Hypertension. Parkinson's disease. cva. anticoagulant therapy. leukemia. diabetes. SURGICAL HISTORY : Salivary gland procedure. ENCOUNTER: Initial ACUITY: 1 day PAIN SCORE: 10 LOCATION: Bilateral neck PEAK SYSTOLIC VELOCITIES (cm/sec): ICA/CCA RATIO: Right: 1.6 Left: 1.1 ICA: Right: 154 Left: 119 CCA: Right: 95 Left: 107 ECA: Right: 61 Left: 91 VERTEBRAL: Right: 68 antegrade Left: 81 antegrade Elevated flow velocities and ICA/CCA ratios have been found to correlate with increased degrees of vessel stenosis, calculated as percentage of diameter relative to a normal segment of distal ICA/CCA FINDINGS: RIGHT CAROTID: No significant stenosis is visualized. Calcified plaque. The waveforms are within normal limits. LEFT CAROTID: No significant stenosis is visualized. Calcified plaque. The waveforms are within normal limits. VERTEBRAL ARTERIES: Antegrade flow is seen in both vertebral arteries. MISCELLANEOUS: In the right neck solid and cystic lesion within the right thyroid region measuring 41 x 29 x 34 mm.. CONCLUSION: 1. 50-59% stenosis within the right internal carotid artery. 2. No hemodynamically significant stenosis in the left carotid artery. 3. Cystic and solid mass of the right neck measuring 4.1 cm. Not emergent thyroid sonogram. Harpreet Patel MD on April 27, 2017 at 15:10 Board Certified Radiologist. This report was verified electronically.
--- NOTE | 2017-04-27 16:55 | RADRPT ---
EXAM DATE/TIME: 04/27/2017 16:10 [facility] COMPARISON: CHEST SINGLE AP, April 12, 2017, 11:47. INDICATIONS : Short of breath. MEDICAL HISTORY : Hypercholesterolemia. Chronic obstructive pulmonary disease. Hypertension. Diabetes. SURGICAL HISTORY : None. ENCOUNTER: Initial ACUITY: 1 day PAIN SCORE: 0/10 LOCATION: Bilateral chest FINDINGS: A single view of the chest demonstrates normal bibasilar subsegmental atelectasis. Heart normal in si ze The cardiomediastinal contours are unremarkable. Osseous structures are intact. CONCLUSION: Minimal bibasilar subsegmental atelectasis. Harpreet Patel MD on April 27, 2017 at 16:51 Board Certified Radiologist. This report was verified electronically.
--- NOTE | 2017-04-27 17:02 | MB ---
cc: IOANA JULIO MD DATE OF CONSULTATION 04/27/17 DATE OF 50 CHIEF COMPLAINT 1. CMML/MDS 2. Anemia 3. Thrombocytopenia. 4. Seizure disorder. 5. Leukocytosis. HISTORY OF PRESENT ILLNESS The patient is a 66-year-old gentleman with a history of a CVA, COPD, Parkinson's disease, coronary artery disease who was previously hospitalized at this hospital from April 12 through April 16. During that hospitalization, he was found to have leukocytosis, anemia and thrombocytopenia. 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 He was evaluated by my colleague, Dr. Hansen, who had discussed hypomethylating agents for treatment. He presented today with witnessed seizure at home by his . He was given Ativan. On admission, laboratory studies show a white blood cell count of 171,000, hemoglobin of 8.3, platelet count of 54,000. Differential shows an elevated absolute neutrophil count, metamyelocytes, myelocytes hypersegmented polys, blast cells. Platelet count today is 110,000, hemoglobin is 6.3. He is status post transfusion of one unit of packed red blood cells. Platelet count is 21,000. Chemistry studies reveal a sodium of 146, a potassium of 3.2, chloride of 112, a creatinine of 2.56, a calcium of 6.8, a total bili of 0.3. Remainder of the LFTs within normal limits. REVIEW OF SYSTEMS As above in the HPI. PAST MEDICAL HISTORY 1. Chronic obstructive pulmonary disease 2. Cerebrovascular accident 3. Coronary artery disease 4. Tobacco abuse. 5. Previous alcohol abuse. 6. Parkinson's disease. PAST SURGICAL HISTORY None. ALLERGIES No known drug allergies. FAMILY HISTORY Daughter with a history of CML. PHYSICAL EXAMINATION VITAL SIGNS: Temperature of 97.9, respiratory rate 24, blood pressure 125/58, pulse ox is 100% on two liters via nasal cannula. GENERAL: Chronically ill-appearing man in no distress. NECK: Supple with no palpable lymphadenopathy CARDIOVASCULAR: Regular rate and rhythm with no murmurs. RESPIRATORY: Clear to auscultation bilaterally. ABDOMEN: Soft, nontender, nondistended. EXTREMITIES: With no edema. NEUROLOGIC: The patient is drowsy but does respond to voice. He follows commands. ASSESSMENT/PLAN 1. CMML/MDS admitted with associated leukocytosis that is increasing from prior values. If his mental status and overall condition improves, will likely need to be started on disease modifying therapy with hypomethylating agent under the direction of his primary oncologist, Dr. Hansen. 2. Leukocytosis due to above, possibility of some component of reactive leukocytosis. Will order infectious work up to include blood cultures, urinalysis, urine culture and chest x-ray for further evaluation. He is currently afebrile. We will plan to give dose of hydroxyurea to lower count. Will monitor anemia and thrombocytopenia closely. This was discussed with the patient's over the telephone. 3. Anemia due to disease. Status post transfusion of one unit of packed red blood cells with post transfusion hemoglobin value pending. Transfuse for hemoglobin less than 7 4. Thrombocytopenia, hemoglobin of 21,000. Transfuse for platelet count less than 20,000. 5. Renal disease and electrolyte abnormalities. Multiple factors contributing. He is currently on Allopurinol and IV fluids in anticipation of giving Hydrea and lowering counts. Inpatient oncology team will continue to follow. MD CASPER Jarquin/ /4:16 PM /4:39 PM DEIRDRE
--- NOTE | 2017-04-27 17:12 | HHI.CCPN ---
Subjective Remarks/Hospital Course 66-year-old very pleasant gentleman with past medical history of Parkinson's disease and emphysema on home O2, CAD, CVA, recent diagnosis of CMML with background myelodysplasia syndrome was brought in by [facility] for seizure. Patient had witnessed seizure by his called 911. EVAC administered 2mg of ativan and shortly after the patient was found to be in atrial fibrillation with rapid ventricular response. 04/27: Patient lying in bed on nasal cannula maintain oxygen saturation. Slightly lethargic. WBC count has decreased from 170 to 110. Hemoglobin 6.3 getting 1 unit of transfusion. Heart rate is controlled in the 70s. Discussed with hematology. Requests panculture to rule out infection. Appreciate Dr. Sims consult. MRI of the brain negative for acute findings. Thyroid mass seen on carotid ultrasound will get dedicated thyroid ultrasound. EEG pending at this time Objective Vital Signs Date Time Temp Pulse Resp B/P (MAP) Pulse Ox O2 Delivery O2 Flow Rate FiO2 04/27/17 16:00 73 04/27/17 16:00 98 Nasal Cannula 2.00 04/27/17 16:00 98.0 27 127/59 (81) Intake and Output 04/27/17 04/27/17 04/28/17 08:00 16:00 00:00 Intake Total 4132 ml 650 ml Output Total 575 ml Balance 3557 ml 650 ml Result Diagram: 04/27/17 0518 04/27/17 0425 Objective Remarks GENERAL: Well-nourished, well-developed patient, in mild -moderate distress. SKIN: Warm and dry. HEAD: Normocephalic. EYES: No scleral icterus. No injection or drainage. NECK: Supple, trachea midline. No JVD or lymphadenopathy. CARDIOVASCULAR: No murmurs, gallops, or rubs. RESPIRATORY: Breath sounds equal bilaterally. No accessory muscle use. GASTROINTESTINAL: Abdomen soft, non-tender, nondistended. MUSCULOSKELETAL: No cyanosis, or edema. BACK: Nontender without obvious deformity. NEURO EXAM: The patient is alert and oriented, slightly lethargic. No FND A/P Assessment and Plan Seizure - CT head negative, MRI no acute findings - History of old CVA - Neurologically intact - Keppra 1000 twice a day - Neurology consultation, Dr. Sanford - EEG pending Atrial fibrillation - Rate controlled with Cardizem drip - Hold by mouth Cardizem Hypotension-resolving - Severe dehydration - IV fluid bolus, and continue IV maintenance fluid - Creatinine improving - IV albumin 1 Acute kidney injury - IV fluid - I's and O's - Monitor creatinine and electrolytes Hypokalemia - Replacement Leukocytosis/CMML Anemia thrombocytopenia - Per hematology - Discussed with hepatology. - Due to altered mental status check panculture and UA - Monitor without antibiotics at this time - Hydrea and allopurinol added by hematology - Transfusions per hematology Hyperglycemia - Insulin sliding scale Thrombocytopenia - Due to above - Monitor for bleed - Transfuse for platelets less than 20 or further per hematology DVT GI prophylaxis - Teds SCDs - No pharmacological DVT prophylaxis due to thrombocytopenia - IV Pepcid Critical Care: The total critical care time was 35 minutes. Time to perform other separately billable procedures was not included in the critical care time. Remains critically ill with leukocytosis more than his baseline altered mentation and possible sepsis. Renal failure persisted though improving. Continue ICU care due to risk of rapid decompensation Arianna Cardenas MD Apr 27, 2017 17:12
[2017-04-27 17:56] LABS: HEMATOCRIT 23.2 % (39.0-51.0); HEMOGLOBIN 7.6 GM/DL (13.0-17.0)
[2017-04-27 18:18] LABS: MAGNESIUM 1.8 MG/DL (1.5-2.5)
--- NOTE | 2017-04-27 18:32 | RADRPT ---
EXAM DATE/TIME: 04/27/2017 18:03 [facility] COMPARISON: No previous studies available for comparison. INDICATIONS : Mass. MEDICAL HISTORY : Hypercholesterolemia. Chronic obstructive pulmonary disease. Hypertension. Parkinson's disease. cva. anticoagulant therapy. leukemia. diabetes. SURGICAL HISTORY : Salivary gland procedure. ENCOUNTER: Initial ACUITY: 1 day PAIN SCORE: 0/10 LOCATION: Bilateral neck MEASUREMENTS: RIGHT LOBE: 4.5 x 1.4 x 1.8 cm LEFT LOBE: 3.2 x 1.5 x 1.3 cm FINDINGS: RIGHT LOBE: Homogeneous echotexture which contains a small hypoechoic nodule measuring 8 x 4 x 6 mm. Vascularity is within normal limits. LEFT LOBE: Homogeneous echotexture without nodules or cysts. Vascularity is within normal limits. ISTHMUS: Normal in size without focal abnormality. CONCLUSION: 1. Benign right subcentimeter nodule. 2. Otherwise unremarkable thyroid sonogram. 3. The mass seen in the right neck on previous carotid sonogram is not within the thyroid gland. This may be within the right parotid gland. Harpreet Patel MD on April 27, 2017 at 18:27 Board Certified Radiologist. This report was verified electronically.
[2017-04-27 19:23] LABS: AMORPHOUS SEDIMENT, URINE RARE; BACTERIA, URINE RARE /hpf; BILIRUBIN, URINE NEG (NEG); BLOOD, URINE MOD (NEG); GLUCOSE,URINE NEG (NEG); KETONE, URINE NEG (NEG); MUCUS URINE FEW /lpf (OCC); NITRITE,URINE NEG (NEG); PH, URINE 5.5 (5.0-8.5); SQUAMOUS EPITHELIAL CELL URINE 1 /hpf (0-5); URINE COLOR YELLOW (YELLW/STRAW); URINE LEUKOCYTE ESTERASE NEG (NEG)
[2017-04-27] MEDS ORDERED: HYDROXYUREA 500 MG CAP PO ONE (21:00)
[2017-04-28] VITALS (14 sets, daily range): BP systolic 121–157; BP diastolic 59–68; PULSE 63–90; RESP 18–33; TEMP 97.9–98.5; O2SAT 96–100
[2017-04-28] MEDS: SODIUM CHLOR 0.9% 1000 ML INJ 1,000 ML IV SCH ×3 (02:17→20:52)
--- NOTE | 2017-04-28 03:10 | RADRPT ---
EXAM DATE/TIME: 04/28/2017 02:25 [facility] COMPARISON: CHEST SINGLE AP, April 27, 2017, 16:10. INDICATIONS : Shortness of breath, possible pulmonary disease. MEDICAL HISTORY : Hypercholesterolemia. Chronic obstructive pulmonary disease. Hypertension. Diabetes SURGICAL HISTORY : None. ENCOUNTER: Subsequent ACUITY: 3 days PAIN SCORE: Non-responsive. LOCATION: Bilateral chest FINDINGS: Stable minimal bibasilar airspace disease. Cardiomediastinal contours are within normal limits. Remai nder of the exam is unchanged. CONCLUSION: 1. No significant interval change with minimal bibasilar atelectasis. Seven Dailey MD on April 28, 2017 at 3:08 Board Certified Radiologist. This report was verified electronically.
[2017-04-28] MEDS: RESP: ALBUTEROL 2.5 MG/IPRATROPIUM 0.5 MG NEB (SCH) INH ×4 (03:51→21:08)
[2017-04-28] MEDS: POTASSIUM CHLOR 20 MEQ PREMIX 100 ML IV SCH ×2 (03:52→05:58)
[2017-04-28] MEDS: CHLORHEXIDINE GLUCONATE 2 % 1 PACK (2 CLOTHS) TOP SCH (04:00)
[2017-04-28] MEDS: LORazepam 2 MG/ML VIAL IV PUSH PRN ×2 (04:10→20:52)
[2017-04-28 06:12] LABS: HEMATOCRIT 24.3 % (39.0-51.0); HEMOGLOBIN 7.8 GM/DL (13.0-17.0); MEAN CELL VOLUME 84.5 FL (80.0-100.0); PLATELET COUNT 27 TH/MM3 (150-450); RED BLOOD COUNT 2.88 MIL/MM3 (4.50-5.90); RED CELL DISTRIBUTION WIDTH 22.2 % (11.6-17.2); WHITE BLOOD COUNT 88.5 TH/MM3 (4.0-11.0)
[2017-04-28 06:36] LABS: ALBUMIN 2.9 GM/DL (3.4-5.0); ALT (GPT) LESS THAN 6 U/L (12-78); AST (GOT) 20 U/L (15-37); BICARBONATE 24.5 MEQ/L (21.0-32.0); BLOOD UREA NITROGEN 16 MG/DL (7-18); CALCIUM 7.3 MG/DL (8.5-10.1); CHLORIDE 113 MEQ/L (98-107); CREATININE 2.06 MG/DL (0.60-1.30); GLOMERULAR FILTRATION RATE 32 ML/MIN (>89); GLUCOSE,RANDOM 77 MG/DL (74-106); MAGNESIUM 1.6 MG/DL (1.5-2.5); PHOSPHORUS 2.1 MG/DL (2.5-4.9); SODIUM (NA) 145 MEQ/L (136-145)
[2017-04-28 06:39] LABS: ALKALINE PHOSPHATASE 69 U/L (45-117); CALCIUM-PROTEIN CORRECTED 8.3 MG/DL (8.5-10.1); LDH SERUM 493 U/L (87-241); TOTAL BILIRUBIN ADULT 0.5 MG/DL (0.2-1.0); TOTAL PROTEIN 5.2 GM/DL (6.4-8.2)
[2017-04-28 07:16] LABS: BANDS 4 % (0-6); BLASTS 11 % (0-0); LYMPHOCYTES 5 % (9-44); METAMYELOCYTES 5 % (0-1); MONOCYTES 42 % (0-8); MYELOCYTES 2 % (0-0); NEUTROPHIL # MANUAL DIFF 37.2 TH/MM3 (1.8-7.7); POLYS (SEG NEUTROPHILS) 31 % (16-70)
[2017-04-28 07:17] LABS: OVALOCYTES 1+ (NORMAL)
[2017-04-28 07:18] LABS: SMUDGE CELLS PRESENT PRESENT
[2017-04-28] MEDS: INSULIN NovoLIN REGULAR SUPPLEMENTAL SCALE SQ SCH ×4 (08:00→20:54)
[2017-04-28] MEDS: busPIRone HCL 10 MG TAB PO SCH (08:19)
[2017-04-28] MEDS: ALLOPURINOL 300 MG TAB PO SCH (08:19)
[2017-04-28] MEDS: levETIRAcetam 500 MG TAB PO SCH ×2 (08:19→20:52)
[2017-04-28] MEDS: DOCUSATE SODIUM 50 MG/SENNA 8.6 MG TAB PO SCH ×2 (08:19→20:52)
[2017-04-28] MEDS: SODIUM CHLORIDE 0.9% FLUSH 10 ML FLUSH IV FLUSH SCH ×2 (08:20→20:54)
[2017-04-28] MEDS: TIOTROPIUM BROMIDE 18 MCG INH INH SCH (08:20)
[2017-04-28] MEDS: FAMOTIDINE 20 MG/2 ML VIAL IV PUSH SCH ×2 (08:20→20:53)
[2017-04-28] MEDS: BUDESONIDE-FORMOTEROL 80/4.5 MCG INHALER INH SCH ×2 (08:20→20:54)
[2017-04-28] MEDS: CARBIDOPA/LEVODOPA 25 MG/100 MG TAB PO SCH ×3 (08:26→18:00)
--- NOTE | 2017-04-28 09:37 | HHI.PR ---
Objective Vital Signs Date Time Temp Pulse Resp B/P (MAP) Pulse Ox O2 Delivery O2 Flow Rate FiO2 04/28/17 08:00 97.9 74 23 125/61 (82) 99 04/28/17 08:00 98 04/28/17 06:00 79 04/28/17 04:00 97 Nasal Cannula 2.00 04/28/17 04:00 85 04/28/17 04:00 98.2 85 24 157/68 (97) 96 04/28/17 02:00 63 04/28/17 00:00 64 04/28/17 00:00 96 Nasal Cannula 2.00 04/28/17 00:00 98.5 64 22 121/59 (79) 100 04/27/17 22:00 72 04/27/17 20:50 97 Nasal Cannula 2.00 04/27/17 20:43 98.0 72 20 143/63 98 04/27/17 20:00 98.0 71 23 138/58 (84) 04/27/17 20:00 71 04/27/17 20:00 94 Nasal Cannula 2.00 04/27/17 18:00 76 04/27/17 16:00 73 04/27/17 16:00 98 Nasal Cannula 2.00 04/27/17 16:00 98.0 73 27 127/59 (81) 94 04/27/17 14:00 71 04/27/17 12:00 71 04/27/17 12:00 97.9 71 24 125/58 (80) 99 04/27/17 12:00 100 Nasal Cannula 2.00 04/27/17 11:38 93 Nasal Cannula 2.00 04/27/17 11:16 98.5 67 24 126/68 100 04/27/17 10:28 98.8 74 20 132/58 98 04/27/17 10:00 77 I/O 04/27/17 04/27/17 04/27/17 04/28/17 04/28/17 04/28/17 07:00 15:00 23:00 07:00 15:00 23:00 Intake Total 5032 ml 750 ml 2504 ml 1804.3 ml Output Total 575 ml 1200 ml 750 ml Balance 4457 ml 750 ml 1304 ml 1054.3 ml Intake Oral 480 ml 960 ml 100 ml IV Total 4552 ml 300 ml 1302 ml 1704.3 ml Packed Cells 400 ml Platelets 192 ml Blood Product IV Normal Saline Flush 50 ml 50 ml Output Urine Total 575 ml 1200 ml 750 ml Stool Total 0 ml # Voids 1 3 2 # Bowel Movements 0 0 0 Result Diagram: 04/28/1750904/28/17509 Objective Remarks awake alert mild weak rue 4+ ow moves all well no tremors speech fluent Assessment and Plan Assessment and Plan imp mri old left mca cva no new cva eeg nl us 50-60% r ica no evidence of PD today on keppra po for sz he looks stable and could go to floor tele and neuro mina could dc to rehab tomorrow if other issues resolved as per my consult note consider anticoagululation if can with low plts Tej Sanford MD Apr 28, 2017 09:37
--- NOTE | 2017-04-28 09:38 | MG ---
cc: YANA CURRAN M.D. Lab No: [id number] Date: 04/28/2017 Age: Sex: M Race: Hyperventilation not performed. A 66-year-old man, Parkinson's disease, myelodysplasia, BuSpar, Remeron. Recording shows a symmetric 6-9 Hz posterior rhythm. Some occasional delta slowing is seen diffusely bilaterally symmetrically. Recording overall is synchronous and symmetric. I do not see any epileptiform or seizure activity. So this is a double banana here, left, left, its left central, right central, left temporal, right temporal, so you can compare these two and then they flip to a transverse which is going across the head, [id number], [id number]. I think it looks pretty good overall, though, probably starting to fall asleep there a little bit more than likely, I think that looks alright, it is not particularly sharp, lots of artifact. Photic stimulation is performed without significant posterior driving. IMPRESSION Some diffuse theta slowing consistent with mild diffuse encephalopathy but no focal abnormalities noted. No seizure activity was seen. MD LESLIE Slater/EDYTA /9:04 AM /9:26 AM
--- NOTE | 2017-04-28 10:43 | PD.ONC.PN ---
Subjective Subjective Remarks Afebrile overnight. Patient somnolent and resting. No overnight events per nurse. patient remains confused. Objective Data Date Time Temp Pulse Resp B/P (MAP) Pulse Ox O2 Delivery O2 Flow Rate FiO2 04/28/17 10:00 78 04/28/17 08:00 97.9 74 23 125/61 (82) 99 04/28/17 08:00 98 04/28/17 08:00 74 04/28/17 06:00 79 04/28/17 04:00 97 Nasal Cannula 2.00 04/28/17 04:00 85 04/28/17 04:00 98.2 85 24 157/68 (97) 96 04/28/17 02:00 63 04/28/17 00:00 64 04/28/17 00:00 96 Nasal Cannula 2.00 04/28/17 00:00 98.5 64 22 121/59 (79) 100 04/27/17 22:00 72 04/27/17 20:50 97 Nasal Cannula 2.00 04/27/17 20:43 98.0 72 20 143/63 98 04/27/17 20:00 98.0 71 23 138/58 (84) 04/27/17 20:00 71 04/27/17 20:00 94 Nasal Cannula 2.00 04/27/17 18:00 76 04/27/17 16:00 73 04/27/17 16:00 98 Nasal Cannula 2.00 04/27/17 16:00 98.0 73 27 127/59 (81) 94 04/27/17 14:00 71 04/27/17 12:00 71 04/27/17 12:00 97.9 71 24 125/58 (80) 99 04/27/17 12:00 100 Nasal Cannula 2.00 04/27/17 11:38 93 Nasal Cannula 2.00 04/27/17 11:16 98.5 67 24 126/68 100 04/28/17 04/28/17 04/28/17 07:00 15:00 23:00 Intake Total 1804.3 ml Output Total 750 ml Balance 1054.3 ml Result Diagram: 04/28/17 0510 04/28/17 0510 Laboratory Results Laboratory Tests Test 04/27/17 17:23 04/27/17 17:27 04/27/17 18:00 04/28/17 05:10 Hemoglobin 7.6 GM/DL 7.8 GM/DL Hematocrit 23.2 % 24.3 % Potassium Level 3.2 MEQ/L 3.3 MEQ/L Uric Acid 3.0 MG/DL 2.9 MG/DL Magnesium Level 1.8 MG/DL 1.6 MG/DL Lactate Dehydrogenase 472 U/L 493 U/L Platelet Count 18 TH/MM3 27 TH/MM3 Urine Color YELLOW Urine Turbidity HAZY Urine pH 5.5 Urine Specific [place] 1.013 Urine Protein 30 mg/dL Urine Glucose (UA) NEG mg/dL Urine Ketones NEG mg/dL Urine Occult Blood MOD Urine Nitrite NEG Urine Bilirubin NEG Urine Urobilinogen LESS THAN 2.0 MG/DL Urine Leukocyte Esterase NEG Urine RBC 73 /hpf Urine WBC 3 /hpf Urine Squamous Epithelial Cells 1 /hpf Urine Amorphous Sediment RARE Urine Bacteria RARE /hpf Urine Mucus FEW /lpf Microscopic Urinalysis Comment CULT NOT INDICATED White Blood Count 88.5 TH/MM3 Red Blood Count 2.88 MIL/MM3 Mean Corpuscular Volume 84.5 FL Mean Corpuscular Hemoglobin 27.0 PG Mean Corpuscular Hemoglobin Concent 32.0 % Red Cell Distribution Width 22.2 % Mean Platelet Volume 8.0 FL CBC Comment AUTO DIFF Differential Total Cells Counted 100 Neutrophils % (Manual) 31 % Band Neutrophils % 4 % Lymphocytes % 5 % Monocytes % 42 % Neutrophils # (Manual) 37.2 TH/MM3 Metamyelocytes 5 % Myelocytes 2 % Differential Comment FINAL DIFF MANUAL Blastocytes 11 % Smudge Cells PRESENT Platelet Estimate LOW Platelet Morphology Comment NORMAL Ovalocytes 1+ Blood Urea Nitrogen 16 MG/DL Creatinine 2.06 MG/DL Random Glucose 77 MG/DL Total Protein 5.2 GM/DL Albumin 2.9 GM/DL Calcium Level 7.3 MG/DL Phosphorus Level 2.1 MG/DL Alkaline Phosphatase 69 U/L Aspartate Amino Transf (AST/SGOT) 20 U/L Alanine Aminotransferase (ALT/SGPT) LESS THAN 6 U/L Total Bilirubin 0.5 MG/DL Sodium Level 145 MEQ/L Chloride Level 113 MEQ/L Carbon Dioxide Level 24.5 MEQ/L Anion Gap 8 MEQ/L Estimat Glomerular Filtration Rate 32 ML/MIN Protein Corrected Calcium 8.3 MG/DL Culture Results Microbiology Date/Time Source Procedure Growth Status 04/27/17 17:25 Blood Peripheral Aerobic Blood Culture Pending Received 04/27/17 17:25 Blood Peripheral Anaerobic Blood Culture Pending Received 04/27/17 17:15 Blood Peripheral Aerobic Blood Culture Pending Received 04/27/17 17:15 Blood Peripheral Anaerobic Blood Culture Pending Received Imaging Studies Last 24 hours Impressions Chest X-Ray 04/28/17 0600 Signed Impressions: Service Date/Time: Friday, April 28, 2017 02:25 - CONCLUSION: 1. No significant interval change with minimal bibasilar atelectasis. Seven Dailey MD Administered Medications Medications (Trade) Dose Ordered Sig/Amberly Route PRN Reason Start Time Stop Time Status Last Admin Dose Admin Diltiazem HCl (Cardizem Inj) 24 mg ONCE PRN IV PUSH RESPONSE 04/26/17 20:15 Future Hold 04/26/17 20:09 Diltiazem HCl 125 mg/Sodium Chloride 125 ml @ 5 mls/hr TITRATE PRN IV Tachycardia 04/26/17 21:00 Future Hold 04/26/17 21:44 Sodium Chloride (NS Flush) 2 ml BID IV FLUSH 04/27/17 09:00 04/28/17 08:20 Senna/Docusate Sodium (Gertrude-Colace) 1 tab BID PO 04/27/17 09:00 04/28/17 08:19 Allopurinol (Zyloprim) 300 mg DAILY PO 04/27/17 09:00 04/28/17 08:19 Budesonide/ Formoterol Fumarate (Symbicort 80-4.5 Mcg Inh) 1 puff BID INH 04/27/17 09:00 04/28/17 08:20 Buspirone HCl (Buspar) 5 mg HS PO 04/26/17 22:30 04/27/17 21:50 Buspirone HCl (Buspar) 10 mg DAILY PO 04/27/17 09:00 04/28/17 08:19 Carbidopa/Levodopa (Sinemet 25-100 Mg) 1.5 tab TID PO 04/27/17 09:00 04/28/17 08:26 Mirtazapine (Remeron) 7.5 mg HS PO 04/26/17 22:30 04/27/17 21:21 Tiotropium [place] (Spiriva Inh) 18 mcg DAILY INH 04/27/17 09:00 04/28/17 08:20 Sodium Chloride 1,000 ml @ 150 mls/hr Q6H40M IV 04/26/17 23:45 04/28/17 02:17 Famotidine (Pepcid Inj) 20 mg Q12HR IV PUSH 04/27/17 09:00 04/28/17 08:20 Lorazepam (Ativan Inj) 1 mg Q1H PRN IV PUSH Seizure 04/26/17 23:45 04/28/17 04:10 Albuterol/ Ipratropium (Duoneb Neb) 1 ampule Q6HR NEB INH 04/27/17 04:00 04/27/17 11:21 Chlorhexidine Gluconate (Chlorhexidine 2% Cloth) 3 pack Taper DAILY@04 TOP 04/27/17 04:00 04/23/18 03:59 04/28/17 04:00 Insulin Human Regular (NovoLIN R SUPPLEMENTAL SCALE) 1 ACHS SLIDING SCALE SQ 04/27/17 08:00 04/27/17 21:21 Levetriacetam (Keppra) 500 mg Q12HR PO 04/27/17 09:00 04/28/17 08:19 Objective Remarks GENERAL: Middle aged male, chronically ill appearing. supine in bed. SKIN: Warm and dry. HEAD: Normocephalic. EYES: No injection or drainage. NECK: Supple, trachea midline. CARDIOVASCULAR: +S1/S2 RESPIRATORY: anterior linder with scattered rhonchi. On 2L O2 via [place] GASTROINTESTINAL: Abdomen soft, non-tender, nondistended. EXTREMITIES: No cyanosis. NEUROLOGICAL: awake, lethargic. falls back to sleep quickly after awaking to physical stimuli. Assessment/Plan Assessment 66y/o male admitted with seizure. Oncology consulted for CMML/MDS history of a CVA, COPD, Parkinson's disease, coronary artery disease Plan 1. CMML/MDS: leukocytosis mildly improved after Hydrea dose yesterday. monitor CBC. may need to dose with Hydrea again. Outpatient, patient could receive Vidaza if his clinical status improved. 2. Anemia: d/t MDS. monitor and transfuse as needed to maintain hgb>7.5mg/dL 3. AMS: unclear etiology. not likely d/t leukostasis as there has not been improvement with lowering of WBC and no indication on imaging, either. Neurology following. 4. thrombocytopenia: likely d/t MDS. check coags. Attending Statement The exam, history, and the medical decision-making described in the above note were completed with the assistance of the mid-level provider. I reviewed and agree with the findings presented. I attest that I had a [id number] encounter with the patient on the same day, and personally performed and documented my assessment and findings in the medical record. 66 yoM with CMML/MDS. Mental status improved today. He is responsive, alert, oriented, able to carry on conversation, follows complex commands. CXR with atelectasis, cultures negative, urinalysis with no evidence of infection. S/p hydrea 500 mg with decline in counts. Will give another dose of hydrea today. Possibly some component of sundowning/delirium affecting mental status given elderly patient, critical illness, hospitalization. consideration of inpatient vidaza vs hospice. Daya Wade Apr 28, 2017 10:43 Regla Knox MD Apr 28, 2017 13:58
[2017-04-28] MEDS ORDERED: HYDROXYUREA 500 MG CAP PO ONE (15:00)
[2017-04-28 16:11] LABS: INTERNATIONAL NORMALIZED RATIO 1.2 RATIO; PROTHROMBIN TIME - PATIENT 12.2 SEC (9.8-11.6)
--- NOTE | 2017-04-28 16:51 | HHI.CCPN ---
Subjective Remarks/Hospital Course 66-year-old very pleasant gentleman with past medical history of Parkinson's disease and emphysema on home O2, CAD, CVA, recent diagnosis of CMML with background myelodysplasia syndrome was brought in by [facility] for seizure. Patient had witnessed seizure by his called 911. EVAC administered 2mg of ativan and shortly after the patient was found to be in atrial fibrillation with rapid ventricular response. 04/27: Patient lying in bed on nasal cannula maintain oxygen saturation. Slightly lethargic. WBC count has decreased from 170 to 110. Hemoglobin 6.3 getting 1 unit of transfusion. Heart rate is controlled in the 70s. Discussed with hematology. Requests panculture to rule out infection. Appreciate Dr. Sanford consult. MRI of the brain negative for acute findings. Thyroid mass seen on carotid ultrasound will get dedicated thyroid ultrasound. EEG pending at this time 04/28: Clinically improving less confused. EEG negative for seizures. Creat improved to 2, WBC 89K. Objective Vital Signs Date Time Temp Pulse Resp B/P (MAP) Pulse Ox O2 Delivery O2 Flow Rate FiO2 04/28/17 12:56 98 Nasal Cannula 2.00 04/28/17 10:00 78 04/28/17 08:00 97.9 23 125/61 (82) Intake and Output 04/28/17 04/28/17 04/29/17 08:00 16:00 00:00 Intake Total 1804.3 ml 100 ml Output Total 750 ml Balance 1054.3 ml 100 ml Result Diagram: 04/28/17 0510 04/28/17 1333 Objective Remarks GENERAL: Well-nourished, well-developed patient, in mild tachypnea SKIN: Warm and dry. HEAD: Normocephalic. EYES: No scleral icterus. No injection or drainage. NECK: Supple, trachea midline. No JVD or lymphadenopathy. CARDIOVASCULAR: No murmurs, gallops, or rubs. RESPIRATORY: Breath sounds equal bilaterally. No accessory muscle use. GASTROINTESTINAL: Abdomen soft, non-tender, nondistended. MUSCULOSKELETAL: No cyanosis, or edema. BACK: Nontender without obvious deformity. NEURO EXAM: The patient is alert and awake. No FND A/P Assessment and Plan Seizure - CT head negative, MRI no acute findings - EEG No sz - History of old CVA, Neurologically intact - Keppra 1000 twice a day - Neurology consultation, Dr. Sanford - Metabolic encephalopathies improving Atrial fibrillation - Currently NSR, off Cardizem drip - No anticoagulation due to severe thrombocytopenia Hypotension-resolved - Severe dehydration - s/p IV fluid bolus, and continue IV maintenance fluid, but reduce to 50 ml per hour - Creatinine improving, 2 today - IV albumin 1 Acute kidney injury - IV fluid - I's and O's - Monitor creatinine and electrolytes Hypokalemia - Replacement Leukocytosis/CMML Anemia thrombocytopenia - Per hematology - Discussed with hematology. - F/u on cultures - Monitor without antibiotics at this time - Hydrea and allopurinol added by hematology - Transfusions per hematology Hyperglycemia - Insulin sliding scale Thrombocytopenia - Due to above - Monitor for bleed DVT GI prophylaxis - Teds SCDs - No pharmacological DVT prophylaxis due to thrombocytopenia - IV Pepcid Critical Care: Level 2 Transferred to command floor, consult hospitalist to assume care in a. Arianna Cardenas MD Apr 28, 2017 16:51
[2017-04-28] MEDS: busPIRone HCL 5 MG TAB PO SCH (20:52)
[2017-04-28] MEDS: MIRTAZAPINE 15 MG TAB PO SCH (20:52)
[2017-04-29] VITALS (14 sets, daily range): BP systolic 128–159; BP diastolic 61–76; PULSE 68–115; RESP 17–20; TEMP 98.4–98.8; O2SAT 94–96
[2017-04-29] MEDS: LORazepam 2 MG/ML VIAL IV PUSH PRN (00:38)
[2017-04-29] MEDS: ATENOLOL 25 MG TAB PO SCH ×3 (01:03→21:42)
[2017-04-29] MEDS: RESP: ALBUTEROL 2.5 MG/IPRATROPIUM 0.5 MG NEB (SCH) INH ×4 (03:33→21:12)
[2017-04-29] MEDS: CHLORHEXIDINE GLUCONATE 2 % 1 PACK (2 CLOTHS) TOP SCH (04:00)
[2017-04-29] MEDS: INSULIN NovoLIN REGULAR SUPPLEMENTAL SCALE SQ SCH ×4 (08:00→21:40)
--- NOTE | 2017-04-29 08:21 | PD.ONC.PN ---
Subjective Subjective Remarks Patient was seen and examined, vital signs, labs, medications, imaging studies including MRI and consult notes were reviewed. Transfusion history over the weekend was also reviewed. Subjectively; the patient reports feeling improved today, he does however report weakness, fatigue, difficulty breathing. The patient tells me he "had a stroke ". He is presently lying in bed with his gown pulled off and covers pulled off. Objective Data Date Time Temp Pulse Resp B/P (MAP) Pulse Ox O2 Delivery O2 Flow Rate FiO2 04/29/17 04:26 76 04/29/17 04:16 75 159/76 (103) 04/29/17 04:08 Nasal Cannula 3.00 04/29/17 00:36 115 04/29/17 00:00 90 20 128/61 (83) 94 04/28/17 21:27 86 04/28/17 21:08 98 Nasal Cannula 2.00 04/28/17 20:00 Nasal Cannula 3.00 04/28/17 20:00 98.3 66 18 149/66 (93) 97 04/28/17 18:30 88 04/28/17 18:30 88 20 139/65 (89) 98 04/28/17 16:00 100 Nasal Cannula 2.00 04/28/17 16:00 98.5 90 33 125/68 (87) 04/28/17 16:00 90 04/28/17 14:00 83 04/28/17 12:56 98 Nasal Cannula 2.00 04/28/17 12:00 97 Nasal Cannula 2.00 04/28/17 12:00 82 04/28/17 12:00 98.0 82 25 146/65 (92) 04/28/17 10:00 78 04/29/17 04/29/17 04/29/17 07:00 15:00 23:00 Intake Total 240 ml Output Total 480 ml Balance -240 ml Result Diagram: 04/28/17 0510 04/28/17 1333 Laboratory Results Laboratory Tests Test 04/28/17 13:33 04/28/17 15:18 Potassium Level 3.5 MEQ/L Prothrombin Time 12.2 SEC Prothromb Time International Ratio 1.2 RATIO Activated Partial Thromboplast Time 33.2 SEC Fibrinogen 155 mg/dL Culture Results Microbiology Date/Time Source Procedure Growth Status 04/27/17 17:25 Blood Peripheral Aerobic Blood Culture - Preliminary NO GROWTH IN 1 DAY Resulted 04/27/17 17:25 Blood Peripheral Anaerobic Blood Culture - Preliminary NO GROWTH IN 1 DAY Resulted 04/27/17 17:15 Blood Peripheral Aerobic Blood Culture - Preliminary NO GROWTH IN 1 DAY Resulted 04/27/17 17:15 Blood Peripheral Anaerobic Blood Culture - Preliminary NO GROWTH IN 1 DAY Resulted Administered Medications Medications (Trade) Dose Ordered Sig/Amberly Route PRN Reason Start Time Stop Time Status Last Admin Dose Admin Sodium Chloride (NS Flush) 2 ml BID IV FLUSH 04/27/17 09:00 04/28/17 20:54 Senna/Docusate Sodium (Gertrude-Colace) 1 tab BID PO 04/27/17 09:00 04/28/17 20:52 Allopurinol (Zyloprim) 300 mg DAILY PO 04/27/17 09:00 04/28/17 08:19 Budesonide/ Formoterol Fumarate (Symbicort 80-4.5 Mcg Inh) 1 puff BID INH 04/27/17 09:00 04/28/17 20:54 Buspirone HCl (Buspar) 5 mg HS PO 04/26/17 22:30 04/28/17 20:52 Buspirone HCl (Buspar) 10 mg DAILY PO 04/27/17 09:00 04/28/17 08:19 Carbidopa/Levodopa (Sinemet 25-100 Mg) 1.5 tab TID PO 04/27/17 09:00 04/28/17 18:00 Mirtazapine (Remeron) 7.5 mg HS PO 04/26/17 22:30 04/28/17 20:52 Tiotropium [place] (Spiriva Inh) 18 mcg DAILY INH 04/27/17 09:00 04/28/17 08:20 Sodium Chloride 1,000 ml @ 50 mls/hr Q20H IV 04/26/17 23:45 04/28/17 20:52 Lorazepam (Ativan Inj) 1 mg Q1H PRN IV PUSH Seizure 04/26/17 23:45 04/29/17 00:38 Albuterol/ Ipratropium (Duoneb Neb) 1 ampule Q6HR NEB INH 04/27/17 04:00 04/29/17 03:33 Chlorhexidine Gluconate (Chlorhexidine 2% Cloth) 3 pack Taper DAILY@04 TOP 04/27/17 04:00 04/23/18 03:59 04/28/17 04:00 Insulin Human Regular (NovoLIN R SUPPLEMENTAL SCALE) 1 ACHS SLIDING SCALE SQ 04/27/17 08:00 04/27/17 21:21 Levetriacetam (Keppra) 500 mg Q12HR PO 04/27/17 09:00 04/28/17 20:52 Famotidine (Pepcid Inj) 10 mg Q12HR IV PUSH 04/28/17 21:00 04/28/17 20:53 Atenolol (Tenormin) 25 mg Q12HR PO 04/29/17 01:00 04/29/17 01:03 Objective Remarks GENERAL: Elderly male, chronically ill and cachectic appearing. SKIN: Cool and dry. HEAD: Normocephalic. EYES: No scleral icterus. No injection or drainage. Conjunctivae are pale. Oral exam: He has a submucosal hematoma on the left side of his tongue. Left lower lip also has a bruise on it. NECK: Supple, trachea midline. No JVD or lymphadenopathy. LYMPHATIC: No adenopathy. CARDIOVASCULAR: Irregular, S1 and S2 normal obvious murmurs or gallops.. RESPIRATORY: Distant sounding breath sounds, prolonged expiratory phase but no wheezing or rhonchi or crepitus. GASTROINTESTINAL: Abdomen soft, non-tender, nondistended. EXTREMITIES: No cyanosis, or edema. MUSCULOSKELETAL: Atrophic muscle mass diffusely noted but especially in the lower extremities. NEUROLOGICAL: He is able to speak sentences. He does express understanding of our conversation. He is moving all 4 limbs spontaneously and purposefully. PSYCHIATRIC: Appropriate mood and affect; insight and judgment normal. Assessment/Plan Assessment 66y/o male admitted with seizure. Oncology consulted for CMML/MDS. history of a CVA, COPD, Parkinson's disease, coronary artery disease and chronic debility/frailty. His malignant hematologic diagnosis was established earlier in April 2017, he is currently treatment shannan. Plan 1. CMML/MDS overlap: Therapeutic options are limited but include cytoreductive therapy with hydroxyurea versus hypo-methylating agents such as Vidaza or Dacogen. I would prefer Vidaza at this point should we wish to pursue a hypomotility agent because it results in less myelosuppression. I did explain to the patient that given his poor clinical condition he is at significantly increased risk for adverse treatment related outcomes with even low intensity interventions such as Vidaza. He understands this and is wanting to consider his options. In the meantime I will start him on hydroxyurea 250 mg daily. 2. Anemia: d/t MDS. monitor and transfuse as needed to maintain hgb>7.5mg/dL 3. AMS: unclear etiology. Seems to have improved somewhat because to me on Saturday morning he appears closer to his baseline as was described in the initial notes during this hospitalization. 4. thrombocytopenia: likely d/t MDS. check coags. De Hansen MD Apr 29, 2017 08:20
--- NOTE | 2017-04-29 08:24 | HHI.PR ---
Objective Vital Signs Date Time Temp Pulse Resp B/P (MAP) Pulse Ox O2 Delivery O2 Flow Rate FiO2 04/29/17 04:26 76 04/29/17 04:16 75 159/76 (103) 04/29/17 04:08 Nasal Cannula 3.00 04/29/17 00:36 115 04/29/17 00:00 90 20 128/61 (83) 94 04/28/17 21:27 86 04/28/17 21:08 98 Nasal Cannula 2.00 04/28/17 20:00 Nasal Cannula 3.00 04/28/17 20:00 98.3 66 18 149/66 (93) 97 04/28/17 18:30 88 04/28/17 18:30 88 20 139/65 (89) 98 04/28/17 16:00 100 Nasal Cannula 2.00 04/28/17 16:00 98.5 90 33 125/68 (87) 04/28/17 16:00 90 04/28/17 14:00 83 04/28/17 12:56 98 Nasal Cannula 2.00 04/28/17 12:00 97 Nasal Cannula 2.00 04/28/17 12:00 82 04/28/17 12:00 98.0 82 25 146/65 (92) 04/28/17 10:00 78 I/O 04/28/17 04/28/17 04/28/17 04/29/17 04/29/17 04/29/17 07:00 15:00 23:00 07:00 15:00 23:00 Intake Total 1804.3 ml 100 ml 480 ml 240 ml Output Total 750 ml 300 ml 480 ml Balance 1054.3 ml 100 ml 180 ml -240 ml Intake Oral 100 ml 480 ml 240 ml IV Total 1704.3 ml 100 ml Output Urine Total 750 ml 300 ml 480 ml Stool Total 0 ml # Voids 2 4 # Bowel Movements 0 1 Result Diagram: 04/28/17 0510 04/28/17 1333 Objective Remarks awake alert mild weak rue 4+ ow moves all well no tremors speech fluent Assessment and Plan Assessment and Plan imp mri old left mca cva no new cva eeg nl us 50-60% r ica cannot do asa plt too low no evidence of PD today on keppra po for sz and neuro mina could dc to rehab tomorrow if other issues resolved as per my consult note consider anticoagulation if can with low plts Tej Sanford MD Apr 29, 2017 08:24
[2017-04-29] MEDS ORDERED: HYDROXYUREA 500 MG CAP PO SCH (09:00)
[2017-04-29] MEDS: CARBIDOPA/LEVODOPA 25 MG/100 MG TAB PO SCH ×3 (09:36→18:59)
[2017-04-29] MEDS: FAMOTIDINE 20 MG/2 ML VIAL IV PUSH SCH ×2 (09:36→21:43)
[2017-04-29] MEDS: BUDESONIDE-FORMOTEROL 80/4.5 MCG INHALER INH SCH ×2 (09:37→21:41)
[2017-04-29] MEDS: TIOTROPIUM BROMIDE 18 MCG INH INH SCH (09:37)
[2017-04-29] MEDS: ALLOPURINOL 300 MG TAB PO SCH (09:37)
[2017-04-29] MEDS: levETIRAcetam 500 MG TAB PO SCH ×2 (09:37→21:42)
[2017-04-29] MEDS: DOCUSATE SODIUM 50 MG/SENNA 8.6 MG TAB PO SCH ×2 (09:37→21:41)
[2017-04-29] MEDS: busPIRone HCL 10 MG TAB PO SCH (09:37)
[2017-04-29] MEDS: SODIUM CHLORIDE 0.9% FLUSH 10 ML FLUSH IV FLUSH SCH ×2 (09:38→21:43)
--- NOTE | 2017-04-29 10:02 | HHI.PR ---
Subjective Remarks Follow-up for multiple medical conditions listed in the assessment and plan Patient very lethargic this morning. He got multiple doses of Ativan last night secondary to agitation and possible seizure activity. His is at the bedside during the interview. She stated that he has seizures last night. Otherwise patient able to answer questions but falls asleep quickly. He had no complaints. His nurses at the bedside during the interview. Objective Vitals Vital Signs Date Time Temp Pulse Resp B/P (MAP) Pulse Ox O2 Delivery O2 Flow Rate FiO2 04/29/17 04:26 76 04/29/17 04:16 75 159/76 (103) 04/29/17 04:08 Nasal Cannula 3.00 04/29/17 00:36 115 04/29/17 00:00 90 20 128/61 (83) 94 04/28/17 21:27 86 04/28/17 21:08 98 Nasal Cannula 2.00 04/28/17 20:00 Nasal Cannula 3.00 04/28/17 20:00 98.3 66 18 149/66 (93) 97 04/28/17 18:30 88 04/28/17 18:30 88 20 139/65 (89) 98 04/28/17 16:00 100 Nasal Cannula 2.00 04/28/17 16:00 98.5 90 33 125/68 (87) 04/28/17 16:00 90 04/28/17 14:00 83 04/28/17 12:56 98 Nasal Cannula 2.00 04/28/17 12:00 97 Nasal Cannula 2.00 04/28/17 12:00 82 04/28/17 12:00 98.0 82 25 146/65 (92) 04/28/17 10:00 78 I/O 04/28/17 04/28/17 04/28/17 04/29/17 04/29/17 04/29/17 07:00 15:00 23:00 07:00 15:00 23:00 Intake Total 1804.3 ml 100 ml 480 ml 240 ml Output Total 750 ml 300 ml 480 ml Balance 1054.3 ml 100 ml 180 ml -240 ml Intake Oral 100 ml 480 ml 240 ml IV Total 1704.3 ml 100 ml Output Urine Total 750 ml 300 ml 480 ml Stool Total 0 ml # Voids 2 4 # Bowel Movements 0 1 Result Diagram: 04/28/17 0510 04/28/17 1333 Objective Remarks GENERAL: in NAD but very lethargic.. CARDIOVASCULAR: Regular rate and rhythm without murmurs, gallops, or rubs. RESPIRATORY: Breath sounds equal bilaterally. No accessory muscle use. GASTROINTESTINAL: Abdomen soft, non-tender, nondistended. NEURO: Moves all extremities grossly. Medications and IVs Current Medications Sodium Chloride 1,000 ml @ 999 mls/hr BOLUS ONCE IV Last administered on 04/26at 20:09; Start 04/26/17 at 20:15; Stop 04/26/17 at 21:15; Status DC Diltiazem HCl (Cardizem Inj) 24 mg ONCE PRN IV PUSH RESPONSE Last administered on 04/26/17at 20:09; Start 04/26/17 at 20:15; Stop 04/28/17 at 16:48; Status DC Diltiazem HCl 125 mg/Sodium Chloride 125 ml @ 5 mls/hr TITRATE PRN IV Tachycardia Last administered on 04/26/17at 21:44; Start 04/26/17 at 21:00; Stop 04/28/17 at 16:48; Status DC Sodium Chloride 1,000 ml @ 999 mls/hr BOLUS ONCE IV Last administered on 04/26at 21:10; Start 04/26/17 at 21:00; Stop 04/26/17 at 22:00; Status DC Potassium Chloride 100 ml @ 50 mls/hr ONCE ONCE IV Last administered on at 23:18; Start 04/26/17 at 22:15; Stop 04/27/17 at 00:14; Status DC Potassium Chloride (KCl) 60 meq ONCE ONCE PO Last administered on 04/26/17at 22 :32; Start 04/26/17 at 22:15; Stop 04/26/17 at 22:16; Status DC Sodium Chloride 1,000 ml @ 999 mls/hr BOLUS ONCE IV Last administered on 04/26at 22:12; Start 04/26/17 at 22:15; Stop 04/26/17 at 23:15; Status DC Lorazepam (Ativan Inj) 1 mg Q5M PRN IV PUSH SEIZURE; Start 04/26/17 at 22:30; Stop 04/26/17 at 23:54; Status DC Sodium Chloride 1,000 ml @ 100 mls/hr Q10H IV ; Start 04/26/17 at 22:18; Stop 04/27/17 at 00:03; Status DC Sodium Chloride (NS Flush) 2 ml UNSCH PRN IV FLUSH FLUSH AFTER USING IV ACCESS ; Start 04/26/17 at 22:30 Sodium Chloride (NS Flush) 2 ml BID IV FLUSH Last administered on 04/29/17at 09: 38; Start 04/27/17 at 09:00 Ondansetron HCl (Zofran Inj) 4 mg Q6H PRN IVP NAUSEA OR VOMITING; Start at 22:30 Acetaminophen (Tylenol) 650 mg Q6H PRN PO FEVER/PAIN SCALE 1 TO 2; Start at 22:30 Acetaminophen/ Hydrocodone Bitart ([place] 5-325 Mg) 1 tab Q4H PRN PO PAIN SCALE 3 TO 5; Start 04/26/17 at 22:30 Morphine Sulfate (Morphine Inj) 2 mg Q3H PRN IV PUSH Pain 6-10; Start 04/26/17 at 22:30; Stop 04/27/17 at 00:03; Status DC Senna/Docusate Sodium (Egrtrude-Colace) 1 tab BID PO Last administered on at 09:37; Start 04/27/17 at 09:00 Magnesium Hydroxide (Milk Of Magnesia Liq) 30 ml Q12H PRN PO Mild constipation ; Start 04/26/17 at 22:30 Sennosides (Senokot) 17.2 mg Q12H PRN PO Moderate constipation; Start 04/26/17 at 22:30 Bisacodyl (Dulcolax Supp) 10 mg DAILY PRN RECTAL SEVERE CONSITIPATION; Start at 22:30; Stop 04/26/17 at 22:30; Status DC Lactulose (Lactulose Liq) 30 ml DAILY PRN PO SEVERE CONSITIPATION/ IF PO; Start 04/26/17 at 22:30 Allopurinol (Zyloprim) 300 mg DAILY PO Last administered on 04/29/17at 09:37; Start 04/27/17 at 09:00 Budesonide/ Formoterol Fumarate (Symbicort 80-4.5 Mcg Inh) 1 puff BID INH Last administered on 04/29/17at 09:37; Start 04/27/17 at 09:00 Buspirone HCl (Buspar) 5 mg HS PO Last administered on 04/28/17at 20:52; Start 04/26/17 at 22:30 Buspirone HCl (Buspar) 10 mg DAILY PO Last administered on 04/29/17at 09:37; Start 04/27/17 at 09:00 Carbidopa/Levodopa (Sinemet 25-100 Mg) 1.5 tab TID PO Last administered on 04/29at 09:36; Start 04/27/17 at 09:00 Mirtazapine (Remeron) 7.5 mg HS PO Last administered on 04/28/17at 20:52; Start 04/26/17 at 22:30 Tiotropium [place] (Spiriva Inh) 18 mcg DAILY INH Last administered on at 09:37; Start 04/27/17 at 09:00 Bisacodyl (Dulcolax Supp) 10 mg DAILY PRN RECTAL SEVERE CONSITIPATION/ IF NPO; Start 04/26/17 at 22:30 Diltiazem HCl (Cardizem Cd) 300 mg DAILY PO ; Start 04/27/17 at 09:00; Stop at 09:00; Status DC Sodium Chloride 1,000 ml @ 50 mls/hr Q20H IV Last administered on 04/28/17at 20 :52; Start 04/26/17 at 23:45 Sodium Chloride (NS Flush) 2 ml UNSCH PRN IV FLUSH FLUSH AFTER USING IV ACCESS ; Start 04/26/17 at 23:45; Stop 04/26/17 at 23:57; Status DC Sodium Chloride (NS Flush) 2 ml BID IV FLUSH ; Start 04/27/17 at 09:00; Stop at 09:00; Status DC Acetaminophen (Tylenol) 650 mg Q6H PRN PO PAIN 1-5 AND/OR FEVER >101F; Start at 23:45; Stop 04/26/17 at 23:57; Status DC Morphine Sulfate (Morphine Inj) 2 mg Q2H PRN IV PUSH PAIN SCALE 6 TO 10; Start 04/26/17 at 23:45 Famotidine (Pepcid Inj) 20 mg Q12HR IV PUSH Last administered on 04/28/17at 08: 20; Start 04/27/17 at 09:00; Stop 04/28/17 at 13:11; Status DC Lorazepam (Ativan Inj) 1 mg Q1H PRN IV PUSH Seizure Last administered on at 00:38; Start 04/26/17 at 23:45 Ondansetron HCl (Zofran Inj) 4 mg Q6H PRN IV PUSH NAUSEA OR VOMITING; Start at 23:45; Stop 04/26/17 at 23:57; Status DC Zolpidem Tartrate (Ambien) 5 mg HS PRN PO INSOMNIA; Start 04/26/17 at 23:45 Albuterol/ Ipratropium (Duoneb Neb) 1 ampule Q6HR NEB INH Last administered on 04/29/17at 03:33; Start 04/27/17 at 04:00 Albuterol/ Ipratropium (Duoneb Neb) 1 ampule Q2HR NEB PRN INH WHEEZING; Start 04/26/17 at 23:45 Miscellaneous Information 1 Q361D XX ; Start 04/26/17 at 23:45 Chlorhexidine Gluconate (Chlorhexidine 2% Cloth) 3 pack Taper DAILY@04 TOP Last administered on 04/28/17at 04:00; Start 04/27/17 at 04:00; Stop 04/23/18 at 03:59 Chlorhexidine Gluconate (Chlorhexidine 2% Cloth) 3 pack UNSCH PRN TOP HYGIENIC CARE; Start 04/26/17 at 23:45 Senna/Docusate Sodium (Gertrude-Colace) 1 tab BID PO ; Start 04/27/17 at 09:00; Stop 04/27/17 at 09:00; Status DC Magnesium Hydroxide (Milk Of Magnesia Liq) 30 ml Q12H PRN PO Mild constipation ; Start 04/26/17 at 23:45; Stop 04/26/17 at 23:57; Status DC Sennosides (Senokot) 17.2 mg Q12H PRN PO Moderate constipation; Start 04/26/17 at 23:45; Stop 04/26/17 at 23:57; Status DC Bisacodyl (Dulcolax Supp) 10 mg DAILY PRN RECTAL SEVERE CONSITIPATION; Start at 23:45; Stop 04/26/17 at 23:57; Status DC Lactulose (Lactulose Liq) 30 ml DAILY PRN PO SEVERE CONSITIPATION; Start at 23:45; Stop 04/26/17 at 23:57; Status DC Levetriacetam 100 ml @ 400 mls/hr Q12HR IV ; Start 04/27/17 at 09:00; Stop at 09:00; Status DC Sodium Chloride 1,000 ml @ 999 mls/hr Q1H1M IV Last administered on 04/27/17at 02:15; Start 04/27/17 at 02:15; Stop 04/27/17 at 03:15; Status DC Albumin Human 500 ml @ 250 mls/hr ONCE ONCE IV Last administered on at 03:58; Start 04/27/17 at 03:45; Stop 04/27/17 at 05:44; Status DC Potassium Chloride 100 ml @ 100 mls/hr Q1H IV Last administered on 04/27/17at 06:36; Start 04/27/17 at 03:45; Stop 04/27/17 at 06:44; Status DC Dextrose (D50w (Vial) Inj) 50 ml UNSCH PRN IV PUSH HYPOGLYCEMIA-SEE COMMENTS; Start 04/27/17 at 04:00 Glucagon (Glucagon Inj) 1 mg UNSCH PRN OTHER HYPOGLYCEMIA-SEE COMMENTS; Start 04/27/17 at 04:00 Insulin Human Regular (NovoLIN R SUPPLEMENTAL SCALE) 1 ACHS SLIDING SCALE SQ Last administered on 04/27/17at 21:21; Start 04/27/17 at 08:00 Calcium Gluconate 2 gm/Sodium Chloride 120 ml @ 120 mls/hr ONCE ONCE IV Last administered on 04/27/17at 05:31; Start 04/27/17 at 04:30; Stop 04/27/17 at 05:29 ; Status DC Magnesium Sulfate/ Dextrose 100 ml @ 100 mls/hr Q1H IV Last administered on at 08:43; Start 04/27/17 at 07:00; Stop 04/27/17 at 08:59; Status DC Levetriacetam (Keppra) 500 mg Q12HR PO Last administered on 04/29/17at 09:37; Start 04/27/17 at 09:00 Hydroxyurea (Hydrea) 500 mg ONCE ONCE PO Last administered on 04/27/17at 21:20 ; Start 04/27/17 at 21:00; Stop 04/27/17 at 21:01; Status DC Potassium Chloride 100 ml @ 50 mls/hr Q2H IV Last administered on 04/28/17at 05 :58; Start 04/28/17 at 04:00; Stop 04/28/17 at 07:59; Status DC Famotidine (Pepcid Inj) 10 mg Q12HR IV PUSH Last administered on 04/29/17at 09: 36; Start 04/28/17 at 21:00 Hydroxyurea (Hydrea) 500 mg ONCE ONCE PO Last administered on 04/28/17at 16:35 ; Start 04/28/17 at 15:00; Stop 04/28/17 at 15:01; Status DC Atenolol (Tenormin) 25 mg Q12HR PO Last administered on 04/29/17at 09:38; Start 04/29/17 at 01:00 Hydroxyurea (Hydrea) 250 mg DAILY PO ; Start 04/29/17 at 09:00; Status UNV A/P Assessment and Plan This is a 66-year-old male who presented with atrial fibrillation RVR and seizure activity Seizure - CT head negative, MRI no acute findings, EEG No sz - History of old CVA, Neurologically intact - Keppra 1000 twice a day - Neurology consultation, Dr. Sanford who cleared patient. - Metabolic encephalopathies but he continues to be lethargic in the setting of giving Ativan. Atrial fibrillation - Currently NSR, off Cardizem drip - No anticoagulation due to severe thrombocytopenia Hypotension-resolved - Severe dehydration - s/p IV fluid bolus, and continue IV maintenance fluid, but reduce to 50 ml per hour - Creatinine continues to improve. - IV albumin 1 Acute kidney injury -Creatinine is improving. On IV fluids. -Strict ins and outs. Avoid nephrotoxins. Hypokalemia - Replenish as needed. Leukocytosis/CMML Anemia thrombocytopenia - Model [employer] Dye Person is following. - F/u on cultures - Monitor without antibiotics at this time - Hydrea and allopurinol added by hematology - Transfusions per hematology Hyperglycemia - Insulin sliding scale Thrombocytopenia - Due to above - Monitor for bleed DVT GI prophylaxis - Teds SCDs - No pharmacological DVT prophylaxis due to thrombocytopenia - IV Yelitza Peres MD Apr 29, 2017 10:02
[2017-04-29 12:55] LABS: HEMATOCRIT 22.2 % (39.0-51.0); MEAN CELL VOLUME 84.7 FL (80.0-100.0); MEAN CORPUSCULAR HEMOGLOBIN 26.9 PG (27.0-34.0); MEAN CORPUSCULAR HGB CONC 31.8 % (32.0-36.0); PLATELET COUNT 20 TH/MM3 (150-450); RED BLOOD COUNT 2.62 MIL/MM3 (4.50-5.90); RED CELL DISTRIBUTION WIDTH 21.9 % (11.6-17.2); WHITE BLOOD COUNT 93.8 TH/MM3 (4.0-11.0)
[2017-04-29 13:24] LABS: ALBUMIN 2.8 GM/DL (3.4-5.0); AST (GOT) 26 U/L (15-37); BICARBONATE 27.6 MEQ/L (21.0-32.0); BLOOD UREA NITROGEN 14 MG/DL (7-18); CHLORIDE 112 MEQ/L (98-107); CREATININE 1.93 MG/DL (0.60-1.30); GLOMERULAR FILTRATION RATE 35 ML/MIN (>89); GLUCOSE,RANDOM 78 MG/DL (74-106); SODIUM (NA) 146 MEQ/L (136-145)
[2017-04-29 13:26] LABS: TRIGLYCERIDES 112 MG/DL (42-150)
[2017-04-29 13:27] LABS: ALT (GPT) LESS THAN 6 U/L (12-78); CALCIUM 7.6 MG/DL (8.5-10.1); TOTAL BILIRUBIN ADULT 0.5 MG/DL (0.2-1.0); TOTAL PROTEIN 5.2 GM/DL (6.4-8.2)
[2017-04-29 13:28] LABS: ALKALINE PHOSPHATASE 72 U/L (45-117); HDL CHOLESTEROL 12.6 MG/DL (40.0-60.0)
[2017-04-29 13:31] LABS: CHOLESTEROL LESS THAN 50 MG/DL (120-200); CHOLESTEROL/ HDL RATIO 3.96 RATIO; LDL CHOLESTEROL 15 MG/DL (0-99)
[2017-04-29 14:17] LABS: BLASTS 14 % (0-0); LYMPHOCYTES 9 % (9-44); MONOCYTES 37 % (0-8); MYELOCYTES 3 % (0-0); NEUTROPHIL # MANUAL DIFF 37.5 TH/MM3 (1.8-7.7); POLYS (SEG NEUTROPHILS) 37 % (16-70)
[2017-04-29 14:21] LABS: OVALOCYTES 1+ (NORMAL)
[2017-04-29 14:22] LABS: SMUDGE CELLS PRESENT PRESENT
[2017-04-29] MEDS: MIRTAZAPINE 15 MG TAB PO SCH (21:41)
[2017-04-29] MEDS: busPIRone HCL 5 MG TAB PO SCH (21:42)
[2017-04-29] MEDS: SODIUM CHLOR 0.9% 1000 ML INJ 1,000 ML IV SCH (21:45)
[2017-04-30] VITALS (24 sets, daily range): BP systolic 115–159; BP diastolic 44–74; PULSE 60–71; RESP 16–20; TEMP 97.4–98.8; O2SAT 86–98
[2017-04-30] MEDS: RESP: ALBUTEROL 2.5 MG/IPRATROPIUM 0.5 MG NEB (SCH) INH ×4 (03:43→20:00)
[2017-04-30] MEDS: CHLORHEXIDINE GLUCONATE 2 % 1 PACK (2 CLOTHS) TOP SCH (04:00)
[2017-04-30 06:42] LABS: MEAN CELL VOLUME 84.8 FL (80.0-100.0); MEAN CORPUSCULAR HEMOGLOBIN 26.7 PG (27.0-34.0); MEAN CORPUSCULAR HGB CONC 31.5 % (32.0-36.0); MEAN PLATELET VOLUME 8.3 FL (7.0-11.0); RED BLOOD COUNT 2.45 MIL/MM3 (4.50-5.90); RED CELL DISTRIBUTION WIDTH 22.1 % (11.6-17.2); WHITE BLOOD COUNT 71.7 TH/MM3 (4.0-11.0)
[2017-04-30 06:56] LABS: HEMATOCRIT 20.7 % (39.0-51.0); HEMOGLOBIN 6.5 GM/DL (13.0-17.0); PLATELET COUNT 17 TH/MM3 (150-450)
[2017-04-30 07:18] LABS: BICARBONATE 29.8 MEQ/L (21.0-32.0); CALCIUM 7.5 MG/DL (8.5-10.1); CREATININE 1.95 MG/DL (0.60-1.30)
[2017-04-30] MEDS: INSULIN NovoLIN REGULAR SUPPLEMENTAL SCALE SQ SCH ×2 (08:00→12:00)
[2017-04-30 08:03] LABS: MAGNESIUM 1.6 MG/DL (1.5-2.5)
--- NOTE | 2017-04-30 08:06 | HHI.PR ---
Objective Vital Signs Date Time Temp Pulse Resp B/P (MAP) Pulse Ox O2 Delivery O2 Flow Rate FiO2 04/30/17 07:35 61 04/30/17 06:01 61 04/30/17 05:01 62 04/30/17 05:00 Nasal Cannula 2.00 21 04/30/17 04:57 97.6 67 18 130/60 (83) 96 04/30/17 04:05 61 04/30/17 02:08 62 04/30/17 01:01 64 04/30/17 00:42 98.0 64 19 125/53 (77) 97 04/30/17 00:42 Nasal Cannula 2.00 04/30/17 00:12 63 04/29/17 23:00 68 04/29/17 22:00 76 04/29/17 21:37 98.4 74 17 148/67 (94) 96 04/29/17 21:12 96 21 04/29/17 21:00 76 04/29/17 20:35 72 04/29/17 17:28 Room Air 2.00 04/29/17 17:00 98.8 68 18 141/68 (92) 95 04/29/17 12:30 75 04/29/17 12:30 98.8 71 18 130/68 (88) 94 04/29/17 12:30 Room Air 2.00 04/29/17 10:06 95 2.00 I/O 04/29/17 04/29/17 04/29/17 04/30/17 04/30/17 04/30/17 07:00 15:00 23:00 07:00 15:00 23:00 Intake Total 240 ml 340 ml 423 ml Output Total 480 ml 1750 ml Balance -240 ml -1410 ml 423 ml Intake Oral 240 ml 340 ml IV Total 423 ml Output Urine Total 480 ml 1750 ml # Voids 5 Result Diagram: 04/30/17 0604/30/17 06 Objective Remarks awake alert mild weak rue 4+ ow moves all well no tremors to command speech fluent Assessment and Plan Assessment and Plan imp mri old left mca cva no new cva eeg nl us 50-60% r ica cannot do asa plt too low no evidence of PD today on keppra po for sz and neuro mina could dc to rehab tomorrow if other issues resolved as per my consult note consider anticoagulation if can with low plts oob to chair most of day stable neuro needs rehab Tej Sanford MD Apr 30, 2017 08:06
--- NOTE | 2017-04-30 08:27 | PD.ONC.PN ---
Subjective Subjective Remarks Patient seen and examined, vital signs, labs, medications were reviewed. Subjectively; the patient reports feeling "better "this morning. He continues to feel weak and tired and has spent most of yesterday in bed. His appetite remains poor. He denies fevers or chills, he denies pain. Objective Data Date Time Temp Pulse Resp B/P (MAP) Pulse Ox O2 Delivery O2 Flow Rate FiO2 04/30/17 08:12 96 Nasal Cannula 2.00 04/30/17 07:35 61 04/30/17 06:01 61 04/30/17 05:01 62 04/30/17 05:00 Nasal Cannula 2.00 21 04/30/17 04:57 97.6 67 18 130/60 (83) 96 04/30/17 04:05 61 04/30/17 02:08 62 04/30/17 01:01 64 04/30/17 00:42 98.0 64 19 125/53 (77) 97 04/30/17 00:42 Nasal Cannula 2.00 04/30/17 00:12 63 04/29/17 23:00 68 04/29/17 22:00 76 04/29/17 21:37 98.4 74 17 148/67 (94) 96 04/29/17 21:12 96 21 04/29/17 21:00 76 04/29/17 20:35 72 04/29/17 17:28 Room Air 2.00 04/29/17 17:00 98.8 68 18 141/68 (92) 95 04/29/17 12:30 75 04/29/17 12:30 98.8 71 18 130/68 (88) 94 04/29/17 12:30 Room Air 2.00 04/29/17 10:06 95 2.00 04/30/17 04/30/17 04/30/17 06:59 14:59 22:59 Intake Total 423 ml Balance 423 ml Result Diagram: 04/30/1760404/30/17604 Laboratory Results Laboratory Tests Test 04/29/17 11:40 04/30/17 06:05 White Blood Count 93.8 TH/MM3 71.7 TH/MM3 Red Blood Count 2.62 MIL/MM3 2.45 MIL/MM3 Hemoglobin 7.0 GM/DL 6.5 GM/DL Hematocrit 22.2 % 20.7 % Mean Corpuscular Volume 84.7 FL 84.8 FL Mean Corpuscular Hemoglobin 26.9 PG 26.7 PG Mean Corpuscular Hemoglobin Concent 31.8 % 31.5 % Red Cell Distribution Width 21.9 % 22.1 % Platelet Count 20 TH/MM3 17 TH/MM3 Mean Platelet Volume 7.0 FL 8.3 FL CBC Comment AUTO DIFF Differential Total Cells Counted 100 Neutrophils % (Manual) 37 % Lymphocytes % 9 % Monocytes % 37 % Neutrophils # (Manual) 37.5 TH/MM3 Myelocytes 3 % Differential Comment FINAL DIFF MANUAL Blastocytes 14 % Smudge Cells PRESENT Platelet Estimate LOW Platelet Morphology Comment ENLARGED Ovalocytes 1+ Blood Urea Nitrogen 14 MG/DL 17 MG/DL Creatinine 1.93 MG/DL 1.95 MG/DL Random Glucose 78 MG/DL 82 MG/DL Total Protein 5.2 GM/DL Albumin 2.8 GM/DL Calcium Level 7.6 MG/DL 7.5 MG/DL Alkaline Phosphatase 72 U/L Aspartate Amino Transf (AST/SGOT) 26 U/L Alanine Aminotransferase (ALT/SGPT) LESS THAN 6 U/L Total Bilirubin 0.5 MG/DL Sodium Level 146 MEQ/L 144 MEQ/L Potassium Level 3.0 MEQ/L 2.9 MEQ/L Chloride Level 112 MEQ/L 109 MEQ/L Carbon Dioxide Level 27.6 MEQ/L 29.8 MEQ/L Anion Gap 6 MEQ/L 5 MEQ/L Estimat Glomerular Filtration Rate 35 ML/MIN 35 ML/MIN Triglycerides Level 112 MG/DL Cholesterol Level LESS THAN 50 MG/DL LDL Cholesterol 15 MG/DL HDL Cholesterol 12.6 MG/DL Cholesterol/HDL Ratio 3.96 RATIO Magnesium Level 1.6 MG/DL Culture Results Microbiology Date/Time Source Procedure Growth Status 04/27/17 17:25 Blood Peripheral Aerobic Blood Culture - Preliminary NO GROWTH IN 2 DAYS Resulted 04/27/17 17:25 Blood Peripheral Anaerobic Blood Culture - Preliminary NO GROWTH IN 2 DAYS Resulted 04/27/17 17:15 Blood Peripheral Aerobic Blood Culture - Preliminary NO GROWTH IN 2 DAYS Resulted 04/27/17 17:15 Blood Peripheral Anaerobic Blood Culture - Preliminary NO GROWTH IN 2 DAYS Resulted Administered Medications Medications (Trade) Dose Ordered Sig/Amberly Route PRN Reason Start Time Stop Time Status Last Admin Dose Admin Sodium Chloride (NS Flush) 2 ml BID IV FLUSH 04/27/17 09:00 1/22/18 21:43 Senna/Docusate Sodium (Gertrude-Colace) 1 tab BID PO 04/27/17 09:00 04/29/17 21:41 Allopurinol (Zyloprim) 300 mg DAILY PO 04/27/17 09:00 04/29/17 09:37 Budesonide/ Formoterol Fumarate (Symbicort 80-4.5 Mcg Inh) 1 puff BID INH 04/27/17 09:00 04/29/17 21:41 Buspirone HCl (Buspar) 5 mg HS PO 04/26/17 22:30 04/29/17 21:42 Buspirone HCl (Buspar) 10 mg DAILY PO 04/27/17 09:00 04/29/17 09:37 Carbidopa/Levodopa (Sinemet 25-100 Mg) 1.5 tab TID PO 04/27/17 09:00 04/29/17 18:59 Mirtazapine (Remeron) 7.5 mg HS PO 04/26/17 22:30 04/29/17 21:41 Tiotropium [place] (Spiriva Inh) 18 mcg DAILY INH 04/27/17 09:00 04/29/17 09:37 Sodium Chloride 1,000 ml @ 50 mls/hr Q20H IV 04/26/17 23:45 04/29/17 21:45 Lorazepam (Ativan Inj) 1 mg Q1H PRN IV PUSH Seizure 04/26/17 23:45 04/29/17 00:38 Zolpidem Tartrate (Ambien) 5 mg HS PRN PO INSOMNIA 04/26/17 23:45 04/29/17 22:50 Albuterol/ Ipratropium (Duoneb Neb) 1 ampule Q6HR NEB INH 04/27/17 04:00 04/30/17 08:12 Chlorhexidine Gluconate (Chlorhexidine 2% Cloth) 3 pack Taper DAILY@04 TOP 04/27/17 04:00 04/23/18 03:59 04/28/17 04:00 Insulin Human Regular (NovoLIN R SUPPLEMENTAL SCALE) 1 ACHS SLIDING SCALE SQ 04/27/17 08:00 04/27/17 21:21 Levetriacetam (Keppra) 500 mg Q12HR PO 04/27/17 09:00 04/29/17 21:42 Famotidine (Pepcid Inj) 10 mg Q12HR IV PUSH 04/28/17 21:00 04/29/17 21:43 Atenolol (Tenormin) 25 mg Q12HR PO 04/29/17 01:00 04/29/17 21:42 Objective Remarks GENERAL: Elderly male, chronically ill and cachectic appearing. Laying in bed asleep comfortably but easily awoken. SKIN: Cool and dry. HEAD: Normocephalic. EYES: No scleral icterus. No injection or drainage. Conjunctivae are pale. Oral exam: He has a submucosal hematoma on the left side of his tongue. Left lower lip also has a bruise on it. NECK: Supple, trachea midline. No JVD or lymphadenopathy. LYMPHATIC: No adenopathy. CARDIOVASCULAR: Irregular, S1 and S2 normal obvious murmurs or gallops.. RESPIRATORY: Distant sounding breath sounds, prolonged expiratory phase but no wheezing or rhonchi or crepitus. GASTROINTESTINAL: Abdomen soft, non-tender, nondistended. EXTREMITIES: No cyanosis, or edema. MUSCULOSKELETAL: Atrophic muscle mass diffusely noted but especially in the lower extremities. NEUROLOGICAL: He is able to speak sentences. He does express understanding of our conversation. He is moving all 4 limbs spontaneously and purposefully. PSYCHIATRIC: Appropriate mood and affect; insight and judgment normal. Assessment/Plan Assessment 66y/o male admitted with seizure. Oncology consulted for CMML/MDS. history of a CVA, COPD, Parkinson's disease, coronary artery disease and chronic debility/frailty. His malignant hematologic diagnosis was established earlier in April 2017, he is currently treatment shannan. Plan 1. CMML/MDS overlap: Therapeutic options are limited but include cytoreductive therapy with hydroxyurea versus hypo-methylating agents such as Vidaza or Dacogen. I would prefer Vidaza at this point should we wish to pursue disease directed aggressive therapy. I did explain to the patient that given his poor clinical condition he is at significantly increased risk for adverse treatment related outcomes with even low intensity interventions such as Vidaza. In the meantime I will start him on hydroxyurea 250 mg daily as a cytoreductive agent. 2. Anemia: d/t MDS I have ordered 2 units packed red blood cell transfusion today. 3. AMS: unclear etiology. He appears to be at baseline mentation today. 4. thrombocytopenia: likely d/t MDS. Platelet count 17,000 today, no active bleeding noted. I have requested palliative care consultation. It is becoming apparent that this patient may be a suboptimal candidate for aggressive disease directed therapy and may benefit most from a palliative course as opposed to aggressive disease directed therapeutic interventions. I will meet with his to more morning at bedside to discuss additional details. De Hansen MD Apr 30, 2017 08:27
[2017-04-30] MEDS ORDERED: ACETAMINOPHEN 325 MG TAB PO PRN (08:30)
[2017-04-30] MEDS ORDERED: SODIUM CHLOR 0.9% 250 ML INJ 250 ML IV ONE (08:30)
[2017-04-30] MEDS ORDERED: FUROSEMIDE 20 MG/2 ML VIAL IV PUSH ONE (08:30)
[2017-04-30] MEDS ORDERED: POTASSIUM CHLORIDE 20 MEQ CONTROLLED RELEASE TAB PO ONE (08:30)
[2017-04-30] MEDS ORDERED: diphenhydrAMINE HCL 25 MG CAP PO PRN (08:30)
[2017-04-30] MEDS ORDERED: POTASSIUM CHLORIDE 25 MEQ EFFERVESCENT TAB PO ONE (08:45)
[2017-04-30] MEDS: CARBIDOPA/LEVODOPA 25 MG/100 MG TAB PO SCH ×3 (09:17→17:06)
[2017-04-30] MEDS: busPIRone HCL 10 MG TAB PO SCH (09:18)
[2017-04-30] MEDS: FAMOTIDINE 20 MG/2 ML VIAL IV PUSH SCH ×2 (09:18→20:32)
[2017-04-30] MEDS: DOCUSATE SODIUM 50 MG/SENNA 8.6 MG TAB PO SCH ×2 (09:18→20:32)
[2017-04-30] MEDS: ALLOPURINOL 300 MG TAB PO SCH (09:18)
[2017-04-30] MEDS: levETIRAcetam 500 MG TAB PO SCH ×2 (09:18→20:32)
[2017-04-30] MEDS: SODIUM CHLORIDE 0.9% FLUSH 10 ML FLUSH IV FLUSH SCH ×2 (09:19→20:33)
[2017-04-30] MEDS: BUDESONIDE-FORMOTEROL 80/4.5 MCG INHALER INH SCH ×2 (09:19→20:32)
[2017-04-30] MEDS: TIOTROPIUM BROMIDE 18 MCG INH INH SCH (09:19)
[2017-04-30] MEDS: ATENOLOL 25 MG TAB PO SCH ×2 (09:23→20:32)
[2017-04-30] MEDS: SODIUM CHLOR 0.9% 1000 ML INJ 1,000 ML IV SCH (10:17)
--- NOTE | 2017-04-30 11:07 | HHI.PR ---
Subjective Remarks Follow-up for altered mental status secondary to seizures and CMML/MDS Patient much more alert today. He has no complaints. He is tolerating oral intake. His nurse is at the bedside during the interview. No active bleeding at all. Remains afebrile. Objective Vitals Vital Signs Date Time Temp Pulse Resp B/P (MAP) Pulse Ox O2 Delivery O2 Flow Rate FiO2 04/30/17 09:30 98.8 66 18 159/74 (102) 97 04/30/17 08:12 96 Nasal Cannula 2.00 04/30/17 07:35 61 04/30/17 06:01 61 04/30/17 05:01 62 04/30/17 05:00 Nasal Cannula 2.00 21 04/30/17 04:57 97.6 67 18 130/60 (83) 96 04/30/17 04:05 61 04/30/17 02:08 62 04/30/17 01:01 64 04/30/17 00:42 98.0 64 19 125/53 (77) 97 04/30/17 00:42 Nasal Cannula 2.00 04/30/17 00:12 63 04/29/17 23:00 68 04/29/17 22:00 76 04/29/17 21:37 98.4 74 17 148/67 (94) 96 04/29/17 21:12 96 21 04/29/17 21:00 76 04/29/17 20:35 72 04/29/17 17:28 Room Air 2.00 04/29/17 17:00 98.8 68 18 141/68 (92) 95 04/29/17 12:30 75 04/29/17 12:30 98.8 71 18 130/68 (88) 94 04/29/17 12:30 Room Air 2.00 I/O 04/29/17 04/29/17 04/29/17 04/30/17 04/30/17 04/30/17 07:00 15:00 23:00 07:00 15:00 23:00 Intake Total 240 ml 340 ml 423 ml Output Total 480 ml 1750 ml Balance -240 ml -1410 ml 423 ml Intake Oral 240 ml 340 ml IV Total 423 ml Output Urine Total 480 ml 1750 ml # Voids 5 Result Diagram: 1/23/18 0605 1/23/18 0605 Objective Remarks GENERAL: in NAD and awake. CARDIOVASCULAR: Regular rate and rhythm without murmurs, gallops, or rubs. RESPIRATORY: Breath sounds equal bilaterally. No accessory muscle use. GASTROINTESTINAL: Abdomen soft, non-tender, nondistended. NEURO: Moves all extremities grossly. Medications and IVs Current Medications Sodium Chloride 1,000 ml @ 999 mls/hr BOLUS ONCE IV Last administered on 04/26at 20:09; Start 04/26/17 at 20:15; Stop 04/26/17 at 21:15; Status DC Diltiazem HCl (Cardizem Inj) 24 mg ONCE PRN IV PUSH RESPONSE Last administered on 04/26/17at 20:09; Start 04/26/17 at 20:15; Stop 04/28/17 at 16:48; Status DC Diltiazem HCl 125 mg/Sodium Chloride 125 ml @ 5 mls/hr TITRATE PRN IV Tachycardia Last administered on 04/26/17at 21:44; Start 04/26/17 at 21:00; Stop 04/28/17 at 16:48; Status DC Sodium Chloride 1,000 ml @ 999 mls/hr BOLUS ONCE IV Last administered on 04/26at 21:10; Start 04/26/17 at 21:00; Stop 04/26/17 at 22:00; Status DC Potassium Chloride 100 ml @ 50 mls/hr ONCE ONCE IV Last administered on at 23:18; Start 04/26/17 at 22:15; Stop 04/27/17 at 00:14; Status DC Potassium Chloride (KCl) 60 meq ONCE ONCE PO Last administered on 04/26/17at 22 :32; Start 04/26/17 at 22:15; Stop 04/26/17 at 22:16; Status DC Sodium Chloride 1,000 ml @ 999 mls/hr BOLUS ONCE IV Last administered on 04/26at 22:12; Start 04/26/17 at 22:15; Stop 04/26/17 at 23:15; Status DC Lorazepam (Ativan Inj) 1 mg Q5M PRN IV PUSH SEIZURE; Start 04/26/17 at 22:30; Stop 04/26/17 at 23:54; Status DC Sodium Chloride 1,000 ml @ 100 mls/hr Q10H IV ; Start 04/26/17 at 22:18; Stop 04/27/17 at 00:03; Status DC Sodium Chloride (NS Flush) 2 ml UNSCH PRN IV FLUSH FLUSH AFTER USING IV ACCESS ; Start 04/26/17 at 22:30 Sodium Chloride (NS Flush) 2 ml BID IV FLUSH Last administered on 04/30/17at 09: 19; Start 04/27/17 at 09:00 Ondansetron HCl (Zofran Inj) 4 mg Q6H PRN IVP NAUSEA OR VOMITING; Start at 22:30 Acetaminophen (Tylenol) 650 mg Q6H PRN PO FEVER/PAIN SCALE 1 TO 2; Start at 22:30 Acetaminophen/ Hydrocodone Bitart ([place] 5-325 Mg) 1 tab Q4H PRN PO PAIN SCALE 3 TO 5; Start 04/26/17 at 22:30 Morphine Sulfate (Morphine Inj) 2 mg Q3H PRN IV PUSH Pain 6-10; Start 04/26/17 at 22:30; Stop 04/27/17 at 00:03; Status DC Senna/Docusate Sodium (Gertrude-Colace) 1 tab BID PO Last administered on at 09:18; Start 04/27/17 at 09:00 Magnesium Hydroxide (Milk Of Magnesia Liq) 30 ml Q12H PRN PO Mild constipation ; Start 04/26/17 at 22:30 Sennosides (Senokot) 17.2 mg Q12H PRN PO Moderate constipation; Start 04/26/17 at 22:30 Bisacodyl (Dulcolax Supp) 10 mg DAILY PRN RECTAL SEVERE CONSITIPATION; Start at 22:30; Stop 04/26/17 at 22:30; Status DC Lactulose (Lactulose Liq) 30 ml DAILY PRN PO SEVERE CONSITIPATION/ IF PO; Start 04/26/17 at 22:30 Allopurinol (Zyloprim) 300 mg DAILY PO Last administered on 04/30/17at 09:18; Start 04/27/17 at 09:00 Budesonide/ Formoterol Fumarate (Symbicort 80-4.5 Mcg Inh) 1 puff BID INH Last administered on 04/30/17at 09:19; Start 04/27/17 at 09:00 Buspirone HCl (Buspar) 5 mg HS PO Last administered on 04/29/17at 21:42; Start 04/26/17 at 22:30 Buspirone HCl (Buspar) 10 mg DAILY PO Last administered on 04/30/17at 09:18; Start 04/27/17 at 09:00 Carbidopa/Levodopa (Sinemet 25-100 Mg) 1.5 tab TID PO Last administered on 04/30at 09:17; Start 04/27/17 at 09:00 Mirtazapine (Remeron) 7.5 mg HS PO Last administered on 04/29/17at 21:41; Start 04/26/17 at 22:30 Tiotropium [place] (Spiriva Inh) 18 mcg DAILY INH Last administered on at 09:19; Start 04/27/17 at 09:00 Bisacodyl (Dulcolax Supp) 10 mg DAILY PRN RECTAL SEVERE CONSITIPATION/ IF NPO; Start 04/26/17 at 22:30 Diltiazem HCl (Cardizem Cd) 300 mg DAILY PO ; Start 04/27/17 at 09:00; Stop at 09:00; Status DC Sodium Chloride 1,000 ml @ 50 mls/hr Q20H IV Last administered on 04/29/17at 21 :45; Start 04/26/17 at 23:45 Sodium Chloride (NS Flush) 2 ml UNSCH PRN IV FLUSH FLUSH AFTER USING IV ACCESS ; Start 04/26/17 at 23:45; Stop 04/26/17 at 23:57; Status DC Sodium Chloride (NS Flush) 2 ml BID IV FLUSH ; Start 04/27/17 at 09:00; Stop at 09:00; Status DC Acetaminophen (Tylenol) 650 mg Q6H PRN PO PAIN 1-5 AND/OR FEVER >101F; Start at 23:45; Stop 04/26/17 at 23:57; Status DC Morphine Sulfate (Morphine Inj) 2 mg Q2H PRN IV PUSH PAIN SCALE 6 TO 10; Start 04/26/17 at 23:45 Famotidine (Pepcid Inj) 20 mg Q12HR IV PUSH Last administered on 04/28/17at 08: 20; Start 04/27/17 at 09:00; Stop 04/28/17 at 13:11; Status DC Lorazepam (Ativan Inj) 1 mg Q1H PRN IV PUSH Seizure Last administered on at 00:38; Start 04/26/17 at 23:45 Ondansetron HCl (Zofran Inj) 4 mg Q6H PRN IV PUSH NAUSEA OR VOMITING; Start at 23:45; Stop 04/26/17 at 23:57; Status DC Zolpidem Tartrate (Ambien) 5 mg HS PRN PO INSOMNIA Last administered on at 22:50; Start 04/26/17 at 23:45 Albuterol/ Ipratropium (Duoneb Neb) 1 ampule Q6HR NEB INH Last administered on 04/30/17at 08:12; Start 04/27/17 at 04:00 Albuterol/ Ipratropium (Duoneb Neb) 1 ampule Q2HR NEB PRN INH WHEEZING; Start 04/26/17 at 23:45 Miscellaneous Information 1 Q361D XX ; Start 04/26/17 at 23:45 Chlorhexidine Gluconate (Chlorhexidine 2% Cloth) 3 pack Taper DAILY@04 TOP Last administered on 04/28/17at 04:00; Start 04/27/17 at 04:00; Stop 04/23/18 at 03:59 Chlorhexidine Gluconate (Chlorhexidine 2% Cloth) 3 pack UNSCH PRN TOP HYGIENIC CARE; Start 04/26/17 at 23:45 Senna/Docusate Sodium (Gertrude-Colace) 1 tab BID PO ; Start 04/27/17 at 09:00; Stop 04/27/17 at 09:00; Status DC Magnesium Hydroxide (Milk Of Magnesia Liq) 30 ml Q12H PRN PO Mild constipation ; Start 04/26/17 at 23:45; Stop 04/26/17 at 23:57; Status DC Sennosides (Senokot) 17.2 mg Q12H PRN PO Moderate constipation; Start 04/26/17 at 23:45; Stop 04/26/17 at 23:57; Status DC Bisacodyl (Dulcolax Supp) 10 mg DAILY PRN RECTAL SEVERE CONSITIPATION; Start at 23:45; Stop 04/26/17 at 23:57; Status DC Lactulose (Lactulose Liq) 30 ml DAILY PRN PO SEVERE CONSITIPATION; Start at 23:45; Stop 04/26/17 at 23:57; Status DC Levetriacetam 100 ml @ 400 mls/hr Q12HR IV ; Start 04/27/17 at 09:00; Stop at 09:00; Status DC Sodium Chloride 1,000 ml @ 999 mls/hr Q1H1M IV Last administered on 04/27/17at 02:15; Start 04/27/17 at 02:15; Stop 04/27/17 at 03:15; Status DC Albumin Human 500 ml @ 250 mls/hr ONCE ONCE IV Last administered on at 03:58; Start 04/27/17 at 03:45; Stop 04/27/17 at 05:44; Status DC Potassium Chloride 100 ml @ 100 mls/hr Q1H IV Last administered on 04/27/17at 06:36; Start 04/27/17 at 03:45; Stop 04/27/17 at 06:44; Status DC Dextrose (D50w (Vial) Inj) 50 ml UNSCH PRN IV PUSH HYPOGLYCEMIA-SEE COMMENTS; Start 04/27/17 at 04:00 Glucagon (Glucagon Inj) 1 mg UNSCH PRN OTHER HYPOGLYCEMIA-SEE COMMENTS; Start 04/27/17 at 04:00 Insulin Human Regular (NovoLIN R SUPPLEMENTAL SCALE) 1 ACHS SLIDING SCALE SQ Last administered on 04/27/17at 21:21; Start 04/27/17 at 08:00 Calcium Gluconate 2 gm/Sodium Chloride 120 ml @ 120 mls/hr ONCE ONCE IV Last administered on 04/27/17at 05:31; Start 04/27/17 at 04:30; Stop 04/27/17 at 05:29 ; Status DC Magnesium Sulfate/ Dextrose 100 ml @ 100 mls/hr Q1H IV Last administered on at 08:43; Start 04/27/17 at 07:00; Stop 04/27/17 at 08:59; Status DC Levetriacetam (Keppra) 500 mg Q12HR PO Last administered on 04/30/17at 09:18; Start 04/27/17 at 09:00 Hydroxyurea (Hydrea) 500 mg ONCE ONCE PO Last administered on 04/27/17at 21:20 ; Start 04/27/17 at 21:00; Stop 04/27/17 at 21:01; Status DC Potassium Chloride 100 ml @ 50 mls/hr Q2H IV Last administered on 04/28/17at 05 :58; Start 04/28/17 at 04:00; Stop 04/28/17 at 07:59; Status DC Famotidine (Pepcid Inj) 10 mg Q12HR IV PUSH Last administered on 04/30/17at 09: 18; Start 04/28/17 at 21:00 Hydroxyurea (Hydrea) 500 mg ONCE ONCE PO Last administered on 04/28/17at 16:35 ; Start 04/28/17 at 15:00; Stop 04/28/17 at 15:01; Status DC Atenolol (Tenormin) 25 mg Q12HR PO Last administered on 04/30/17at 09:23; Start 04/29/17 at 01:00 Hydroxyurea (Hydrea) 250 mg DAILY PO ; Start 04/29/17 at 09:00; Status UNV Potassium Bicarb/ Potassium Chloride (K-[place] Cl Eff) 50 meq ONCE ONCE PO Last administered on 04/30/17at 09:26; Start 04/30/17 at 08:45; Stop 04/30/17 at 08:48; Status DC Sodium Chloride 250 ml @ 15 mls/hr ONCE ONCE IV ; Start 04/30/17 at 08:30; Stop 05/01/17 at 01:09 Acetaminophen (Tylenol) 650 mg Q4H PRN PO SEE LABEL COMMENTS; Start 04/30/17 at 08:30 Diphenhydramine HCl (Benadryl) 25 mg Q4H PRN PO SEE LABEL COMMENTS; Start 04/30 at 08:30 Furosemide (Lasix Inj) 20 mg ONCE ONCE IV PUSH ; Start 04/30/17 at 08:30; Stop 04/30/17 at 08:48; Status DC Potassium Chloride (KCl) 40 meq ONCE ONCE PO ; Start 04/30/17 at 08:30; Stop at 08:31; Status UNV A/P Assessment and Plan This is a 66-year-old male who presented with atrial fibrillation RVR and seizure activity Seizure - CT head negative, MRI no acute findings, EEG No sz - History of old CVA, Neurologically intact - Keppra 1000 twice a day - Neurology consultation, Dr. Sanford who cleared patient. - Metabolic encephalopathy seems resolved. Atrial fibrillation - Currently NSR, off Cardizem drip - No anticoagulation due to severe thrombocytopenia Hypotension-resolved - Severe dehydration - s/p IV fluid bolus, and continue IV maintenance fluid, but reduce to 50 ml per hour - Creatinine continues to improve. - IV albumin 1 Acute kidney injury -Creatinine is improving. On IV fluids. -Strict ins and outs. Avoid nephrotoxins. Hypokalemia - Replenish as needed. Leukocytosis/CMML Anemia thrombocytopenia - Lpta is following. - So far cultures are all negative. - Monitor without antibiotics at this time - Hydrea and allopurinol added by hematology - Transfusions per hematology Hypokalemia -Will supplement with potassium. We'll recheck magnesium level. Hyperglycemia - Insulin sliding scale Thrombocytopenia - Due to above - Monitor for bleed -Patient already have order for transfusion. DVT GI prophylaxis - Teds SCDs - No pharmacological DVT prophylaxis due to thrombocytopenia - IV Pepcid Discharge Planning Poor prognosis. Palliative care consulted. Yelitza Cesar MD Apr 30, 2017 11:07
--- NOTE | 2017-04-30 11:38 | PD.CONS ---
Consult Service Palliative Care Consult Requested By Dr. Hansen Primary Care Physician Unknown Reason for Consultation a. To assist with evaluation and management of symptoms including:confusion , dyspnea, weakness, decreased oral intake. b. To assist medical decision maker(s) with: better understanding of current medical conditions; weighing benefits/burdens of medical treatment options; making medical treatment decisions. HPI History of Present Illness Mr. 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 Patient was brought in to the ER on 04/26/17 by EVAC after he had a witnessed seizure by his . 2 mg of Ativan was given in field. Patient was also found to be in A. fib with RVR with heart rate in the 200s and 20 mg IV push Cardizem was administered. Upon my his arrival to the ER his heart treat was between 130s to 140s and he complained of generalized weakness with no focal neurologic deficits. 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 ER course: * Vital signs: Temperature 98.7, pulse 125, respirations 18, BP104/54 , O2 saturation 97% on O2 2 L nasal cannula. * Patient started on a Cardizem drip and normal saline IV fluids. * Head CT revealed no acute disease. * Laboratory workup revealed WBC 171.7, hemoglobin 8.3, hematocrit 25, platelet count 54, potassium 2.5, BUN/creatinine 20/3.06, calcium 8.2, troponin less than 0.02, total protein 6.3, albumin 3.4, PTT 13.0, INR 1.3, APTT 33.8 * Patient admitted for further evaluation and workup. Critical care consulted on 04/26/17. Dr. Harris consulted on for management of seizure-started patient on Keppra and ordered MRI of the brain. MRI showed old left MCA CVA with no new CVA. EEG on 04/28/[address] Knox consulted on 04/27/17 for management of CMML. Patient was given a dose of Hydrea 500mg on 04/27/17 with decline of counts. Physical therapy consulted, recommended PT at rehabilitation. Clinical course complicated with altered mental status, anemia, leucocytosis, thrombocytopenia and electrolyte abnormalities. Patient has had conversations with refrigeration service inspector and therapeutic options which are limited have been presented to him. Patient has also been notified that due to his poor clinical condition he is at significantly high risk for adverse treatment related outcomes even on low intensity therapy. Patient requested to consider his options. Palliative care consulted to assist with establishing goals of care. Patient seen and examined in his room on [facility]. Patient alert and oriented to self , place and time. Patient does not remember why he was brought to the hospital. Patient denies pain at this time. He endorses feeling fatigued and weak. Remains afebrile. HR 60s, SBP 120s-150s. O2 saturation mid to high 90s on O2 2 L nasal cannula. Laboratory workup today revealing WBC 71.7, hemoglobin 6.5, hematocrit 20.7, platelet count 17, sodium 144, potassium 2.9, BUN/creatinine 17 /1.95. Order placed to transfuse PRBC. Brief telephone conversation with patient's who happened to call during visit. Planning to meet with her tomorrow at bedside and she wishes to meet with Dr. Hansen to discuss patient's treatment options. Patient's stated that she thinks patient has a copy of his living will at [facility]. Patient is oriented 3 but seems to be forgetful, he does not remember his conversation with Dr. Hansen and appears to lack insight and judgment regarding his medical condition. Obtain psychosocial and past medical history. Addressed CODE STATUS with patient, discussed CPR and what it entails, patient stated that he would want to be a full code. In regards to health care surrogate patient stated that he would like his to make medical decisions for him if ever he becomes incapacitated and he would like his daughter Christi Novak to be his alternate surrogate. Patient endorsing that he has been gradually declining since beginning of last year. . Function/Cognitive Trajectory Patient lives at home with his spouse. Patient's last hospitalization was from April 12 to April 16 and was discharged home with home health care. Patient endorsing that he has been gradually declining since beginning of last year. He reported having x3 falls at home in just 2017 with no injuries. Prior to admission, patient requires assistance from his with bathing and dressing. He is able to feed himself, though he reports poor appetite and nausea in the past few months. Patient states that he has unintentionally lost weight. May, 2016 patient weighed 88kg, July,-75kg and April, - 72kg. Patient has been on O2 2 L nasal cannula home oxygen for approximately 2 years that he uses prn below information is that of late he has required more often. Patient states that over the past year he has had decreased mobility due to fatigue and dyspnea with activity. He uses a walker, sometimes cane for short distances in the home and mostly wheelchair for long distances. Patient states that he is not able to go fishing as he used to due to fatigue, increased weakness and dyspnea. During this hospitalization patient is endorsing fatigue. . Review of Systems Constitutional: COMPLAINS OF: Fatigue, Weight loss, Change in appetite, Generalized weakness Endocrine: DENIES: Polyuria Eyes: DENIES: Eye inflammation Ears, nose, mouth, throat: DENIES: Nasal discharge Respiratory: COMPLAINS OF: Cough, Shortness of breath Cardiovascular: DENIES: Lower Extremity Edema Gastrointestinal: COMPLAINS OF: Nausea, DENIES: Constipation, Diarrhea, Vomiting, Difficulty Swallowing Genitourinary: DENIES: Urinary incontinence Hematologic/Lymphatics: COMPLAINS OF: Bruising, History of transfusions Neurologic: COMPLAINS OF: Seizures, Poor Balance Psychiatric: COMPLAINS OF: Anxiety, Confusion Past Family Social History Coded Allergies: No Known Allergies (Verified , 05/31/16) Past Medical History Parkinson's disease Chronic obstructive pulmonary disease Cerebrovascular accident Coronary artery disease Tobacco use Previous alcohol abuse . Past Surgical History Bone marrow biopsy Right salivary gland biopsy Colonoscopy with polypectomy-07/23/2016 Upper endoscopy . Reported Medications Zyloprim (Allopurinol) 300 Mg Tab 300 Mg PO DAILY 30 Days Spiriva Handihaler (Tiotropium Inh) 18 Mcg Cap 18 Mcg INH DAILY Mirtazapine 7.5 Mg Tab 7.5 Mg PO HS Diltiazem CD 24 HR 300 Mg Caper 300 Mg PO DAILY Lisinopril 10 Mg Tab 10 Mg PO DAILY Buspirone (Buspirone HCl) 5 Mg Tab 5 Mg PO HS Buspirone (Buspirone HCl) 10 Mg Tab 10 Mg PO DAILY IN THE MORNING Combivent Respimat Inh (Ipratropium-Albuterol Inh) 20-100 Chcf/Act Aero 1 Puff INH QID Sinemet (Carbidopa-Levodopa) 25-100 Mg Tab 1.5 Tab PO TID Symbicort Inh (Budesonide/Formoterol Fumarate) 80-4.5 Mcg/Act Aero 1 Puff INH BID . Current Medications Medications (Trade) Dose Ordered Sig/Amberly Route Start Time Stop Time Status Last Admin (NS Flush) 2 ml UNSCH PRN IV FLUSH 04/26/17 22:30 (NS Flush) 2 ml BID IV FLUSH 04/27/17 09:00 04/30/17 09:19 (Zofran Inj) 4 mg Q6H PRN IVP 04/26/17 22:30 (Tylenol) 650 mg Q6H PRN PO 04/26/17 22:30 (Duxbury 5-325 Mg) 1 tab Q4H PRN PO 04/26/17 22:30 (Gertrude-Colace) 1 tab BID PO 04/27/17 09:00 04/30/17 09:18 (Milk Of Magnesia Liq) 30 ml Q12H PRN PO 04/26/17 22:30 (Senokot) 17.2 mg Q12H PRN PO 04/26/17 22:30 (Lactulose Liq) 30 ml DAILY PRN PO 04/26/17 22:30 (Zyloprim) 300 mg DAILY PO 04/27/17 09:00 04/30/17 09:18 (Symbicort 80-4.5 Mcg Inh) 1 puff BID INH 04/27/17 09:00 04/30/17 09:19 (Buspar) 5 mg HS PO 04/26/17 22:30 04/29/17 21:42 (Buspar) 10 mg DAILY PO 04/27/17 09:00 04/30/17 09:18 (Sinemet 25-100 Mg) 1.5 tab TID PO 04/27/17 09:00 04/30/17 09:17 (Remeron) 7.5 mg HS PO 04/26/17 22:30 04/29/17 21:41 (Spiriva Inh) 18 mcg DAILY INH 04/27/17 09:00 04/30/17 09:19 (Dulcolax Supp) 10 mg DAILY PRN RECTAL 04/26/17 22:30 Sodium Chloride 1,000 ml @ 50 mls/hr Q20H IV 04/26/17 23:45 04/29/17 21:45 (Morphine Inj) 2 mg Q2H PRN IV PUSH 04/26/17 23:45 (Ativan Inj) 1 mg Q1H PRN IV PUSH 04/26/17 23:45 04/29/17 00:38 (Ambien) 5 mg HS PRN PO 04/26/17 23:45 04/29/17 22:50 (Duoneb Neb) 1 ampule Q6HR NEB INH 04/27/17 04:00 04/30/17 08:12 (Duoneb Neb) 1 ampule Q2HR NEB PRN INH 04/26/17 23:45 Miscellaneous Information 1 Q361D XX 04/26/17 23:45 (Chlorhexidine 2% Cloth) 3 pack Taper DAILY@04 TOP 04/27/17 04:00 04/23/18 03:59 04/28/17 04:00 (Chlorhexidine 2% Cloth) 3 pack UNSCH PRN TOP 04/26/17 23:45 (D50w (Vial) Inj) 50 ml UNSCH PRN IV PUSH 04/27/17 04:00 (Glucagon Inj) 1 mg UNSCH PRN OTHER 04/27/17 04:00 (NovoLIN R SUPPLEMENTAL SCALE) 1 ACHS SLIDING SCALE SQ 04/27/17 08:00 04/27/17 21:21 (Keppra) 500 mg Q12HR PO 04/27/17 09:00 04/30/17 09:18 (Pepcid Inj) 10 mg Q12HR IV PUSH 04/28/17 21:00 04/30/17 09:18 (Tenormin) 25 mg Q12HR PO 04/29/17 01:00 04/30/17 09:23 (Hydrea) 250 mg DAILY PO 04/29/17 09:00 UNV Sodium Chloride 250 ml @ 15 mls/hr ONCE ONCE IV 04/30/17 08:30 05/01/17 01:09 (Tylenol) 650 mg Q4H PRN PO 04/30/17 08:30 (Benadryl) 25 mg Q4H PRN PO 04/30/17 08:30 Family History Father- had lung cancer Daughter- diagnosed with Chronic Myeloid Leukemia at age 41 . Substance Use Tobacco: Current smoker, smokes one PPD Alcohol: Drinks beer Prescription med abuse: Denies Illicits: Denies . Psychosocial History Patient was born and raised in [place]. He graduated from high school and had some college education. Patient was in the [employer] for 2 years. 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 [place] moved to [place] in early . Patient has been twice and was once. He has been to his second for 29 years. He has an adult daughter Christi Novak from his first marriage. . Spiritual/Cultural Factors Patient is Restorationism- open to county court judge visit. . Living Will: Completed, but not made available Health Care Surrogate(s): Health Care Proxy- Spouse-Jayne Lacydavid([phone]) . Family/friends goals: Patient`s and patient hoping to meet with Dr. Hansen tomorrow to discuss treatment options. . Ethical and Legal Issues None identified at this time. . Physical Exam Vital Signs Date Time Temp Pulse Resp B/P (MAP) Pulse Ox O2 Delivery O2 Flow Rate FiO2 04/30/17 09:30 98.8 66 18 159/74 (102) 97 04/30/17 08:12 96 Nasal Cannula 2.00 04/30/17 07:35 61 04/30/17 06:01 61 04/30/17 05:01 62 04/30/17 05:00 Nasal Cannula 2.00 21 04/30/17 04:57 97.6 67 18 130/60 (83) 96 04/30/17 04:05 61 04/30/17 02:08 62 04/30/17 01:01 64 04/30/17 00:42 98.0 64 19 125/53 (77) 97 04/30/17 00:42 Nasal Cannula 2.00 04/30/17 00:12 63 04/29/17 23:00 68 04/29/17 22:00 76 04/29/17 21:37 98.4 74 17 148/67 (94) 96 04/29/17 21:12 96 21 04/29/17 21:00 76 04/29/17 20:35 72 04/29/17 17:28 Room Air 2.00 04/29/17 17:00 98.8 68 18 141/68 (92) 95 04/29/17 12:30 75 04/29/17 12:30 98.8 71 18 130/68 (88) 94 04/29/17 12:30 Room Air 2.00 Exam CONSTITUTIONAL/GENERAL: This is an adequately nourished patient, in no acute apparent distress. TUBES/LINES/DRAINS:PIC, NC SKIN: No jaundice, rashes, or lesions. Multiple ecchymotic areas on upper extremities. Skin temperature appropriate. Not diaphoretic. HEAD: Atraumatic. Normocephalic. EYES: Pupils equal and round and reactive. Extraocular motions intact. No scleral icterus. No injection or drainage. Fundi not examined. ENT: Hearing grossly normal. Nose without bleeding or purulent drainage. Moist oral mucosa. NECK: Trachea midline. Supple, nontender. CARDIOVASCULAR: Irregular rate and rhythm without murmurs, gallops, or rubs. No JVD. Peripheral pulses symmetric. RESPIRATORY/CHEST: Symmetric, mild shortness of breath with conversation. Rhonchi to auscultation. Breath sounds equal but diminished bilaterally. No wheezes. GASTROINTESTINAL: Abdomen soft, non-tender, nondistended. No guarding. Bowel sounds present. GENITOURINARY: Without palpable bladder distension. Voids in a urinal. MUSCULOSKELETAL: Extremities without clubbing, cyanosis, or edema. No joint tenderness or effusion noted. No calf tenderness. No mottling or clubbing. NEUROLOGICAL: Awake, alert, oriented to self, place and time with some forgetfulness and confusion.Motor and sensory grossly within normal limits. Follows commands.Moves all extremities. PSYCHIATRIC: No obvious anxiety/depression. no apparent hallucinations or other psychotic thought process. Diagnostic Tests Laboratory Laboratory Tests Test 04/27/17 17:23 04/27/17 17:27 04/27/17 18:00 04/28/17 05:10 Hemoglobin 7.6 GM/DL (13.0-17.0) 7.8 GM/DL (13.0-17.0) Hematocrit 23.2 % (39.0-51.0) 24.3 % (39.0-51.0) Potassium Level 3.2 MEQ/L (3.5-5.1) 3.3 MEQ/L (3.5-5.1) Uric Acid 3.0 MG/DL (2.6-7.2) 2.9 MG/DL (2.6-7.2) Magnesium Level 1.8 MG/DL (1.5-2.5) 1.6 MG/DL (1.5-2.5) Lactate Dehydrogenase 472 U/L (87-241) 493 U/L (87-241) Platelet Count 18 TH/MM3 (150-450) 27 TH/MM3 (150-450) Urine Color YELLOW (YELLW/STRAW) Urine Turbidity HAZY (CLEAR) Urine pH 5.5 (5.0-8.5) Urine Specific [place] 1.013 (1.002-1.035) Urine Protein 30 mg/dL (NEG-TRACE) Urine Glucose (UA) NEG mg/dL (NEG) Urine Ketones NEG mg/dL (NEG) Urine Occult Blood MOD (NEG) Urine Nitrite NEG (NEG) Urine Bilirubin NEG (NEG) Urine Urobilinogen LESS THAN 2.0 MG/DL (LESS Urine Leukocyte Esterase NEG (NEG) Urine RBC 73 /hpf (0-3) Urine WBC 3 /hpf (0-5) Urine Squamous Epithelial Cells 1 /hpf (0-5) Urine Amorphous Sediment RARE Urine Bacteria RARE /hpf (NONE) Urine Mucus FEW /lpf (OCC) Microscopic Urinalysis Comment CULT NOT INDICATED White Blood Count 88.5 TH/MM3 (4.0-11.0) Red Blood Count 2.88 MIL/MM3 (4.50-5.90) Mean Corpuscular Volume 84.5 FL (80.0-100.0) Mean Corpuscular Hemoglobin 27.0 PG (27.0-34.0) Mean Corpuscular Hemoglobin Concent 32.0 % (32.0-36.0) Red Cell Distribution Width 22.2 % (11.6-17.2) Mean Platelet Volume 8.0 FL (7.0-11.0) CBC Comment AUTO DIFF Differential Total Cells Counted 100 Neutrophils % (Manual) 31 % (16-70) Band Neutrophils % 4 % (0-6) Lymphocytes % 5 % (9-44) Monocytes % 42 % (0-8) Neutrophils # (Manual) 37.2 TH/MM3 (1.8-7.7) Metamyelocytes 5 % (0-1) Myelocytes 2 % (0-0) Differential Comment FINAL DIFF MANUAL Blastocytes 11 % (0-0) Smudge Cells PRESENT Platelet Estimate LOW (NORMAL) Platelet Morphology Comment NORMAL (NORMAL) Ovalocytes 1+ (NORMAL) Blood Urea Nitrogen 16 MG/DL (7-18) Creatinine 2.06 MG/DL (0.60-1.30) Random Glucose 77 MG/DL (74-106) Total Protein 5.2 GM/DL (6.4-8.2) Albumin 2.9 GM/DL (3.4-5.0) Calcium Level 7.3 MG/DL (8.5-10.1) Phosphorus Level 2.1 MG/DL (2.5-4.9) Alkaline Phosphatase 69 U/L (45-117) Aspartate Amino Transf (AST/SGOT) 20 U/L (15-37) Alanine Aminotransferase (ALT/SGPT) LESS THAN 6 U/L (12-78) Total Bilirubin 0.5 MG/DL (0.2-1.0) Sodium Level 145 MEQ/L (136-145) Chloride Level 113 MEQ/L (98-107) Carbon Dioxide Level 24.5 MEQ/L (21.0-32.0) Anion Gap 8 MEQ/L (5-15) Estimat Glomerular Filtration Rate 32 ML/MIN (>89) Protein Corrected Calcium 8.3 MG/DL (8.5-10.1) Test 04/28/17 13:33 04/28/17 15:18 04/29/17 11:40 04/30/17 06:05 Potassium Level 3.5 MEQ/L (3.5-5.1) 3.0 MEQ/L (3.5-5.1) 2.9 MEQ/L (3.5-5.1) Prothrombin Time 12.2 SEC (9.8-11.6) Prothromb Time International Ratio 1.2 RATIO Activated Partial Thromboplast Time 33.2 SEC (24.3-30.1) Fibrinogen 155 mg/dL (227-377) White Blood Count 93.8 TH/MM3 (4.0-11.0) 71.7 TH/MM3 (4.0-11.0) Red Blood Count 2.62 MIL/MM3 (4.50-5.90) 2.45 MIL/MM3 (4.50-5.90) Hemoglobin 7.0 GM/DL (13.0-17.0) 6.5 GM/DL (13.0-17.0) Hematocrit 22.2 % (39.0-51.0) 20.7 % (39.0-51.0) Mean Corpuscular Volume 84.7 FL (80.0-100.0) 84.8 FL (80.0-100.0) Mean Corpuscular Hemoglobin 26.9 PG (27.0-34.0) 26.7 PG (27.0-34.0) Mean Corpuscular Hemoglobin Concent 31.8 % (32.0-36.0) 31.5 % (32.0-36.0) Red Cell Distribution Width 21.9 % (11.6-17.2) 22.1 % (11.6-17.2) Platelet Count 20 TH/MM3 (150-450) 17 TH/MM3 (150-450) Mean Platelet Volume 7.0 FL (7.0-11.0) 8.3 FL (7.0-11.0) CBC Comment AUTO DIFF Differential Total Cells Counted 100 Neutrophils % (Manual) 37 % (16-70) Lymphocytes % 9 % (9-44) Monocytes % 37 % (0-8) Neutrophils # (Manual) 37.5 TH/MM3 (1.8-7.7) Myelocytes 3 % (0-0) Differential Comment FINAL DIFF MANUAL Blastocytes 14 % (0-0) Smudge Cells PRESENT Platelet Estimate LOW (NORMAL) Platelet Morphology Comment ENLARGED (NORMAL) Ovalocytes 1+ (NORMAL) Blood Urea Nitrogen 14 MG/DL (7-18) 17 MG/DL (7-18) Creatinine 1.93 MG/DL (0.60-1.30) 1.95 MG/DL (0.60-1.30) Random Glucose 78 MG/DL (74-106) 82 MG/DL (74-106) Total Protein 5.2 GM/DL (6.4-8.2) Albumin 2.8 GM/DL (3.4-5.0) Calcium Level 7.6 MG/DL (8.5-10.1) 7.5 MG/DL (8.5-10.1) Alkaline Phosphatase 72 U/L (45-117) Aspartate Amino Transf (AST/SGOT) 26 U/L (15-37) Alanine Aminotransferase (ALT/SGPT) LESS THAN 6 U/L (12-78) Total Bilirubin 0.5 MG/DL (0.2-1.0) Sodium Level 146 MEQ/L (136-145) 144 MEQ/L (136-145) Chloride Level 112 MEQ/L (98-107) 109 MEQ/L (98-107) Carbon Dioxide Level 27.6 MEQ/L (21.0-32.0) 29.8 MEQ/L (21.0-32.0) Anion Gap 6 MEQ/L (5-15) 5 MEQ/L (5-15) Estimat Glomerular Filtration Rate 35 ML/MIN (>89) 35 ML/MIN (>89) Triglycerides Level 112 MG/DL (42-150) Cholesterol Level LESS THAN 50 MG/DL LDL Cholesterol 15 MG/DL (0-99) HDL Cholesterol 12.6 MG/DL (40.0-60.0) Cholesterol/HDL Ratio 3.96 RATIO Magnesium Level 1.6 MG/DL (1.5-2.5) Result Diagram: 04/30/17 0605 04/30/17 0605 Microbiology Microbiology Date/Time Source Procedure Growth Status 04/27/17 17:25 Blood Peripheral Aerobic Blood Culture - Preliminary NO GROWTH IN 2 DAYS Resulted 04/27/17 17:25 Blood Peripheral Anaerobic Blood Culture - Preliminary NO GROWTH IN 2 DAYS Resulted 04/27/17 17:15 Blood Peripheral Aerobic Blood Culture - Preliminary NO GROWTH IN 2 DAYS Resulted 04/27/17 17:15 Blood Peripheral Anaerobic Blood Culture - Preliminary NO GROWTH IN 2 DAYS Resulted Imaging Last Impressions Chest X-Ray 04/28/17 0600 Signed Impressions: Service Date/Time: Friday, April 28, 2017 02:25 - CONCLUSION: 1. No significant interval change with minimal bibasilar atelectasis. Seven Dailey MD Carotid Artery Ultrasound 04/27/17 0823 Signed Impressions: Service Date/Time: Thursday, April 27, 2017 14:08 - CONCLUSION: 1. 50-59%% stenosis within the right internal carotid artery. 2. No hemodynamically significant stenosis in the left carotid artery. 3. Cystic and solid mass of the right neck measuring 4.1 cm. Not emergent thyroid sonogram. Harpreet Patel MD Thyroid Ultrasound 04/27/17 0000 Signed Impressions: Service Date/Time: Thursday, April 27, 2017 18:03 - CONCLUSION: 1. Benign right subcentimeter nodule. 2. Otherwise unremarkable thyroid sonogram. 3. The mass seen in the right neck on previous carotid sonogram is not within the thyroid gland. This may be within the right parotid gland. Harpreet Patel MD Brain MRI 04/27/17 0000 Signed Impressions: Service Date/Time: Thursday, April 27, 2017 12:31 - CONCLUSION: 1. Chronic atrophic and small vessel ischemic changes without any evidence for acute hemorrhage or mass effect. 2. There is a mass in the region of the parotid gland on the right side with an approximate 3.0 cm cystic component not adequately characterized it could be characterized with neck CT if indicated clinically. Familia Antonio MD Head CT 04/26/17 0000 Signed Impressions: Service Date/Time: Wednesday, April 26, 2017 20:32 - CONCLUSION: No acute disease. Ruddy Huertas Jr., MD Patient/Family Conference Family Conference Location: Bedside, Telephone Issues Discussed: * Palliative care role, purpose, approach * Additional medical, psychosocial, and spiritual history * Patients general health, functional status, and cognitive changes in the months leading up to the current hospitalization * Patient/family understanding of the current medical problems * Patient/family understanding of prognosis * Patients goals of care as best understood from advance directives and/or conversations and/or values * Current medical treatment options and benefits/burdens of those options * Likely scenarios comparing ongoing aggressive care with a transition to comfort measures only * Questions answered to the best of my ability * Palliative care contact information provided Assessment and Plan Disease Oriented Problem List: (1) CMML (chronic myelomonocytic leukemia) (2) Seizure (3) Anemia of chronic disorder (4) Leukocytosis (5) Hypokalemia (6) Thrombocytopenia (7) COPD (chronic obstructive pulmonary disease) (8) Parkinson disease (9) Acute kidney failure Symptom Scale: (1) Dyspnea 0-10 Scale: Unable to quantify Comment: Multifactorial. Patient has history of COPD/emphysema on O2 2 L nasal cannula at home. Patient also has anemia. . (2) Generalized weakness 0-10 Scale: Unable to quantify Comment: Progressive. Patient his history of CMML/MDS, CVA . (3) Decreased oral intake 0-10 Scale: Unable to quantify Comment: Patient has poor appetite. . (4) Confusion 0-10 Scale: Unable to quantify Comment: Patient has history of CVA, recent seizure, COPD/emphysema on O2 2 L NC and anemia. . Pertinent Non-Medical Issues Psychosocial:Patient was born and raised in [place]. He graduated from high school and had some college education. Patient was in the [employer] for 2 years. 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 [place] moved to [place] in early . Patient has been twice and was once. He has been to his second for 29 years. He has an adult daughter Christi Novak from his first marriage. Spiritual: Patient is Restorationism Legal: reports that she thinks patient has a living will Ethical issues impacting care:None identified at this time. Important Contacts spouse-Jayne Teran([phone]) . Prognosis Mr. 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 Patient was brought in to the ER on 04/26/17 by EVAC after he had a witnessed seizure by his .Clinical course complicated with altered mental status, anemia, leucocytosis, thrombocytopenia and electrolyte abnormalities. Given ongoing comorbidities and recent hospitalization, and poor performance status limiting therapy options for patient, he remains at high risk for further complications, deterioration and decline. . Code Status: Full Code Plan PLAN: Legal decision maker: Patient is alert and oriented x 3 with some confusion and forgetfulness. He appears to lack insight and judgment regarding his medical condition- recommending joint decision making with his Jayne Terna. In the event that patient becomes incapacitated, his would serve as his health care proxy. Goals: Aggressive- pending discussion with patient`s tomorrow after she meets with Dr. Hansen regarding therapy options CODE STATUS: Full Code. SYMPTOMS: * Dyspnea: Multifactorial. Patient has history of COPD/emphysema on O2 2 L nasal cannula at home. Patient also has anemia. Patient currently on O2 2L NC saturating in the mid to high 90s. Symbicort 80-4.4mcg inhaler BID, Spiriva 18mcg inhaler daily, Duonebs Q 2 HRS PRN. Patient also has 2mg Morphine Sulfate IVP Q 2 hrs. Today`s Hgb 6.5. Order to transfuse pRBC placed. No recommendations. * Generalized weakness: Progressive. Patient has a hx of CMML/MDS, CVA, COPD/ emphysema on O2 2 L nasal cannula. Physical therapy consulted. * Decreased oral intake: Patient has poor appetite. Patient reports feeling nauseated most of the times. Consuming 25 % of his meals. * Confusion:Patient has history of CVA, recent seizure, COPD/emphysema on O2 2 L NC and anemia. Per , patient seems to be at his baseline now. Continue monitoring. Palliative care will continue to follow the patient during hospital course as condition evolves, to assist patient/decision-maker with understanding of their medical conditions, weighing benefits/burdens of treatment options, for clarification of goals of treatment. Additionally will assist with any symptoms of palliative concern Thank you for the opportunity to participate in the care of Mr. Teran. Attestation To help prompt me to consider important information that might be impacting today's encounter and assessment, information from prior notes written by myself or my colleagues may have been "brought forward" into today's note. My signature on this note, however, is an attestation that I personally performed the exam, history, and/or decision-making noted today, and, unless otherwise indicated, the interactions with patient, family, and staff as well as the review of records all occurred today. I also attest that the listed assessment and stated plan reflect my best clinical judgment today based on the combination of historical information, prior notes, and today's exam/ interactions. When time spent is documented, it refers only to time spent today by the signer, or if indicated, combined time spent today by collaborating physician/nurse practitioner. Saul Bynum Apr 30, 2017 11:23
[2017-04-30] MEDS ORDERED: MAGNESIUM SULFATE 1 GM PREMIX 100 ML IV ONE (15:00)
[2017-04-30] MEDS ORDERED: HYDROXYUREA 500 MG CAP PO ONE (16:00)
[2017-04-30] MEDS: MIRTAZAPINE 15 MG TAB PO SCH (20:32)
[2017-04-30] MEDS: busPIRone HCL 5 MG TAB PO SCH (20:33)
[2017-05-01] VITALS (23 sets, daily range): BP systolic 125–163; BP diastolic 52–78; PULSE 56–76; RESP 16–20; TEMP 97.8–99; O2SAT 93–98
[2017-05-01] MEDS: CHLORHEXIDINE GLUCONATE 2 % 1 PACK (2 CLOTHS) TOP SCH (04:00)
[2017-05-01] MEDS: SODIUM CHLOR 0.9% 1000 ML INJ 1,000 ML IV SCH (05:58)
--- NOTE | 2017-05-01 08:12 | PD.ONC.PN ---
Subjective Subjective Remarks Patient seen and examined, vital signs, labs and medications reviewed. Subjectively; he reports feeling better after receiving 2 units packed red blood cells yesterday. His is at bedside today. The patient reports having been in bed since being in the hospital, he continues to feel very weak. His appetite is poor but he has been trying to take a few bites of food with each tray. He denies fevers or chills. He denies overt bleeding. Objective Data Date Time Temp Pulse Resp B/P (MAP) Pulse Ox O2 Delivery O2 Flow Rate FiO2 05/01/17 05:27 65 05/01/17 04:28 63 05/01/17 04:27 Nasal Cannula 2.00 05/01/17 04:11 98.8 66 16 156/67 (96) 95 05/01/17 03:03 61 05/01/17 02:08 60 05/01/17 01:27 62 05/01/17 00:21 63 05/01/17 00:14 Nasal Cannula 2.00 21 05/01/17 00:14 97.8 64 16 125/52 (76) 98 04/30/17 23:01 64 04/30/17 22:03 64 04/30/17 21:00 66 04/30/17 20:20 97.4 64 16 147/64 97 04/30/17 20:20 Nasal Cannula 2.00 04/30/17 20:07 62 04/30/17 19:47 97 Nasal Cannula 2.00 04/30/17 19:46 98.1 61 18 153/64 (93) 97 04/30/17 17:42 98.7 61 20 153/64 96 04/30/17 17:08 98.1 60 18 157/66 97 04/30/17 15:38 98 Nasal Cannula 2.00 04/30/17 14:30 98.1 64 18 115/44 98 04/30/17 13:46 98.7 71 18 133/60 97 04/30/17 13:04 97.8 71 20 133/60 (84) 86 04/30/17 09:30 98.8 66 18 159/74 (102) 97 04/30/17 09:00 61 04/30/17 08:12 96 Nasal Cannula 2.00 05/01/17 05/01/17 05/01/17 07:00 15:00 23:00 Intake Total 240 ml Output Total 1200 ml Balance -960 ml Result Diagram: 04/30/17 0605 04/30/17 1658 Laboratory Results Laboratory Tests Test 04/30/17 16:55 Potassium Level 3.7 MEQ/L Administered Medications Medications (Trade) Dose Ordered Sig/Amberly Route PRN Reason Start Time Stop Time Status Last Admin Dose Admin Sodium Chloride (NS Flush) 2 ml BID IV FLUSH 04/27/17 09:00 04/30/17 20:33 Senna/Docusate Sodium (Gertrude-Colace) 1 tab BID PO 04/27/17 09:00 04/30/17 20:32 Allopurinol (Zyloprim) 300 mg DAILY PO 04/27/17 09:00 04/30/17 09:18 Budesonide/ Formoterol Fumarate (Symbicort 80-4.5 Mcg Inh) 1 puff BID INH 04/27/17 09:00 04/30/17 20:32 Buspirone HCl (Buspar) 5 mg HS PO 04/26/17 22:30 04/30/17 20:33 Buspirone HCl (Buspar) 10 mg DAILY PO 04/27/17 09:00 04/30/17 09:18 Carbidopa/Levodopa (Sinemet 25-100 Mg) 1.5 tab TID PO 04/27/17 09:00 04/30/17 17:06 Mirtazapine (Remeron) 7.5 mg HS PO 04/26/17 22:30 04/30/17 20:32 Tiotropium [place] (Spiriva Inh) 18 mcg DAILY INH 04/27/17 09:00 04/30/17 09:19 Sodium Chloride 1,000 ml @ 50 mls/hr Q20H IV 04/26/17 23:45 04/30/17 10:17 Lorazepam (Ativan Inj) 1 mg Q1H PRN IV PUSH Seizure 04/26/17 23:45 04/29/17 00:38 Zolpidem Tartrate (Ambien) 5 mg HS PRN PO INSOMNIA 04/26/17 23:45 04/29/17 22:50 Chlorhexidine Gluconate (Chlorhexidine 2% Cloth) 3 pack Taper DAILY@04 TOP 04/27/17 04:00 04/23/18 03:59 04/28/17 04:00 Levetriacetam (Keppra) 500 mg Q12HR PO 04/27/17 09:00 04/30/17 20:32 Famotidine (Pepcid Inj) 10 mg Q12HR IV PUSH 04/28/17 21:00 04/30/17 20:32 Atenolol (Tenormin) 25 mg Q12HR PO 04/29/17 01:00 04/30/17 20:32 Acetaminophen (Tylenol) 650 mg Q4H PRN PO SEE LABEL COMMENTS 04/30/17 08:30 04/30/17 13:07 Diphenhydramine HCl (Benadryl) 25 mg Q4H PRN PO SEE LABEL COMMENTS 04/30/17 08:30 04/30/17 13:07 Objective Remarks GENERAL: Elderly male, chronically ill and cachectic appearing. Laying in bed asleep comfortably but easily awoken. SKIN: Cool and dry. HEAD: Normocephalic. EYES: No scleral icterus. No injection or drainage. Conjunctivae are pale. Oral exam: He has a submucosal hematoma on the left side of his tongue. Left lower lip also has a bruise on it. NECK: Supple, trachea midline. No JVD or lymphadenopathy. LYMPHATIC: No adenopathy. CARDIOVASCULAR: Irregular, S1 and S2 normal obvious murmurs or gallops.. RESPIRATORY: Distant sounding breath sounds, prolonged expiratory phase but no wheezing or rhonchi or crepitus. GASTROINTESTINAL: Abdomen soft, non-tender, nondistended. EXTREMITIES: No cyanosis, or edema. MUSCULOSKELETAL: Atrophic muscle mass diffusely noted but especially in the lower extremities. NEUROLOGICAL: He is able to speak sentences. He does express understanding of our conversation. He is moving all 4 limbs spontaneously and purposefully. PSYCHIATRIC: Appropriate mood and affect; insight and judgment normal. Assessment/Plan Assessment 66y/o male admitted with seizure. Oncology consulted for CMML/MDS. history of a CVA, COPD, Parkinson's disease, coronary artery disease and chronic debility/frailty. His malignant hematologic diagnosis was established earlier in April 2017, he is currently treatment shannan. Plan 1. CMML/MDS overlap: I spoke to the patient and his at bedside today. I explained to the patient and his that the only curative treatment available for his disease is an allogeneic stem cell transplant which the patient is not eligible for due to his pulmonary function and poor performance status. All of the treatment options of palliative; treatment options include hypomethylating agent therapy with Vidaza or Dacogen or cytoreductive therapy with hydroxyurea or best supportive care. We also spoke about hospice as a possible treatment option. After much discussion, the patient and his both requested disease directed therapy with Vidaza followed by appeared for observation. If therefore recommended initiating Vidaza a dose of 75 mg per metered squared IV day 1-5 starting today. Hydroxyurea will be discontinued. 2. Anemia: d/t MDS STATUS POST 2 UNITS PACKED RED BLOOD CELL TRANSFUSION ON 04/30. 3. AMS: unclear etiology. He appears to be at baseline mentation today. 4. thrombocytopenia: likely d/t MDS. Disposition: Initiate palliative systemic therapy with Vidaza as an inpatient. Treatment will continue until this Saturday. Following this he may be discharged to a senior living facility because I anticipate he will have significant worsening cytopenias and will also need transportation to the outpatient oncology clinic for supportive packed red blood cell and platelet transfusions. De Hansen MD May 01, 2017 08:12
--- NOTE | 2017-05-01 08:13 | HHI.PR ---
Objective Vital Signs Date Time Temp Pulse Resp B/P (MAP) Pulse Ox O2 Delivery O2 Flow Rate FiO2 05/01/17 05:27 65 05/01/17 04:28 63 05/01/17 04:27 Nasal Cannula 2.00 05/01/17 04:11 98.8 66 16 156/67 (96) 95 05/01/17 03:03 61 05/01/17 02:08 60 05/01/17 01:27 62 05/01/17 00:21 63 05/01/17 00:14 Nasal Cannula 2.00 21 05/01/17 00:14 97.8 64 16 125/52 (76) 98 04/30/17 23:01 64 04/30/17 22:03 64 04/30/17 21:00 66 04/30/17 20:20 97.4 64 16 147/64 97 04/30/17 20:20 Nasal Cannula 2.00 04/30/17 20:07 62 04/30/17 19:47 97 Nasal Cannula 2.00 04/30/17 19:46 98.1 61 18 153/64 (93) 97 04/30/17 17:42 98.7 61 20 153/64 96 04/30/17 17:08 98.1 60 18 157/66 97 04/30/17 15:38 98 Nasal Cannula 2.00 04/30/17 14:30 98.1 64 18 115/44 98 04/30/17 13:46 98.7 71 18 133/60 97 04/30/17 13:04 97.8 71 20 133/60 (84) 86 04/30/17 09:30 98.8 66 18 159/74 (102) 97 04/30/17 09:00 61 04/30/17 08:12 96 Nasal Cannula 2.00 I/O 04/30/17 04/30/17 04/30/17 05/01/17 05/01/17 05/01/17 07:00 15:00 23:00 07:00 15:00 23:00 Intake Total 423 ml 1040 ml 240 ml Output Total 950 ml 1200 ml Balance 423 ml 90 ml -960 ml Intake Oral 240 ml 240 ml IV Total 423 ml Packed Cells 800 ml Output Urine Total 950 ml 1200 ml Result Diagram: 04/30/17 0605 04/30/17 9898 Objective Remarks awake alert mild weak rue 4+ ow moves all well no tremors to command speech fluent no change Assessment and Plan Assessment and Plan imp mri old left mca cva no new cva eeg nl us 50-60% r ica cannot do asa plt too low no evidence of PD today on keppra po for sz and neuro mina could dc to rehab tomorrow if other issues resolved as per my consult note consider anticoagulation if can with low plts oob to chair most of day stable neuro needs rehab i dw nurse he is stable neuro family dw onc about prospects Tej Sanford MD May 01, 2017 08:13
[2017-05-01] MEDS: DOCUSATE SODIUM 50 MG/SENNA 8.6 MG TAB PO SCH ×2 (09:00→22:59)
[2017-05-01] MEDS: TIOTROPIUM BROMIDE 18 MCG INH INH SCH (09:30)
[2017-05-01] MEDS: BUDESONIDE-FORMOTEROL 80/4.5 MCG INHALER INH SCH ×2 (09:30→23:00)
[2017-05-01] MEDS: ALLOPURINOL 300 MG TAB PO SCH (09:30)
[2017-05-01] MEDS: CARBIDOPA/LEVODOPA 25 MG/100 MG TAB PO SCH ×3 (09:30→17:35)
[2017-05-01] MEDS: ATENOLOL 25 MG TAB PO SCH ×2 (09:30→23:04)
[2017-05-01] MEDS: FAMOTIDINE 20 MG/2 ML VIAL IV PUSH SCH ×2 (09:31→23:00)
[2017-05-01] MEDS: levETIRAcetam 500 MG TAB PO SCH ×2 (09:31→22:59)
[2017-05-01] MEDS: busPIRone HCL 10 MG TAB PO SCH (09:31)
[2017-05-01] MEDS: SODIUM CHLORIDE 0.9% FLUSH 10 ML FLUSH IV FLUSH SCH ×2 (09:32→23:00)
--- NOTE | 2017-05-01 10:40 | HHI.PR ---
Subjective Remarks f/u CMML Patient complaining of severe fatigue and weakness. He asked me if he would get stronger with the transfusions that he's been getting. His is at the bedside during the interview. Otherwise he has no complaints. Objective Vitals Vital Signs Date Time Temp Pulse Resp B/P (MAP) Pulse Ox O2 Delivery O2 Flow Rate FiO2 05/01/17 10:06 93 Nasal Cannula 2.00 05/01/17 09:25 98.8 70 18 163/78 (106) 93 05/01/17 05:27 65 05/01/17 04:28 63 05/01/17 04:27 Nasal Cannula 2.00 05/01/17 04:11 98.8 66 16 156/67 (96) 95 05/01/17 03:03 61 05/01/17 02:08 60 05/01/17 01:27 62 05/01/17 00:21 63 05/01/17 00:14 Nasal Cannula 2.00 21 05/01/17 00:14 97.8 64 16 125/52 (76) 98 04/30/17 23:01 64 04/30/17 22:03 64 04/30/17 21:00 66 04/30/17 20:20 97.4 64 16 147/64 97 04/30/17 20:20 Nasal Cannula 2.00 04/30/17 20:07 62 04/30/17 19:47 97 Nasal Cannula 2.00 04/30/17 19:46 98.1 61 18 153/64 (93) 97 04/30/17 17:42 98.7 61 20 153/64 96 04/30/17 17:08 98.1 60 18 157/66 97 04/30/17 15:38 98 Nasal Cannula 2.00 04/30/17 14:30 98.1 64 18 115/44 98 04/30/17 13:46 98.7 71 18 133/60 97 04/30/17 13:04 97.8 71 20 133/60 (84) 86 I/O 04/30/17 04/30/17 04/30/17 05/01/17 05/01/17 05/01/17 07:00 15:00 23:00 07:00 15:00 23:00 Intake Total 423 ml 1040 ml 240 ml Output Total 950 ml 1200 ml Balance 423 ml 90 ml -960 ml Intake Oral 240 ml 240 ml IV Total 423 ml Packed Cells 800 ml Output Urine Total 950 ml 1200 ml Result Diagram: 04/30/17 0605 04/30/17 1655 Objective Remarks GENERAL: in NAD and awake. CARDIOVASCULAR: Regular rate and rhythm without murmurs, gallops, or rubs. RESPIRATORY: Breath sounds equal bilaterally. No accessory muscle use. GASTROINTESTINAL: Abdomen soft, non-tender, nondistended. NEURO: Moves all extremities grossly. Medications and IVs Current Medications Sodium Chloride 1,000 ml @ 999 mls/hr BOLUS ONCE IV Last administered on 04/26at 20:09; Start 04/26/17 at 20:15; Stop 04/26/17 at 21:15; Status DC Diltiazem HCl (Cardizem Inj) 24 mg ONCE PRN IV PUSH RESPONSE Last administered on 04/26/17at 20:09; Start 04/26/17 at 20:15; Stop 04/28/17 at 16:48; Status DC Diltiazem HCl 125 mg/Sodium Chloride 125 ml @ 5 mls/hr TITRATE PRN IV Tachycardia Last administered on 04/26/17at 21:44; Start 04/26/17 at 21:00; Stop 04/28/17 at 16:48; Status DC Sodium Chloride 1,000 ml @ 999 mls/hr BOLUS ONCE IV Last administered on 04/26at 21:10; Start 04/26/17 at 21:00; Stop 04/26/17 at 22:00; Status DC Potassium Chloride 100 ml @ 50 mls/hr ONCE ONCE IV Last administered on at 23:18; Start 04/26/17 at 22:15; Stop 04/27/17 at 00:14; Status DC Potassium Chloride (KCl) 60 meq ONCE ONCE PO Last administered on 04/26/17at 22 :32; Start 04/26/17 at 22:15; Stop 04/26/17 at 22:16; Status DC Sodium Chloride 1,000 ml @ 999 mls/hr BOLUS ONCE IV Last administered on 04/26at 22:12; Start 04/26/17 at 22:15; Stop 04/26/17 at 23:15; Status DC Lorazepam (Ativan Inj) 1 mg Q5M PRN IV PUSH SEIZURE; Start 04/26/17 at 22:30; Stop 04/26/17 at 23:54; Status DC Sodium Chloride 1,000 ml @ 100 mls/hr Q10H IV ; Start 04/26/17 at 22:18; Stop 04/27/17 at 00:03; Status DC Sodium Chloride (NS Flush) 2 ml UNSCH PRN IV FLUSH FLUSH AFTER USING IV ACCESS ; Start 04/26/17 at 22:30 Sodium Chloride (NS Flush) 2 ml BID IV FLUSH Last administered on 05/01/17at 09: 32; Start 04/27/17 at 09:00 Ondansetron HCl (Zofran Inj) 4 mg Q6H PRN IVP NAUSEA OR VOMITING; Start at 22:30 Acetaminophen (Tylenol) 650 mg Q6H PRN PO FEVER/PAIN SCALE 1 TO 2; Start at 22:30 Acetaminophen/ Hydrocodone Bitart ([place] 5-325 Mg) 1 tab Q4H PRN PO PAIN SCALE 3 TO 5; Start 04/26/17 at 22:30 Morphine Sulfate (Morphine Inj) 2 mg Q3H PRN IV PUSH Pain 6-10; Start 04/26/17 at 22:30; Stop 04/27/17 at 00:03; Status DC Senna/Docusate Sodium (Gertrude-Colace) 1 tab BID PO Last administered on at 20:32; Start 04/27/17 at 09:00 Magnesium Hydroxide (Milk Of Magnesia Liq) 30 ml Q12H PRN PO Mild constipation ; Start 04/26/17 at 22:30 Sennosides (Senokot) 17.2 mg Q12H PRN PO Moderate constipation; Start 04/26/17 at 22:30 Bisacodyl (Dulcolax Supp) 10 mg DAILY PRN RECTAL SEVERE CONSITIPATION; Start at 22:30; Stop 04/26/17 at 22:30; Status DC Lactulose (Lactulose Liq) 30 ml DAILY PRN PO SEVERE CONSITIPATION/ IF PO; Start 04/26/17 at 22:30 Allopurinol (Zyloprim) 300 mg DAILY PO Last administered on 05/01/17at 09:30; Start 04/27/17 at 09:00 Budesonide/ Formoterol Fumarate (Symbicort 80-4.5 Mcg Inh) 1 puff BID INH Last administered on 05/01/17at 09:30; Start 04/27/17 at 09:00 Buspirone HCl (Buspar) 5 mg HS PO Last administered on 04/30/17at 20:33; Start 04/26/17 at 22:30 Buspirone HCl (Buspar) 10 mg DAILY PO Last administered on 05/01/17at 09:31; Start 04/27/17 at 09:00 Carbidopa/Levodopa (Sinemet 25-100 Mg) 1.5 tab TID PO Last administered on 05/01at 09:30; Start 04/27/17 at 09:00 Mirtazapine (Remeron) 7.5 mg HS PO Last administered on 04/30/17at 20:32; Start 04/26/17 at 22:30 Tiotropium [place] (Spiriva Inh) 18 mcg DAILY INH Last administered on at 09:30; Start 04/27/17 at 09:00 Bisacodyl (Dulcolax Supp) 10 mg DAILY PRN RECTAL SEVERE CONSITIPATION/ IF NPO; Start 04/26/17 at 22:30 Diltiazem HCl (Cardizem Cd) 300 mg DAILY PO ; Start 04/27/17 at 09:00; Stop at 09:00; Status DC Sodium Chloride 1,000 ml @ 50 mls/hr Q20H IV Last administered on 04/30/17at 10 :17; Start 04/26/17 at 23:45 Sodium Chloride (NS Flush) 2 ml UNSCH PRN IV FLUSH FLUSH AFTER USING IV ACCESS ; Start 04/26/17 at 23:45; Stop 04/26/17 at 23:57; Status DC Sodium Chloride (NS Flush) 2 ml BID IV FLUSH ; Start 04/27/17 at 09:00; Stop at 09:00; Status DC Acetaminophen (Tylenol) 650 mg Q6H PRN PO PAIN 1-5 AND/OR FEVER >101F; Start at 23:45; Stop 04/26/17 at 23:57; Status DC Morphine Sulfate (Morphine Inj) 2 mg Q2H PRN IV PUSH PAIN SCALE 6 TO 10; Start 04/26/17 at 23:45 Famotidine (Pepcid Inj) 20 mg Q12HR IV PUSH Last administered on 04/28/17at 08: 20; Start 04/27/17 at 09:00; Stop 04/28/17 at 13:11; Status DC Lorazepam (Ativan Inj) 1 mg Q1H PRN IV PUSH Seizure Last administered on at 00:38; Start 04/26/17 at 23:45 Ondansetron HCl (Zofran Inj) 4 mg Q6H PRN IV PUSH NAUSEA OR VOMITING; Start at 23:45; Stop 04/26/17 at 23:57; Status DC Zolpidem Tartrate (Ambien) 5 mg HS PRN PO INSOMNIA Last administered on at 22:50; Start 04/26/17 at 23:45 Albuterol/ Ipratropium (Duoneb Neb) 1 ampule Q6HR NEB INH Last administered on 04/30/17at 20:00; Start 04/27/17 at 04:00; Stop 05/01/17 at 03:59; Status DC Albuterol/ Ipratropium (Duoneb Neb) 1 ampule Q2HR NEB PRN INH WHEEZING; Start 04/26/17 at 23:45 Miscellaneous Information 1 Q361D XX ; Start 04/26/17 at 23:45 Chlorhexidine Gluconate (Chlorhexidine 2% Cloth) 3 pack Taper DAILY@04 TOP Last administered on 04/28/17at 04:00; Start 04/27/17 at 04:00; Stop 04/23/18 at 03:59 Chlorhexidine Gluconate (Chlorhexidine 2% Cloth) 3 pack UNSCH PRN TOP HYGIENIC CARE; Start 04/26/17 at 23:45 Senna/Docusate Sodium (Gertrude-Colace) 1 tab BID PO ; Start 04/27/17 at 09:00; Stop 04/27/17 at 09:00; Status DC Magnesium Hydroxide (Milk Of Magnesia Liq) 30 ml Q12H PRN PO Mild constipation ; Start 04/26/17 at 23:45; Stop 04/26/17 at 23:57; Status DC Sennosides (Senokot) 17.2 mg Q12H PRN PO Moderate constipation; Start 04/26/17 at 23:45; Stop 04/26/17 at 23:57; Status DC Bisacodyl (Dulcolax Supp) 10 mg DAILY PRN RECTAL SEVERE CONSITIPATION; Start at 23:45; Stop 04/26/17 at 23:57; Status DC Lactulose (Lactulose Liq) 30 ml DAILY PRN PO SEVERE CONSITIPATION; Start at 23:45; Stop 04/26/17 at 23:57; Status DC Levetriacetam 100 ml @ 400 mls/hr Q12HR IV ; Start 04/27/17 at 09:00; Stop at 09:00; Status DC Sodium Chloride 1,000 ml @ 999 mls/hr Q1H1M IV Last administered on 04/27/17at 02:15; Start 04/27/17 at 02:15; Stop 04/27/17 at 03:15; Status DC Albumin Human 500 ml @ 250 mls/hr ONCE ONCE IV Last administered on at 03:58; Start 04/27/17 at 03:45; Stop 04/27/17 at 05:44; Status DC Potassium Chloride 100 ml @ 100 mls/hr Q1H IV Last administered on 04/27/17at 06:36; Start 04/27/17 at 03:45; Stop 04/27/17 at 06:44; Status DC Dextrose (D50w (Vial) Inj) 50 ml UNSCH PRN IV PUSH HYPOGLYCEMIA-SEE COMMENTS; Start 04/27/17 at 04:00; Stop 04/30/17 at 13:41; Status DC Glucagon (Glucagon Inj) 1 mg UNSCH PRN OTHER HYPOGLYCEMIA-SEE COMMENTS; Start 04/27/17 at 04:00; Stop 04/30/17 at 13:41; Status DC Insulin Human Regular (NovoLIN R SUPPLEMENTAL SCALE) 1 ACHS SLIDING SCALE SQ Last administered on 04/27/17at 21:21; Start 04/27/17 at 08:00; Stop 04/30/17 at 13:41; Status DC Calcium Gluconate 2 gm/Sodium Chloride 120 ml @ 120 mls/hr ONCE ONCE IV Last administered on 04/27/17at 05:31; Start 04/27/17 at 04:30; Stop 04/27/17 at 05:29 ; Status DC Magnesium Sulfate/ Dextrose 100 ml @ 100 mls/hr Q1H IV Last administered on at 08:43; Start 04/27/17 at 07:00; Stop 04/27/17 at 08:59; Status DC Levetriacetam (Keppra) 500 mg Q12HR PO Last administered on 05/01/17at 09:31; Start 04/27/17 at 09:00 Hydroxyurea (Hydrea) 500 mg ONCE ONCE PO Last administered on 04/27/17at 21:20 ; Start 04/27/17 at 21:00; Stop 04/27/17 at 21:01; Status DC Potassium Chloride 100 ml @ 50 mls/hr Q2H IV Last administered on 04/28/17at 05 :58; Start 04/28/17 at 04:00; Stop 04/28/17 at 07:59; Status DC Famotidine (Pepcid Inj) 10 mg Q12HR IV PUSH Last administered on 05/01/17at 09: 31; Start 04/28/17 at 21:00 Hydroxyurea (Hydrea) 500 mg ONCE ONCE PO Last administered on 04/28/17at 16:35 ; Start 04/28/17 at 15:00; Stop 04/28/17 at 15:01; Status DC Atenolol (Tenormin) 25 mg Q12HR PO Last administered on 05/01/17at 09:30; Start 04/29/17 at 01:00 Hydroxyurea (Hydrea) 250 mg DAILY PO ; Start 04/29/17 at 09:00; Status UNV Potassium Bicarb/ Potassium Chloride (K-Lyte Cl Eff) 50 meq ONCE ONCE PO Last administered on 04/30/17at 09:26; Start 04/30/17 at 08:45; Stop 04/30/17 at 08:48; Status DC Sodium Chloride 250 ml @ 15 mls/hr ONCE ONCE IV Last administered on at 08:30; Start 04/30/17 at 08:30; Stop 05/01/17 at 01:09; Status DC Acetaminophen (Tylenol) 650 mg Q4H PRN PO SEE LABEL COMMENTS Last administered on 04/30/17at 13:07; Start 04/30/17 at 08:30 Diphenhydramine HCl (Benadryl) 25 mg Q4H PRN PO SEE LABEL COMMENTS Last administered on 04/30/17at 13:07; Start 04/30/17 at 08:30 Furosemide (Lasix Inj) 20 mg ONCE ONCE IV PUSH Last administered on 04/30/17at 16:45; Start 04/30/17 at 08:30; Stop 04/30/17 at 08:48; Status DC Potassium Chloride (KCl) 40 meq ONCE ONCE PO ; Start 04/30/17 at 08:30; Stop at 08:31; Status UNV Magnesium Sulfate/ Dextrose 100 ml @ 100 mls/hr ONCE ONCE IV Last administered on 04/30/17at 17:06; Start 04/30/17 at 15:00; Stop 04/30/17 at 15:59 ; Status DC Hydroxyurea (Hydrea) 500 mg ONCE ONCE PO Last administered on 04/30/17at 16:49 ; Start 04/30/17 at 16:00; Stop 05/01/17 at 08:13; Status DC Sodium Chloride 250 ml @ 0 mls/hr UNSCH IV ; Start 05/01/17 at 13:30; Stop 05/05 at 23:59 Granisetron HCl (Kytril) 2 mg DAILY@1330 PO ; Start 05/01/17 at 13:30; Stop at 13:31 Azacitidine 143.25 mg/Sodium Chloride 100 ml @ 200 mls/hr DAILY@1400 IV ; Start 05/01/17 at 14:00; Stop 05/05/17 at 14:29 A/P Assessment and Plan This is a 66-year-old male who presented with atrial fibrillation RVR and seizure activity Leukocytosis/CMML Anemia thrombocytopenia - Animal Humane Agent Supervisor is following. - So far cultures are all negative. - Monitor without antibiotics at this time - Hydrea and allopurinol added by hematology - Transfusions per hematology -Oncologist initiated palliative systemic therapy with Vidaza as an inpatient and stated that treatment will continue until Saturday. Following this he may be discharged to a [facility] facility because I anticipate he will have significant worsening cytopenias and will also need transportation to the outpatient oncology clinic for supportive packed red blood cell and platelet transfusions. -Poor prognosis palliative care following. Meeting scheduled today. Seizure - CT head negative, MRI no acute findings, EEG No sz - History of old CVA, Neurologically intact - Keppra 1000 twice a day - Neurology consultation, Dr. Sanford who cleared patient. - Metabolic encephalopathy seems resolved. Atrial fibrillation - Currently NSR, off Cardizem drip - No anticoagulation due to severe thrombocytopenia Hypotension-resolved - Severe dehydration - s/p IV fluid bolus, and continue IV maintenance fluid, but reduce to 50 ml per hour - Creatinine continues to improve. - IV albumin 1 Acute kidney injury -Creatinine is improving. On IV fluids. -Strict ins and outs. Avoid nephrotoxins. Hypokalemia - Replenish as needed. Hypokalemia -Resolved supplement as needed. Hyperglycemia - Insulin sliding scale Thrombocytopenia - Due to above - Monitor for bleed -No signs of bleeding. DVT GI prophylaxis - Teds SCDs - No pharmacological DVT prophylaxis due to thrombocytopenia - IV Yelitza Peres MD May 01, 2017 10:40
[2017-05-01 13:02] LABS: HEMATOCRIT 27.4 % (39.0-51.0); HEMOGLOBIN 9.2 GM/DL (13.0-17.0)
[2017-05-01] MEDS ORDERED: SODIUM CHLOR 0.9% 250 ML INJ 250 ML IV SCH (13:30)
[2017-05-01] MEDS: GRANISETRON HCL 1 MG TAB PO SCH (13:48)
--- NOTE | 2017-05-01 14:13 | HHI.HCPN ---
Reason for visit a. To assist with evaluation and management of symptoms including:confusion , dyspnea, weakness, decreased oral intake. b. To assist medical decision maker(s) with: better understanding of current medical conditions; weighing benefits/burdens of medical treatment options; making medical treatment decisions. Subjective/Interval History Mr. 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 Patient was brought in to the ER on 04/26/17 by [facility] after he had a witnessed seizure by his . 2 mg of Ativan was given in field. Patient was also found to be in A. fib with RVR with heart rate in the 200s and 20 mg IV push Cardizem was administered. Upon my his arrival to the ER his heart treat was between 130s to 140s and he complained of generalized weakness with no focal neurologic deficits. 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 Patient seen and examined in his room on [facility] in the presence of his . Patient is awake, oriented to self, place and time with some confusion/ forgetfulness. Patient did not remember my visit yesterday. reports that he still is presenting as confused to her though he has slightly improved compared to the time he was admitted. Patient is able to follow simple commands. Patient reports that he feel a "little" better today though he still endorses fatigue and weakness. Patient is afebrile, HR 60s-mid 70s, SBP 120s- 160s, O2 saturation low to high 90s on O2 2L NC. Laboratory work up today revealing Hgb 9.2 and Hct 27.4. Readdressed code status, and patient stated that he would want to be a DNR and his supported his decision. She even went further to explain CPR, intubation and mechanical ventilation to patient. Offered assistance with completion of a community DNR. Patient`s stated that after discussing possible palliative treatment options with Dr. Hansen, they have agreed to proceed with Vidaza palliative therapy for 5 days starting today and they do understand that patient may decline further. Patient`s requested information regarding hospice. Explained to her that if patient and decide to forgo aggressive treatment and only want comfort care, they can always transition patient to hospice. Patient and receptive to informative visit with Hospice when patient is close to completing Vidaza therapy. Patient also stated that he wants his to be his health care surrogate and he changed alternate HCS from his daughter who has CML to his sister Brea Strong. . Family/friend interactions Meeting with patient`s at bedside. . Advance Directives Living Will: Completed, but not made available Health Care Surrogate: Copy in medical record Advance Directive Specifics Health Care Surrogate(s): Health Care Surrogate- Spouse-Jayne Lacydavid([phone]) Alternate Health Care Surrogate-Brea Strong . Objective Vital Signs Date Time Temp Pulse Resp B/P (MAP) Pulse Ox O2 Delivery O2 Flow Rate FiO2 05/01/17 13:41 98 Nasal Cannula 2.00 05/01/17 12:00 64 05/01/17 12:00 76 05/01/17 11:36 98.5 63 18 141/58 (85) 98 05/01/17 11:00 65 05/01/17 10:06 93 Nasal Cannula 2.00 05/01/17 09:25 98.8 70 18 163/78 (106) 93 05/01/17 07:00 76 05/01/17 05:27 65 05/01/17 04:28 63 05/01/17 04:27 Nasal Cannula 2.00 05/01/17 04:11 98.8 66 16 156/67 (96) 95 05/01/17 03:03 61 05/01/17 02:08 60 05/01/17 01:27 62 05/01/17 00:21 63 05/01/17 00:14 Nasal Cannula 2.00 21 05/01/17 00:14 97.8 64 16 125/52 (76) 98 04/30/17 23:01 64 04/30/17 22:03 64 04/30/17 21:00 66 04/30/17 20:20 97.4 64 16 147/64 97 04/30/17 20:20 Nasal Cannula 2.00 04/30/17 20:07 62 04/30/17 19:47 97 Nasal Cannula 2.00 04/30/17 19:46 98.1 61 18 153/64 (93) 97 04/30/17 17:42 98.7 61 20 153/64 96 04/30/17 17:08 98.1 60 18 157/66 97 04/30/17 15:38 98 Nasal Cannula 2.00 04/30/17 14:30 98.1 64 18 115/44 98 Intake & Output 05/01/17 05/01/17 07:00 19:00 Intake Total 880 ml Output Total 2150 ml Balance -1270 ml Intake Oral 480 ml Packed Cells 400 ml Output Urine Total 2150 ml Physical Exam CONSTITUTIONAL/GENERAL: This is an adequately nourished patient, in no acute apparent distress. TUBES/LINES/DRAINS:PIC, NC SKIN: No jaundice, rashes, or lesions. Multiple ecchymotic areas on upper extremities. Skin temperature appropriate. Not diaphoretic. HEAD: Atraumatic. Normocephalic. EYES: Pupils equal and round and reactive. Extraocular motions intact. No scleral icterus. No injection or drainage. Fundi not examined. ENT: Hearing grossly normal. Nose without bleeding or purulent drainage. Moist oral mucosa. Patient has a growth to his right side neck. NECK: Trachea midline. Supple, nontender. CARDIOVASCULAR: Irregular rate and rhythm without murmurs, gallops, or rubs. No JVD. Peripheral pulses symmetric. RESPIRATORY/CHEST: Symmetric, mild shortness of breath with conversation. Rhonchi to auscultation. Breath sounds equal but diminished bilaterally. No wheezes. GASTROINTESTINAL: Abdomen soft, non-tender, nondistended. No guarding. Bowel sounds present. GENITOURINARY: Without palpable bladder distension. Voids in a urinal. MUSCULOSKELETAL: Extremities without clubbing, cyanosis, or edema. No joint tenderness or effusion noted. No calf tenderness. No mottling or clubbing. NEUROLOGICAL: Awake, alert, oriented to self, place and time with some forgetfulness and confusion.Motor and sensory grossly within normal limits. Follows commands.Moves all extremities. PSYCHIATRIC: No obvious anxiety/depression. no apparent hallucinations or other psychotic thought process. Diagnostic Tests Laboratory Laboratory Tests Test 04/28/17 15:18 04/29/17 11:40 04/30/17 06:05 04/30/17 16:55 Prothrombin Time 12.2 SEC (9.8-11.6) Prothromb Time International Ratio 1.2 RATIO Activated Partial Thromboplast Time 33.2 SEC (24.3-30.1) Fibrinogen 155 mg/dL (227-377) White Blood Count 93.8 TH/MM3 (4.0-11.0) 71.7 TH/MM3 (4.0-11.0) Red Blood Count 2.62 MIL/MM3 (4.50-5.90) 2.45 MIL/MM3 (4.50-5.90) Hemoglobin 7.0 GM/DL (13.0-17.0) 6.5 GM/DL (13.0-17.0) Hematocrit 22.2 % (39.0-51.0) 20.7 % (39.0-51.0) Mean Corpuscular Volume 84.7 FL (80.0-100.0) 84.8 FL (80.0-100.0) Mean Corpuscular Hemoglobin 26.9 PG (27.0-34.0) 26.7 PG (27.0-34.0) Mean Corpuscular Hemoglobin Concent 31.8 % (32.0-36.0) 31.5 % (32.0-36.0) Red Cell Distribution Width 21.9 % (11.6-17.2) 22.1 % (11.6-17.2) Platelet Count 20 TH/MM3 (150-450) 17 TH/MM3 (150-450) Mean Platelet Volume 7.0 FL (7.0-11.0) 8.3 FL (7.0-11.0) CBC Comment AUTO DIFF Differential Total Cells Counted 100 Neutrophils % (Manual) 37 % (16-70) Lymphocytes % 9 % (9-44) Monocytes % 37 % (0-8) Neutrophils # (Manual) 37.5 TH/MM3 (1.8-7.7) Myelocytes 3 % (0-0) Differential Comment FINAL DIFF MANUAL Blastocytes 14 % (0-0) Smudge Cells PRESENT Platelet Estimate LOW (NORMAL) Platelet Morphology Comment ENLARGED (NORMAL) Ovalocytes 1+ (NORMAL) Blood Urea Nitrogen 14 MG/DL (7-18) 17 MG/DL (7-18) Creatinine 1.93 MG/DL (0.60-1.30) 1.95 MG/DL (0.60-1.30) Random Glucose 78 MG/DL (74-106) 82 MG/DL (74-106) Total Protein 5.2 GM/DL (6.4-8.2) Albumin 2.8 GM/DL (3.4-5.0) Calcium Level 7.6 MG/DL (8.5-10.1) 7.5 MG/DL (8.5-10.1) Alkaline Phosphatase 72 U/L (45-117) Aspartate Amino Transf (AST/SGOT) 26 U/L (15-37) Alanine Aminotransferase (ALT/SGPT) LESS THAN 6 U/L (12-78) Total Bilirubin 0.5 MG/DL (0.2-1.0) Sodium Level 146 MEQ/L (136-145) 144 MEQ/L (136-145) Potassium Level 3.0 MEQ/L (3.5-5.1) 2.9 MEQ/L (3.5-5.1) 3.7 MEQ/L (3.5-5.1) Chloride Level 112 MEQ/L (98-107) 109 MEQ/L (98-107) Carbon Dioxide Level 27.6 MEQ/L (21.0-32.0) 29.8 MEQ/L (21.0-32.0) Anion Gap 6 MEQ/L (5-15) 5 MEQ/L (5-15) Estimat Glomerular Filtration Rate 35 ML/MIN (>89) 35 ML/MIN (>89) Triglycerides Level 112 MG/DL (42-150) Cholesterol Level LESS THAN 50 MG/DL LDL Cholesterol 15 MG/DL (0-99) HDL Cholesterol 12.6 MG/DL (40.0-60.0) Cholesterol/HDL Ratio 3.96 RATIO Magnesium Level 1.6 MG/DL (1.5-2.5) Test 05/01/17 12:15 Hemoglobin 9.2 GM/DL (13.0-17.0) Hematocrit 27.4 % (39.0-51.0) Result Diagram: 05/01/17 1215 04/30/17 4495 Assessment and Plan Disease Oriented Problem List: (1) CMML (chronic myelomonocytic leukemia) (2) Seizure (3) Anemia of chronic disorder (4) Leukocytosis (5) Hypokalemia (6) Thrombocytopenia (7) COPD (chronic obstructive pulmonary disease) (8) Parkinson disease (9) Acute kidney failure Symptom Scale: (1) Dyspnea 0-10 Scale: Unable to quantify Comment: Multifactorial. Patient has history of COPD/emphysema on O2 2 L nasal cannula at home. Patient also has anemia. . (2) Generalized weakness 0-10 Scale: Unable to quantify Comment: Progressive. Patient his history of CMML/MDS, CVA . (3) Decreased oral intake 0-10 Scale: Unable to quantify Comment: Patient has poor appetite. . (4) Confusion 0-10 Scale: Unable to quantify Comment: Patient has history of CVA, recent seizure, COPD/emphysema on O2 2 L NC and anemia. . Pertinent Non-Medical Issues Psychosocial:Patient was born and raised in [place]. He graduated from high school and had some college education. Patient was in the [employer] for 2 years. 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 Patient moved to [place] in early . Patient has been twice and was once. He has been to his second for 29 years. He has an adult daughter Christi Novak from his first marriage. Spiritual: Patient is Gnosticism Legal: reports that she thinks patient has a living will Ethical issues impacting care:None identified at this time. Important Contacts spouse-Jayne Lacydavid([phone]) . Prognosis Mr. 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 Patient was brought in to the ER on 04/26/17 by [facility] after he had a witnessed seizure by his .Clinical course complicated with altered mental status, anemia, leucocytosis, thrombocytopenia and electrolyte abnormalities. Given ongoing comorbidities and recent hospitalization, and poor performance status limiting therapy options for patient, he remains at high risk for further complications, deterioration and decline. . Code Status: No Code Plan PLAN: Legal decision maker: Patient is alert and oriented x 3 with some confusion and forgetfulness. He appears to lack insight and judgment regarding his medical condition- recommending joint decision making with his Jayne Lacyандрейquintin. In the event that patient becomes incapacitated, he has designated his Jayne Teran and his sister as his alternate healthcare surrogate. Goals: Aggressive short of no code. Patient and receptive to hospice informative consult and they want to see how patient does after palliative Vidaza therapy. If patient does not do well, they most likely will transition to comfort care. CODE STATUS: No Code DNR SYMPTOMS: * Dyspnea: Multifactorial. Patient has history of COPD/emphysema on O2 2 L nasal cannula at home. Patient also has anemia. Patient currently on O2 2L NC saturating in the mid to high 90s. Symbicort 80-4.4mcg inhaler BID, Spiriva 18mcg inhaler daily, Duonebs Q 2 HRS PRN. Patient also has 2mg Morphine Sulfate IVP Q 2 hrs. 05/01/17 Hgb 6.5. 2units pRBC transfused placed. No recommendations. * Generalized weakness: Progressive. Patient has a hx of CMML/MDS, CVA, COPD/ emphysema on O2 2 L nasal cannula. Physical therapy consulted. No recommendations. * Decreased oral intake: Patient has poor appetite. Patient reports feeling nauseated most of the times. Consuming 25 % of his meals. Patient states that his appetite is improving though his does not agree. No recommendations at this time. * Confusion:Patient has history of CVA, recent seizure, COPD/emphysema on O2 2 L NC and anemia. Per , patient seems to be at his baseline now. Continue monitoring. Palliative care will continue to follow the patient during hospital course as condition evolves, to assist patient/decision-maker with understanding of their medical conditions, weighing benefits/burdens of treatment options, for clarification of goals of treatment. Additionally will assist with any symptoms of palliative concern Attestation To help prompt me to consider important information that might be impacting today's encounter and assessment, information from prior notes written by myself or my colleagues may have been "brought forward" into today's note. My signature on this note, however, is an attestation that I personally performed the exam, history, and/or decision-making noted today, and, unless otherwise indicated, the interactions with patient, family, and staff as well as the review of records all occurred today. I also attest that the listed assessment and stated plan reflect my best clinical judgment today based on the combination of historical information, prior notes, and today's exam/ interactions. When time spent is documented, it refers only to time spent today by the signer, or if indicated, combined time spent today by collaborating physician/nurse practitioner. Saul Bynum May 01, 2017 14:13
[2017-05-01] MEDS: AZACITIDINE IV SCH (14:39)
[2017-05-01] MEDS: SODIUM CHLORIDE 0.9% IV SCH (14:39)
[2017-05-01] MEDS: busPIRone HCL 5 MG TAB PO SCH (22:59)
[2017-05-01] MEDS: MIRTAZAPINE 15 MG TAB PO SCH (22:59)
[2017-05-02] VITALS (9 sets, daily range): BP systolic 114–134; BP diastolic 46–55; PULSE 57–78; RESP 18–24; TEMP 97.9–98.8; O2SAT 94–98
[2017-05-02] MEDS: CHLORHEXIDINE GLUCONATE 2 % 1 PACK (2 CLOTHS) TOP SCH (04:00)
[2017-05-02 06:42] LABS: HEMATOCRIT 27.4 % (39.0-51.0); HEMOGLOBIN 9.1 GM/DL (13.0-17.0); MEAN CELL VOLUME 86.1 FL (80.0-100.0); MEAN CORPUSCULAR HEMOGLOBIN 28.6 PG (27.0-34.0); MEAN CORPUSCULAR HGB CONC 33.2 % (32.0-36.0); RED BLOOD COUNT 3.18 MIL/MM3 (4.50-5.90); RED CELL DISTRIBUTION WIDTH 19.5 % (11.6-17.2); WHITE BLOOD COUNT 69.9 TH/MM3 (4.0-11.0)
[2017-05-02 06:51] LABS: PLATELET COUNT 14 TH/MM3 (150-450)
[2017-05-02 07:28] LABS: BICARBONATE 29.5 MEQ/L (21.0-32.0); CALCIUM 7.4 MG/DL (8.5-10.1); CREATININE 1.59 MG/DL (0.60-1.30)
--- NOTE | 2017-05-02 07:32 | PD.ONC.PN ---
Subjective Subjective Remarks Patient seen and examined, vital signs, labs medications and chemotherapy administration was reviewed. Subjectively; the patient reports having some dizziness and nausea while receiving Vidaza infusion yesterday. He tells me he was up out of bed and sat in a chair and try to eat small amounts. He continues to have generalized fatigue and weakness. He continues to require assistance with essentially all activities of daily living. Objective Data Date Time Temp Pulse Resp B/P (MAP) Pulse Ox O2 Delivery O2 Flow Rate FiO2 05/02/17 05:47 Nasal Cannula 2.00 05/02/17 04:40 97.9 58 18 134/52 (79) 97 05/02/17 04:09 57 05/02/17 01:47 59 20 130/55 (80) 97 05/02/17 00:29 58 05/02/17 00:00 Nasal Cannula 2.00 05/01/17 21:23 98.2 63 18 129/55 (79) 95 05/01/17 21:23 Nasal Cannula 2.00 05/01/17 20:12 62 05/01/17 18:00 62 05/01/17 17:00 56 05/01/17 16:00 58 05/01/17 15:27 99.0 59 20 134/63 (86) 97 05/01/17 15:00 61 05/01/17 14:00 66 05/01/17 13:41 98 Nasal Cannula 2.00 05/01/17 13:00 62 05/01/17 12:00 64 05/01/17 12:00 76 05/01/17 11:36 98.5 63 18 141/58 (85) 98 05/01/17 11:00 65 05/01/17 10:06 93 Nasal Cannula 2.00 05/01/17 09:25 98.8 70 18 163/78 (106) 93 05/02/17 05/02/17 05/02/17 07:00 15:00 23:00 Intake Total 200 ml Output Total 950 ml Balance -750 ml Result Diagram: 05/02/17 0513 04/30/17 0992 Laboratory Results Laboratory Tests Test 05/01/17 12:15 05/02/17 05:13 Hemoglobin 9.2 GM/DL 9.1 GM/DL Hematocrit 27.4 % 27.4 % White Blood Count 69.9 TH/MM3 Red Blood Count 3.18 MIL/MM3 Mean Corpuscular Volume 86.1 FL Mean Corpuscular Hemoglobin 28.6 PG Mean Corpuscular Hemoglobin Concent 33.2 % Red Cell Distribution Width 19.5 % Platelet Count 14 TH/MM3 Mean Platelet Volume 9.0 FL Administered Medications Medications (Trade) Dose Ordered Sig/Amberly Route PRN Reason Start Time Stop Time Status Last Admin Dose Admin Sodium Chloride (NS Flush) 2 ml BID IV FLUSH 04/27/17 09:00 05/01/17 23:00 Senna/Docusate Sodium (Gertrude-Colace) 1 tab BID PO 04/27/17 09:00 05/01/17 22:59 Allopurinol (Zyloprim) 300 mg DAILY PO 04/27/17 09:00 05/01/17 09:30 Budesonide/ Formoterol Fumarate (Symbicort 80-4.5 Mcg Inh) 1 puff BID INH 04/27/17 09:00 05/01/17 23:00 Buspirone HCl (Buspar) 5 mg HS PO 04/26/17 22:30 05/01/17 22:59 Buspirone HCl (Buspar) 10 mg DAILY PO 04/27/17 09:00 05/01/17 09:31 Carbidopa/Levodopa (Sinemet 25-100 Mg) 1.5 tab TID PO 04/27/17 09:00 05/01/17 17:35 Mirtazapine (Remeron) 7.5 mg HS PO 04/26/17 22:30 05/01/17 22:59 Tiotropium [place] (Spiriva Inh) 18 mcg DAILY INH 04/27/17 09:00 05/01/17 09:30 Sodium Chloride 1,000 ml @ 50 mls/hr Q20H IV 04/26/17 23:45 04/30/17 10:17 Lorazepam (Ativan Inj) 1 mg Q1H PRN IV PUSH Seizure 04/26/17 23:45 04/29/17 00:38 Zolpidem Tartrate (Ambien) 5 mg HS PRN PO INSOMNIA 04/26/17 23:45 04/29/17 22:50 Chlorhexidine Gluconate (Chlorhexidine 2% Cloth) Taper DAILY@04 TOP 04/27/17 04:00 04/23/18 03:59 04/28/17 04:00 Levetriacetam (Keppra) 500 mg Q12HR PO 04/27/17 09:00 05/01/17 22:59 Famotidine (Pepcid Inj) 10 mg Q12HR IV PUSH 04/28/17 21:00 05/01/17 23:00 Atenolol (Tenormin) 25 mg Q12HR PO 04/29/17 01:00 05/01/17 23:04 Acetaminophen (Tylenol) 650 mg Q4H PRN PO SEE LABEL COMMENTS 04/30/17 08:30 04/30/17 13:07 Diphenhydramine HCl (Benadryl) 25 mg Q4H PRN PO SEE LABEL COMMENTS 04/30/17 08:30 04/30/17 13:07 Granisetron HCl (Kytril) 2 mg DAILY@1330 PO 05/01/17 13:30 05/05/17 13:31 05/01/17 13:48 Azacitidine 143.25 mg/Sodium Chloride 100 ml @ 200 mls/hr DAILY@1400 IV 05/01/17 14:00 05/05/17 14:29 05/01/17 14:39 Objective Remarks GENERAL: Elderly male, chronically ill and cachectic appearing. Laying in bed asleep comfortably but easily awoken. SKIN: Cool and dry. HEAD: Normocephalic. EYES: No scleral icterus. No injection or drainage. Conjunctivae are pale. Oral exam: He has a submucosal hematoma on the left side of his tongue. Left lower lip also has a bruise on it. NECK: Supple, trachea midline. No JVD or lymphadenopathy. LYMPHATIC: No adenopathy. CARDIOVASCULAR: Irregular, S1 and S2 normal obvious murmurs or gallops.. RESPIRATORY: Distant sounding breath sounds, prolonged expiratory phase but no wheezing or rhonchi or crepitus. GASTROINTESTINAL: Abdomen soft, non-tender, nondistended. EXTREMITIES: No cyanosis, or edema. MUSCULOSKELETAL: Atrophic muscle mass diffusely noted but especially in the lower extremities. NEUROLOGICAL: He is able to speak sentences. He does express understanding of our conversation. He is moving all 4 limbs spontaneously and purposefully. PSYCHIATRIC: Appropriate mood and affect; insight and judgment normal. Assessment/Plan Assessment 66y/o male admitted with seizure. Oncology consulted for CMML/MDS. history of a CVA, COPD, Parkinson's disease, coronary artery disease and chronic debility/frailty. His malignant hematologic diagnosis was established earlier in April 2017, he is currently treatment shannan. Plan 1. CMML/MDS overlap: After our discussion on 05/01/2017 (family meeting with the patient, his and myself) the patient and his conveyed their desire to pursue systemic therapy with Vidaza in the hopes of controlling his CMML/MDS. Treatment was started at 05/01/2017, he will be scheduled for daily infusions for 5 consecutive days. 2. Anemia: d/t MDS STATUS POST 2 UNITS PACKED RED BLOOD CELL TRANSFUSION ON 04/30. 3. AMS: unclear etiology. He appears to be at baseline mentation today. 4. thrombocytopenia: likely d/t MDS. Disposition: Continue palliative systemic therapy with Vidaza as an inpatient. Treatment will continue until this Saturday. Following this he may be discharged to a long-term facility because I anticipate he will have significant worsening cytopenias and will also need transportation to the outpatient oncology clinic for supportive packed red blood cell and platelet transfusions. De Hansen MD May 02, 2017 07:32
[2017-05-02 08:03] LABS: CALCIUM-PROTEIN CORRECTED 8.5 MG/DL (8.5-10.1); TOTAL PROTEIN 5.2 GM/DL (6.4-8.2)
[2017-05-02] MEDS ORDERED: POTASSIUM CHLORIDE 25 MEQ EFFERVESCENT TAB PO ONE (08:30)
[2017-05-02] MEDS ORDERED: PILL SPLITTER OTHER PRN (10:00)
[2017-05-02] MEDS: busPIRone HCL 10 MG TAB PO SCH (10:05)
[2017-05-02] MEDS: levETIRAcetam 500 MG TAB PO SCH ×2 (10:05→20:43)
[2017-05-02] MEDS: ALLOPURINOL 300 MG TAB PO SCH (10:05)
[2017-05-02] MEDS: DOCUSATE SODIUM 50 MG/SENNA 8.6 MG TAB PO SCH ×2 (10:05→20:44)
[2017-05-02] MEDS: CARBIDOPA/LEVODOPA 25 MG/100 MG TAB PO SCH ×3 (10:06→18:02)
[2017-05-02] MEDS: FAMOTIDINE 20 MG/2 ML VIAL IV PUSH SCH ×2 (10:06→20:45)
[2017-05-02] MEDS: TIOTROPIUM BROMIDE 18 MCG INH INH SCH (10:07)
[2017-05-02] MEDS: BUDESONIDE-FORMOTEROL 80/4.5 MCG INHALER INH SCH ×2 (10:07→20:43)
[2017-05-02] MEDS: SODIUM CHLORIDE 0.9% FLUSH 10 ML FLUSH IV FLUSH SCH ×2 (10:07→20:43)
[2017-05-02] MEDS: ATENOLOL 25 MG TAB PO SCH ×2 (10:09→20:44)
[2017-05-02] MEDS: SODIUM CHLOR 0.9% 1000 ML INJ 1,000 ML IV SCH ×2 (10:15→20:44)
--- NOTE | 2017-05-02 11:19 | HHI.PR ---
Subjective Remarks Patient stated that he is a lot more energized today. On the phone during the interview. Patient has no complaints. Deny any shortness of breathing, chest pain, palpitation, lightheadedness/dizziness. He had no concerns. Objective Vitals Vital Signs Date Time Temp Pulse Resp B/P (MAP) Pulse Ox O2 Delivery O2 Flow Rate FiO2 05/02/17 08:08 98 Nasal Cannula 2.00 05/02/17 05:47 Nasal Cannula 2.00 05/02/17 04:40 97.9 58 18 134/52 (79) 97 05/02/17 04:09 57 05/02/17 01:47 59 20 130/55 (80) 97 05/02/17 00:29 58 05/02/17 00:00 Nasal Cannula 2.00 05/01/17 21:23 98.2 63 18 129/55 (79) 95 05/01/17 21:23 Nasal Cannula 2.00 05/01/17 20:12 62 05/01/17 18:00 62 05/01/17 17:00 56 05/01/17 16:00 58 05/01/17 15:27 99.0 59 20 134/63 (86) 97 05/01/17 15:00 61 05/01/17 14:00 66 05/01/17 13:41 98 Nasal Cannula 2.00 05/01/17 13:00 62 05/01/17 12:00 64 05/01/17 12:00 76 05/01/17 11:36 98.5 63 18 141/58 (85) 98 I/O 05/01/17 05/01/17 05/01/17 05/02/17 05/02/17 05/02/17 07:00 15:00 23:00 07:00 15:00 23:00 Intake Total 240 ml 480 ml 200 ml 988 ml Output Total 1200 ml 1250 ml 950 ml Balance -960 ml -770 ml -750 ml 988 ml Intake Oral 240 ml 480 ml 200 ml IV Total 988 ml Output Urine Total 1200 ml 1250 ml 950 ml # Bowel Movements 0 Result Diagram: 05/02/1713 05/02/17 0513 Objective Remarks GENERAL: in NAD and awake. CARDIOVASCULAR: Regular rate and rhythm without murmurs, gallops, or rubs. RESPIRATORY: Breath sounds equal bilaterally. No accessory muscle use. GASTROINTESTINAL: Abdomen soft, non-tender, nondistended. NEURO: Moves all extremities grossly. Medications and IVs Current Medications Sodium Chloride 1,000 ml @ 999 mls/hr BOLUS ONCE IV Last administered on 04/26at 20:09; Start 04/26/17 at 20:15; Stop 04/26/17 at 21:15; Status DC Diltiazem HCl (Cardizem Inj) 24 mg ONCE PRN IV PUSH RESPONSE Last administered on 04/26/17at 20:09; Start 04/26/17 at 20:15; Stop 04/28/17 at 16:48; Status DC Diltiazem HCl 125 mg/Sodium Chloride 125 ml @ 5 mls/hr TITRATE PRN IV Tachycardia Last administered on 04/26/17at 21:44; Start 04/26/17 at 21:00; Stop 04/28/17 at 16:48; Status DC Sodium Chloride 1,000 ml @ 999 mls/hr BOLUS ONCE IV Last administered on 04/26at 21:10; Start 04/26/17 at 21:00; Stop 04/26/17 at 22:00; Status DC Potassium Chloride 100 ml @ 50 mls/hr ONCE ONCE IV Last administered on at 23:18; Start 04/26/17 at 22:15; Stop 04/27/17 at 00:14; Status DC Potassium Chloride (KCl) 60 meq ONCE ONCE PO Last administered on 04/26/17at 22 :32; Start 04/26/17 at 22:15; Stop 04/26/17 at 22:16; Status DC Sodium Chloride 1,000 ml @ 999 mls/hr BOLUS ONCE IV Last administered on 04/26at 22:12; Start 04/26/17 at 22:15; Stop 04/26/17 at 23:15; Status DC Lorazepam (Ativan Inj) 1 mg Q5M PRN IV PUSH SEIZURE; Start 04/26/17 at 22:30; Stop 04/26/17 at 23:54; Status DC Sodium Chloride 1,000 ml @ 100 mls/hr Q10H IV ; Start 04/26/17 at 22:18; Stop 04/27/17 at 00:03; Status DC Sodium Chloride (NS Flush) 2 ml UNSCH PRN IV FLUSH FLUSH AFTER USING IV ACCESS ; Start 04/26/17 at 22:30 Sodium Chloride (NS Flush) 2 ml BID IV FLUSH Last administered on 05/02/17at 10: 07; Start 04/27/17 at 09:00 Ondansetron HCl (Zofran Inj) 4 mg Q6H PRN IVP NAUSEA OR VOMITING; Start at 22:30 Acetaminophen (Tylenol) 650 mg Q6H PRN PO FEVER/PAIN SCALE 1 TO 2; Start at 22:30 Acetaminophen/ Hydrocodone Bitart ([place] 5-325 Mg) 1 tab Q4H PRN PO PAIN SCALE 3 TO 5; Start 04/26/17 at 22:30 Morphine Sulfate (Morphine Inj) 2 mg Q3H PRN IV PUSH Pain 6-10; Start 04/26/17 at 22:30; Stop 04/27/17 at 00:03; Status DC Senna/Docusate Sodium (Gertrude-Colace) 1 tab BID PO Last administered on at 10:05; Start 04/27/17 at 09:00 Magnesium Hydroxide (Milk Of Magnesia Liq) 30 ml Q12H PRN PO Mild constipation ; Start 04/26/17 at 22:30 Sennosides (Senokot) 17.2 mg Q12H PRN PO Moderate constipation; Start 04/26/17 at 22:30 Bisacodyl (Dulcolax Supp) 10 mg DAILY PRN RECTAL SEVERE CONSITIPATION; Start at 22:30; Stop 04/26/17 at 22:30; Status DC Lactulose (Lactulose Liq) 30 ml DAILY PRN PO SEVERE CONSITIPATION/ IF PO; Start 04/26/17 at 22:30 Allopurinol (Zyloprim) 300 mg DAILY PO Last administered on 05/02/17at 10:05; Start 04/27/17 at 09:00 Budesonide/ Formoterol Fumarate (Symbicort 80-4.5 Mcg Inh) 1 puff BID INH Last administered on 05/02/17at 10:07; Start 04/27/17 at 09:00 Buspirone HCl (Buspar) 5 mg HS PO Last administered on 05/01/17at 22:59; Start 04/26/17 at 22:30 Buspirone HCl (Buspar) 10 mg DAILY PO Last administered on 05/02/17at 10:05; Start 04/27/17 at 09:00 Carbidopa/Levodopa (Sinemet 25-100 Mg) 1.5 tab TID PO Last administered on 05/02at 10:06; Start 04/27/17 at 09:00 Mirtazapine (Remeron) 7.5 mg HS PO Last administered on 05/01/17at 22:59; Start 04/26/17 at 22:30 Tiotropium [place] (Spiriva Inh) 18 mcg DAILY INH Last administered on at 10:07; Start 04/27/17 at 09:00 Bisacodyl (Dulcolax Supp) 10 mg DAILY PRN RECTAL SEVERE CONSITIPATION/ IF NPO; Start 04/26/17 at 22:30 Diltiazem HCl (Cardizem Cd) 300 mg DAILY PO ; Start 04/27/17 at 09:00; Stop at 09:00; Status DC Sodium Chloride 1,000 ml @ 50 mls/hr Q20H IV Last administered on 05/02/17at 10 :15; Start 04/26/17 at 23:45 Sodium Chloride (NS Flush) 2 ml UNSCH PRN IV FLUSH FLUSH AFTER USING IV ACCESS ; Start 04/26/17 at 23:45; Stop 04/26/17 at 23:57; Status DC Sodium Chloride (NS Flush) 2 ml BID IV FLUSH ; Start 04/27/17 at 09:00; Stop at 09:00; Status DC Acetaminophen (Tylenol) 650 mg Q6H PRN PO PAIN 1-5 AND/OR FEVER >101F; Start at 23:45; Stop 04/26/17 at 23:57; Status DC Morphine Sulfate (Morphine Inj) 2 mg Q2H PRN IV PUSH PAIN SCALE 6 TO 10; Start 04/26/17 at 23:45 Famotidine (Pepcid Inj) 20 mg Q12HR IV PUSH Last administered on 04/28/17at 08: 20; Start 04/27/17 at 09:00; Stop 04/28/17 at 13:11; Status DC Lorazepam (Ativan Inj) 1 mg Q1H PRN IV PUSH Seizure Last administered on at 00:38; Start 04/26/17 at 23:45 Ondansetron HCl (Zofran Inj) 4 mg Q6H PRN IV PUSH NAUSEA OR VOMITING; Start at 23:45; Stop 04/26/17 at 23:57; Status DC Zolpidem Tartrate (Ambien) 5 mg HS PRN PO INSOMNIA Last administered on at 22:50; Start 04/26/17 at 23:45 Albuterol/ Ipratropium (Duoneb Neb) 1 ampule Q6HR NEB INH Last administered on 04/30/17at 20:00; Start 04/27/17 at 04:00; Stop 05/01/17 at 03:59; Status DC Albuterol/ Ipratropium (Duoneb Neb) 1 ampule Q2HR NEB PRN INH WHEEZING; Start 04/26/17 at 23:45 Miscellaneous Information 1 Q361D XX ; Start 04/26/17 at 23:45 Chlorhexidine Gluconate (Chlorhexidine 2% Cloth) Taper DAILY@04 TOP Last administered on 04/28/17at 04:00; Start 04/27/17 at 04:00; Stop 04/23/18 at 03:59 Chlorhexidine Gluconate (Chlorhexidine 2% Cloth) 3 pack UNSCH PRN TOP HYGIENIC CARE; Start 04/26/17 at 23:45 Senna/Docusate Sodium (Gertrude-Colace) 1 tab BID PO ; Start 04/27/17 at 09:00; Stop 04/27/17 at 09:00; Status DC Magnesium Hydroxide (Milk Of Magnesia Liq) 30 ml Q12H PRN PO Mild constipation ; Start 04/26/17 at 23:45; Stop 04/26/17 at 23:57; Status DC Sennosides (Senokot) 17.2 mg Q12H PRN PO Moderate constipation; Start 04/26/17 at 23:45; Stop 04/26/17 at 23:57; Status DC Bisacodyl (Dulcolax Supp) 10 mg DAILY PRN RECTAL SEVERE CONSITIPATION; Start at 23:45; Stop 04/26/17 at 23:57; Status DC Lactulose (Lactulose Liq) 30 ml DAILY PRN PO SEVERE CONSITIPATION; Start at 23:45; Stop 04/26/17 at 23:57; Status DC Levetriacetam 100 ml @ 400 mls/hr Q12HR IV ; Start 04/27/17 at 09:00; Stop at 09:00; Status DC Sodium Chloride 1,000 ml @ 999 mls/hr Q1H1M IV Last administered on 04/27/17at 02:15; Start 04/27/17 at 02:15; Stop 04/27/17 at 03:15; Status DC Albumin Human 500 ml @ 250 mls/hr ONCE ONCE IV Last administered on at 03:58; Start 04/27/17 at 03:45; Stop 04/27/17 at 05:44; Status DC Potassium Chloride 100 ml @ 100 mls/hr Q1H IV Last administered on 04/27/17at 06:36; Start 04/27/17 at 03:45; Stop 04/27/17 at 06:44; Status DC Dextrose (D50w (Vial) Inj) 50 ml UNSCH PRN IV PUSH HYPOGLYCEMIA-SEE COMMENTS; Start 04/27/17 at 04:00; Stop 04/30/17 at 13:41; Status DC Glucagon (Glucagon Inj) 1 mg UNSCH PRN OTHER HYPOGLYCEMIA-SEE COMMENTS; Start 04/27/17 at 04:00; Stop 04/30/17 at 13:41; Status DC Insulin Human Regular (NovoLIN R SUPPLEMENTAL SCALE) 1 ACHS SLIDING SCALE SQ Last administered on 04/27/17at 21:21; Start 04/27/17 at 08:00; Stop 04/30/17 at 13:41; Status DC Calcium Gluconate 2 gm/Sodium Chloride 120 ml @ 120 mls/hr ONCE ONCE IV Last administered on 04/27/17at 05:31; Start 04/27/17 at 04:30; Stop 04/27/17 at 05:29 ; Status DC Magnesium Sulfate/ Dextrose 100 ml @ 100 mls/hr Q1H IV Last administered on at 08:43; Start 04/27/17 at 07:00; Stop 04/27/17 at 08:59; Status DC Levetriacetam (Keppra) 500 mg Q12HR PO Last administered on 05/02/17at 10:05; Start 04/27/17 at 09:00 Hydroxyurea (Hydrea) 500 mg ONCE ONCE PO Last administered on 04/27/17at 21:20 ; Start 04/27/17 at 21:00; Stop 04/27/17 at 21:01; Status DC Potassium Chloride 100 ml @ 50 mls/hr Q2H IV Last administered on 04/28/17at 05 :58; Start 04/28/17 at 04:00; Stop 04/28/17 at 07:59; Status DC Famotidine (Pepcid Inj) 10 mg Q12HR IV PUSH Last administered on 05/02/17at 10: 06; Start 04/28/17 at 21:00 Hydroxyurea (Hydrea) 500 mg ONCE ONCE PO Last administered on 04/28/17at 16:35 ; Start 04/28/17 at 15:00; Stop 04/28/17 at 15:01; Status DC Atenolol (Tenormin) 25 mg Q12HR PO Last administered on 05/02/17at 10:09; Start 04/29/17 at 01:00 Hydroxyurea (Hydrea) 250 mg DAILY PO ; Start 04/29/17 at 09:00; Status UNV Potassium Bicarb/ Potassium Chloride (K-Lyte Cl Eff) 50 meq ONCE ONCE PO Last administered on 04/30/17at 09:26; Start 04/30/17 at 08:45; Stop 04/30/17 at 08:48; Status DC Sodium Chloride 250 ml @ 15 mls/hr ONCE ONCE IV Last administered on at 08:30; Start 04/30/17 at 08:30; Stop 05/01/17 at 01:09; Status DC Acetaminophen (Tylenol) 650 mg Q4H PRN PO SEE LABEL COMMENTS Last administered on 04/30/17at 13:07; Start 04/30/17 at 08:30 Diphenhydramine HCl (Benadryl) 25 mg Q4H PRN PO SEE LABEL COMMENTS Last administered on 04/30/17at 13:07; Start 04/30/17 at 08:30 Furosemide (Lasix Inj) 20 mg ONCE ONCE IV PUSH Last administered on 04/30/17at 16:45; Start 04/30/17 at 08:30; Stop 04/30/17 at 08:48; Status DC Potassium Chloride (KCl) 40 meq ONCE ONCE PO ; Start 04/30/17 at 08:30; Stop at 08:31; Status UNV Magnesium Sulfate/ Dextrose 100 ml @ 100 mls/hr ONCE ONCE IV Last administered on 04/30/17at 17:06; Start 04/30/17 at 15:00; Stop 04/30/17 at 15:59 ; Status DC Hydroxyurea (Hydrea) 500 mg ONCE ONCE PO Last administered on 04/30/17at 16:49 ; Start 04/30/17 at 16:00; Stop 05/01/17 at 08:13; Status DC Sodium Chloride 250 ml @ 0 mls/hr UNSCH IV ; Start 05/01/17 at 13:30; Stop 05/05 at 23:59 Granisetron HCl (Kytril) 2 mg DAILY@1330 PO Last administered on 05/01/17at 13: 48; Start 05/01/17 at 13:30; Stop 05/05/17 at 13:31 Azacitidine 143.25 mg/Sodium Chloride 100 ml @ 200 mls/hr DAILY@1400 IV Last administered on 05/01/17at 14:39; Start 05/01/17 at 14:00; Stop 05/05/17 at 14:29 Potassium Bicarb/ Potassium Chloride (K-Lyte Cl Eff) 50 meq ONCE ONCE PO Last administered on 05/02/17at 10:06; Start 05/02/17 at 08:30; Stop 05/02/17 at 08:34; Status DC Miscellaneous (Pill Splitter) 1 ea UNSCH PRN OTHER SEE LABEL COMMENTS; Start at 10:00 A/P Assessment and Plan This is a 66-year-old male who presented with atrial fibrillation RVR and seizure activity Leukocytosis/CMML Anemia thrombocytopenia - 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 - So far cultures are all negative. - Monitor without antibiotics at this time - Hydrea and allopurinol added by hematology - Transfusions per hematology -Oncologist initiated palliative systemic therapy with [facility] as an inpatient and stated that treatment will continue until Saturday. Following this he may be discharged to a halfway facility because I anticipate he will have significant worsening cytopenias and will also need transportation to the outpatient oncology clinic for supportive packed red blood cell and platelet transfusions. -Poor prognosis palliative care following. Seizure - CT head negative, MRI no acute findings, EEG No sz - History of old CVA, Neurologically intact - Keppra 1000 twice a day - Neurology consultation, Dr. Sanford who cleared patient. - Metabolic encephalopathy seems resolved. Atrial fibrillation - Currently NSR, off Cardizem drip - No anticoagulation due to severe thrombocytopenia Hypotension-resolved - Severe dehydration - s/p IV fluid bolus, and continue IV maintenance fluid, but reduce to 50 ml per hour - Creatinine continues to improve. - IV albumin 1 Acute kidney injury -Creatinine is improving. On IV fluids. -Strict ins and outs. Avoid nephrotoxins. Hypokalemia - Replenish as needed. -Will need to give another dose. He may need to be on schedule potassium. Hyperglycemia - Insulin sliding scale Thrombocytopenia - Due to above - Monitor for bleed -No signs of bleeding. DVT GI prophylaxis - Teds SCDs - No pharmacological DVT prophylaxis due to thrombocytopenia - IV Pepcid Discharge Planning Once patient completes palliative chemotherapy will be discharge to rehabilitation. Last days on Saturday. Yelitza Cesar MD May 02, 2017 11:19
[2017-05-02] MEDS: GRANISETRON HCL 1 MG TAB PO SCH (13:30)
--- NOTE | 2017-05-02 14:05 | HHI.PR ---
Objective Vital Signs Date Time Temp Pulse Resp B/P (MAP) Pulse Ox O2 Delivery O2 Flow Rate FiO2 05/02/17 12:40 98.1 60 24 125/53 (77) 94 05/02/17 08:08 98 Nasal Cannula 2.00 05/02/17 05:47 Nasal Cannula 2.00 05/02/17 04:40 97.9 58 18 134/52 (79) 97 05/02/17 04:09 57 05/02/17 01:47 59 20 130/55 (80) 97 05/02/17 00:29 58 05/02/17 00:00 Nasal Cannula 2.00 05/01/17 21:23 98.2 63 18 129/55 (79) 95 05/01/17 21:23 Nasal Cannula 2.00 05/01/17 20:12 62 05/01/17 18:00 62 05/01/17 17:00 56 05/01/17 16:00 58 05/01/17 15:27 99.0 59 20 134/63 (86) 97 05/01/17 15:00 61 I/O 05/01/17 05/01/17 05/01/17 05/02/17 05/02/17 05/02/17 07:00 15:00 23:00 07:00 15:00 23:00 Intake Total 240 ml 480 ml 200 ml 988 ml Output Total 1200 ml 1250 ml 950 ml Balance -960 ml -770 ml -750 ml 988 ml Intake Oral 240 ml 480 ml 200 ml IV Total 988 ml Output Urine Total 1200 ml 1250 ml 950 ml # Bowel Movements 0 Result Diagram: 05/02/17 0513 05/02/17 0513 Objective Remarks awake alert mild weak rue 4+ ow moves all well no tremors to command speech fluent no change walked to bathroom today Assessment and Plan Assessment and Plan imp mri old left mca cva no new cva eeg nl us 50-60% r ica cannot do asa plt too low no evidence of PD today on keppra po for sz and neuro mina could dc to rehab tomorrow if other issues resolved as per my consult note consider anticoagulation if can with low plts oob to chair most of day stable neuro needs rehab i will sign off Tej Sanford MD May 02, 2017 14:05
--- NOTE | 2017-05-02 14:26 | HHI.HCPN ---
Reason for visit a. To assist with evaluation and management of symptoms including: dyspnea, weakness, decreased oral intake. b. To assist medical decision maker(s) with: better understanding of current medical conditions; weighing benefits/burdens of medical treatment options; making medical treatment decisions. Subjective/Interval History Patient seen and examined in his room on [facility]. Awake, alert, oriented to self, place and situation. Patient watching TV. Denies pain, reports occasional episodes of nausea. Patient is afebrile. HR high 50s-60s. O2 saturation mid to high 90s on O2 2LNC. Patient still endorses weakness and fatigue. . Family/friend interactions No family at bedside. . Advance Directives Living Will: Completed, but not made available Health Care Surrogate: Copy in medical record Advance Directive Specifics Health Care Surrogate(s): Health Care Surrogate- Spouse-Jayne Teran([phone]) Alternate Health Care Surrogate-Brea Strong . Objective Vital Signs Date Time Temp Pulse Resp B/P (MAP) Pulse Ox O2 Delivery O2 Flow Rate FiO2 05/02/17 12:40 98.1 60 24 125/53 (77) 94 05/02/17 08:08 98 Nasal Cannula 2.00 05/02/17 05:47 Nasal Cannula 2.00 05/02/17 04:40 97.9 58 18 134/52 (79) 97 05/02/17 04:09 57 05/02/17 01:47 59 20 130/55 (80) 97 05/02/17 00:29 58 05/02/17 00:00 Nasal Cannula 2.00 05/01/17 21:23 98.2 63 18 129/55 (79) 95 05/01/17 21:23 Nasal Cannula 2.00 05/01/17 20:12 62 05/01/17 18:00 62 05/01/17 17:00 56 05/01/17 16:00 58 05/01/17 15:27 99.0 59 20 134/63 (86) 97 05/01/17 15:00 61 05/01/17 14:00 66 Intake & Output 05/02/17 05/02/17 07:00 19:00 Intake Total 200 ml 988 ml Output Total 950 ml Balance -750 ml 988 ml Intake Oral 200 ml IV Total 988 ml Output Urine Total 950 ml Physical Exam CONSTITUTIONAL/GENERAL: This is an adequately nourished patient, in no acute apparent distress. TUBES/LINES/DRAINS:PIC, NC SKIN: No jaundice, rashes, or lesions. Multiple ecchymotic areas on upper extremities. Skin temperature appropriate. Not diaphoretic. HEAD: Atraumatic. Normocephalic. EYES: Pupils equal and round and reactive. Extraocular motions intact. No scleral icterus. No injection or drainage. Fundi not examined. ENT: Hearing grossly normal. Nose without bleeding or purulent drainage. Moist oral mucosa-hematoma to his tongue. Patient has a growth to his right side neck. NECK: Trachea midline. Supple, nontender. CARDIOVASCULAR: Irregular rate and rhythm without murmurs, gallops, or rubs. No JVD. Peripheral pulses symmetric. RESPIRATORY/CHEST: Symmetric, mild shortness of breath with conversation. Breath sounds equal but diminished bilaterally. Inspiratory wheezing to [place] GASTROINTESTINAL: Abdomen soft, non-tender, nondistended. No guarding. Bowel sounds present. GENITOURINARY: Without palpable bladder distension. Voids in a urinal. MUSCULOSKELETAL: Extremities without clubbing, cyanosis, or edema. No joint tenderness or effusion noted. No calf tenderness. No mottling or clubbing. NEUROLOGICAL: Awake, alert, oriented to self, place and time with some forgetfulness and confusion.Motor and sensory grossly within normal limits. Follows commands.Moves all extremities. PSYCHIATRIC: No obvious anxiety/depression. no apparent hallucinations or other psychotic thought process. Diagnostic Tests Laboratory Laboratory Tests Test 04/30/17 06:05 04/30/17 16:55 05/01/17 12:15 05/02/17 05:13 White Blood Count 71.7 TH/MM3 (4.0-11.0) 69.9 TH/MM3 (4.0-11.0) Red Blood Count 2.45 MIL/MM3 (4.50-5.90) 3.18 MIL/MM3 (4.50-5.90) Hemoglobin 6.5 GM/DL (13.0-17.0) 9.2 GM/DL (13.0-17.0) 9.1 GM/DL (13.0-17.0) Hematocrit 20.7 % (39.0-51.0) 27.4 % (39.0-51.0) 27.4 % (39.0-51.0) Mean Corpuscular Volume 84.8 FL (80.0-100.0) 86.1 FL (80.0-100.0) Mean Corpuscular Hemoglobin 26.7 PG (27.0-34.0) 28.6 PG (27.0-34.0) Mean Corpuscular Hemoglobin Concent 31.5 % (32.0-36.0) 33.2 % (32.0-36.0) Red Cell Distribution Width 22.1 % (11.6-17.2) 19.5 % (11.6-17.2) Platelet Count 17 TH/MM3 (150-450) 14 TH/MM3 (150-450) Mean Platelet Volume 8.3 FL (7.0-11.0) 9.0 FL (7.0-11.0) Blood Urea Nitrogen 17 MG/DL (7-18) 16 MG/DL (7-18) Creatinine 1.95 MG/DL (0.60-1.30) 1.59 MG/DL (0.60-1.30) Random Glucose 82 MG/DL (74-106) 112 MG/DL (74-106) Calcium Level 7.5 MG/DL (8.5-10.1) 7.4 MG/DL (8.5-10.1) Magnesium Level 1.6 MG/DL (1.5-2.5) Sodium Level 144 MEQ/L (136-145) 141 MEQ/L (136-145) Potassium Level 2.9 MEQ/L (3.5-5.1) 3.7 MEQ/L (3.5-5.1) 3.0 MEQ/L (3.5-5.1) Chloride Level 109 MEQ/L (98-107) 105 MEQ/L (98-107) Carbon Dioxide Level 29.8 MEQ/L (21.0-32.0) 29.5 MEQ/L (21.0-32.0) Anion Gap 5 MEQ/L (5-15) 7 MEQ/L (5-15) Estimat Glomerular Filtration Rate 35 ML/MIN (>89) 44 ML/MIN (>89) Total Protein 5.2 GM/DL (6.4-8.2) Protein Corrected Calcium 8.5 MG/DL (8.5-10.1) Result Diagram: 05/02/17 0513 05/02/17512 Assessment and Plan Disease Oriented Problem List: (1) CMML (chronic myelomonocytic leukemia) (2) Seizure (3) Anemia of chronic disorder (4) Leukocytosis (5) Hypokalemia (6) Thrombocytopenia (7) COPD (chronic obstructive pulmonary disease) (8) Parkinson disease (9) Acute kidney failure Symptom Scale: (1) Dyspnea 0-10 Scale: Unable to quantify Comment: Multifactorial. Patient has history of COPD/emphysema on O2 2 L nasal cannula at home. Patient also has anemia. . (2) Generalized weakness 0-10 Scale: Unable to quantify Comment: Progressive. Patient his history of CMML/MDS, CVA . (3) Decreased oral intake 0-10 Scale: Unable to quantify Comment: Patient has poor appetite. . (4) Confusion 0-10 Scale: Unable to quantify Comment: Patient has history of CVA, recent seizure, COPD/emphysema on O2 2 L NC and anemia. . Pertinent Non-Medical Issues Psychosocial:Patient was born and raised in [place]. He graduated from high school and had some college education. Patient was in the [employer] for 2 years. 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 Patient moved to [place] in early . Patient has been twice and was once. He has been to his second for 29 years. He has an adult daughter Christi Novak from his first marriage. Spiritual: Patient is [employer]ism Legal: reports that she thinks patient has a living will Ethical issues impacting care:None identified at this time. Important Contacts spouse-Jayne Teran([phone]) . Prognosis Mr. 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 Patient was brought in to the ER on 04/26/17 by [facility] after he had a witnessed seizure by his .Clinical course complicated with altered mental status, anemia, leucocytosis, thrombocytopenia and electrolyte abnormalities. Given ongoing comorbidities and recent hospitalization, and poor performance status limiting therapy options for patient, he remains at high risk for further complications, deterioration and decline. . Code Status: No Code Plan PLAN: Legal decision maker: Patient is alert and oriented x 3 with some confusion and forgetfulness. He appears to lack insight and judgment regarding his medical condition- recommending joint decision making with his Jayne Teran. In the event that patient becomes incapacitated, he has designated his Jayne Teran and his sister as his alternate healthcare surrogate. Goals: Aggressive short of no code. CODE STATUS: No Code DNR SYMPTOMS: * Dyspnea: Multifactorial. Patient has history of COPD/emphysema on O2 2 L nasal cannula at home. Patient also has anemia. Patient currently on O2 2L NC saturating in the mid to high 90s. Symbicort 80-4.4mcg inhaler BID, Spiriva 18mcg inhaler daily, Duonebs Q 2 HRS PRN. Patient also has 2mg Morphine Sulfate IVP Q 2 hrs. 05/01/17 Hgb 6.5. 2units pRBC transfused placed. No recommendations. * Generalized weakness: Progressive. Patient has a hx of CMML/MDS, CVA, COPD/ emphysema on O2 2 L nasal cannula. Physical therapy consulted. No recommendations. * Decreased oral intake: Patient has poor appetite. Patient reports feeling nauseated most of the times. Consuming 25 % of his meals. Patient states that his appetite is improving though his does not agree. No recommendations at this time. * Confusion:Patient has history of CVA, recent seizure, COPD/emphysema on O2 2 L NC and anemia. Per , patient seems to be at his baseline now. Continue monitoring. Palliative care will continue to follow the patient during hospital course as condition evolves, to assist patient/decision-maker with understanding of their medical conditions, weighing benefits/burdens of treatment options, for clarification of goals of treatment. Additionally will assist with any symptoms of palliative concern Saul Bynum May 02, 2017 14:26
[2017-05-02] MEDS: SODIUM CHLORIDE 0.9% IV SCH (15:19)
[2017-05-02] MEDS: AZACITIDINE IV SCH (15:19)
[2017-05-02] MEDS: MORPHINE SULFATE 2 MG/ML INJ IV PUSH PRN (20:40)
[2017-05-02] MEDS: MIRTAZAPINE 15 MG TAB PO SCH (20:44)
[2017-05-02] MEDS: busPIRone HCL 5 MG TAB PO SCH (20:45)
[2017-05-03] MEDS: MORPHINE SULFATE 2 MG/ML INJ IV PUSH PRN (00:23)
[2017-05-03 00:25] VITALS: BP 147/60; PULSE 63; RESP 18; TEMP 98; O2SAT 98
--- NOTE | 2017-05-03 01:35 | RADRPT ---
EXAM DATE/TIME: 05/03/2017 01:16 [place] COMPARISON: No previous studies available for comparison. INDICATIONS : Severe knee pain with no trauma. RADIATION DOSE: 7.29 CTDIvol (mGy) MEDICAL HISTORY : Diabetes mellitus type 2. Leukemia. SURGICAL HISTORY : None. ENCOUNTER: Initial ACUITY: 1 day PAIN SCALE: 10/10 LOCATION: Left knee. Entire joint. TECHNIQUE: Volumetric scanning of the knee was performed. Using automated exposure control and adjustment of th e mA and/or kV according to patient size, radiation dose was kept as low as reasonably achievable to obtain optimal diagnostic quality images. DICOM format image data is available electronically for re view and comparison. FINDINGS: BONES: No evidence of fracture. Alignment is within normal limits. JOINTS: There is a moderate joint effusion. SOFT TISSUES: Soft tissues are unremarkable for a CT examination. No focal fluid collection is seen in the soft tis sues. Arterial calcifications are seen. CONCLUSION: Moderate joint effusion. Ronald Rucker MD on May 03, 2017 at 1:31 Board Certified Radiologist. This report was verified electronically.
[2017-05-03] MEDS: CHLORHEXIDINE GLUCONATE 2 % 1 PACK (2 CLOTHS) TOP SCH (04:00)
[2017-05-03 06:08] VITALS: BP 130/43; PULSE 61; RESP 16; TEMP 99.8; O2SAT 95
[2017-05-03 07:17] LABS: AUTOMATED NEUTROPHIL # 21.6 TH/MM3 (1.8-7.7); BASOPHIL # 0.3 TH/MM3 (0-0.2); BASOPHIL % 0.4 % (0.0-2.0); EOSINOPHIL # 0.1 TH/MM3 (0-0.4); EOSINOPHIL % 0.1 % (0.0-4.0); HEMOGLOBIN 9.2 GM/DL (13.0-17.0); LYMPH % 4.4 % (9.0-44.0); LYMPHOCYTE # 3.9 TH/MM3 (1.0-4.8); MEAN CORPUSCULAR HEMOGLOBIN 28.1 PG (27.0-34.0); MEAN CORPUSCULAR HGB CONC 32.7 % (32.0-36.0); MEAN PLATELET VOLUME 8.7 FL (7.0-11.0); MONO % 71.1 % (0.0-8.0); MONOCYTE # 63.9 TH/MM3 (0-0.9); RED BLOOD COUNT 3.25 MIL/MM3 (4.50-5.90); RED CELL DISTRIBUTION WIDTH 19.4 % (11.6-17.2); WHITE BLOOD COUNT 89.9 TH/MM3 (4.0-11.0)
[2017-05-03 07:51] LABS: PLATELET COUNT 14 TH/MM3 (150-450)
[2017-05-03 08:40] LABS: BLASTS 37 % (0-0); LYMPHOCYTES 6 % (9-44); MONOCYTES 39 % (0-8); NEUTROPHIL # MANUAL DIFF 16.2 TH/MM3 (1.8-7.7); POLYS (SEG NEUTROPHILS) 18 % (16-70)
[2017-05-03] MEDS ORDERED: POTASSIUM CHLORIDE 20 MEQ CONTROLLED RELEASE TAB PO ONE (08:45)
--- NOTE | 2017-05-03 08:45 | PD.ONC.PN ---
Subjective Subjective Remarks Pt reports L knee pain which was severe last night. CT L knee done last night; this revealed an effusion. Pt feels the pain was like gout. He continues to feel weak and has a poor appetite. Had a low grade temp of 99.8F this AM. Objective Data Date Time Temp Pulse Resp B/P (MAP) Pulse Ox O2 Delivery O2 Flow Rate FiO2 05/03/17 06:08 99.8 61 16 130/43 (72) 95 05/03/17 01:48 16 05/03/17 00:25 98.0 63 18 147/60 (89) 98 05/02/17 20:26 98.1 78 18 131/54 (79) 96 05/02/17 15:37 98.3 62 24 114/48 (70) 97 05/02/17 12:40 98.1 60 24 125/53 (77) 94 05/02/17 09:56 Nasal Cannula 2.00 05/02/17 09:56 98.8 61 24 127/46 (73) 95 05/03/17 05/03/17 05/03/17 07:00 15:00 23:00 Intake Total 120 ml Output Total 800 ml Balance -680 ml Result Diagram: 05/03/17 0604 05/02/17 0513 Laboratory Results Laboratory Tests Test 05/03/17 06:04 White Blood Count 89.9 TH/MM3 Red Blood Count 3.25 MIL/MM3 Hemoglobin 9.2 GM/DL Hematocrit 28.0 % Mean Corpuscular Volume 86.0 FL Mean Corpuscular Hemoglobin 28.1 PG Mean Corpuscular Hemoglobin Concent 32.7 % Red Cell Distribution Width 19.4 % Platelet Count 14 TH/MM3 Mean Platelet Volume 8.7 FL Neutrophils (%) (Auto) 24.0 % Lymphocytes (%) (Auto) 4.4 % Monocytes (%) (Auto) 71.1 % Eosinophils (%) (Auto) 0.1 % Basophils (%) (Auto) 0.4 % Neutrophils # (Auto) 21.6 TH/MM3 Lymphocytes # (Auto) 3.9 TH/MM3 Monocytes # (Auto) 63.9 TH/MM3 Eosinophils # (Auto) 0.1 TH/MM3 Basophils # (Auto) 0.3 TH/MM3 CBC Comment AUTO DIFF Differential Total Cells Counted 100 Neutrophils % (Manual) 18 % Lymphocytes % 6 % Monocytes % 39 % Neutrophils # (Manual) 16.2 TH/MM3 Differential Comment FINAL DIFF MANUAL Blastocytes 37 % Platelet Estimate RARE Platelet Morphology Comment NORMAL Uric Acid 2.7 MG/DL Imaging Studies Last 24 hours Impressions Lower Extremity CT 05/03/17 0000 Signed Impressions: Service Date/Time: Wednesday, May 03, 2017 01:16 - CONCLUSION: Moderate joint effusion. Ronald Rucker MD Administered Medications Medications (Trade) Dose Ordered Sig/Amberly Route PRN Reason Start Time Stop Time Status Last Admin Dose Admin Sodium Chloride (NS Flush) 2 ml BID IV FLUSH 04/27/17 09:00 05/02/17 20:43 Senna/Docusate Sodium (Gertrude-Colace) 1 tab BID PO 04/27/17 09:00 05/02/17 20:44 Allopurinol (Zyloprim) 300 mg DAILY PO 04/27/17 09:00 05/02/17 10:05 Budesonide/ Formoterol Fumarate (Symbicort 80-4.5 Mcg Inh) 1 puff BID INH 04/27/17 09:00 05/02/17 20:43 Buspirone HCl (Buspar) 5 mg HS PO 04/26/17 22:30 05/02/17 20:45 Buspirone HCl (Buspar) 10 mg DAILY PO 04/27/17 09:00 05/02/17 10:05 Carbidopa/Levodopa (Sinemet 25-100 Mg) 1.5 tab TID PO 04/27/17 09:00 05/02/17 18:02 Mirtazapine (Remeron) 7.5 mg HS PO 04/26/17 22:30 05/02/17 20:44 Tiotropium [place] (Spiriva Inh) 18 mcg DAILY INH 04/27/17 09:00 05/02/17 10:07 Sodium Chloride 1,000 ml @ 50 mls/hr Q20H IV 04/26/17 23:45 05/02/17 10:15 Morphine Sulfate (Morphine Inj) 2 mg Q2H PRN IV PUSH PAIN SCALE 6 TO 10 04/26/17 23:45 05/03/17 00:23 Lorazepam (Ativan Inj) 1 mg Q1H PRN IV PUSH Seizure 04/26/17 23:45 04/29/17 00:38 Zolpidem Tartrate (Ambien) 5 mg HS PRN PO INSOMNIA 04/26/17 23:45 04/29/17 22:50 Chlorhexidine Gluconate (Chlorhexidine 2% Cloth) Taper DAILY@04 TOP 04/27/17 04:00 04/23/18 03:59 04/28/17 04:00 Levetriacetam (Keppra) 500 mg Q12HR PO 04/27/17 09:00 05/02/17 20:43 Famotidine (Pepcid Inj) 10 mg Q12HR IV PUSH 04/28/17 21:00 05/02/17 20:45 Atenolol (Tenormin) 25 mg Q12HR PO 04/29/17 01:00 05/02/17 20:44 Acetaminophen (Tylenol) 650 mg Q4H PRN PO SEE LABEL COMMENTS 04/30/17 08:30 04/30/17 13:07 Diphenhydramine HCl (Benadryl) 25 mg Q4H PRN PO SEE LABEL COMMENTS 04/30/17 08:30 04/30/17 13:07 Granisetron HCl (Kytril) 2 mg DAILY@1330 PO 05/01/17 13:30 05/05/17 13:31 05/02/17 13:30 Azacitidine 143.25 mg/Sodium Chloride 100 ml @ 200 mls/hr DAILY@1400 IV 05/01/17 14:00 05/05/17 14:29 05/02/17 15:19 Objective Remarks GENERAL: Elderly male, chronically ill and cachectic appearing. Laying in bed asleep comfortably but easily awoken. SKIN: Cool and dry. HEAD: Normocephalic. EYES: No scleral icterus. No injection or drainage. Conjunctivae are pale. Oral exam: He has a submucosal hematoma on the left side of his tongue. Left lower lip also has a bruise on it. NECK: Supple, trachea midline. No JVD or lymphadenopathy. LYMPHATIC: No adenopathy. CARDIOVASCULAR: Irregular, S1 and S2 normal obvious murmurs or gallops.. RESPIRATORY: Distant sounding breath sounds, prolonged expiratory phase but no wheezing or rhonchi or crepitus. GASTROINTESTINAL: Abdomen soft, non-tender, nondistended. EXTREMITIES: No cyanosis, or edema. MUSCULOSKELETAL: Atrophic muscle mass diffusely noted but especially in the lower extremities. NEUROLOGICAL: He is able to speak sentences. He does express understanding of our conversation. He is moving all 4 limbs spontaneously and purposefully. PSYCHIATRIC: Appropriate mood and affect; insight and judgment normal. Assessment/Plan Assessment 66y/o male admitted with seizure. Oncology consulted for CMML/MDS. history of a CVA, COPD, Parkinson's disease, coronary artery disease and chronic debility/frailty. His malignant hematologic diagnosis was established earlier in April 2017, he is currently treatment shannan. Plan 1. CMML/MDS overlap: After our discussion on 05/01/2017 (family meeting with the patient, his and myself) the patient and his conveyed their desire to pursue systemic therapy with [facility] in the hopes of controlling his CMML/MDS. Treatment was started at 05/01/2017, he will be scheduled for daily infusions for 5 consecutive days. 2. Anemia: d/t MDS STATUS POST 2 UNITS PACKED RED BLOOD CELL TRANSFUSION ON 04/30. 3. AMS: unclear etiology. He appears to be at baseline mentation today. 4. Thrombocytopenia: likely d/t MDS. 5. Replace potassium. 6. Start low dose prednisone for possible gout flare. Disposition: Continue palliative systemic therapy with [facility] as an inpatient. Treatment will continue until this Saturday. Following this he may be discharged to a residential facility because I anticipate he will have significant worsening cytopenias and will also need transportation to the outpatient oncology clinic for supportive packed red blood cell and platelet transfusions. De Hansen MD May 03, 2017 08:45
[2017-05-03] MEDS: BUDESONIDE-FORMOTEROL 80/4.5 MCG INHALER INH SCH ×2 (09:02→20:13)
[2017-05-03] MEDS: CARBIDOPA/LEVODOPA 25 MG/100 MG TAB PO SCH ×3 (09:02→19:51)
[2017-05-03] MEDS: predniSONE 20 MG TAB PO SCH (09:02)
[2017-05-03] MEDS: TIOTROPIUM BROMIDE 18 MCG INH INH SCH (09:02)
[2017-05-03] MEDS: DOCUSATE SODIUM 50 MG/SENNA 8.6 MG TAB PO SCH ×2 (09:03→20:14)
[2017-05-03] MEDS: busPIRone HCL 10 MG TAB PO SCH (09:03)
[2017-05-03] MEDS: FAMOTIDINE 20 MG/2 ML VIAL IV PUSH SCH ×2 (09:03→20:13)
[2017-05-03] MEDS: ALLOPURINOL 300 MG TAB PO SCH (09:03)
[2017-05-03] MEDS: levETIRAcetam 500 MG TAB PO SCH ×2 (09:03→20:15)
[2017-05-03] MEDS: ATENOLOL 25 MG TAB PO SCH ×2 (09:03→20:12)
[2017-05-03] MEDS: SODIUM CHLORIDE 0.9% FLUSH 10 ML FLUSH IV FLUSH SCH ×2 (09:04→20:14)
--- NOTE | 2017-05-03 11:01 | HHI.HCPN ---
Reason for visit a. To assist with evaluation and management of symptoms including: pain, dyspnea, weakness, decreased oral intake. b. To assist medical decision maker(s) with: better understanding of current medical conditions; weighing benefits/burdens of medical treatment options; making medical treatment decisions. Subjective/Interval History Patient seen and examined in his room on [facility] in the presence of his . Sleepy , lethargic and minimally verbal today. Patient reports that he did not sleep well last night due to left knee pain. Left knee edematous and feels warm to touch. Lower extremity CT 05/03/17 revealed moderate joint effusion. Patient`s reports that patient has a history of gout and the last time he had an attack was approximately 12 years ago. Per patient`s , patient not eating, appetite remains poor. Patient still endorsing fatigue and weakness. Patient was not able to participate with physical therapy today due to pain and increased weakness. Low grade temperature this morning of 99.8 degrees F. Laboratory workup today revealing WBC 89.9, Hgb 9.2, Hct 28.0, Plt count 14. Patient is very weak today and sleepy. Community DNR signed by patient`s who is the Health Care Surrogate. Patient and his agreeable to an informative hospice consult. requested to see hospice today. Patient may need assistance with completing another HCS form. Initially he wanted to have his Jayne Teran and his daughter Christi Novak as his Alternate HCS but when he signed the form he decided not put his daughter since she is fighting CML, instead he made his sister Brea Strong the alternate HCS. After his spoke to his daughter, she agreed to serve as his Alternate HCS and patient wants to complete a new form. Today patient is very lethargic, has received Morphine Sulfate for pain and is weak to sign. Palliative care will assist patient completing form when he is more awake and alert. Case discussed with sales operations lead Codi. . Family/friend interactions Patient`s at bedside. . Advance Directives Living Will: Completed, but not made available Health Care Surrogate: Copy in medical record Advance Directive Specifics Health Care Surrogate(s): Health Care Surrogate- Spouse-Jayne Teran([phone]) Alternate Health Care Surrogate-Brea Strong Patient is very weak today and sleepy. Community DNR signed by patient`s who is the Health Care Surrogate. Patient and his agreeable to an informative hospice consult. requested to see hospice today. Patient may need assistance with completing another HCS form. Initially he wanted to have his Jayne Teran and his daughter Christi Novak as his Alternate HCS but when he signed the form he decided not put his daughter since she is fighting CML, instead he made his sister Brea Strong the alternate HCS. After his spoke to his daughter, she agreed to serve as his Alternate HCS and patient wants to complete a new form. Today patient is very lethargic, has received Morphine Sulfate for pain and is weak to sign. Palliative care will assist patient completing form when he is more awake and alert. . Significant change in goals: Informative hospice consult today. . Objective Vital Signs Date Time Temp Pulse Resp B/P (MAP) Pulse Ox O2 Delivery O2 Flow Rate FiO2 05/03/17 06:08 99.8 61 16 130/43 (72) 95 05/03/17 01:48 16 05/03/17 00:25 98.0 63 18 147/60 (89) 98 05/02/17 20:26 98.1 78 18 131/54 (79) 96 05/02/17 20:26 Nasal Cannula 2.00 05/02/17 15:37 98.3 62 24 114/48 (70) 97 05/02/17 12:40 98.1 60 24 125/53 (77) 94 Intake & Output 05/03/17 05/03/17 07:00 19:00 Intake Total 120 ml Output Total 800 ml Balance -680 ml Intake Oral 120 ml Output Urine Total 800 ml Physical Exam CONSTITUTIONAL/GENERAL: Lethargic, sleepy and c/o pain to Left knee. TUBES/LINES/DRAINS:PIC, NC, Condom catheter SKIN: No jaundice, rashes, or lesions. Multiple ecchymotic areas on upper extremities. Skin temperature appropriate. Not diaphoretic. HEAD: Atraumatic. Normocephalic. EYES: Pupils equal and round and reactive. Extraocular motions intact. No scleral icterus. No injection or drainage. Fundi not examined. ENT: Hearing grossly normal. Nose without bleeding or purulent drainage. Moist oral mucosa-hematoma to left posterior tongue. Patient has a growth to his right side neck. NECK: Trachea midline. Supple, nontender. CARDIOVASCULAR: Irregular rate and rhythm without murmurs, gallops, or rubs. No JVD. Peripheral pulses symmetric. RESPIRATORY/CHEST: Symmetric, mild shortness of breath with conversation. Breath sounds equal but diminished bilaterally. Inspiratory wheezing to [place] GASTROINTESTINAL: Abdomen soft, non-tender, nondistended. No guarding. Bowel sounds present. GENITOURINARY: Without palpable bladder distension. Condom catheter MUSCULOSKELETAL: Extremities without clubbing, cyanosis.Left knee inflamed today , warm to touch. No mottling or clubbing. NEUROLOGICAL: Lethargic, sleepy and minimally verbal today.Motor and sensory grossly within normal limits. Follows commands.Moves all extremities with noticeable weakness to LLE. PSYCHIATRIC: No obvious anxiety/depression. no apparent hallucinations or other psychotic thought process. Diagnostic Tests Laboratory Laboratory Tests Test 04/30/17 16:55 05/01/17 12:15 05/02/17 05:13 05/03/17 06:04 Potassium Level 3.7 MEQ/L (3.5-5.1) 3.0 MEQ/L (3.5-5.1) Hemoglobin 9.2 GM/DL (13.0-17.0) 9.1 GM/DL (13.0-17.0) 9.2 GM/DL (13.0-17.0) Hematocrit 27.4 % (39.0-51.0) 27.4 % (39.0-51.0) 28.0 % (39.0-51.0) White Blood Count 69.9 TH/MM3 (4.0-11.0) 89.9 TH/MM3 (4.0-11.0) Red Blood Count 3.18 MIL/MM3 (4.50-5.90) 3.25 MIL/MM3 (4.50-5.90) Mean Corpuscular Volume 86.1 FL (80.0-100.0) 86.0 FL (80.0-100.0) Mean Corpuscular Hemoglobin 28.6 PG (27.0-34.0) 28.1 PG (27.0-34.0) Mean Corpuscular Hemoglobin Concent 33.2 % (32.0-36.0) 32.7 % (32.0-36.0) Red Cell Distribution Width 19.5 % (11.6-17.2) 19.4 % (11.6-17.2) Platelet Count 14 TH/MM3 (150-450) 14 TH/MM3 (150-450) Mean Platelet Volume 9.0 FL (7.0-11.0) 8.7 FL (7.0-11.0) Blood Urea Nitrogen 16 MG/DL (7-18) Creatinine 1.59 MG/DL (0.60-1.30) Random Glucose 112 MG/DL (74-106) Total Protein 5.2 GM/DL (6.4-8.2) Calcium Level 7.4 MG/DL (8.5-10.1) Sodium Level 141 MEQ/L (136-145) Chloride Level 105 MEQ/L (98-107) Carbon Dioxide Level 29.5 MEQ/L (21.0-32.0) Anion Gap 7 MEQ/L (5-15) Estimat Glomerular Filtration Rate 44 ML/MIN (>89) Protein Corrected Calcium 8.5 MG/DL (8.5-10.1) Neutrophils (%) (Auto) 24.0 % (16.0-70.0) Lymphocytes (%) (Auto) 4.4 % (9.0-44.0) Monocytes (%) (Auto) 71.1 % (0.0-8.0) Eosinophils (%) (Auto) 0.1 % (0.0-4.0) Basophils (%) (Auto) 0.4 % (0.0-2.0) Neutrophils # (Auto) 21.6 TH/MM3 (1.8-7.7) Lymphocytes # (Auto) 3.9 TH/MM3 (1.0-4.8) Monocytes # (Auto) 63.9 TH/MM3 (0-0.9) Eosinophils # (Auto) 0.1 TH/MM3 (0-0.4) Basophils # (Auto) 0.3 TH/MM3 (0-0.2) CBC Comment AUTO DIFF Differential Total Cells Counted 100 Neutrophils % (Manual) 18 % (16-70) Lymphocytes % 6 % (9-44) Monocytes % 39 % (0-8) Neutrophils # (Manual) 16.2 TH/MM3 (1.8-7.7) Differential Comment FINAL DIFF MANUAL Blastocytes 37 % (0-0) Platelet Estimate RARE (NORMAL) Platelet Morphology Comment NORMAL (NORMAL) Uric Acid 2.7 MG/DL (2.6-7.2) Result Diagram: 05/03/17 0604 05/02/17 0513 Imaging Last 24 hours Impressions Lower Extremity CT 05/03/17 0000 Signed Impressions: Service Date/Time: Wednesday, May 03, 2017 01:16 - CONCLUSION: Moderate joint effusion. Ronald Rucker MD Assessment and Plan Disease Oriented Problem List: (1) CMML (chronic myelomonocytic leukemia) (2) Seizure (3) Anemia of chronic disorder (4) Leukocytosis (5) Hypokalemia (6) Thrombocytopenia (7) COPD (chronic obstructive pulmonary disease) (8) Parkinson disease (9) Acute kidney failure Symptom Scale: (1) Dyspnea 0-10 Scale: Unable to quantify Comment: Multifactorial. Patient has history of COPD/emphysema on O2 2 L nasal cannula at home. Patient also has anemia. . (2) Generalized weakness 0-10 Scale: Unable to quantify Comment: Progressive. Patient his history of CMML/MDS, CVA . (3) Decreased oral intake 0-10 Scale: Unable to quantify Comment: Patient has poor appetite. . (4) Confusion 0-10 Scale: Unable to quantify Comment: Patient has history of CVA, recent seizure, COPD/emphysema on O2 2 L NC and anemia. . (5) Pain Comment: reports history of gout and recalls last attack about 12 years ago. Patient c/o pain to left knee. Inflamed and warm to touch. . Pertinent Non-Medical Issues Psychosocial:Patient was born and raised in [place]. He graduated from high school and had some college education. Patient was in the [employer] for 2 years. 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 Patient moved to [place] in early . Patient has been twice and was once. He has been to his second for 29 years. He has an adult daughter Christi Novak from his first marriage. Spiritual: Patient is Baptism Legal: reports that she thinks patient has a living will Ethical issues impacting care:None identified at this time. Important Contacts spouse-Jayne Teran([phone]) . Prognosis Mr. 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 Patient was brought in to the ER on 04/26/17 by [facility] after he had a witnessed seizure by his .Clinical course complicated with altered mental status, anemia, leucocytosis, thrombocytopenia and electrolyte abnormalities. Given ongoing comorbidities and recent hospitalization, and poor performance status limiting therapy options for patient, he remains at high risk for further complications, deterioration and decline. . Code Status: No Code Plan PLAN: Legal decision maker: Patient is alert and oriented x 3 with some confusion and forgetfulness. He appears to lack insight and judgment regarding his medical condition- recommending joint decision making with his Jayne Teran. In the event that patient becomes incapacitated, he has designated his Jayne Teran and his sister as his alternate healthcare surrogate. Goals: Aggressive short of no code. CODE STATUS: No Code DNR SYMPTOMS: * Dyspnea: Multifactorial. Patient has history of COPD/emphysema on O2 2 L nasal cannula at home. Patient also has anemia. Patient currently on O2 2L NC saturating in the mid to high 90s. Symbicort 80-4.4mcg inhaler BID, Spiriva 18mcg inhaler daily, Duonebs Q 2 HRS PRN. Patient also has 2mg Morphine Sulfate IVP Q 2 hrs. 05/01/17 Hgb 6.5. 2units pRBC transfused placed. No recommendations. * Generalized weakness: Progressive. Patient has a hx of CMML/MDS, CVA, COPD/ emphysema on O2 2 L nasal cannula. Physical therapy consulted. No recommendations. * Decreased oral intake: Patient has poor appetite. Patient reports feeling nauseated most of the times. Consuming 25 % of his meals. Patient states that his appetite is improving though his does not agree. No recommendations at this time. * Confusion:Patient has history of CVA, recent seizure, COPD/emphysema on O2 2 L NC and anemia. Per , patient seems to be at his baseline now. Continue monitoring. * Pain: reports history of gout and recalls last attack about 12 years ago. Patient c/o pain to left knee. Inflamed and warm to touch. Patient started on Prednisone 40mg daily. Patient has Hydrocodone5/325 Q 4 hrs prn, and Morphine Sulfate 2 mg Q 2 hrs prn Palliative care will continue to follow the patient during hospital course as condition evolves, to assist patient/decision-maker with understanding of their medical conditions, weighing benefits/burdens of treatment options, for clarification of goals of treatment. Additionally will assist with any symptoms of palliative concern Attestation To help prompt me to consider important information that might be impacting today's encounter and assessment, information from prior notes written by myself or my colleagues may have been "brought forward" into today's note. My signature on this note, however, is an attestation that I personally performed the exam, history, and/or decision-making noted today, and, unless otherwise indicated, the interactions with patient, family, and staff as well as the review of records all occurred today. I also attest that the listed assessment and stated plan reflect my best clinical judgment today based on the combination of historical information, prior notes, and today's exam/ interactions. When time spent is documented, it refers only to time spent today by the signer, or if indicated, combined time spent today by collaborating physician/nurse practitioner. Saul Bynum May 03, 2017 11:01
--- NOTE | 2017-05-03 11:19 | HHI.PR ---
Subjective Remarks Follow-up for CMML Patient stated that he feels very weak today. Denies any stress of breathing, chest pain, palpitation, leg and his dizziness. He's been afebrile but temperature mildly elevated today at 99.8. The tech was at the bedside during the interview and she stated that he will not keep his gown on. Patient stated that he is hot and thats why he has his gown off. I asked the tech to decreased temperature so his room is cooler since I thought it was live in housekeeper the room too. Otherwise no other events. Objective Vitals Vital Signs Date Time Temp Pulse Resp B/P (MAP) Pulse Ox O2 Delivery O2 Flow Rate FiO2 05/03/17 06:08 99.8 61 16 130/43 (72) 95 05/03/17 01:48 16 05/03/17 00:25 98.0 63 18 147/60 (89) 98 05/02/17 20:26 98.1 78 18 131/54 (79) 96 05/02/17 20:26 Nasal Cannula 2.00 05/02/17 15:37 98.3 62 24 114/48 (70) 97 05/02/17 12:40 98.1 60 24 125/53 (77) 94 I/O 05/02/17 05/02/17 05/02/17 05/03/17 05/03/17 05/03/17 07:00 15:00 23:00 07:00 15:00 23:00 Intake Total 200 ml 988 ml 835 ml 120 ml Output Total 950 ml 750 ml 800 ml Balance -750 ml 988 ml 85 ml -680 ml Intake Oral 200 ml 720 ml 120 ml IV Total 988 ml 115 ml Output Urine Total 950 ml 750 ml 800 ml Result Diagram: 05/03/17 0604 05/02/17 0513 Objective Remarks GENERAL: in NAD and awake. CARDIOVASCULAR: Regular rate and rhythm without murmurs, gallops, or rubs. RESPIRATORY: Breath sounds equal bilaterally. No accessory muscle use. GASTROINTESTINAL: Abdomen soft, non-tender, nondistended. NEURO: Moves all extremities grossly. Medications and IVs Current Medications Sodium Chloride 1,000 ml @ 999 mls/hr BOLUS ONCE IV Last administered on 04/26at 20:09; Start 04/26/17 at 20:15; Stop 04/26/17 at 21:15; Status DC Diltiazem HCl (Cardizem Inj) 24 mg ONCE PRN IV PUSH RESPONSE Last administered on 04/26/17at 20:09; Start 04/26/17 at 20:15; Stop 04/28/17 at 16:48; Status DC Diltiazem HCl 125 mg/Sodium Chloride 125 ml @ 5 mls/hr TITRATE PRN IV Tachycardia Last administered on 04/26/17at 21:44; Start 04/26/17 at 21:00; Stop 04/28/17 at 16:48; Status DC Sodium Chloride 1,000 ml @ 999 mls/hr BOLUS ONCE IV Last administered on 04/26at 21:10; Start 04/26/17 at 21:00; Stop 04/26/17 at 22:00; Status DC Potassium Chloride 100 ml @ 50 mls/hr ONCE ONCE IV Last administered on at 23:18; Start 04/26/17 at 22:15; Stop 04/27/17 at 00:14; Status DC Potassium Chloride (KCl) 60 meq ONCE ONCE PO Last administered on 04/26/17at 22 :32; Start 04/26/17 at 22:15; Stop 04/26/17 at 22:16; Status DC Sodium Chloride 1,000 ml @ 999 mls/hr BOLUS ONCE IV Last administered on 04/26at 22:12; Start 04/26/17 at 22:15; Stop 04/26/17 at 23:15; Status DC Lorazepam (Ativan Inj) 1 mg Q5M PRN IV PUSH SEIZURE; Start 04/26/17 at 22:30; Stop 04/26/17 at 23:54; Status DC Sodium Chloride 1,000 ml @ 100 mls/hr Q10H IV ; Start 04/26/17 at 22:18; Stop 04/27/17 at 00:03; Status DC Sodium Chloride (NS Flush) 2 ml UNSCH PRN IV FLUSH FLUSH AFTER USING IV ACCESS ; Start 04/26/17 at 22:30 Sodium Chloride (NS Flush) 2 ml BID IV FLUSH Last administered on 05/03/17at 09: 04; Start 04/27/17 at 09:00 Ondansetron HCl (Zofran Inj) 4 mg Q6H PRN IVP NAUSEA OR VOMITING; Start at 22:30 Acetaminophen (Tylenol) 650 mg Q6H PRN PO FEVER/PAIN SCALE 1 TO 2; Start at 22:30 Acetaminophen/ Hydrocodone Bitart ([place] 5-325 Mg) 1 tab Q4H PRN PO PAIN SCALE 3 TO 5; Start 04/26/17 at 22:30 Morphine Sulfate (Morphine Inj) 2 mg Q3H PRN IV PUSH Pain 6-10; Start 04/26/17 at 22:30; Stop 04/27/17 at 00:03; Status DC Senna/Docusate Sodium (Gertrude-Colace) 1 tab BID PO Last administered on at 09:03; Start 04/27/17 at 09:00 Magnesium Hydroxide (Milk Of Magnesia Liq) 30 ml Q12H PRN PO Mild constipation ; Start 04/26/17 at 22:30 Sennosides (Senokot) 17.2 mg Q12H PRN PO Moderate constipation; Start 04/26/17 at 22:30 Bisacodyl (Dulcolax Supp) 10 mg DAILY PRN RECTAL SEVERE CONSITIPATION; Start at 22:30; Stop 04/26/17 at 22:30; Status DC Lactulose (Lactulose Liq) 30 ml DAILY PRN PO SEVERE CONSITIPATION/ IF PO; Start 04/26/17 at 22:30 Allopurinol (Zyloprim) 300 mg DAILY PO Last administered on 05/03/17at 09:03; Start 04/27/17 at 09:00 Budesonide/ Formoterol Fumarate (Symbicort 80-4.5 Mcg Inh) 1 puff BID INH Last administered on 05/03/17at 09:02; Start 04/27/17 at 09:00 Buspirone HCl (Buspar) 5 mg HS PO Last administered on 05/02/17at 20:45; Start 04/26/17 at 22:30 Buspirone HCl (Buspar) 10 mg DAILY PO Last administered on 05/03/17at 09:03; Start 04/27/17 at 09:00 Carbidopa/Levodopa (Sinemet 25-100 Mg) 1.5 tab TID PO Last administered on 05/03at 09:02; Start 04/27/17 at 09:00 Mirtazapine (Remeron) 7.5 mg HS PO Last administered on 05/02/17at 20:44; Start 04/26/17 at 22:30 Tiotropium [place] (Spiriva Inh) 18 mcg DAILY INH Last administered on at 09:02; Start 04/27/17 at 09:00 Bisacodyl (Dulcolax Supp) 10 mg DAILY PRN RECTAL SEVERE CONSITIPATION/ IF NPO; Start 04/26/17 at 22:30 Diltiazem HCl (Cardizem Cd) 300 mg DAILY PO ; Start 04/27/17 at 09:00; Stop at 09:00; Status DC Sodium Chloride 1,000 ml @ 50 mls/hr Q20H IV Last administered on 05/02/17at 10 :15; Start 04/26/17 at 23:45 Sodium Chloride (NS Flush) 2 ml UNSCH PRN IV FLUSH FLUSH AFTER USING IV ACCESS ; Start 04/26/17 at 23:45; Stop 04/26/17 at 23:57; Status DC Sodium Chloride (NS Flush) 2 ml BID IV FLUSH ; Start 04/27/17 at 09:00; Stop at 09:00; Status DC Acetaminophen (Tylenol) 650 mg Q6H PRN PO PAIN 1-5 AND/OR FEVER >101F; Start at 23:45; Stop 04/26/17 at 23:57; Status DC Morphine Sulfate (Morphine Inj) 2 mg Q2H PRN IV PUSH PAIN SCALE 6 TO 10 Last administered on 05/03/17at 00:23; Start 04/26/17 at 23:45 Famotidine (Pepcid Inj) 20 mg Q12HR IV PUSH Last administered on 04/28/17at 08: 20; Start 04/27/17 at 09:00; Stop 04/28/17 at 13:11; Status DC Lorazepam (Ativan Inj) 1 mg Q1H PRN IV PUSH Seizure Last administered on at 00:38; Start 04/26/17 at 23:45 Ondansetron HCl (Zofran Inj) 4 mg Q6H PRN IV PUSH NAUSEA OR VOMITING; Start at 23:45; Stop 04/26/17 at 23:57; Status DC Zolpidem Tartrate (Ambien) 5 mg HS PRN PO INSOMNIA Last administered on at 22:50; Start 04/26/17 at 23:45 Albuterol/ Ipratropium (Duoneb Neb) 1 ampule Q6HR NEB INH Last administered on 04/30/17at 20:00; Start 04/27/17 at 04:00; Stop 05/01/17 at 03:59; Status DC Albuterol/ Ipratropium (Duoneb Neb) 1 ampule Q2HR NEB PRN INH WHEEZING; Start 04/26/17 at 23:45 Miscellaneous Information 1 Q361D XX ; Start 04/26/17 at 23:45 Chlorhexidine Gluconate (Chlorhexidine 2% Cloth) Taper DAILY@04 TOP Last administered on 04/28/17at 04:00; Start 04/27/17 at 04:00; Stop 04/23/18 at 03:59 Chlorhexidine Gluconate (Chlorhexidine 2% Cloth) 3 pack UNSCH PRN TOP HYGIENIC CARE; Start 04/26/17 at 23:45 Senna/Docusate Sodium (Gertrude-Colace) 1 tab BID PO ; Start 04/27/17 at 09:00; Stop 04/27/17 at 09:00; Status DC Magnesium Hydroxide (Milk Of Magnesia Liq) 30 ml Q12H PRN PO Mild constipation ; Start 04/26/17 at 23:45; Stop 04/26/17 at 23:57; Status DC Sennosides (Senokot) 17.2 mg Q12H PRN PO Moderate constipation; Start 04/26/17 at 23:45; Stop 04/26/17 at 23:57; Status DC Bisacodyl (Dulcolax Supp) 10 mg DAILY PRN RECTAL SEVERE CONSITIPATION; Start at 23:45; Stop 04/26/17 at 23:57; Status DC Lactulose (Lactulose Liq) 30 ml DAILY PRN PO SEVERE CONSITIPATION; Start at 23:45; Stop 04/26/17 at 23:57; Status DC Levetriacetam 100 ml @ 400 mls/hr Q12HR IV ; Start 04/27/17 at 09:00; Stop at 09:00; Status DC Sodium Chloride 1,000 ml @ 999 mls/hr Q1H1M IV Last administered on 04/27/17at 02:15; Start 04/27/17 at 02:15; Stop 04/27/17 at 03:15; Status DC Albumin Human 500 ml @ 250 mls/hr ONCE ONCE IV Last administered on at 03:58; Start 04/27/17 at 03:45; Stop 04/27/17 at 05:44; Status DC Potassium Chloride 100 ml @ 100 mls/hr Q1H IV Last administered on 04/27/17at 06:36; Start 04/27/17 at 03:45; Stop 04/27/17 at 06:44; Status DC Dextrose (D50w (Vial) Inj) 50 ml UNSCH PRN IV PUSH HYPOGLYCEMIA-SEE COMMENTS; Start 04/27/17 at 04:00; Stop 04/30/17 at 13:41; Status DC Glucagon (Glucagon Inj) 1 mg UNSCH PRN OTHER HYPOGLYCEMIA-SEE COMMENTS; Start 04/27/17 at 04:00; Stop 04/30/17 at 13:41; Status DC Insulin Human Regular (NovoLIN R SUPPLEMENTAL SCALE) 1 ACHS SLIDING SCALE SQ Last administered on 04/27/17at 21:21; Start 04/27/17 at 08:00; Stop 04/30/17 at 13:41; Status DC Calcium Gluconate 2 gm/Sodium Chloride 120 ml @ 120 mls/hr ONCE ONCE IV Last administered on 04/27/17at 05:31; Start 04/27/17 at 04:30; Stop 04/27/17 at 05:29 ; Status DC Magnesium Sulfate/ Dextrose 100 ml @ 100 mls/hr Q1H IV Last administered on at 08:43; Start 04/27/17 at 07:00; Stop 04/27/17 at 08:59; Status DC Levetriacetam (Keppra) 500 mg Q12HR PO Last administered on 05/03/17at 09:03; Start 04/27/17 at 09:00 Hydroxyurea (Hydrea) 500 mg ONCE ONCE PO Last administered on 04/27/17at 21:20 ; Start 04/27/17 at 21:00; Stop 04/27/17 at 21:01; Status DC Potassium Chloride 100 ml @ 50 mls/hr Q2H IV Last administered on 04/28/17at 05 :58; Start 04/28/17 at 04:00; Stop 04/28/17 at 07:59; Status DC Famotidine (Pepcid Inj) 10 mg Q12HR IV PUSH Last administered on 05/03/17at 09: 03; Start 04/28/17 at 21:00 Hydroxyurea (Hydrea) 500 mg ONCE ONCE PO Last administered on 04/28/17at 16:35 ; Start 04/28/17 at 15:00; Stop 04/28/17 at 15:01; Status DC Atenolol (Tenormin) 25 mg Q12HR PO Last administered on 05/03/17at 09:03; Start 04/29/17 at 01:00 Hydroxyurea (Hydrea) 250 mg DAILY PO ; Start 04/29/17 at 09:00; Status UNV Potassium Bicarb/ Potassium Chloride (K-Lyte Cl Eff) 50 meq ONCE ONCE PO Last administered on 04/30/17at 09:26; Start 04/30/17 at 08:45; Stop 04/30/17 at 08:48; Status DC Sodium Chloride 250 ml @ 15 mls/hr ONCE ONCE IV Last administered on at 08:30; Start 04/30/17 at 08:30; Stop 05/01/17 at 01:09; Status DC Acetaminophen (Tylenol) 650 mg Q4H PRN PO SEE LABEL COMMENTS Last administered on 04/30/17at 13:07; Start 04/30/17 at 08:30 Diphenhydramine HCl (Benadryl) 25 mg Q4H PRN PO SEE LABEL COMMENTS Last administered on 04/30/17at 13:07; Start 04/30/17 at 08:30 Furosemide (Lasix Inj) 20 mg ONCE ONCE IV PUSH Last administered on 04/30/17at 16:45; Start 04/30/17 at 08:30; Stop 04/30/17 at 08:48; Status DC Potassium Chloride (KCl) 40 meq ONCE ONCE PO ; Start 04/30/17 at 08:30; Stop at 08:31; Status UNV Magnesium Sulfate/ Dextrose 100 ml @ 100 mls/hr ONCE ONCE IV Last administered on 04/30/17at 17:06; Start 04/30/17 at 15:00; Stop 04/30/17 at 15:59 ; Status DC Hydroxyurea (Hydrea) 500 mg ONCE ONCE PO Last administered on 04/30/17at 16:49 ; Start 04/30/17 at 16:00; Stop 05/01/17 at 08:13; Status DC Sodium Chloride 250 ml @ 0 mls/hr UNSCH IV ; Start 05/01/17 at 13:30; Stop 05/05 at 23:59 Granisetron HCl (Kytril) 2 mg DAILY@1330 PO Last administered on 05/02/17at 13: 30; Start 05/01/17 at 13:30; Stop 05/05/17 at 13:31 Azacitidine 143.25 mg/Sodium Chloride 100 ml @ 200 mls/hr DAILY@1400 IV Last administered on 05/02/17at 15:19; Start 05/01/17 at 14:00; Stop 05/05/17 at 14:29 Potassium Bicarb/ Potassium Chloride (K-Lyte Cl Eff) 50 meq ONCE ONCE PO Last administered on 05/02/17at 10:06; Start 05/02/17 at 08:30; Stop 05/02/17 at 08:34; Status DC Miscellaneous (Pill Splitter) 1 ea UNSCH PRN OTHER SEE LABEL COMMENTS; Start at 10:00 Potassium Chloride (KCl) 40 meq ONCE ONCE PO Last administered on 05/03/17at 09 :02; Start 05/03/17 at 08:45; Stop 05/03/17 at 08:46; Status DC Prednisone (Deltasone) 40 mg DAILY PO Last administered on 05/03/17at 09:02; Start 05/03/17 at 09:00 A/P Assessment and Plan This is a 66-year-old male who presented with atrial fibrillation RVR and seizure activity Leukocytosis/CMML Anemia thrombocytopenia - Twisting Frame [employer]er is following. - So far cultures are all negative. - Monitor without antibiotics at this time - Hydrea and allopurinol added by hematology - Transfusions per hematology -Oncologist initiated palliative systemic therapy with [facility] as an inpatient and stated that treatment will continue until Saturday. Following this he may be discharged to a halfway facility because I anticipate he will have significant worsening cytopenias and will also need transportation to the outpatient oncology clinic for supportive packed red blood cell and platelet transfusions. -Poor prognosis palliative care following. Seizure - CT head negative, MRI no acute findings, EEG No sz - History of old CVA, Neurologically intact - Keppra 1000 twice a day - Neurology consultation, Dr. Sanford who cleared patient. - Metabolic encephalopathy seems resolved. Atrial fibrillation - Currently NSR, off Cardizem drip - No anticoagulation due to severe thrombocytopenia Hypotension-resolved - Severe dehydration - s/p IV fluid bolus, and continue IV maintenance fluid, but reduce to 50 ml per hour - Creatinine continues to improve. - IV albumin 1 Acute kidney injury -Creatinine is improving. On IV fluids. -Strict ins and outs. Avoid nephrotoxins. Hypokalemia - Replenish as needed. -Will need to give another dose. He may need to be on schedule potassium. Hyperglycemia - Insulin sliding scale Thrombocytopenia - Due to above - Monitor for bleed -No signs of bleeding. DVT GI prophylaxis - Teds SCDs - No pharmacological DVT prophylaxis due to thrombocytopenia - IV Pepcid Discharge Planning Once patient completes palliative chemotherapy will be discharge to rehabilitation. Last days on Saturday. Yelitza Cesar MD May 03, 2017 11:19
[2017-05-03 12:01] VITALS: BP 136/60; PULSE 58; RESP 20; TEMP 98.2; O2SAT 97
[2017-05-03 13:15] VITALS: O2SAT 94
[2017-05-03] MEDS: GRANISETRON HCL 1 MG TAB PO SCH (13:30)
[2017-05-03] MEDS: AZACITIDINE IV SCH (15:04)
[2017-05-03] MEDS: SODIUM CHLORIDE 0.9% IV SCH (15:04)
[2017-05-03 20:07] VITALS: BP 124/60; PULSE 57; RESP 16; TEMP 98.1; O2SAT 99
[2017-05-03 20:10] VITALS: PULSE 57
[2017-05-03] MEDS: LORazepam 2 MG/ML VIAL IV PUSH PRN (20:14)
[2017-05-03] MEDS: busPIRone HCL 5 MG TAB PO SCH (20:15)
[2017-05-03] MEDS: MIRTAZAPINE 15 MG TAB PO SCH (20:16)
[2017-05-03] MEDS: SODIUM CHLOR 0.9% 1000 ML INJ 1,000 ML IV SCH (20:17)
[2017-05-04] VITALS (14 sets, daily range): BP systolic 100–134; BP diastolic 50–67; PULSE 50–65; RESP 12–20; TEMP 97.8–99; O2SAT 92–99
[2017-05-04] MEDS: CHLORHEXIDINE GLUCONATE 2 % 1 PACK (2 CLOTHS) TOP SCH (04:00)
[2017-05-04 06:26] LABS: HEMATOCRIT 27.2 % (39.0-51.0); HEMOGLOBIN 8.9 GM/DL (13.0-17.0); MEAN CELL VOLUME 85.8 FL (80.0-100.0); MEAN CORPUSCULAR HEMOGLOBIN 28.1 PG (27.0-34.0); MEAN CORPUSCULAR HGB CONC 32.8 % (32.0-36.0); MEAN PLATELET VOLUME 8.6 FL (7.0-11.0); RED BLOOD COUNT 3.18 MIL/MM3 (4.50-5.90); RED CELL DISTRIBUTION WIDTH 20.3 % (11.6-17.2); WHITE BLOOD COUNT 75.7 TH/MM3 (4.0-11.0)
[2017-05-04 06:33] LABS: PLATELET COUNT 14 TH/MM3 (150-450)
[2017-05-04 07:40] LABS: BLASTS 12 % (0-0); LYMPHOCYTES 7 % (9-44); MONOCYTES 50 % (0-8); MYELOCYTES 2 % (0-0); NEUTROPHIL # MANUAL DIFF 23.5 TH/MM3 (1.8-7.7); POLYS (SEG NEUTROPHILS) 29 % (16-70)
[2017-05-04] MEDS: predniSONE 20 MG TAB PO SCH (10:30)
[2017-05-04] MEDS: levETIRAcetam 500 MG TAB PO SCH ×2 (10:30→20:38)
[2017-05-04] MEDS: ATENOLOL 25 MG TAB PO SCH ×2 (10:30→20:38)
[2017-05-04] MEDS: DOCUSATE SODIUM 50 MG/SENNA 8.6 MG TAB PO SCH ×2 (10:31→20:38)
[2017-05-04] MEDS: busPIRone HCL 10 MG TAB PO SCH (10:31)
[2017-05-04] MEDS: CARBIDOPA/LEVODOPA 25 MG/100 MG TAB PO SCH ×3 (10:31→17:02)
[2017-05-04] MEDS: ALLOPURINOL 300 MG TAB PO SCH (10:31)
[2017-05-04] MEDS: FAMOTIDINE 20 MG/2 ML VIAL IV PUSH SCH ×2 (10:31→20:39)
[2017-05-04] MEDS: SODIUM CHLORIDE 0.9% FLUSH 10 ML FLUSH IV FLUSH SCH ×2 (10:32→20:42)
[2017-05-04] MEDS: TIOTROPIUM BROMIDE 18 MCG INH INH SCH (11:14)
[2017-05-04] MEDS: BUDESONIDE-FORMOTEROL 80/4.5 MCG INHALER INH SCH ×2 (11:14→20:43)
--- NOTE | 2017-05-04 12:04 | HHI.PR ---
Subjective Remarks Follow-up for chemotherapy I went over the treatment plan with the patient and and they stated that his last treatment would be on Saturday not Saturday. Patient also requesting to go to [facility] which he can smoke tobacco. He stated that if he is now allowed to fill still go to the rehabilitation center. Patient stated that he feels less fatigued today. Deny any shortness of breathing, chest pain, palpitation or any other concerns. Objective Vitals Vital Signs Date Time Temp Pulse Resp B/P (MAP) Pulse Ox O2 Delivery O2 Flow Rate FiO2 05/04/17 10:27 99.0 59 12 110/52 (71) 99 05/04/17 04:35 98.6 62 20 100/50 (67) 92 05/04/17 04:06 59 05/04/17 00:14 56 05/04/17 00:07 92 3.50 05/04/17 00:07 88 2.00 05/04/17 00:02 97.9 62 20 112/55 (74) 92 05/03/17 20:10 57 05/03/17 20:07 98.1 57 16 124/60 (81) 99 05/03/17 13:15 94 Nasal Cannula 2.00 I/O 05/03/17 05/03/17 05/03/17 05/04/17 05/04/17 05/04/17 07:00 15:00 23:00 07:00 15:00 23:00 Intake Total 120 ml 480 ml Output Total 800 ml 400 ml Balance -680 ml 80 ml Intake Oral 120 ml 480 ml Output Urine Total 800 ml 400 ml Result Diagram: 05/04/17 0425 05/02/17 0513 Objective Remarks GENERAL: in NAD and awake. CARDIOVASCULAR: Regular rate and rhythm without murmurs, gallops, or rubs. RESPIRATORY: Breath sounds equal bilaterally. No accessory muscle use. GASTROINTESTINAL: Abdomen soft, non-tender, nondistended. NEURO: Moves all extremities grossly. Medications and IVs Current Medications Sodium Chloride 1,000 ml @ 999 mls/hr BOLUS ONCE IV Last administered on 04/26at 20:09; Start 04/26/17 at 20:15; Stop 04/26/17 at 21:15; Status DC Diltiazem HCl (Cardizem Inj) 24 mg ONCE PRN IV PUSH RESPONSE Last administered on 04/26/17at 20:09; Start 04/26/17 at 20:15; Stop 04/28/17 at 16:48; Status DC Diltiazem HCl 125 mg/Sodium Chloride 125 ml @ 5 mls/hr TITRATE PRN IV Tachycardia Last administered on 04/26/17at 21:44; Start 04/26/17 at 21:00; Stop 04/28/17 at 16:48; Status DC Sodium Chloride 1,000 ml @ 999 mls/hr BOLUS ONCE IV Last administered on 04/26at 21:10; Start 04/26/17 at 21:00; Stop 04/26/17 at 22:00; Status DC Potassium Chloride 100 ml @ 50 mls/hr ONCE ONCE IV Last administered on at 23:18; Start 04/26/17 at 22:15; Stop 04/27/17 at 00:14; Status DC Potassium Chloride (KCl) 60 meq ONCE ONCE PO Last administered on 04/26/17at 22 :32; Start 04/26/17 at 22:15; Stop 04/26/17 at 22:16; Status DC Sodium Chloride 1,000 ml @ 999 mls/hr BOLUS ONCE IV Last administered on 04/26at 22:12; Start 04/26/17 at 22:15; Stop 04/26/17 at 23:15; Status DC Lorazepam (Ativan Inj) 1 mg Q5M PRN IV PUSH SEIZURE; Start 04/26/17 at 22:30; Stop 04/26/17 at 23:54; Status DC Sodium Chloride 1,000 ml @ 100 mls/hr Q10H IV ; Start 04/26/17 at 22:18; Stop 04/27/17 at 00:03; Status DC Sodium Chloride (NS Flush) 2 ml UNSCH PRN IV FLUSH FLUSH AFTER USING IV ACCESS ; Start 04/26/17 at 22:30 Sodium Chloride (NS Flush) 2 ml BID IV FLUSH Last administered on 05/04/17at 10: 32; Start 04/27/17 at 09:00 Ondansetron HCl (Zofran Inj) 4 mg Q6H PRN IVP NAUSEA OR VOMITING; Start at 22:30 Acetaminophen (Tylenol) 650 mg Q6H PRN PO FEVER/PAIN SCALE 1 TO 2; Start at 22:30 Acetaminophen/ Hydrocodone Bitart ([place] 5-325 Mg) 1 tab Q4H PRN PO PAIN SCALE 3 TO 5; Start 04/26/17 at 22:30 Morphine Sulfate (Morphine Inj) 2 mg Q3H PRN IV PUSH Pain 6-10; Start 04/26/17 at 22:30; Stop 04/27/17 at 00:03; Status DC Senna/Docusate Sodium (Gertrude-Colace) 1 tab BID PO Last administered on at 10:31; Start 04/27/17 at 09:00 Magnesium Hydroxide (Milk Of Magnesia Liq) 30 ml Q12H PRN PO Mild constipation ; Start 04/26/17 at 22:30 Sennosides (Senokot) 17.2 mg Q12H PRN PO Moderate constipation; Start 04/26/17 at 22:30 Bisacodyl (Dulcolax Supp) 10 mg DAILY PRN RECTAL SEVERE CONSITIPATION; Start at 22:30; Stop 04/26/17 at 22:30; Status DC Lactulose (Lactulose Liq) 30 ml DAILY PRN PO SEVERE CONSITIPATION/ IF PO; Start 04/26/17 at 22:30 Allopurinol (Zyloprim) 300 mg DAILY PO Last administered on 05/04/17at 10:31; Start 04/27/17 at 09:00 Budesonide/ Formoterol Fumarate (Symbicort 80-4.5 Mcg Inh) 1 puff BID INH Last administered on 05/04/17at 11:14; Start 04/27/17 at 09:00 Buspirone HCl (Buspar) 5 mg HS PO Last administered on 05/03/17at 20:15; Start 04/26/17 at 22:30 Buspirone HCl (Buspar) 10 mg DAILY PO Last administered on 05/04/17 10:31; Start 04/27/17 at 09:00 Carbidopa/Levodopa (Sinemet 25-100 Mg) 1.5 tab TID PO Last administered on 05/04 10:31; Start 04/27/17 at 09:00 Mirtazapine (Remeron) 7.5 mg HS PO Last administered on 05/03/17at 20:16; Start 04/26/17 at 22:30 Tiotropium [place] (Spiriva Inh) 18 mcg DAILY INH Last administered on at 11:14; Start 04/27/17 at 09:00 Bisacodyl (Dulcolax Supp) 10 mg DAILY PRN RECTAL SEVERE CONSITIPATION/ IF NPO; Start 04/26/17 at 22:30 Diltiazem HCl (Cardizem Cd) 300 mg DAILY PO ; Start 04/27/17 at 09:00; Stop at 09:00; Status DC Sodium Chloride 1,000 ml @ 50 mls/hr Q20H IV Last administered on 05/03/17at 20 :17; Start 04/26/17 at 23:45 Sodium Chloride (NS Flush) 2 ml UNSCH PRN IV FLUSH FLUSH AFTER USING IV ACCESS ; Start 04/26/17 at 23:45; Stop 04/26/17 at 23:57; Status DC Sodium Chloride (NS Flush) 2 ml BID IV FLUSH ; Start 04/27/17 at 09:00; Stop at 09:00; Status DC Acetaminophen (Tylenol) 650 mg Q6H PRN PO PAIN 1-5 AND/OR FEVER >101F; Start at 23:45; Stop 04/26/17 at 23:57; Status DC Morphine Sulfate (Morphine Inj) 2 mg Q2H PRN IV PUSH PAIN SCALE 6 TO 10 Last administered on 05/03/17at 00:23; Start 04/26/17 at 23:45 Famotidine (Pepcid Inj) 20 mg Q12HR IV PUSH Last administered on 04/28/17at 08: 20; Start 04/27/17 at 09:00; Stop 04/28/17 at 13:11; Status DC Lorazepam (Ativan Inj) 1 mg Q1H PRN IV PUSH Seizure Last administered on at 20:14; Start 04/26/17 at 23:45 Ondansetron HCl (Zofran Inj) 4 mg Q6H PRN IV PUSH NAUSEA OR VOMITING; Start at 23:45; Stop 04/26/17 at 23:57; Status DC Zolpidem Tartrate (Ambien) 5 mg HS PRN PO INSOMNIA Last administered on at 22:50; Start 04/26/17 at 23:45 Albuterol/ Ipratropium (Duoneb Neb) 1 ampule Q6HR NEB INH Last administered on 04/30/17at 20:00; Start 04/27/17 at 04:00; Stop 05/01/17 at 03:59; Status DC Albuterol/ Ipratropium (Duoneb Neb) 1 ampule Q2HR NEB PRN INH WHEEZING; Start 04/26/17 at 23:45 Miscellaneous Information 1 Q361D XX ; Start 04/26/17 at 23:45 Chlorhexidine Gluconate (Chlorhexidine 2% Cloth) Taper DAILY@04 TOP Last administered on 04/28/17at 04:00; Start 04/27/17 at 04:00; Stop 04/23/18 at 03:59 Chlorhexidine Gluconate (Chlorhexidine 2% Cloth) 3 pack UNSCH PRN TOP HYGIENIC CARE; Start 04/26/17 at 23:45 Senna/Docusate Sodium (Gertrude-Colace) 1 tab BID PO ; Start 04/27/17 at 09:00; Stop 04/27/17 at 09:00; Status DC Magnesium Hydroxide (Milk Of Magnesia Liq) 30 ml Q12H PRN PO Mild constipation ; Start 04/26/17 at 23:45; Stop 04/26/17 at 23:57; Status DC Sennosides (Senokot) 17.2 mg Q12H PRN PO Moderate constipation; Start 04/26/17 at 23:45; Stop 04/26/17 at 23:57; Status DC Bisacodyl (Dulcolax Supp) 10 mg DAILY PRN RECTAL SEVERE CONSITIPATION; Start at 23:45; Stop 04/26/17 at 23:57; Status DC Lactulose (Lactulose Liq) 30 ml DAILY PRN PO SEVERE CONSITIPATION; Start at 23:45; Stop 04/26/17 at 23:57; Status DC Levetriacetam 100 ml @ 400 mls/hr Q12HR IV ; Start 04/27/17 at 09:00; Stop at 09:00; Status DC Sodium Chloride 1,000 ml @ 999 mls/hr Q1H1M IV Last administered on 04/27/17at 02:15; Start 04/27/17 at 02:15; Stop 04/27/17 at 03:15; Status DC Albumin Human 500 ml @ 250 mls/hr ONCE ONCE IV Last administered on at 03:58; Start 04/27/17 at 03:45; Stop 04/27/17 at 05:44; Status DC Potassium Chloride 100 ml @ 100 mls/hr Q1H IV Last administered on 04/27/17at 06:36; Start 04/27/17 at 03:45; Stop 04/27/17 at 06:44; Status DC Dextrose (D50w (Vial) Inj) 50 ml UNSCH PRN IV PUSH HYPOGLYCEMIA-SEE COMMENTS; Start 04/27/17 at 04:00; Stop 04/30/17 at 13:41; Status DC Glucagon (Glucagon Inj) 1 mg UNSCH PRN OTHER HYPOGLYCEMIA-SEE COMMENTS; Start 04/27/17 at 04:00; Stop 04/30/17 at 13:41; Status DC Insulin Human Regular (NovoLIN R SUPPLEMENTAL SCALE) 1 ACHS SLIDING SCALE SQ Last administered on 04/27/17at 21:21; Start 04/27/17 at 08:00; Stop 04/30/17 at 13:41; Status DC Calcium Gluconate 2 gm/Sodium Chloride 120 ml @ 120 mls/hr ONCE ONCE IV Last administered on 04/27/17at 05:31; Start 04/27/17 at 04:30; Stop 04/27/17 at 05:29 ; Status DC Magnesium Sulfate/ Dextrose 100 ml @ 100 mls/hr Q1H IV Last administered on at 08:43; Start 04/27/17 at 07:00; Stop 04/27/17 at 08:59; Status DC Levetriacetam (Keppra) 500 mg Q12HR PO Last administered on 05/04/17at 10:30; Start 04/27/17 at 09:00 Hydroxyurea (Hydrea) 500 mg ONCE ONCE PO Last administered on 04/27/17at 21:20 ; Start 04/27/17 at 21:00; Stop 04/27/17 at 21:01; Status DC Potassium Chloride 100 ml @ 50 mls/hr Q2H IV Last administered on 04/28/17at 05 :58; Start 04/28/17 at 04:00; Stop 04/28/17 at 07:59; Status DC Famotidine (Pepcid Inj) 10 mg Q12HR IV PUSH Last administered on 05/04/17at 10: 31; Start 04/28/17 at 21:00 Hydroxyurea (Hydrea) 500 mg ONCE ONCE PO Last administered on 04/28/17at 16:35 ; Start 04/28/17 at 15:00; Stop 04/28/17 at 15:01; Status DC Atenolol (Tenormin) 25 mg Q12HR PO Last administered on 05/04/17at 10:30; Start 04/29/17 at 01:00 Hydroxyurea (Hydrea) 250 mg DAILY PO ; Start 04/29/17 at 09:00; Status UNV Potassium Bicarb/ Potassium Chloride (K-Lyte Cl Eff) 50 meq ONCE ONCE PO Last administered on 04/30/17at 09:26; Start 04/30/17 at 08:45; Stop 04/30/17 at 08:48; Status DC Sodium Chloride 250 ml @ 15 mls/hr ONCE ONCE IV Last administered on at 08:30; Start 04/30/17 at 08:30; Stop 05/01/17 at 01:09; Status DC Acetaminophen (Tylenol) 650 mg Q4H PRN PO SEE LABEL COMMENTS Last administered on 04/30/17at 13:07; Start 04/30/17 at 08:30 Diphenhydramine HCl (Benadryl) 25 mg Q4H PRN PO SEE LABEL COMMENTS Last administered on 04/30/17at 13:07; Start 04/30/17 at 08:30 Furosemide (Lasix Inj) 20 mg ONCE ONCE IV PUSH Last administered on 04/30/17at 16:45; Start 04/30/17 at 08:30; Stop 04/30/17 at 08:48; Status DC Potassium Chloride (KCl) 40 meq ONCE ONCE PO ; Start 04/30/17 at 08:30; Stop at 08:31; Status UNV Magnesium Sulfate/ Dextrose 100 ml @ 100 mls/hr ONCE ONCE IV Last administered on 04/30/17at 17:06; Start 04/30/17 at 15:00; Stop 04/30/17 at 15:59 ; Status DC Hydroxyurea (Hydrea) 500 mg ONCE ONCE PO Last administered on 04/30/17at 16:49 ; Start 04/30/17 at 16:00; Stop 05/01/17 at 08:13; Status DC Sodium Chloride 250 ml @ 0 mls/hr UNSCH IV ; Start 05/01/17 at 13:30; Stop 05/05 at 23:59 Granisetron HCl (Kytril) 2 mg DAILY@1330 PO Last administered on 05/03/17at 13: 30; Start 05/01/17 at 13:30; Stop 05/05/17 at 13:31 Azacitidine 143.25 mg/Sodium Chloride 100 ml @ 200 mls/hr DAILY@1400 IV Last administered on 05/03/17at 15:04; Start 05/01/17 at 14:00; Stop 05/05/17 at 14:29 Potassium Bicarb/ Potassium Chloride (K-Lyte Cl Eff) 50 meq ONCE ONCE PO Last administered on 05/02/17at 10:06; Start 05/02/17 at 08:30; Stop 05/02/17 at 08:34; Status DC Miscellaneous (Pill Splitter) 1 ea UNSCH PRN OTHER SEE LABEL COMMENTS; Start at 10:00 Potassium Chloride (KCl) 40 meq ONCE ONCE PO Last administered on 05/03/17at 09 :02; Start 05/03/17 at 08:45; Stop 05/03/17 at 08:46; Status DC Prednisone (Deltasone) 40 mg DAILY PO Last administered on 05/04/17at 10:30; Start 05/03/17 at 09:00 A/P Assessment and Plan This is a 66-year-old male who presented with atrial fibrillation RVR and seizure activity Leukocytosis/CMML Anemia thrombocytopenia - [facility] is following. - So far cultures are all negative. - Monitor without antibiotics at this time - Hydrea and allopurinol added by hematology - Transfusions per hematology -Oncologist initiated palliative systemic therapy with Vidaza as an inpatient and stated that treatment will continue until Saturday. Following this he may be discharged to a penitentiary facility because I anticipate he will have significant worsening cytopenias and will also need transportation to the outpatient oncology clinic for supportive packed red blood cell and platelet transfusions. -Poor prognosis palliative care following. Seizure - CT head negative, MRI no acute findings, EEG No sz - History of old CVA, Neurologically intact - Keppra 1000 twice a day - Neurology consultation, Dr. Sanford who cleared patient. - Metabolic encephalopathy seems resolved. Atrial fibrillation - Currently NSR, off Cardizem drip - No anticoagulation due to severe thrombocytopenia Hypotension-resolved - Severe dehydration - s/p IV fluid bolus, and continue IV maintenance fluid, but reduce to 50 ml per hour - Creatinine continues to improve. - IV albumin 1 Acute kidney injury -Creatinine is improving. On IV fluids. -Strict ins and outs. Avoid nephrotoxins. Hypokalemia - Replenish as needed. -Will need to give another dose. He may need to be on schedule potassium. Hyperglycemia - Insulin sliding scale Thrombocytopenia - Due to above - Monitor for bleed -No signs of bleeding. DVT GI prophylaxis - Teds SCDs - No pharmacological DVT prophylaxis due to thrombocytopenia - IV Pepcid Discharge Planning Her oncologist last doses on Saturday but they do say they wanted 5 dose which looks like last dose will be on Saturday. Will discuss with case management and oncologist to clarify this. Yelitza Cesar MD May 04, 2017 12:04
--- NOTE | 2017-05-04 12:05 | PD.ONC.PN ---
Subjective Subjective Remarks Patient reports the gout in his left knee is improved since starting the steroids No bleeding Tolerating the chemotherapy Denies any acute complaints Objective Data Date Time Temp Pulse Resp B/P (MAP) Pulse Ox O2 Delivery O2 Flow Rate FiO2 05/04/17 10:27 99.0 59 12 110/52 (71) 99 05/04/17 04:35 98.6 62 20 100/50 (67) 92 05/04/17 04:06 59 05/04/17 00:14 56 05/04/17 00:07 92 3.50 05/04/17 00:07 88 2.00 05/04/17 00:02 97.9 62 20 112/55 (74) 92 05/03/17 20:10 57 05/03/17 20:07 98.1 57 16 124/60 (81) 99 05/03/17 13:15 94 Nasal Cannula 2.00 05/03/17 12:01 98.2 58 20 136/60 (85) 97 05/04/17 05/04/17 05/04/17 07:00 15:00 23:00 Intake Total 480 ml Output Total 400 ml Balance 80 ml Result Diagram: 05/04/17 0425 05/02/17 0513 Laboratory Results Laboratory Tests Test 05/04/17 04:25 White Blood Count 75.7 TH/MM3 Red Blood Count 3.18 MIL/MM3 Hemoglobin 8.9 GM/DL Hematocrit 27.2 % Mean Corpuscular Volume 85.8 FL Mean Corpuscular Hemoglobin 28.1 PG Mean Corpuscular Hemoglobin Concent 32.8 % Red Cell Distribution Width 20.3 % Platelet Count 14 TH/MM3 Mean Platelet Volume 8.6 FL CBC Comment AUTO DIFF Differential Total Cells Counted 100 Neutrophils % (Manual) 29 % Lymphocytes % 7 % Monocytes % 50 % Neutrophils # (Manual) 23.5 TH/MM3 Myelocytes 2 % Differential Comment FINAL DIFF MANUAL Blastocytes 12 % Platelet Estimate RARE Platelet Morphology Comment NORMAL Administered Medications Medications (Trade) Dose Ordered Sig/Amberly Route PRN Reason Start Time Stop Time Status Last Admin Dose Admin Sodium Chloride (NS Flush) 2 ml BID IV FLUSH 04/27/17 09:00 05/04/17 10:32 Senna/Docusate Sodium (Gertrude-Colace) 1 tab BID PO 04/27/17 09:00 05/04/17 10:31 Allopurinol (Zyloprim) 300 mg DAILY PO 04/27/17 09:00 05/04/17 10:31 Budesonide/ Formoterol Fumarate (Symbicort 80-4.5 Mcg Inh) 1 puff BID INH 04/27/17 09:00 05/04/17 11:14 Buspirone HCl (Buspar) 5 mg HS PO 04/26/17 22:30 05/03/17 20:15 Buspirone HCl (Buspar) 10 mg DAILY PO 04/27/17 09:00 05/04/17 10:31 Carbidopa/Levodopa (Sinemet 25-100 Mg) 1.5 tab TID PO 04/27/17 09:00 05/04/17 10:31 Mirtazapine (Remeron) 7.5 mg HS PO 04/26/17 22:30 05/03/17 20:16 Tiotropium [place] (Spiriva Inh) 18 mcg DAILY INH 04/27/17 09:00 05/04/17 11:14 Sodium Chloride 1,000 ml @ 50 mls/hr Q20H IV 04/26/17 23:45 05/03/17 20:17 Morphine Sulfate (Morphine Inj) 2 mg Q2H PRN IV PUSH PAIN SCALE 6 TO 10 04/26/17 23:45 05/03/17 00:23 Lorazepam (Ativan Inj) 1 mg Q1H PRN IV PUSH Seizure 04/26/17 23:45 05/03/17 20:14 Zolpidem Tartrate (Ambien) 5 mg HS PRN PO INSOMNIA 04/26/17 23:45 04/29/17 22:50 Chlorhexidine Gluconate (Chlorhexidine 2% Cloth) Taper DAILY@04 TOP 04/27/17 04:00 04/23/18 03:59 04/28/17 04:00 Levetriacetam (Keppra) 500 mg Q12HR PO 04/27/17 09:00 05/04/17 10:30 Famotidine (Pepcid Inj) 10 mg Q12HR IV PUSH 04/28/17 21:00 05/04/17 10:31 Atenolol (Tenormin) 25 mg Q12HR PO 04/29/17 01:00 05/04/17 10:30 Acetaminophen (Tylenol) 650 mg Q4H PRN PO SEE LABEL COMMENTS 04/30/17 08:30 04/30/17 13:07 Diphenhydramine HCl (Benadryl) 25 mg Q4H PRN PO SEE LABEL COMMENTS 04/30/17 08:30 04/30/17 13:07 Granisetron HCl (Kytril) 2 mg DAILY@1330 PO 05/01/17 13:30 05/05/17 13:31 05/03/17 13:30 Azacitidine 143.25 mg/Sodium Chloride 100 ml @ 200 mls/hr DAILY@1400 IV 05/01/17 14:00 05/05/17 14:29 05/03/17 15:04 Prednisone (Deltasone) 40 mg DAILY PO 05/03/17 09:00 05/04/17 10:30 Objective Remarks GENERAL: Chronically ill-appearing older male resting in bed in no obvious distress SKIN: Warm and dry. Multiple bruises with large area of ecchymosis to the inner right upper arm HEAD: Normocephalic. EYES: No injection or drainage. NECK: Supple, trachea midline. CARDIOVASCULAR: Regular rate and rhythm without murmurs. RESPIRATORY: Clear anteriorly. Breathing unlabored at rest. GASTROINTESTINAL: Abdomen soft, non-tender, nondistended. EXTREMITIES: No cyanosis. Left knee moderately swollen MUSCULOSKELETAL: Generalized weakness NEUROLOGICAL: No obvious focal deficit. Moving all extremities. Assessment/Plan Assessment 66y/o male admitted with seizure. Oncology consulted for CMML/MDS. history of a CVA, COPD, Parkinson's disease, coronary artery disease and chronic debility/frailty. His malignant hematologic diagnosis was established earlier in April 2017, he is currently treatment shannan. Plan 1. Patient is scheduled to have day #4/5 with azacitidine later today. 2. Blood counts stable. Will continue to monitor ecchymosis to right inner arm as well as monitor for bleeding. 3. Plan to transfuse platelets for worsening thrombocytopenia 4. Last dose of azacitidine planned for tomorrow. Attending Statement The exam, history, and the medical decision-making described in the above note were completed with the assistance of the mid-level provider. I reviewed and agree with the findings presented. I attest that I had a [id number] encounter with the patient on the same day, and personally performed and documented my assessment and findings in the medical record. he remains weak and not capable of self care. He will completed Vidaza tomorrow and the next cycle is in 4 weeks. Given performance status, diagnosis , counts and number of blasts in peripheral blood he is not likely to do well and will probably soon end up wit hospice care. Jasmine Jones May 04, 2017 12:05 Marc Miller MD May 04, 2017 17:53
[2017-05-04] MEDS: GRANISETRON HCL 1 MG TAB PO SCH (14:35)
[2017-05-04] MEDS: SODIUM CHLOR 0.9% 1000 ML INJ 1,000 ML IV SCH (14:40)
[2017-05-04 15:21] LABS: BICARBONATE 29.8 MEQ/L (21.0-32.0); CALCIUM 7.7 MG/DL (8.5-10.1); CREATININE 1.79 MG/DL (0.60-1.30); MAGNESIUM 1.7 MG/DL (1.5-2.5)
[2017-05-04] MEDS: AZACITIDINE IV SCH (16:11)
[2017-05-04] MEDS: SODIUM CHLORIDE 0.9% IV SCH (16:11)
[2017-05-04] MEDS: MIRTAZAPINE 15 MG TAB PO SCH (20:38)
[2017-05-04] MEDS: busPIRone HCL 5 MG TAB PO SCH (20:38)
[2017-05-05] VITALS (9 sets, daily range): BP systolic 114–134; BP diastolic 51–67; PULSE 49–61; RESP 14–19; TEMP 97.4–98.8; O2SAT 94–100
[2017-05-05] MEDS: CHLORHEXIDINE GLUCONATE 2 % 1 PACK (2 CLOTHS) TOP SCH (01:23)
[2017-05-05] MEDS ORDERED: PERI PO (11:23)
[2017-05-05] MEDS ORDERED: HYDR-3516 PO (11:23)
[2017-05-05] MEDS ORDERED: ATEN25TA PO (11:23)
[2017-05-05] MEDS ORDERED: LEVE500 PO (11:23)
[2017-05-05] MEDS ORDERED: GRAN1TAB PO (11:23)
[2017-05-05] MEDS: ALLOPURINOL 300 MG TAB PO SCH (11:24)
[2017-05-05] MEDS: BUDESONIDE-FORMOTEROL 80/4.5 MCG INHALER INH SCH (11:24)
[2017-05-05] MEDS: CARBIDOPA/LEVODOPA 25 MG/100 MG TAB PO SCH ×2 (11:24→14:08)
[2017-05-05] MEDS: levETIRAcetam 500 MG TAB PO SCH (11:24)
[2017-05-05] MEDS ORDERED: PRED20 PO (11:25)
[2017-05-05] MEDS: DOCUSATE SODIUM 50 MG/SENNA 8.6 MG TAB PO SCH (11:25)
[2017-05-05] MEDS: TIOTROPIUM BROMIDE 18 MCG INH INH SCH (11:25)
[2017-05-05] MEDS: FAMOTIDINE 20 MG/2 ML VIAL IV PUSH SCH (11:25)
[2017-05-05] MEDS: busPIRone HCL 10 MG TAB PO SCH (11:25)
[2017-05-05] MEDS: predniSONE 20 MG TAB PO SCH (11:25)
[2017-05-05] MEDS: ATENOLOL 25 MG TAB PO SCH (11:26)
[2017-05-05] MEDS: SODIUM CHLORIDE 0.9% FLUSH 10 ML FLUSH IV FLUSH SCH (11:27)
--- NOTE | 2017-05-05 11:27 | HHI.DS ---
Discharge Summary Admission Date Apr 26, 2017 at 22:20 Discharge Date: May 05, 2017 Admitting Diagnosis Afib RVR (1) CMML (chronic myelomonocytic leukemia) ICD Code: C93.10 - Chronic myelomonocytic leukemia not having achieved remission Diagnosis: Principal (2) Atrial fibrillation with rapid ventricular response ICD Code: I48.91 - Unspecified atrial fibrillation Diagnosis: Principal Status: Acute (3) Generalized weakness ICD Code: R53.1 - Weakness Diagnosis: Principal Status: Acute (4) Acute kidney failure ICD Code: N17.9 - Acute kidney failure, unspecified Diagnosis: Principal Status: Acute (5) Seizure ICD Code: R56.9 - Unspecified convulsions Diagnosis: Principal (6) Thrombocytopenia ICD Code: D69.6 - Thrombocytopenia, unspecified Diagnosis: Principal Procedures See hospital course Brief History - From Admission 66-year-old very pleasant gentleman with past medical history of Parkinson's disease and emphysema on home O2, CAD, CVA, recent diagnosis of CMML with background myelodysplasia syndrome was brought in by [facility] for seizure. Patient had witnessed seizure by his called 911. [facility]AC administered 2mg of ativan and shortly after the patient was found to be in atrial fibrillation with rapid ventricular response. CBC/BMP: 05/04/17 0425 05/04/17 1414 Significant Findings Laboratory Tests Test 05/03/17 06:04 05/04/17 04:25 05/04/17 14:14 White Blood Count 89.9 TH/MM3 (4.0-11.0) 75.7 TH/MM3 (4.0-11.0) Red Blood Count 3.25 MIL/MM3 (4.50-5.90) 3.18 MIL/MM3 (4.50-5.90) Hemoglobin 9.2 GM/DL (13.0-17.0) 8.9 GM/DL (13.0-17.0) Hematocrit 28.0 % (39.0-51.0) 27.2 % (39.0-51.0) Red Cell Distribution Width 19.4 % (11.6-17.2) 20.3 % (11.6-17.2) Platelet Count 14 TH/MM3 (150-450) 14 TH/MM3 (150-450) Lymphocytes (%) (Auto) 4.4 % (9.0-44.0) Monocytes (%) (Auto) 71.1 % (0.0-8.0) Neutrophils # (Auto) 21.6 TH/MM3 (1.8-7.7) Monocytes # (Auto) 63.9 TH/MM3 (0-0.9) Basophils # (Auto) 0.3 TH/MM3 (0-0.2) Lymphocytes % 6 % (9-44) 7 % (9-44) Monocytes % 39 % (0-8) 50 % (0-8) Neutrophils # (Manual) 16.2 TH/MM3 (1.8-7.7) 23.5 TH/MM3 (1.8-7.7) Blastocytes 37 % (0-0) 12 % (0-0) Platelet Estimate RARE (NORMAL) RARE (NORMAL) Myelocytes 2 % (0-0) Blood Urea Nitrogen 30 MG/DL (7-18) Creatinine 1.79 MG/DL (0.60-1.30) Random Glucose 183 MG/DL (74-106) Calcium Level 7.7 MG/DL (8.5-10.1) Estimat Glomerular Filtration Rate 38 ML/MIN (>89) Imaging Last Impressions Lower Extremity CT 05/03/17 0000 Signed Impressions: Service Date/Time: Wednesday, May 03, 2017 01:16 - CONCLUSION: Moderate joint effusion. Ronald Rucker MD Chest X-Ray 04/28/17 0600 Signed Impressions: Service Date/Time: Friday, April 28, 2017 02:25 - CONCLUSION: 1. No significant interval change with minimal bibasilar atelectasis. Seven Dailey MD Carotid Artery Ultrasound 04/27/17 0823 Signed Impressions: Service Date/Time: Thursday, April 27, 2017 14:08 - CONCLUSION: 1. 50-59%% stenosis within the right internal carotid artery. 2. No hemodynamically significant stenosis in the left carotid artery. 3. Cystic and solid mass of the right neck measuring 4.1 cm. Not emergent thyroid sonogram. Harpreet Patel MD Thyroid Ultrasound 04/27/17 0000 Signed Impressions: Service Date/Time: Thursday, April 27, 2017 18:03 - CONCLUSION: 1. Benign right subcentimeter nodule. 2. Otherwise unremarkable thyroid sonogram. 3. The mass seen in the right neck on previous carotid sonogram is not within the thyroid gland. This may be within the right parotid gland. Harpreet Patel MD Brain MRI 04/27/17 0000 Signed Impressions: Service Date/Time: Thursday, April 27, 2017 12:31 - CONCLUSION: 1. Chronic atrophic and small vessel ischemic changes without any evidence for acute hemorrhage or mass effect. 2. There is a mass in the region of the parotid gland on the right side with an approximate 3.0 cm cystic component not adequately characterized it could be characterized with neck CT if indicated clinically. Familia Antonio MD Head CT 04/26/17 0000 Signed Impressions: Service Date/Time: Wednesday, April 26, 2017 20:32 - CONCLUSION: No acute disease. Ruddy Huertas Jr., MD PE at Discharge GENERAL: in NAD and awake. CARDIOVASCULAR: Regular rate and rhythm without murmurs, gallops, or rubs. RESPIRATORY: Breath sounds equal bilaterally. No accessory muscle use. GASTROINTESTINAL: Abdomen soft, non-tender, nondistended. NEURO: Moves all extremities grossly. Pt update on day of discharge Follow-up for CMML and generalized weakness Patient stated that he feels less fatigued today. Denies any shortness of breathing, chest pain, palpitations, lightheadedness dizziness. I told him that after the chemotherapy dose today he will go to a rehabilitation facility. I also notify him that I am unsure if he is able to smoke tobacco there. Patient stated okay. He had no other concerns. Hospital Course This is a 66-year-old male who presented with atrial fibrillation RVR and seizure activity Leukocytosis/CMML Anemia thrombocytopenia - Film Or Tape Librarian is following. -Cultures were obtained secondary to leukocytosis all were negative. - He was initially put on antibiotics then taken off of antibiotics since cultures were negative. He continued to do the same without antibiotics. - Later Hydrea and allopurinol added by hematology - Patient also had Transfusions per hematology -Oncologist initiated palliative systemic therapy with Vidaza as an inpatient and stated that treatment will continue until Saturday the day patient was set for discharge. Following this he may be discharged to a care home facility because I anticipate he will have significant worsening cytopenias and will also need transportation to the outpatient oncology clinic for supportive packed red blood cell and platelet transfusions. -Poor prognosis so palliative care was consulted. -Patient wanted to go to rehabilitation center hoping that he would get stronger so that he can go home. Seizure - CT head negative, MRI no acute findings, EEG No sz - History of old CVA, Neurologically intact - Neurology consultation, in which patient was started on Keppra and Dr. Sanford who cleared patient. -After patient was treated with the Keppra seizures resolved.. Atrial fibrillation with RVR. -Patient went to sinus rhythm during the hospital course. He was on the Cardizem drip and switched to oral medication. At times when he has seizures his heart rate did increase. Once his seizure resolved heart rate was within normal limits. - No anticoagulation due to severe thrombocytopenia Hypotension-resolved - Severe dehydration - Patient was given IV fluids with resolution. He was also given a dose of albumin. - Creatinine improved during the hospital course. Acute kidney injury -Creatinine improved with IV fluids. -Strict ins and outs. Avoid nephrotoxins. Hypokalemia - Replenish as needed. Hyperglycemia - Patient was on Insulin sliding scale Thrombocytopenia - Due to above - Monitor for bleed -No signs of bleeding. Pt Condition on Discharge: Guarded Discharge Disposition: Discharge to SNF Discharge Time: > 30 minutes Discharge Instructions DIET: Follow Instructions for: Heart Healthy Diet Activities you can perform: Regular-No Restrictions Follow up Referrals: Oncology/Hematology - 1 Week with De Hansen MD SNF/[facility]/ - Daily New Medications: Atenolol (Atenolol) 25 Mg Tab 25 MG PO Q12HR for atrial fibrillation, #60 TAB 0 Refills Granisetron (Granisetron) 1 Mg Tab 2 MG PO DAILY@1330 for nausea, #30 TAB 0 Refills Hydrocodone/Acetaminophen (Hydrocodone-Acetamin 5-325 mg) 5 Mg-325 Mg Tablet 1 TAB PO Q4H PRN for moderate to severe pain, #20 TAB 0 Refills Levetiracetam (Keppra) 500 Mg Tab 500 MG PO Q12HR for seizure, #60 TAB 0 Refills Prednisone (Prednisone) 20 Mg Tab 40 MG PO DAILY for gout, #5 TAB 0 Refills Sennosides-Docusate Sodium (Gnp Senna Plus 8.6-50 mg) 8.6 Mg-50 Mg Tab 1 TAB PO BID for constipation, #30 TAB 0 Refills Continued Medications: Allopurinol (Zyloprim) 300 Mg Tab 300 MG PO DAILY for uric acid stones for 30 Days, #30 TAB Budesonide-Formoterol Inh (Symbicort Inh) 80-4.5 Mcg/Act Aero 1 PUFF INH BID for Asthma Management, #1 INHALER 0 Refills Buspirone (Buspirone) 10 Mg Tab 10 MG PO DAILY IN THE MORNING for Anxiety, TAB 0 Refills Buspirone (Buspirone) 5 Mg Tab 5 MG PO HS for Anxiety, TAB 0 Refills Carbidopa-Levodopa (Sinemet) 25-100 Mg Tab 1.5 TAB PO TID for Parkinson Disease Mgmt, #90 TAB 0 Refills Ipratropium-Albuterol Inh (Combivent Respimat Inh) 20-100 Chcf/Act Aero 1 PUFF INH QID for Asthma Management, #1 INHALER 0 Refills Mirtazapine (Mirtazapine) 7.5 Mg Tab 7.5 MG PO HS for Depression Control, #30 TAB 0 Refills Tiotropium Inh (Spiriva Handihaler) 18 Mcg Cap 18 MCG INH DAILY for COPD, #30 CAP 0 Refills 1 capsule = 18 mcg Discontinued Medications: Diltiazem CD 24 HR (Diltiazem CD 24 HR) 300 Mg Caper 300 MG PO DAILY, #30 CAP 0 Refills Lisinopril (Lisinopril) 10 Mg Tab 10 MG PO DAILY, #30 TAB 0 Refills Yelitza Cesar MD May 05, 2017 11:27
[2017-05-05] MEDS: SODIUM CHLOR 0.9% 1000 ML INJ 1,000 ML IV SCH (11:39)
--- NOTE | 2017-05-05 11:39 | PD.ONC.PN ---
Subjective Subjective Remarks Afebrile Pt hoping to be discharged today Will receive last dose of Vidaza later today Reports he has some mild nausea No bleeding Otherwise no acute complaints Objective Data Date Time Temp Pulse Resp B/P (MAP) Pulse Ox O2 Delivery O2 Flow Rate FiO2 05/05/17 08:57 96 Nasal Cannula 2.00 05/05/17 08:04 98.8 54 16 114/51 (72) 100 05/05/17 05:00 97.5 60 19 128/53 (78) 98 05/05/17 04:00 Nasal Cannula 2.00 21 05/05/17 01:00 56 05/05/17 00:15 97.4 55 15 134/67 (89) 99 05/05/17 00:00 49 05/05/17 00:00 Nasal Cannula 2.00 05/04/17 23:00 50 05/04/17 22:00 54 05/04/17 21:00 64 05/04/17 20:45 65 05/04/17 20:45 Nasal Cannula 2.00 05/04/17 20:00 97.8 65 18 134/67 (89) 95 05/04/17 20:00 64 05/04/17 19:00 60 05/04/17 16:20 98.3 54 14 117/58 (77) 97 05/04/17 13:32 98.5 58 14 105/52 (69) Result Diagram: 05/04/17 0425 05/04/17 1414 Laboratory Results Laboratory Tests Test 05/04/17 14:14 Blood Urea Nitrogen 30 MG/DL Creatinine 1.79 MG/DL Random Glucose 183 MG/DL Calcium Level 7.7 MG/DL Magnesium Level 1.7 MG/DL Sodium Level 140 MEQ/L Potassium Level 4.3 MEQ/L Chloride Level 105 MEQ/L Carbon Dioxide Level 29.8 MEQ/L Anion Gap 5 MEQ/L Estimat Glomerular Filtration Rate 38 ML/MIN Administered Medications Medications (Trade) Dose Ordered Sig/Amberly Route PRN Reason Start Time Stop Time Status Last Admin Dose Admin Sodium Chloride (NS Flush) 2 ml BID IV FLUSH 04/27/17 09:00 05/04/17 20:42 Senna/Docusate Sodium (Gertrude-Colace) 1 tab BID PO 04/27/17 09:00 05/04/17 20:38 Allopurinol (Zyloprim) 300 mg DAILY PO 04/27/17 09:00 05/04/17 10:31 Budesonide/ Formoterol Fumarate (Symbicort 80-4.5 Mcg Inh) 1 puff BID INH 04/27/17 09:00 05/04/17 20:43 Buspirone HCl (Buspar) 5 mg HS PO 04/26/17 22:30 05/04/17 20:38 Buspirone HCl (Buspar) 10 mg DAILY PO 04/27/17 09:00 05/04/17 10:31 Carbidopa/Levodopa (Sinemet 25-100 Mg) 1.5 tab TID PO 04/27/17 09:00 05/04/17 17:02 Mirtazapine (Remeron) 7.5 mg HS PO 04/26/17 22:30 05/04/17 20:38 Tiotropium [place] (Spiriva Inh) 18 mcg DAILY INH 04/27/17 09:00 05/04/17 11:14 Sodium Chloride 1,000 ml @ 50 mls/hr Q20H IV 04/26/17 23:45 05/04/17 14:40 Morphine Sulfate (Morphine Inj) 2 mg Q2H PRN IV PUSH PAIN SCALE 6 TO 10 04/26/17 23:45 05/03/17 00:23 Lorazepam (Ativan Inj) 1 mg Q1H PRN IV PUSH Seizure 04/26/17 23:45 05/03/17 20:14 Zolpidem Tartrate (Ambien) 5 mg HS PRN PO INSOMNIA 04/26/17 23:45 04/29/17 22:50 Chlorhexidine Gluconate (Chlorhexidine 2% Cloth) Taper DAILY@04 TOP 04/27/17 04:00 04/23/18 03:59 04/28/17 04:00 Levetriacetam (Keppra) 500 mg Q12HR PO 04/27/17 09:00 05/04/17 20:38 Famotidine (Pepcid Inj) 10 mg Q12HR IV PUSH 04/28/17 21:00 05/04/17 20:39 Atenolol (Tenormin) 25 mg Q12HR PO 04/29/17 01:00 05/04/17 20:38 Acetaminophen (Tylenol) 650 mg Q4H PRN PO SEE LABEL COMMENTS 04/30/17 08:30 04/30/17 13:07 Diphenhydramine HCl (Benadryl) 25 mg Q4H PRN PO SEE LABEL COMMENTS 04/30/17 08:30 04/30/17 13:07 Granisetron HCl (Kytril) 2 mg DAILY@1330 PO 05/01/17 13:30 05/05/17 13:31 05/04/17 14:35 Azacitidine 143.25 mg/Sodium Chloride 100 ml @ 200 mls/hr DAILY@1400 IV 05/01/17 14:00 05/05/17 14:29 05/04/17 16:11 Prednisone (Deltasone) 40 mg DAILY PO 05/03/17 09:00 05/04/17 10:30 Objective Remarks GENERAL: Chronically ill-appearing older male resting in bed in no obvious distress SKIN: Warm and dry. Multiple bruises with large area of ecchymosis to the inner right upper arm HEAD: Normocephalic. EYES: No injection or drainage. NECK: Supple, trachea midline. CARDIOVASCULAR: Regular rate and rhythm without murmurs. RESPIRATORY: Clear anteriorly. Breathing unlabored at rest. GASTROINTESTINAL: Abdomen soft, non-tender, nondistended. EXTREMITIES: No cyanosis. Left knee swelling improved MUSCULOSKELETAL: Generalized weakness NEUROLOGICAL: No obvious focal deficit. Moving all extremities. Assessment/Plan Assessment 66y/o male admitted with seizure. Oncology consulted for CMML/MDS. history of a CVA, COPD, Parkinson's disease, coronary artery disease and chronic debility/frailty. His malignant hematologic diagnosis was established earlier in April 2017, he is currently treatment shannan. Plan 1. Patient is scheduled to have day #5/5 with azacitidine later today. 2. Await CBC today. 3. Patient will need close follow-up in oncology clinic with Dr. Hansen after discharge for transfusion support. Attending Statement The exam, history, and the medical decision-making described in the above note were completed with the assistance of the mid-level provider. I reviewed and agree with the findings presented. I attest that I had a [id number] encounter with the patient on the same day, and personally performed and documented my assessment and findings in the medical record. patient doing poorly and remains weak. he will finish the Vidaza today. He will be going to hospice care center briefly and then if stable he would like to go home. will request follow up with Dr. Hansen. I am not sure he will be able to make follow up apt. Jasmine Jones May 05, 2017 11:39 Marc Miller MD May 05, 2017 16:19
[2017-05-05 11:53] LABS: HEMATOCRIT 27.6 % (39.0-51.0); HEMOGLOBIN 8.9 GM/DL (13.0-17.0); MEAN CELL VOLUME 86.2 FL (80.0-100.0); MEAN CORPUSCULAR HEMOGLOBIN 27.9 PG (27.0-34.0); MEAN CORPUSCULAR HGB CONC 32.4 % (32.0-36.0); RED CELL DISTRIBUTION WIDTH 19.5 % (11.6-17.2); WHITE BLOOD COUNT 41.6 TH/MM3 (4.0-11.0)
[2017-05-05 11:58] LABS: PLATELET COUNT 14 TH/MM3 (150-450)
[2017-05-05 13:08] LABS: BANDS 8 % (0-6); BLASTS 3 % (0-0); LYMPHOCYTES 6 % (9-44); MONOCYTES 40 % (0-8); MYELOCYTES 3 % (0-0); NEUTROPHIL # MANUAL DIFF 21.2 TH/MM3 (1.8-7.7); POLYS (SEG NEUTROPHILS) 40 % (16-70)
[2017-05-05] MEDS: GRANISETRON HCL 1 MG TAB PO SCH (14:09)
[2017-05-05] MEDS: SODIUM CHLORIDE 0.9% IV SCH (16:12)
[2017-05-05] MEDS: AZACITIDINE IV SCH (16:12)
== END 2017-05-05 19:02 | disposition hospice, inpatient (51) | DRG 100 ==
LOC: NEPE 19:47 → NEDA 22:20 → HCVI 04-27 00:27 → HIME 04-27 05:05 → HCIN 04-28 18:11
PROVIDERS: ADMIT Hospitalist; ATTEND Hospitalist
PROC: 30233N1 Transfusion of Nonautologous Red Blood Cells into Peripheral Vein, Percutaneous Approach (ICD-10-PCS; principal; 2017-04-27)
PROC: 30233R1 Transfusion of Nonautologous Platelets into Peripheral Vein, Percutaneous Approach (ICD-10-PCS; 2017-04-27)
PROC: 3E03305 Introduction of Other Antineoplastic into Peripheral Vein, Percutaneous Approach (ICD-10-PCS; 2017-05-01)
DX: G40.909 Epilepsy, unspecified, not intractable, without status epilepticus (principal); G93.41 Metabolic encephalopathy; N17.9 Acute kidney failure, unspecified; C93.10 Chronic myelomonocytic leukemia not having achieved remission; G20 Parkinson's disease; I95.9 Hypotension, unspecified; Z99.81 Dependence on supplemental oxygen; E11.65 Type 2 diabetes mellitus with hyperglycemia; I48.91 Unspecified atrial fibrillation; D46.9 Myelodysplastic syndrome, unspecified; E86.0 Dehydration; J43.9 Emphysema, unspecified; E87.6 Hypokalemia; I25.10 Atherosclerotic heart disease of native coronary artery without angina pectoris; F17.210 Nicotine dependence, cigarettes, uncomplicated; E78.00 Pure hypercholesterolemia, unspecified; M10.9 Gout, unspecified; E07.9 Disorder of thyroid, unspecified; F32.9 Major depressive disorder, single episode, unspecified; I10 Essential (primary) hypertension; Z51.5 Encounter for palliative care; Z66 Do not resuscitate; Z80.6 Family history of leukemia; Z80.1 Family history of malignant neoplasm of trachea, bronchus and lung; Z86.73 Personal history of transient ischemic attack (TIA), and cerebral infarction without residual deficits
CPT/HCPCS: 36430; 70450; 70551; 71045; 73700; 76536; 80048; 80053; 80061; 81001; 82550; 82948; 83605; 83615; 83735; 84100; 84132; 84155; 84484; 84550; 85007; 85014; 85018; 85027; 85049; 85060; 85384; 85610; 85730; 86850; 86900; 86901; 86920; 86922; 87040; 87641; 93005; 93880; 94640; 94664; 95819; 96361; 96365; 96375; J0610; J1940; J2060; J2270; J3475; J3480; J7030; J7050; J7512; J9025; P9016; P9035; P9045; Q0166